=== PATIENT | female | born 1970 | race Caucasian/White ===

== ENCOUNTER → 2021-05-28 13:53 | Outpatient (BNVA) | payer MEDICAID, SELFPAY | PROVIDERS: PCP Registered Nurse; Visit Provider Nurse Practitioner Family | DX: G43.109 Migraine with aura, not intractable, without status migrainosus (principal); G25.81 Restless legs syndrome; R06.83 Snoring | CPT/HCPCS: 99212 ==

== ENCOUNTER → 2021-11-18 14:20 | Outpatient (BNVA) | payer MEDICAID, SELFPAY | PROVIDERS: PCP Registered Nurse; Visit Provider Nurse Practitioner Family | DX: G43.109 Migraine with aura, not intractable, without status migrainosus (principal); G25.81 Restless legs syndrome | CPT/HCPCS: 99212 ==

== ENCOUNTER → 2022-05-26 14:12 | Outpatient (BNVA) | payer MEDICAID, SELFPAY | PROVIDERS: PCP Registered Nurse; Visit Provider Nurse Practitioner Family | DX: Z13.89 Encounter for screening for other disorder (principal) ==

== ENCOUNTER 2022-12-17 13:18 | Outpatient (AMB) | payer OTHER, SELFPAY ==
--- NOTE | 2022-12-17 13:22 | A.OFFVIS_ITS ---
Intake Vital Signs 12/17/22 13:39 Height 5 ft 1 in Weight 210 lb BMI 39.7 BP 118/84 Blood Pressure Location Rt brachial Position Sitting Intake Visit Reasons: 6m follow up migraine-Confirmed Intake Note: Patient presents for 6 month follow up migraine. Patient states this is a follow up. Allergies Penicillins Allergy (Severe, Verified 12/17/22 13:40) Rash Medication List - Last Reconciled 12/17/22 by HOMAR Harrison albuterol sulfate 0.8333 mg inhalation QID PRN amitriptyline 10 mg PO BEDTIME 30 days aspirin (Adult Low Dose Aspirin) 81 mg PO DAILY atorvastatin 80 mg PO DAILY carbidopa-levodopa 10-100 mg 1 tab PO BEDTIME PRN 30 days cetirizine 10 mg PO DAILY epinephrine IM DIRECTED fluocinonide 0.05% appl topical Q OTHER DAY PRN isosorbide mononitrate ER 30 mg PO DAILY magnesium oxide 400 mg PO BEDTIME 30 days metoprolol tartrate 25 mg PO BID montelukast 10 mg PO DAILY nitroglycerin 0.4 mg sublingual Q5M PRN oxybutynin chloride ER 10 mg PO DAILY rizatriptan 5 - 10 mg (0.5 - 1 x 10 mg) PO Q2H PRN 21 days topiramate 50 mg (2 x 25 mg) PO BID 30 days HPI HPI Comments History of Present Illness Details 52-yr-old female presents for f/u visit. Pt denies any significant interval medical changes. Pt reports she had an increase in her headache frequency. She is now having 12- 14 headache days per month. She had seen her PCP, and her topiramate was increased to 50mg bid, which has helped some. She finds her as needed medications are not effective any longer. Her RLS is a bit more active. She is needing to take CD-LD about 3 times per night. 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 She has tried weight blankets- but was allergic and cannot tolertae even sheets on her feet d/t her arthritis. [facility] Medical History Benign paroxysmal vertigo of both ears Surgical History H/O neck surgery History of carpal tunnel surgery History of cardiac cath H/O shoulder surgery Family History Father Heart disease Mother HTN (hypertension) Stroke Cancer Social History Alcohol intake: current Alcohol intake frequency: holidays/special occasions only Patient Tobacco Use Status: Former Tobacco user Quit Date: 2017 Years Smoked: 25 +/- Review of Systems Const All systems reviewed & are unremarkable except as noted in HPI and below Physical Exam Vital Signs: Last Vital Signs BP 118/84 12/17/22 13:39 BMI result Body Mass Index 39.7 Const General: cooperative and no acute distress Orientation/consciousness: patient oriented x3 HEENT Head: Yes normocephalic Resp Effort & Inspection: normal respiratory effort and able to speak in complete sentences Neuro General: patient oriented x3, gait normal and CN's II-XI intact bilaterally Cognition (Neuro): normal cognition Motor exam (neuro): 5/5 motor strength present throughout Psych Appearance: grossly normal Mental Status: mental status grossly normal Speech and movement: Normal speech and movement present Affect: normal affect Attitude: cooperative Thought process: Normal thought process present Thought content: Normal thought content present Insight: Good insight present (Psych) Judgement: Good judgement present (Psych) Assessment & Plan Assessment & Plan (1) Migraine with aura: Code(s): G43.109 - Migraine with aura, not intractable, without status migrainosus (2) Restless leg syndrome: Code(s): G25.81 - Restless legs syndrome Plan For migraine prevention tx: Continue amitriptyline 10 mg q.h.s. Continue topiramate 50 mg bid. Future considerations- CGRP MaB. For acute migraine tx: Continue Naprosyn, Excedrin as needed p.r.n. Retry Nurtec ODT 75mg qd prn migraine attacks, as pt had previous good effect from the samples. Hold- Rizatriptan- lost effectiveness. Hold Fioricet- cannot use w/ Nurtec. Previous trials- Sumatriptan- ineffective. Nurtec sample- effective. ? For restless legs: Continue carbidopa levodopa 1 tab q.h.s. as needed Hold pregabalin 25 mg t.i.d. and Horizant 300mg bid- not covered Pt previously failed gabapentin. Continue to stretch lower extremities. ? f/u in 6 months or sooner prn. Medications: New rimegepant (Nurtec ODT) 75 mg orally daily PRN; 30 days 30 tabs 6RF migraine headache Coding Level of Care Code Est Pt Level 4 (56762) Diagnoses Migraine with aura G43.109 Restless leg syndrome G25.81
[2022-12-17 13:39] VITALS: BP 118/84; BMI 39.7
== END 2022-12-17 14:18 | disposition home or self-care (01) ==
PROVIDERS: PCP Registered Nurse; Visit Provider Nurse Practitioner Family
DX: G43.109 Migraine with aura, not intractable, without status migrainosus (principal); G25.81 Restless legs syndrome
CPT/HCPCS: 99214

== ENCOUNTER → 2022-12-17 13:18 | Outpatient (BNVA) | payer OTHER, SELFPAY | PROVIDERS: PCP Registered Nurse; Visit Provider Nurse Practitioner Family ==

== ENCOUNTER 2023-11-01 10:58 | Outpatient (AMB) | payer OTHER, SELFPAY ==
--- NOTE | 2023-11-01 11:03 | MHC.OFFVIS ---
Vital Signs 11/01/23 11:05 Height 5 ft 1 in Weight 209 lb BMI 39.5 BP 124/80 Blood Pressure Location Rt brachial Pulse 63 Pulse Source Pulse Oximeter Pulse Oximetry (%) 98 Oxygen Delivery Method Room Air Intake Visit Reasons: 6 mnts f/u appt for Migraines-CONF Intake Note: Patient migraines are about the same Allergies Penicillins Allergy (Severe, Verified 11/01/23 11:19) Rash Medication List - Last Reconciled 11/01/23 by HOMAR Harrison albuterol sulfate 0.8333 mg inhalation QID PRN amitriptyline 10 mg PO BEDTIME 30 days aspirin (Adult Low Dose Aspirin) 81 mg PO DAILY atorvastatin 80 mg PO DAILY carbidopa-levodopa 10-100 mg 1 tab PO BEDTIME PRN 30 days cetirizine 10 mg PO DAILY epinephrine IM DIRECTED fluocinonide 0.05% appl topical Q OTHER DAY PRN isosorbide mononitrate ER 30 mg PO DAILY magnesium oxide 400 mg PO BEDTIME 30 days metoprolol tartrate 25 mg PO BID montelukast 10 mg PO DAILY nitroglycerin 0.4 mg sublingual Q5M PRN oxybutynin chloride ER 10 mg PO DAILY rimegepant (Nurtec ODT) 75 mg orally daily PRN; 30 days semaglutide 0.25 mg subcut QWEEK topiramate 50 mg (2 x 25 mg) PO BID 30 days HPI Comments Details: 53-yr-old female presents for f/u visit. 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 She deneis associated warmth, swelling, tingling/numbness. States her inflammatory markers were elevated and PCP referred her to her graduate research assistant for ? of vasculitis, however rheumatology did not feel this was vasculitis. Pt was then referred to vascular however neither referral site took her insurance. Pt states that she has episodes of bilateral wrist through hands numbness f/b pins and needles, which lasts about 10 minutes. 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, but can happen at home as well. Sleeps on her back with arms extended. She has a remote h/o carpal tunnel repair in her 20s- she had pain as well as paresthesias. She has a h/o trigger finger release. Rheumatology gives her hand injections. Has chronic neck pain. No radiating pain. No hand weakness, but cannot open jars. Her migraines have been stable. Nurtec is working well. Not needing to take too often. RLS s/s stable on prn CD-LD. PFSH Medical History Benign paroxysmal vertigo of both ears Surgical History H/O neck surgery History of carpal tunnel surgery History of cardiac cath H/O shoulder surgery Family History Father Heart disease Mother HTN (hypertension) Stroke Cancer Social History Alcohol intake: current Alcohol intake frequency: holidays/special occasions only Patient Tobacco Use Status: Former Tobacco user Years Smoked: 25 +/- Physical Exam Vital Signs: Last Vital Signs Pulse 63 11/01/23 11:05 BP 124/80 11/01/23 11:05 Pulse Ox 98 11/01/23 11:05 Oxygen Delivery Method Room Air 11/01/23 11:05 BMI result Body Mass Index 39.5 Const General: cooperative and no acute distress Orientation/consciousness: patient oriented x3 Resp Effort & Inspection: normal respiratory effort and able to speak in complete sentences Neuro Other: Bilateral Tinnel, Phalen, medial compression tets - negative. BLE pale with visible varicose veins. Skin warm to the touch. General: patient oriented x3 Cranial nerves: Yes CN's II-XII intact bilaterally Cognition (Neuro): normal cognition Motor exam (neuro): 5/5 motor strength present throughout Deep tendon reflexes (DTR's): Right patellar reflex intensity grade: 2+ and Left patellar reflex intensity grade: 2+ Psych Appearance: grossly normal Mental Status: mental status grossly normal Speech and movement: Normal speech and movement present Affect: normal affect Attitude: cooperative Assessment & Plan Assessment & Plan (1) Migraine with aura: Code(s): G43.109 - Migraine with aura, not intractable, without status migrainosus Category: Medical (2) Restless leg syndrome: Code(s): G25.81 - Restless legs syndrome Category: Medical (3) Numbness and tingling in both hands: Code(s): R20.0 - Anesthesia of skin; R20.2 - Paresthesia of skin Category: Medical (4) Varicose veins of both lower extremities: Code(s): I83.93 - Asymptomatic varicose veins of bilateral lower extremities Category: Medical Plan For migraine prevention tx: Continue amitriptyline 10 mg q.h.s. Continue topiramate 50 mg bid. Future considerations- CGRP MaB. ? For acute migraine tx: Continue Naprosyn, Excedrin as needed p.r.n. Continue Nurtec ODT 75mg qd prn migraine attacks, as pt had previous good effect from the samples. Hold Fioricet- cannot use w/ Nurtec. Previous trials- Sumatriptan- ineffective. Rizatriptan- lost effectiveness. ? For restless legs: Continue carbidopa levodopa 1 tab q.h.s. as needed Hold pregabalin 25 mg t.i.d. and Horizant 300mg bid- not covered Pt previously failed gabapentin. Continue to stretch lower extremities. For BUE hand numbness/tingling- Pt advised to undergo BUE EMG/NCS. For BLE varicose veins/episodes of redness- Will refer pt for [facility] vascular consult. ? f/u in 6 months or sooner prn. Orders: Orders NE electromyogram (EMG) Today R20.0 - Anesthesia of skin, R20.2 - Paresthesia of skin NE nerve conduction velocity Today R20.0 - Anesthesia of skin, R20.2 - Paresthesia of skin Referrals Vascular Surgery Referral I83.93 - Asymptomatic varicose veins of bilateral lower extremities Medications: Refilled topiramate 50 mg (2 x 25 mg) PO BID 120 tabs 6RF 30 days amitriptyline 10 mg PO BEDTIME 30 tabs 6RF 30 days Discontinued rizatriptan max 2 tabs per day or 4 tabs per week Discontinued Reason: Doctor's Order 5 - 10 mg (0.5 - 1 x 10 mg) PO Q2H 21 days PRN 12 tabs 3RF migraine headache Coding Level of Care Code Est Pt Level 4 (05924) Diagnoses Migraine with aura G43.109 Restless leg syndrome G25.81 Numbness and tingling in both hands R20.0; R20.2 Varicose veins of both lower extremities I83.93
[2023-11-01 11:05] VITALS: BP 124/80; PULSE 63; O2SAT 98; BMI 39.5
== END 2023-11-01 12:00 | disposition home or self-care (01) ==
PROVIDERS: PCP Registered Nurse; Visit Provider Nurse Practitioner Family
DX: G43.109 Migraine with aura, not intractable, without status migrainosus (principal); G25.81 Restless legs syndrome; R20.0 Anesthesia of skin; R20.2 Paresthesia of skin; I83.93 Asymptomatic varicose veins of bilateral lower extremities
CPT/HCPCS: 99214

== ENCOUNTER → 2023-11-01 10:58 | Outpatient (BNVA) | payer OTHER, SELFPAY | PROVIDERS: PCP Registered Nurse; Visit Provider Nurse Practitioner Family ==

== ENCOUNTER 2023-11-24 14:20 | Outpatient (REF) | payer OTHER, SELFPAY ==
--- NOTE | 2023-11-24 14:23 | EMG_ITS ---
Chief complaint: History of migraine, cervical ACDF, bilateral Carpal Tunnel Syndrome surgeries more than 20 years ago, with new onset 1 month of bilateral hand numbness. Reason for referral: Evaluate for Carpal Tunnel Syndrome Referred by: Hoa Landrum NP Procedure done: Bilateral upper extremities NCS/EMG Precautions and/or limitations: Past cervical fusion The limb temperature was monitored continuously and remained between 32-36 degrees C during the performance of the NCS. Nerve Conduction Studies Anti Sensory Summary Table ?Stim Site NR Onset (ms) Norm Onset (ms) Peak (ms) Norm Peak (ms) O-P Amp (?V) Norm O-P Amp Site1 Site2 Delta-0 (ms) Dist (cm) Jordan (m/s) Norm Jordan (m/s) Left Median Anti Sensory (2nd Digit) Wrist ? 2.8 3.6 <3.6 51.4 >10 Wrist 2nd Digit 2.8 14.0 50 Right Median Anti Sensory (2nd Digit) Wrist ? 2.7 3.5 <3.6 53.3 >10 Wrist 2nd Digit 2.7 14.0 52 Left Ulnar Anti Sensory (5th Digit) Wrist ? 2.8 3.5 <3.7 16.8 >15.0 Wrist 5th Digit 2.8 14.0 50 Right Ulnar Anti Sensory (5th Digit) Wrist ? 2.6 3.5 <3.7 14.1 >15.0 Wrist 5th Digit 2.6 14.0 54 Motor Summary Table ?Stim Site NR Onset (ms) Norm Onset (ms) O-P Amp (mV) Norm O-P Amp iAmp (mV) Amp (1st) (%) Site1 Site2 Delta-0 (ms) Dist (cm) Jordan (m/s) Norm Jordan (m/s) Left Median Motor (Abd Poll Brev) Wrist ? 3.8 <3.9 6.4 >4.5 7.8 100.0 Elbow Wrist 4.2 19.0 45 >45 Elbow ? 8.0 4.5 6.0 70.3 Right Median Motor (Abd Poll Brev) Wrist ? 3.8 <3.9 10.1 >4.5 12.5 100.0 Elbow Wrist 3.9 18.0 46 >45 Elbow ? 7.7 8.7 10.7 86.1 Left Ulnar Motor (Abd Dig Minimi) Wrist ? 2.9 <3.0 9.1 >5 12.6 100.0 B Elbow Wrist 3.0 15.5 52 >45 B Elbow ? 5.9 8.1 11.0 89.0 A Elbow B Elbow 2.1 10.0 48 >45 A Elbow ? 8.0 9.8 13.1 107.7 Right Ulnar Motor (Abd Dig Minimi) Wrist ? 3.0 <3.0 7.7 >5 9.3 100.0 B Elbow Wrist 3.0 16.5 55 >45 B Elbow ? 6.0 7.1 9.0 92.2 A Elbow B Elbow 1.7 10.0 59 >45 A Elbow ? 7.7 6.9 9.0 89.6 Comparison Summary Table ?Stim Site NR Peak (ms) Norm Peak (ms) P-T Amp (?V) Site1 Site2 Delta-P (ms) Norm Delta (ms) Left Median/Radial Dig I Comparison (Digit 1 - 10cm) Median ? 3.0 <2.9 30.5 Median Radial 0.4 Radial ? 2.6 <2.8 39.5 Right Median/Radial Dig I Comparison (Digit 1 - 10cm) Median ? 3.3 <2.9 65.0 Median Radial 0.7 Radial ? 2.6 <2.8 26.0 EMG ?Side Muscle Nerve Root Ins Act Fibs Psw Amp Dur Poly Recrt Int Pat Comment Right 1stDorInt Ulnar C8-T1 Nml Nml Nml Incr Incr 0 Nml Complete Right FlexCarRad Median C6-7 Nml Nml Nml Nml Nml 0 Nml Complete Right Biceps Musculocut C5-6 Nml Nml Nml Nml Nml 0 Nml Complete Right Triceps Radial C6-7-8 Nml Nml Nml Nml Nml 0 Nml Complete Right Deltoid Axillary C5-6 Nml Nml Nml Nml Nml 0 Nml Complete Left 1stDorInt Ulnar C8-T1 Nml Nml Nml Nml Nml 0 Nml Complete Left FlexCarRad Median C6-7 Nml Nml Nml Nml Nml 0 Nml Complete Left Biceps Musculocut C5-6 Nml Nml Nml Nml Nml 0 Nml Complete Left Triceps Radial C6-7-8 Nml Nml Nml Nml Nml 0 Nml Complete Left Deltoid Axillary C5-6 Nml Nml Nml Nml Nml 0 Nml Complete Right ExtIndicis Radial (Post Int) C7-8 Nml Nml Nml Nml Nml 0 Nml Complete FINDINGS: Significant interlatency difference seen between right median and radial nerve, 0.7. 0.4 on left side. Otherwise rest of motor and sensory nerves tested showed normal latencies, amplitudes and conduction velocities. Concentric needle EMG was performed in selected muscles of the bilateral upper extremities. Study revealedl signs of electric abnormalities as shown in the table above. Increased amplitude and duration seen on right FDI but in no other C8 innervated muscles. IMPRESSION: 1. 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 2. Chronic reinnervation changes seen on right FDI muscle on needle EMG. No other denervation or reinnervation seen on other C8 innervated muscles. This is a possible remnant of past cervical radiculopathy and/or surgery. 3. There is no electrodiagnostic evidence for ulnar neuropathy or brachial plexopathy. Thank you for your kind referral. Karyn Franz MD, NIDA Board Certified, [place] Board [employer] and Rehabilitation (ABPMR) Board Certified, [place] Board of Electrodiagnostic Medicine (ABEM) CODIN 26184 x 2 MTDD
== END 2023-11-24 14:21 | disposition home or self-care (01) ==
LOC: HO.NEURO 14:20
PROVIDERS: Visit Provider Nurse Practitioner Family
DX: R20.0 Anesthesia of skin (principal); R20.2 Paresthesia of skin
CPT/HCPCS: 95886; 95911

== ENCOUNTER → 2023-11-24 14:23 | Outpatient (BNV) | payer OTHER, SELFPAY | PROVIDERS: Visit Provider Physical Medicine & Rehabilitation | DX: R20.2 Paresthesia of skin (principal); R20.0 Anesthesia of skin; G56.11 Other lesions of median nerve, right upper limb | CPT/HCPCS: 95886; 95911 ==

== ENCOUNTER 2024-01-19 12:57 | Outpatient (AMB) | payer OTHER, SELFPAY ==
--- NOTE | 2024-01-19 13:13 | MHC.OFFVIS ---
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 Patient has varicose veins mostly on left leg. Pain to the touch on lower legs. States she gets a lot of tana horses. Non diabetic. Patient is a smoker. 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 She now presents to us for lower extremity vascular evaluation. Upon discussion with firm she reports that she had seen rheumatology and did not feel that her issues were related to vasculitis. 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 She reports that her legs are extremely swollen and painful by the end of the day. She does smoke a pack per day and most recently restarted with issues with her father and she is a nondiabetic. She does have a known history of arthritis as well. She reports that the discomfort is left more so than right. Patient denies any previous venous surgery or injections. Patient denies any history of DVT/ PE. Patient denies any history of phlebitis. Trial of compression includes - [id number] They now present for vascular evaluation [facility] Medical History Benign paroxysmal vertigo of both ears Surgical History H/O neck surgery History of carpal tunnel surgery History of cardiac cath H/O shoulder surgery Family History Father Heart disease Mother HTN (hypertension) Stroke Cancer Social History Alcohol intake: current Alcohol intake frequency: holidays/special occasions only Patient Tobacco Use Status: Former Tobacco user Years Smoked: 25 +/- Review of Systems Const All systems reviewed & are unremarkable except as noted in HPI and below Reports no additional complaints ENT Reports Normal hearing present Card Denies chest pain, Denies chest pain at rest, Denies chest pain with activity and Denies pedal edema Resp Denies cough GI Denies abdominal pain Musc Denies abnormal gait, Denies muscle cramps and Denies radiating pain into limb Skin/Breast Denies skin ulcer and Denies wounds Neuro Reports Normal hearing present and Denies abnormal gait Psych Reports no additional complaints Physical Exam Const General: cooperative, healthy appearing and comfortable Orientation/consciousness: oriented to person, oriented to place and oriented to time HEENT Head: Yes normal to inspection Neck Neck: Yes normal visual inspection Carotids: no bruits Chest Chest palpation & inspection: normal inspection of the chest Resp Effort & Inspection: normal respiratory effort and able to speak in complete sentences Auscultation: clear to auscultation bilaterally, no crackles, no rales, no rhonchi and no wheezes Cardio Rate: regular rate Rhythm: regular rhythm Heart sounds: S1 normal heart sound present and S2 normal heart sound present Bruits: no carotid bruits Peripheral pulses: Peripheral pulses 2+ throughout GI Inspection: Yes normal to inspection Skin Wounds: no wounds Hair: normal Neuro General: oriented to person, oriented to place and oriented to time Cranial nerves: Yes CN's II-XII intact bilaterally and Yes Normal hearing present Cognition (Neuro): normal cognition Motor exam (neuro): 5/5 motor strength present throughout Extrem Other: venous exam: +1 edema left greater than right some mild superficial varicosities General: No clubbing, No cyanosis and Yes edema Psych Appearance: grossly normal Mental Status: mental status grossly normal Speech and movement: Normal speech and movement present Assessment & Plan Assessment & Plan (1) Varicose veins of left lower extremity with inflammation: Code(s): I83.12 - Varicose veins of left lower extremity with inflammation Category: Medical Plan: Unclear etiology of lower extremity pain. She does have palpable arterial pulses. I have taken the liberty of ordering venous insufficiency testing to rule that out. This may be multifactorial in nature just by the mere fact that she has arthritis and most recently had a knee injection. She will follow up with us after venous insufficiency testing. We did discuss routine conservative measures including compression elevation and exercise. Thank you for allowing us to assist in her care. If there are any questions or concerns please do not hesitate to contact us. Orders: Orders US venous duplex LE BI 1 Week I83.12 - Varicose veins of left lower extremity with inflammation Coding Level of Care Code New Pt Level 4 (03789) Diagnoses Varicose veins of left lower extremity with inflammation I83.12
== END 2024-01-19 13:31 | disposition home or self-care (01) ==
PROVIDERS: PCP Registered Nurse; Visit Provider Surgery Vascular Surgery
DX: I83.12 Varicose veins of left lower extremity with inflammation (principal)
CPT/HCPCS: 99204

== ENCOUNTER → 2024-01-19 12:57 | Outpatient (BNVA) | payer OTHER, SELFPAY | PROVIDERS: PCP Registered Nurse; Visit Provider Surgery Vascular Surgery ==

== ENCOUNTER 2024-02-07 09:53 | Outpatient (REF) | payer OTHER, SELFPAY ==
--- NOTE | ~2024-02-07 | US_ITS ---
EXAMINATION: US VENOUS BILATERAL LOWER EXTREMITIES (REFLUX EXAM) CLINICAL INDICATION: Leg pain and varicose veins. COMPARISON: None available. TECHNIQUE: Color-flow triplex imaging and compression Doppler was performed to evaluate both the deep and the superficial systems bilaterally. To evaluate the superficial system, the examination was performed in the upright position. Color-flow Doppler ultrasound and compression ultrasound were utilized. In addition, maneuvers were utilized to demonstrate reflux. FINDINGS: 1. DEEP VENOUS ULTRASOUND OF THE RIGHT LOWER EXTREMITY: Respiratory variation, normal compression and augmented flow are noted in the right common femoral vein as well as the right popliteal vein and there is no evidence of deep venous thrombosis at these locations. There is no evidence of reflux in the deep system in either the common femoral vein or the popliteal vein. There is no evidence of a Verdin's cyst. 2. SUPERFICIAL ULTRASOUND WITH DOPPLER OF RIGHT LOWER EXTREMITY: The right great saphenous vein at the saphenofemoral junction measures 7 mm, at the proximal thigh 2 mm, at the mid thigh 2 mm, above the knee 1 mm, at the knee 2 mm, [id number] 2 mm, midcalf 1 mm and at the ankle measures 1 mm. Reflux of greater than 3 seconds is noted [id number]. Duplicated Right Great Saphenous Vein: Lateral accessory saphenous measuring 3 mm without reflux. The right small saphenous vein measures 2 mm and shows no reflux. Accessory Vein of Giacomini: None. Incompetent Perforators: None. Varices Present: None. 3. DEEP VENOUS ULTRASOUND OF THE LEFT LOWER EXTREMITY: Respiratory variation, normal compression and augmented flow are noted in the left common femoral vein as well as the left popliteal vein and there is no evidence of deep venous thrombosis at these locations. There is no evidence of reflux in the deep system in either the common femoral vein or the popliteal vein. There is no evidence of a Verdin's cyst. 4. SUPERFICIAL ULTRASOUND WITH DOPPLER OF LEFT LOWER EXTREMITY: Left great saphenous vein at the saphenofemoral junction measures 6 mm, at the proximal thigh 2 mm, at the mid thigh 2 mm, above the knee 2 mm, at the knee 2 mm, [id number] 1 mm, midcalf 1 mm and at the ankle measures 1 mm. There is no reflux demonstrated in the left great saphenous vein. Duplicated Left Great Saphenous Vein: 2 mm lateral accessory saphenous which does not reflux. The left small saphenous vein measures 2 mm and shows no reflux. Accessory Vein of Giacomini: None. Incompetent Perforators: None. Varices Present: None. ADDITIONAL FINDINGS: Incidental note made of a 4.0 x 2.0 x 3.2 cm medial Bakers cyst. US/US venous insuf bilat IMPRESSION: 1. No evidence of reflux or thrombus in the common femoral veins or popliteal veins bilaterally. 2. The right great saphenous vein shows reflux [id number]. 3. The left great saphenous vein shows no reflux. 4. The small saphenous veins are competent bilaterally. 5. Incidental note made of a 4 cm left Verdin's cyst. Electronically signed by: Abdias Granados MD 02/27/2024 10:30 AM PHIL ESPARZA
== END 2024-02-07 09:54 | disposition home or self-care (01) ==
LOC: HO.US 09:53
PROVIDERS: PCP Registered Nurse; Visit Provider Surgery Vascular Surgery
DX: I83.12 Varicose veins of left lower extremity with inflammation (principal)
CPT/HCPCS: 93970

== ENCOUNTER 2024-03-06 08:41 | Outpatient (AMB) | payer OTHER, SELFPAY ==
[2024-03-06 09:08] VITALS: BMI 39.5
--- NOTE | 2024-03-06 09:08 | MHC.OFFVIS ---
Vital Signs 03/06/24 09:08 Height 5 ft 1 in Weight 209 lb BMI 39.5 Intake Visit Reasons: follow up s/p US 02/07/24 Intake Note: follow up US 02/07/24 for left LE pain and VV w/ cramping. states she had a bruise on her left LE that was not caused from injury, unsure what is was from but very painful. Accompanied by: Son Allergies Penicillins Allergy (Severe, Verified 03/06/24 09:10) Rash [facility] follow up s/p US 02/07/24: Details: Very pleasant 53-year-old female presents for follow-up regarding venous insufficiency. 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 She now presents for follow-up with venous insufficiency testing. She does have large left lower extremity varicosities which have been a source of pain and discomfort for her. She has used compression with minimal relief. [facility] Medical History Benign paroxysmal vertigo of both ears Surgical History H/O neck surgery History of carpal tunnel surgery History of cardiac cath H/O shoulder surgery Family History Father Heart disease Mother HTN (hypertension) Stroke Cancer Social History Alcohol intake: current Alcohol intake frequency: holidays/special occasions only Patient Tobacco Use Status: Former Tobacco user Years Smoked: 25 +/- Review of Systems Const Reports as per HPI ENT Reports no additional complaints Card Denies chest pain, Denies chest pain at rest and Denies chest pain with activity Resp Denies chest congestion and Denies cough GI Reports no additional complaints Musc Details: pain over varicosities, aching of lower extremities, swelling, cramping, heaviness and tiredness, itching Denies abnormal gait Skin/Breast Reports pruritus and Denies wounds Neuro Reports no additional complaints and Denies abnormal gait Psych Denies no additional complaints Physical Exam Vital Signs: BMI result Body Mass Index 39.5 Const General: cooperative, healthy appearing and comfortable Orientation/consciousness: oriented to person, oriented to place and oriented to time Neck Carotids: no bruits Chest Chest palpation & inspection: normal inspection of the chest and normal palpation of entire chest wall Resp Effort & Inspection: normal respiratory effort and able to speak in complete sentences Cardio Rate: regular rate Heart sounds: S1 normal heart sound present and S2 normal heart sound present Peripheral pulses: Peripheral pulses 2+ throughout GI Inspection: Yes normal to inspection Skin Other: +2 edema, large rope-like varicosities greater than 4 mm left lateral leg CEAP Classification C4 - skin color changes Ep - Etiology Primary As - superficial veins P - reflux General skin exam: dry skin Neuro General: oriented to person, oriented to place and oriented to time Extrem Right lower extremity: full ROM, normal capillary refill and edema Left lower extremity: full ROM, normal capillary refill and edema Psych Mental Status: mental status grossly normal Results Reviewed Results Reviewed: Brief summary of venous insufficiency testing is as follows: right great saphenous vein: negative right small saphenous vein: negative right accessory vein: none present left great saphenous vein: negative left small saphenous vein: negative left accessory vein: none present Please note there is no evidence of any venous aneurysms or significant tortuosity Assessment & Plan Assessment & Plan (1) Varicose veins of left lower extremity with inflammation: Code(s): I83.12 - Varicose veins of left lower extremity with inflammation Category: Medical Plan: This patient has varicose veins with inflammation. They continue to be a source of discomfort for the patient. The patient has tried conservative treatment with compression, leg elevation and exercise program for over 3 months time. They have been compliant with all treatment. This has provided minimal relief for the patient. I do not anticipate this course of treatment will alter the underlying etiology. The patient has been scheduled for lower extremity venous treatment inclusive of --- left leg microphlebectomy. Risks, benefits, and complications of this procedure has been discussed in detail with the patient including but not limited to bleeding, infection, and the development of a DVT. The patient has demonstrated a clear understanding and has consented. We will schedule the patient as soon as possible. Thank you for allowing us to participate in this patient's care. If there are any questions or concerns please do not hesitate to contact us. Coding Level of Care Code Est Pt Level 4 (14793) Diagnoses Varicose veins of left lower extremity with inflammation I83.12
--- OUTSIDE RECORDS SUMMARY | 2024-03-07 19:03 | XMS_ITS | Continuity of Care Document ---
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 Plan of Treatment Reminders Order Date Submit Date Provider Last Modified By Organization Details Last Modified Time Details Appointments FOLLOW UP 30MIN 2024 09:15A M Malinda Hidalgo PA-C Not available Not available Not available Lab rapid flu (A+B) 2023 024 [facility] In-Office Order, Internal Use Only DO Not Attach Compendium DO Not Attach Compendium, Do Not Delete/merge, [id number] 02/25/2024 10:46:03 respirato ry infection s panel, unspecifi ed specimen 2023 024 [facility], [address], [place], [address], 02/27/2024 20:05:59 Referral None recorded. Procedures None recorded. Surgeries None recorded. Imaging XR, chest, 2 view 2023 024 [facility] Not available 02/26/2024 08:29:00 Medication Orders doxycycli ne hyclate 100 mg capsule 2023 024 [id number], [address] [place], [address], 02/25/2024 10:45:29 Patient TargetsNo targets recorded. Patient Instructions Encounter Date Encounter Id Patient Instructions Last Modified By Organization Details Last Modified Time 02/25/2024 [id number] upper respirator y infection (cold): care instructions Not available 02/25/2024 10:37:42 pneumonia: care instructions Not available 02/25/2024 10:45:24 Reason for Referral None Reported. Results Created Date Observation Date Name Description Value Unit Range Abnormal Flag Note LastModifiedBy Organization Detail LastModifiedTime 02/25/2002/25/2024 rapid flu (A+B) Flu A negati ve Not Available In-Office Order Internal Use Only DO Not Attach Compendium DO Not Attach Compendium, Do Not Delete/merge, [id number] 02/25/2024 10:28:56 02/25/20 24 02/25/2024 rapid flu (A+B) Flu B negati ve Not Available In-Office Order Internal Use Only DO Not Attach Compendium DO Not Attach Compendium, Do Not Delete/merge, [id number] 02/25/2024 10:28:56 02/26/20 24 02/25/2024 XR, chest , 2 view Chest 2 Views Fronta l and Lat Reason : commun ity axquir ed pneumo monique-ic d-10 COMPAR EDISON: 2018. FINDIN GS: LINES AND TUBES: None. LUNGS AND PLEURA : Clear lungs. Normal pulmon nataly vascul arity. No pleura l effusi on. No pneumo thorax . HEART, MEDIAS TINUM AND TROY: Heart is normal in size. Normal medias tinal and hilar contou r. BONES AND SOFT TISSUE S: No acute abnorm ality. IMPRES JENI: No acute abnorm ality. WSN: [id number] Orderi ng Physic duc: Keyur ta, Eulogio ie Dictat ed By: Nery OTT, Isaura hernandez O Dictat ed Date/T jody: 8:25 am Review ed By: Isaura Gabriel MD Signed By: Isaura Gabriel MD Signed Date/T jody: 8:25 am Transc ribed By: GAIL Transc ribed Date/T jody: 8:24 am Patialejandra lucero Class: Outpat ient [facility] (Outpt Imaging) [address], [place], [address], 02/26/2024 20:02:12 02/27/20 24 02/07/2024 [place], [facility] mity No observ ation record ed. [facility] (Medical Records) [address] [place], [address], 02/28/2024 09:06:36 Result Notes None recorded. Problems Name Problem SNOMED Code Status Onset Date Resolution Date Notes Provider Name and Address Organization Details Recorded Time Epigastr ic pain 57517798 Completed 05/10/2016 Jaylene betts [facility] [place] 7 11:02:22 Abdomina l pain 09695485 Completed 05/10/2016 Jaylene betts [facility] [place] 7 11:01:53 Allergic rhinitis 54307422 Completed 200910/09/2013 RECORDED 06/27/19 10 10:27AM BY RACHAEL MARRUFO MA, ANNOTATI ON/ADDEN DUM Jaylene betts [facility] [place] 7 08:51:51 Allergic rhinitis 75200190 Completed 05/10/2016 Jaylene betts [facility] [place] 7 08:51:51 Asthma 547581058 Active Maxine betts [facility] [place] 6 12:08:51 Acute asthma 699472197 Completed 05/10/2016 Jaylene betts [facility] [place] 7 11:02:10 Chest pain 78685730 Completed 05/10/2016 Jaylene betts [facility] [place] 7 11:02:04 Tobacco dependen ce syndrome 56875153 Completed 07/20/2018 Malinda Hidalgo, [facility] [address], [facility] [place], [address], [facility] 4 10:10:19 Elevated blood-pr essure reading without diagnosi s of hyperten jeni 932022497 Completed 201010/09/2013 RECORDED 12/22/19 11 3:26PM BY RACHAEL MARRUFO MA, ANNOTATI ON/ADDEN DUM Maxine aguilera null, [facility] [place] 6 12:08:51 Enthesop athy of hip region 76129833 Active Maxine betts, [facility] [place] 6 12:08:51 Gastroes ophageal reflux disease 889812404 Completed 200910/09/2013 RECORDED 06/27/19 10 10:27AM BY RACHAEL MARRUFO MA, ANNOTATI ON/ADDEN DUM Maxine aguilera null, [facility] [place] 6 12:08:51 Essentia l hyperten jeni 19689998 Active Maxine betts, [facility] [place] 6 12:08:51 Influenz a vaccine needed [id number] 06 Completed 05/10/2016 Jaylene betts, [facility] [place] 7 11:01:42 General examinat ion of patient Completed 200710/09/2013 RECORDED 11/28/19 08 2:32PM BY RACHAEL MARRUFO MA, ANNOTATI ON/ADDEN DUM Maxine betts, [facility] [place] 6 12:08:51 Influenz a with respirat ory manifest ation other than pneumoni a Completed 05/10/2016 Jaylene betts, [facility] [place] 7 11:02:29 Low back pain 696476364 Completed 200910/09/2013 RECORDED 06/27/19 10 10:27AM BY RACHAEL MARRUFO MA, ANNOTATI ON/ADDEN DUM Maxine betts [facility] [place] 6 12:08:51 Migraine 51604693 Active Maxine betts [facility] [place] 6 12:08:51 Eruption 430100627 Completed 200710/09/2013 RECORDED 11/28/19 08 2:32PM BY RACHAEL MARRUFO MA, ANNOTATI ON/ADDEN DUM Malinda Hidalgo, [facility] [address] [address] [place] [address] 2 13:14:35 Restless legs 15435076 Completed 05/10/2016 Jaylene betts, [facility] [place] 8 11:35:16 Adult health examinat ion Completed 05/10/2016 Jaylene betts, [facility] [place] 7 11:02:00 Dermatop hytosis of the body Active Maxine betts [facility] [place] 6 12:08:51 Injury of elbow 550283756 Completed 05/10/2016 Jaylene betts [facility] [place] 7 11:01:45 Allergy Completed 05/10/2016 Jaylene betts [facility] [place] 7 11:01:39 Allergic rhinitis 28414937 Completed 200911/05/2013 RECORDED 06/27/19 10 10:27AM BY RACHAEL MARRUFO MA, ANNOTATI ON/ADDEN DUM Jaylene betts [facility] [place] 7 08:51:51 Elevated blood-pr essure reading without diagnosi s of hyperten jeni 093161170 Completed 201011/05/2013 RECORDED 12/22/19 11 3:26PM BY RACHAEL MARRUFO MA, ANNOTATI ON/ADDEN DUM Maxine Tiesharob aguilera null, [facility] [place] 6 12:08:51 Gastroes ophageal reflux disease 296260247 Completed 200911/05/2013 RECORDED 06/27/19 10 10:27AM BY RACHAEL MARRUFO MA, BENNIEATI ON/ADDEN DUM Maxine Biswas ale null, [facility] [place] 6 12:08:51 General examinat ion of patient Completed 200711/05/2013 RECORDED 11/28/19 08 2:32PM BY RACHAEL MARRUFO MA, BENNIEATI ON/ADDEN DUM Maxine FullerEddie ale null, [facility] [place] 6 12:08:51 Follow-u p encounte r Completed 05/10/2016 Jaylene betts, [facility] [place] 7 11:02:18 Low back pain 707544819 Completed 200911/05/2013 RECORDED 06/27/19 10 10:27AM BY RACHAEL MARRUFO MA, ERICH ON/ADDEN DUM Maxine FullerSubhashrob aguilera null, [facility] [place] 6 12:08:51 Eruption [id number] Completed 200711/05/2013 RECORDED 11/28/19 08 2:32PM BY RACHAEL MARRUFO MA, ANNOTATI ON/ADDEN DUM Malinda Hidalgo [facility] [address] [address] [facility] 2 13:14:35 Body mass index 40+ - severely obese 038709817 Active Gregoria betts, [facility] [place] 8 17:58:43 Thoracic back pain 341133217 Active Maxine betts, [facility] [place] 6 12:08:51 Cough 50240058 Completed 05/10/2016 Jaylene betts, [facility] [place] 7 11:02:35 Urogenit al finding 398946652 Active STORY: RIGHT KIDNEY CYST U/S 07/05 Maxine betts, [facility] [place] 6 12:08:51 Thumb injury 676383447 Completed 05/10/2016 Jaylene betts, [facility] [place] 7 11:01:49 Bunion 328937112 Completed 05/10/2016 Jaylene betts, [facility] [place] 7 11:02:37 Disorder of breast 01469981 Completed 05/10/2016 Jaylene betts [facility] [place] 7 11:02:24 Metatars algia 51233339 Active Maxine betts [facility] [place] 6 12:08:51 Acute bronchit is 90348609 Completed 03/27/2016 [place], [facility] [place] 6 10:22:54 Pleuriti c pain 2713030 Completed 05/10/2016 Jaylene betts [facility] [place] 7 11:01:57 Atypical chest pain 945983216 Active Maxine betts [facility] [place] 6 12:13:25 Allergic rhinitis 88861992 Completed 201606/17/2016 Jaylene betts [facility] [place] 7 08:51:51 Hyperlip idemia 61811020 Active 2017 Arely Lopez PA-C [address], [place], [address] [place] [address] 8 13:20:18 Restless legs 87716865 Active 2017 Jaylene betts [facility] [place] 8 11:35:16 Snoring 87988379 Active 2017 Jaylene Díaz MA null, [facility] [place] 8 11:35:33 Heart disease 75592241 Active 07/2017 had pos ETT, sent for cardiac cath, had 90% blockage of LAD; stented Dr Tere araya null, [facility] [place] 9 15:32:25 Ex-smoke r 1980816 Active 2017 Rachael rowe [place] null, [facility] [place] 9 09:39:52 Suspecte d COVID-19 060443717 Completed 09/23/2020 Removal Reason: Problem added by user [email or web address] from the COVID-19 watch flag Shonda Vuong null, [facility] [place] 1 14:36:15 Prediabe michele 269582467 Active 2021 Malinda Hidalgo, [facility] [address], [place], [address], [facility] 2 13:14:34 Eruption 644015868 Active 2021 RECORDED 11/28/19 08 2:32PM BY RACHAEL MARRUFO MA, ANNOTATI ON/ADDEN DUM Malinda Hidalgo [facility] [address], [place], [address], [facility] 2 13:14:34 Fatigue 70772380 Active 2021 Malinda Hidalgo, [facility] [address], [place], [address], [facility] 2 13:23:33 Morbid obesity 287657436 Active 2021 Denise Dallas null, [facility] [place] 2 15:15:41 Benign paroxysm al position al vertigo 723150252 Active 2021 Malinda Hidalgo [facility] [address], [place], [address], [facility] 2 09:11:59 Tobacco dependen ce syndrome 63909863 Active 2023 Malinda Hidalgo [facility] [address], [place], [address], [facility] 4 10:10:19 Neck pain 96269031 Active 2023 Malinda Hidalgo [facility] [address], [place], [address], [facility] 4 12:17:05 Vasculit is of the skin 05561720 Active 2023 ALEXI Jane [address], [place], [address], [facility] 4 10:17:48 Venous varices 970442465 Active 2023 Malinda Hidalgo [facility] [address], [place], [address], [facility] 4 10:18:57 Overacti ve urinary bladder 687235625 Active 2023 ALEXI Jane [address], [place], [address], [facility] 4 09:27:28 Headache 24272217 Active 2023 Malinda Hidalgo [facility] [address], [place], [address], [facility] 4 09:39:53 Problem Notes None recorded. Procedures Surgical History Date Name Laterality Status Provider Name and Address Organization Details Recorded Time 06/20/19 Most Recent Mammogram completed Maxine Gallo MA [facility] [place] 10/05/2022 09:02:08 12/27/19 21 Date of Last Pap Smear completed Monica Mesa MA [facility] [place] 09/22/2021 13:06:35 06/15/19 21 Mammogram screening completed Brittany Green [facility] [place] 06/24/2020 16:15:31 05/31/19 19 angiography of coronary artery completed Kathy McCoy [facility] [place] 05/30/2018 09:37:32 08/06/19 18 Coronary art/grft angio s&i completed Bella Lopezno [facility] [place] 08/10/2017 11:28:44 02/19/20 15 Ultrasound breast complete completed Dilia Howe [facility] [place] 02/19/2015 09:44:02 release of trigger thumb completed Rachael mendez MA [facility] [place] 04/05/2018 14:55:44 Tonsillectomy completed Monica jones MA [facility] [place] 09/22/2021 12:54:58 Imaging Results None recorded. Procedure Notes None recorded. Medical Equipment None Reported. Allergies Allergen ID Allergen Name Allergen Category Reaction Reaction Severity Criticality Documentation Date Start Date Code Code System Note Provider Name and Address Organization Details Recorded Time 17141 Glycine max (substanc e) environme nt,food,m edication other Not available Not available 11/02/20132013 12573 5007 SNOMED [place] [facility] [place] 2 12:54:40 30281 potato allergeni c extract food Not available Not available Not available 04/05/2018 45214 2 RxNorm [place] Martinez [facility] [place] 2 12:54:40 7541 Product containin g angiotens in-conver ting enzyme inhibitor (product) medicatio n cough Not available Not available 10/09/20132013 71482 009 SNOMED Lisin opril [place] Garzon [facility] [place] 5 13:15:24 7542 omeprazol e medicatio n abdominal pain Not available Not available 10/09/20132013 7646 RxNorm [place] Martinez, [facility] [place] 2 12:54:40 7543 Medicinal product containin g penicilli n and acting as antibacte rial agent (product) medicatio n other Not available Not available 10/09/20132013 50059 05 SNOMED [facility] 13:15:24 Medications Name Sig Start Date Stop Date Status Note LastModified by Organization Details LastModified Time carbidopa /levodopa 10-100 mg tabs 1 tablet daily by mouth 06/17 completed Not Available Not Available Not Available epipen 2-liban 0.3 mg/0.3ml soaj 06/12 completed Not Available Not Available Not Available naproxen 500 mg tabs 06/12 completed Not Available Not Available Not Available flovent hfa 110 mcg/act aero 06/12 completed Not Available Not Available Not Available monteluka st sodium 10 mg tabs 06/12 completed Not Available Not Available Not Available cetirizin e hcl/pseud oephedrin e hcler 5-120 mg tb12 1 tablet daily by mouth 05/10 completed Not Available Not Available Not Available flucelvax 1839-3673 .5 ml israel 06/12 completed Not Available Not Available Not Available Elocon 0.1 % topical cream APPLY A THIN LAYER TO THE AFFECTED AREA(S) BY TOPICAL ROUTE ONCE DAILY 04/05 completed Not Available Not Available Not Available cyclobenz aprine 10 mg tablet TAKE ONE TABLET BY MOUTH THREE TIMES A DAY FOR 5 DAYS 10/03 completed Not Available Not Available Not Available budesonid e 32 mcg/actua tion nasal spray 1 SPRAY INTO EACH NOSTRIL EVERY DAY 11/14 completed Not Available Not Available Not Available bupropion HCl SR 150 mg tablet,12 hr sustained -release TAKE 1 TABLET BY MOUTH TWICE A DAY 01/25 completed Not Available Not Available Not Available atorvasta tin 80 mg tablet TAKE ONE TABLET BY MOUTH EVERY DAY active Not Available Not Available No t Available prednison e 10 mg tablet TAKE 5 DAILY FOR 2 DAYS THE 4 DAILY FOR 2 DAYS THEN 3 DAILY FOR 2 DAYS THEN 2 DAILY FOR 2 DAYS THEN 1 DAILY FOR 2 DAYS 09/22 completed Not Available Not Available Not Available doxycycli ne hyclate 100 mg capsule TAKE ONE CAPSULE BY MOUTH TWICE A DAY FOR 10 DAYS active Not Available Not Available No t Available albuterol sulfate 2.5 mg/3 mL (0.083 %) solution for nebulizat ion Inhale 1 mL 4 times a day by nebuliza tion route as needed for 30 days. 2023 active Not Available Not Available Not Avai lable cetirizin e 10 mg tablet TAKE ONE TABLET BY MOUTH EVERY DAY DIRECTED active Not Available Not Available No t Available oxybutyni n chloride ER 10 mg tablet,ex tended release 24 hr TAKE ONE TABLET BY MOUTH EVERY DAY active Not Available Not Available No t Available azithromy winter 250 mg tablet TAKE 2 TABLETS (500 MG) BY ORAL ROUTE ONCE DAILY FOR 1 DAY THEN 1 TABLET (250 MG) BY ORAL ROUTE ONCE DAILY FOR 4 DAYS 02/12 completed Not Available Not Available Not Available ibuprofen 800 mg tablet Take 1 tablet 3 times a day by oral route with meals for 30 days. 05/19 completed Not Available Not Available Not Available ketotifen 0.025 % (0.035 %) eye drops INSTILL ONE DROP IN AFFECTED EYE(S) TWO TIMES A DAY 09/22 completed Not Available Not Available Not Available hydrocodo ne 5 mg-acetam inophen 325 mg tablet Take 1 tablet every 6 hours by oral route as directed for 6 days. 2014 active Not Available Not Available Not Avai lable almotript an malate 12.5 mg tablet TWO TIMES DAILY, NEEDED 07/14 completed RECORDED 07/15/19 14 9:46AM BY LARISSA DARLING MA, BENNIEATI ON/ADDEN DUM; Not Available Not Available Not Available lisinopri l 20 mg tablet TWO TIMES DAILY 10/27 completed RECORDED 10/28/19 10 1:54PM BY MAXINE AGUILERA MD, ANNOTATI ON/ADDEN DUM; Not Available Not Available Not Available ondansetr on HCl 4 mg tablet TAKE ONE TABLET BY MOUTH THREE TIMES A DAY NEEDED FOR 5 DAYS 09/16 completed Not Available Not Available Not Available prednison e 20 mg tablet TAKE TWO TABLETS BY MOUTH EVERY DAY FOR 5 DAYS 10/10 completed Not Available Not Available Not Available isosorbid e mononitra te ER 30 mg tablet,ex tended release 24 hr TAKE ONE TABLET BY MOUTH EVERY DAY active Not Available Not Available No t Available rizatript an 10 mg tablet TAKE ONE-HALF TO ONE TABLET BY MOUTH EVERY 2 HOURS NEEDED FOR MIGRAINE HEADACHE FOR 21 DAYS - MAX 2 PER DAY OR 4 PER WEEK 10/10 completed Not Available Not Available Not Available Westcort 0.2 % topical ointment BID/PRN 07/11 completed RECORDED 07/12/19 10 10:30AM BY RACHAEL MARRUFO MA, OFFICE VISIT; Not Available Not Available Not Available topiramat e 25 mg tablet TAKE TWO TABLETS BY MOUTH TWICE A DAY active Not Available Not Available No t Available meclizine 12.5 mg tablet TAKE ONE TABLET BY MOUTH THREE TIMES A DAY DIRECTED FOR 10 DAYS 05/03 completed Not Available Not Available Not Available fluocinon joss 0.05 % topical ointment APPLY TO ARMS TWO TIMES A DAY NEEDED FOR FLARES active Not Available Not Available No t Available clopidogr el 75 mg tablet Take 1 tablet every day by oral route. 01/20 completed Not Available Not Available Not Available tramadol 50 mg tablet Take 1 tablet every 6 hours by oral route for 5 days. 09/20 completed Not Available Not Available Not Available triamcino lone acetonide 0.1 % topical cream APPLY A THIN LAYER TO THE AFFECTED AREA(S) BY TOPICAL ROUTE 2 TIMES PER DAY 09/16 completed Not Available Not Available Not Available butalbita l-acetami nophen-ca ffeine 50 mg-325 mg-40 mg tablet TAKE 1-2 TABLETS BY MOUTH AT THE ONSET OF A MIGRAINE MAY REPEAT IN 4 HOURS NEEDED MAXIMUM DOSE OF 4 PER DAY AND 8 PER WEEK active Not Available Not Available No t Available meloxicam 7.5 mg tablet Take 1 tablet every day by oral route as directed for 30 days. 07/20 completed Not Available Not Available Not Available magnesium oxide 400 mg (241.3 mg magnesium ) tablet TAKE ONE TABLET BY MOUTH DAILY AT BEDTIME active Not Available Not Available No t Available lorazepam 0.5 mg tablet Take 2 tablets every day by oral route for 1 day. 05/19 completed Not Available Not Available Not Available methocarb tiara 750 mg tablet Take 1 tablet every 6 hours by oral route as directed for 6 days. 2014 active Not Available Not Available Not Avai lable amitripty line 10 mg tablet TAKE TWO TABLETS BY MOUTH EVERY DAY DIRECTED active Not Available Not Available No t Available benzonata te 100 mg capsule TAKE 1 CAPSULE BY MOUTH THREE TIMES A DAY NEEDED FOR 10 DAYS ( SWALLOW WHOLE DO NOT CRUSH OR CHEW TO AVOID GETTING CAUGHT IN THROAT) 11/14 completed Not Available Not Available Not Available flunisoli de 25 mcg (0.025 %) nasal spray 06/12 completed Not Available Not Available Not Available oseltamiv ir 75 mg capsule Take 1 capsule twice a day by oral route as directed for 5 days. 05/19 completed Not Available Not Available Not Available nystatin 100,000 unit/gram topical cream APPLY TO THE AFFECTED AREA(S) BY TOPICAL ROUTE 2 TIMES PER DAY 09/16 completed Not Available Not Available Not Available olopatadi ne 0.1 % eye drops THREE TIMES DAILY 07/14 completed RECORDED 07/15/19 14 9:46AM BY LARISSA DARLING MA, ERICH ON/SUSIE DUM; Not Available Not Available Not Available lisinopri l 10 mg tablet DAILY 07/11 completed RECORDED 07/12/19 10 4:22PM BY ERICH JACOBSEN ON/SUSIE DUM; Not Available Not Available Not Available prednison e 50 mg tablet TAKE 1 TABLET BY MOUTH EVERY MORNING FOR 5 DAYS 10/05 completed Not Available Not Available Not Available triamcino lone acetonide 55 mcg nasal spray aerosol QD 07/11 completed RECORDED 07/12/19 10 10:30AM BY RACHAEL MARRUFO MA, OFFICE VISIT; Not Available Not Available Not Available carbidopa 10 mg-levodo pa 100 mg tablet TAKE ONE TABLET BY MOUTH AT BEDTIME NEEDED FOR RESTLESS LEG SYMPTOMS active Not Available Not Available No t Available nitroglyc denisse 0.4 mg sublingua l tablet PLACE 1 TABLET UNDER THE TONGUE NEEDED FOR CHEST PAIN. MAY REPEAT EVERY 5 MINUTES WITH A MAXIMUM DOSE OF 3 TABLETS. IF NO RELIEF AFTER active Not Available Not Available No t Available monteluka st 10 mg tablet TAKE ONE TABLET BY MOUTH EVERY DAY active Not Available Not Available No t Available hydroxyzi ne HCl 25 mg tablet Take 1 tablet as needed by oral route as needed for 3 days. 05/10 completed anxiety Not Available Not Available Not Available codeine 10 mg-guaife nesin 100 mg/5 mL oral liquid TAKE 10 MILLILIT ERS 2 TEASPOON S) THREE TIMES A DAY FOR 7 DAYS 10/05 completed Not Available Not Available Not Available alclometa sone 0.05 % topical ointment APPLY TO FACE TWO TIMES A DAY NEEDED FOR FLARES active Not Available Not Available No t Available epinephri ne 0.3 mg/0.3 mL injection , auto-inje ctor INJECT INSTRUCT ED NEEDED active Not Available Not Available No t Available ibuprofen 600 mg tablet THREE TIMES DAILY, NEEDED 05/31 completed RECORDED 06/03/19 11 1:18PM BY DESIREE COLIN ON AUTO-GERALD CTIVATIO N; Not Available Not Available Not Available cefuroxim e axetil 500 mg tablet Take 1 tablet every 12 hours by oral route as directed for 10 days. 05/19 completed Not Available Not Available Not Available methylpre dnisolone 4 mg tablets in a dose pack TAKE DIRECTED , 6 TABLETS ON DAY 1, THEN DECREASE BY ONE TABLET DAILY UNTIL FINISHED 11/14 completed Not Available Not Available Not Available albuterol sulfate HFA 90 mcg/actua tion aerosol inhaler INHALE 2 PUFFS BY MOUTH EVERY 4 HOURS NEEDED active Not Available Not Available No t Available ketoconaz ole 2 % topical cream APPLY TO FACE TWO TIMES A DAY FOR FLARES active Not Available Not Available No t Available fluocinon joss 0.05 % topical cream APPLY TO ELBOWS EVERY OTHER DAY NEEDED, STOP WHEN CLEAR 09/22 completed Not Available Not Available Not Available doxycycli ne hyclate 100 mg tablet TAKE ONE TABLET BY MOUTH TWICE A DAY 10/05 completed Not Available Not Available Not Available naproxen 500 mg tablet Take 1 tablet twice a day by oral route for 30 days. 05/19 completed Not Available Not Available Not Available oxycodone 5 mg tablet QID/PRN 01/27 completed RECORDED 02/14/20 07 11:20AM BY MAXINE AGUILERA MD, MEDICATI ON AUTO-GERALD CTIVATIO N; Not Available Not Available Not Available albuterol (refill) 90 mcg/actua tion aerosol inhaler EVERY 2 HOURS NEEDED 06/12 completed RECORDED 07/06/19 14 5:11PM BY MAXINE AGUILERA MD, REFILL REQUEST; Not Available Not Available Not Available metoprolo l tartrate 25 mg tablet TAKE ONE TABLET BY MOUTH TWICE A DAY active Not Available Not Available No t Available carbidopa 10 mg-levodo pa 100 mg disintegr ating tablet Place 1 tablet every day by translin gual route as needed for 30 days. 04/12 completed Not Available Not Available Not Available Flovent HFA 110 mcg/actua tion aerosol inhaler INHALE 2 PUFFS TWICE DAILY 06/17 completed Not Available Not Available Not Available Flovent HFA 220 mcg/actua tion aerosol inhaler INHALE TWO PUFFS BY MOUTH TWICE A DAY 07/20 completed Not Available Not Available Not Available omeprazol e DAILY 07/11 completed RECORDED 07/12/19 10 10:30AM BY RACHAEL MARRUFO MA, OFFICE VISIT;TA KE 30 MIN BEFORE MORNING MEAL. Not Available Not Available Not Available econazole TWO TIMES DAILY 07/11 completed RECORDED 07/12/19 10 10:30AM BY RACHAEL MARRUFO MA, OFFICE VISIT; Not Available Not Available Not Available varenicli ne 1 mg tablet BID 07/11 completed RECORDED 07/12/19 10 10:30AM BY RACHAEL MARRUFO MA, OFFICE VISIT; Not Available Not Available Not Available Chantix Starting Month Liban 0.5 mg (11)-1 mg (42) tablets in dose pack BID 03/13 completed RECORDED 06/02/19 08 10:55AM BY MAXINE AGUILERA MD, MEDICATI ON AUTO-GERALD CTIVATIO N; Not Available Not Available Not Available Pulmicort Flexhaler 180 mcg/actua tion breath activated Inhale 2 puffs twice a day by inhalati on route for 30 days. 09/16 completed Not Available Not Available Not Available Symbicort 160 mcg-4.5 mcg/actua tion HFA aerosol inhaler Inhale 1 puff every day by inhalati on route for 30 days. 05/19 completed Not Available Not Available Not Available diclofena c 1 % topical gel APPLY APROXIMA TELY 4 GRAMS TO AFFECTED AREA S) THREE TIMES A DAY NEEDED active Not Available Not Available No t Available cetirizin e 10 mg capsule Take 1 capsule every day by oral route as directed for 30 days. 09/20 completed Not Available Not Available Not Available magnesium 400 mg (as magnesium oxide) capsule Take 1 capsule every day by oral route at bedtime. 11/14 completed Not Available Not Available Not Available bupropion HCl 150 mg tablet,12 hr sustained -release( smoking deterrent ) TAKE 1 TABLET BY MOUTH FOR 3 DAYS THEN INCREASE DOSE TO TAKE ONE TABLET BY MOUTH TWICE A DAY. SEPERATE DOSES BY AT LEAST 8 HOURS, AND THE LA 08/17 completed Not Available Not Available Not Available Fluvirin 2015- (PF) 45 mcg (15 mcg x 3)/0.5 mL intramusc ular syringe 05/10 completed Not Available Not Available Not Available Flucelvax Quad (PF) 60 mcg (15 mcg x 4)/0.5 mL IM syringe 04/25 completed Not Available Not Available Not Available Adult Aspirin Regimen 81 mg tablet,de layed release Take 1 tablet every day by oral route. active Not Available Not Available No t Available Wixela Inhub 250 mcg-50 mcg/dose powder for inhalatio n Inhale 1 puff twice a day by inhalati on route. 02/12 completed Not Available Not Available Not Available Fluzone Quad (PF) 60 mcg (15 mcg x 4)/0.5 mL IM syringe VACCINAT ION ADMINIST ERED BY PHARMACI ST 01/20 completed Not Available Not Available Not Available Nurtec ODT 75 mg disintegr ating tablet TAKE 1 TABLET DAILY IF NEEDED FOR MIGRAINE active Not Available Not Available No t Available Fluarix Quad (PF) 60 mcg (15 mcg x 4)/0.5 mL IM syringe VACCINAT ION ADMINIST ERED BY [facility] 03/19 completed Not Available Not Available Not Available Wegovy 2.4 mg/0.75 mL subcutane ous pen injector INJECT 0.75 ML UNDER THE SKIN EVERY WEEK active Not Available Not Available No t Available Wegovy 1.7 mg/0.75 mL subcutane ous pen injector INJECT 0.5 ML UNDER THE SKIN EVERY WEEK 12/26 completed Not Available Not Available Not Available Wegovy 1 mg/0.5 mL subcutane ous pen injector INJECT 0.5 ML EVERY WEEK BY SUBCUTAN EOUS ROUTE DIRECTED 11/29 completed Not Available Not Available Not Available Wegovy 0.25 mg/0.5 mL subcutane ous pen injector 10/11 completed Not Available Not Available Not Available Wegovy 0.5 mg/0.5 mL subcutane ous pen injector 11/29 completed approved through 04/09/24 Not Available Not Available Not Available Paxlovid 300 mg (150 mg x 2)-100 mg tablets in a dose pack TAKE 3 TABLETS BY MOUTH TWICE A DAY FOR 5 DAYS 10/05 completed Not Available Not Available Not Available Vitals Date Recorded Body height Body mass index (BMI) Body weight Oxygen saturation Oxygen saturation in Arterial blood by Pulse oximetry Heart rate Body temperature Systolic blood pressure Diastolic blood pressure Provider Name and Address Organization Details Last Updated DateTime 4 154.94 cm 36.7 kg/m2 05606.3 2 g 98 % 98 % 84 /min 97.8 [degF] 124 mm[Hg] 78 mm[Hg] Monica Mesa MA [facility] [place] 4 10:27:23 Social History Question Answer Notes LastModified by Organizat ion Details LastModified Time Tobacco Smoking Status Current Every Day Smoker SANTOS Ho [facility] 10/11/2023 08:50:30 Do You Have An Advance Directive? Yes [place] [facility] [place] Information not available 09/22/2021 What Is Your Level Of Alcohol Consumption? None Information not available 10/05/2022 Is Blood Transfusion Acceptable In An Emergency? Yes Information not available 06/13/2015 What Is Your Level Of Caffeine Consumption? Occasional Coffee Daily Information not available 09/22/2021 How Much Tobacco Do You Chew? None Information not available 04/05/2018 Are You Currently Employed? Yes Information not available 07/20/2018 What Type Of Diet Are You Following? REGULAR Information not available 10/05/2022 Which Illicit Or Recreational Drugs Have You Used? None Information not available 07/20/2018 Do You Or Have You Ever Used E-cigarettes Or Vape? Former User Of Electronic Cigarettes [email or web address] Information not available 09/22/2021 What Is Your Occupation? [employer] Information not available 07/20/2018 When Did You Quit Smoking? 1-5yearssince lastcigarette [email or web address] Information not available 09/22/2021 Live Alone Or With Others? With Others Son Information not available 10/11/2023 Do You Take Precautions To Prevent Distracted Driving? Yes Information not available 06/13/2015 How Often Do You Need To Have Someone Help You When You Read Instructions, Pamphlets, Or Other Written Material From Your Doctor Or Pharmacy? Never Information not available 06/13/2015 Have You Served In The ? No Information not available 06/17/2016 Have You Or Anyone In Your Household Had Any Of The Following Symptoms In The Last 14 Days: Sore Throat, Cough, Chills, Body Aches For Unknown Reasons, Shortness Of Breath For Unknown Reasons, Loss Of Smell, Loss Of Taste, Fever At Or Greater Than 100 Degrees Fahrenheit? No [email or web address] Information not available 11/15/2019 Are You Or Anyone In Your Household A Health Care Provider Or Emergency Responder? No [email or web address] Information not available 11/15/2019 To The Best Of Your Knowledge Have You Been In Close Proximity To Any Individual Who Tested Positive For COVID-19? No Information not available 11/15/2019 *AWV ONLY* Are You Presently Prescribed Opioid Medication By PCP Or Specialist? If YES -Provider Assess The Benefit For Other, Non-opioid Pain Therapies Instead, Even If The Patient Does Not Have OUD But Is Possibly At Risk. No [email or web address] Information not available 09/22/2021 Have You Recently Traveled To A [place] [id number] High Risk Area Or Gathering In The Last 10 Days? No [email or web address] Information not available 09/16/2020 What Was The Date Of Your Most Recent Tobacco Screening? 10/05/2022 Information not available 10/05/2022 How Many Children Do You Have? 1 Paddy (has ADD) [email or web address] Information not available 01/14/2014 What Is Your Current Pack Years? 20-packyear s [email or web address] Information not available 09/22/2021 Do You Use Protection During Sex? Usually [email or web address] Information not available 09/22/2021 Do You Use Your Seat Belt Or Car Seat Routinely? Yes [email or web address] Information not available 09/22/2021 Seat Belts Used Routinely Yes [email or web address] Information not available 09/22/2021 Are You Sexually Active? No Information not available 09/22/2021 Smoke Alarm In Home Yes [email or web address] Information not available 09/22/2021 Do You Have Smoke And Carbon Monoxide Detectors In Your Home? Yes Information not available 09/22/2021 At What Age Did You Start Smoking Tobacco? 17 Information not available 07/20/2018 Are You Passively Exposed To Smoke? No Information not available 10/05/2022 Do You Or Have You Ever Used Smokeless Tobacco? Never Used Smokeless Tobacco Information not available 01/23/2019 How Much Tobacco Do You Smoke? 1 PPW Information not available 10/11/2023 Do You Use Any Illicit Or Recreational Drugs? No Information not available 09/22/2021 Do You Use Sunscreen Routinely? Yes Information not available 06/13/2015 How Many Years Have You Smoked Tobacco? 25 [email or web address] Information not available 09/16/2020 Do You Or Have You Ever Used Any Other Forms Of Tobacco Or Nicotine? No [email or web address] Information not available 09/22/2021 Sex: Unknown Functional Status Question Answer Note LastModified by Organizat ion Details LastModified Time Are you able to walk? YESWOREST [email or web address] Information not available 09/22/2021 Are you able to care for yourself? Yes Information not available 01/09/2015 What is your exercise level? Moderate walking Information not available 10/11/2023 Mental Status None recorded. Family History Relationship Description Onset Age of this Age Resolved Age Notes LastModified by Organization Details LastModified Time Mother Cerebrovascu lar accident 58 69 of lympho ma [email or web address] Not available 06/17/2016 09:19:17 Mother Essential hypertension [email or web address] Not available 12:52:50 Mother Malignant lymphoma 69 Apr 2015 Not available 09/22/2021 12:52:50 Father Coronary arterioscler osis 55 dad is 4/ has angina /stabl e Not available 09/22/2021 12:52:50 Father Angina pectoris [email or web address] Not available 2021 12:52:50 Father Myelodysplas tic syndrome (clinical) 76 [email or web address] Not available 10/05 09:00:33 Paternal Grandmother Carcinoma in situ of breast 55 [email or web address] Not available 2021 12:52:50 Paternal Grandfather Diabetes mellitus [email or web address] Not available 12:10:53 Paternal Uncle Malignant tumor of lung 65 70 [email or web address] Not available 2014 10:06:34 Notes:Father being tested fo r [place] - 10/05/22 Medical History Condition Response Headaches/Migraines Y Muscle, Joint, or Bone Problems Y Obesity Y Arthritis Y Acid Reflux (GERD) Y Eczema Y Asthma Y Allergies Y High Cholesterol Y Hypertension Y Gynecological History Statement/Question Response Menses Monthly N Date of Last Pap Smear 12/26/2020 Age at Menarche 13 Date of Last Colonoscopy Most Recent Mammogram 06/19/2022 LMP Approximate Obstetrics History GPAL:G 0 P 0 0 0 0 Immunizations Vaccine Type Date Status Note Provider Nam e and Address Organization Details Recorded Time Influenza, split virus, trivalent, PF 4 completed Priti betts [facility] 01/14/2014 15:10:51 Influenza, split virus, quadrivalent, preservative 8 completed An betts, [facility] [place] 03/06/2018 13:58:17 COVID-19, mRNA, LNP-S, PF, 100 mcg/0.5mL dose or 50 mcg/0.25mL dose 1 completed SANTOS Huber, [facility] [place] 04/03/2021 09:17:46 COVID-19, mRNA, LNP-S, PF, 100 mcg/0.5mL dose or 50 mcg/0.25mL dose 1 completed SANTOS Huber, [facility] [place] 04/03/2021 09:17:46 Influenza, split virus, trivalent, PF 6 completed SANTOS Huber, [facility] [place] 04/03/2021 09:17:46 Influenza, split virus, quadrivalent, PF 9 completed SANTOS Huber, [facility] [place] 04/03/2021 09:17:46 Influenza, MDCK, quadrivalent, PF 7 completed SANTOS Hbuer, [facility] [place] 04/03/2021 09:17:46 Influenza, MDCK, quadrivalent, PF 1 completed SANTOS Huber, [facility] [place] 04/03/2021 09:17:46 Influenza, split virus, quadrivalent, PF 0 completed SANTOS Huber, [facility] [place] 04/03/2021 09:17:46 Influenza, split virus, quadrivalent, PF 8 completed SANTOS Huber, [facility] [place] 04/03/2021 09:17:46 COVID-19, mRNA, LNP-S, PF, 100 mcg/0.5mL dose or 50 mcg/0.25mL dose 2 completed SANTOS Martinez, [facility] [place] 09/22/2021 13:01:02 Influenza, split virus, quadrivalent, PF 2 completed Autumn Mcfarlane MA null, [facility] [place] 05/27/2022 11:31:26 Influenza, split virus, trivalent, preservative 2 completed Maxine Gallo MA null, [facility] [place] 10/05/2022 08:52:10 Influenza, MDCK, quadrivalent, PF 3 completed Rosy Caporale, [employer] null, [facility] [place] 08/18/2023 14:49:20 zoster recombinant 3 completed Rosy Caporale, [employer] null, [facility] [place] 08/18/2023 14:49:20 zoster recombinant 3 completed Rosy Caporale, [employer] null, [facility] [place] 08/18/2023 14:49:20 COVID-19, mRNA, LNP-S, PF, 50 mcg/0.5 mL 4 completed Rosy Caporale, [employer] null, [facility] [place] 08/18/2023 14:49:20 Tdap 4 completed Not Available [facility] 04/14/2019 02:21:44 Td (adult), 2 Lf tetanus toxoid, preservative free, adsorbed 1 completed Not Available [facility] 10/09/2013 14:02:25 pneumococcal polysaccharide PPV23 5 completed Not Available [facility] 10/09/2013 14:02:25 Influenza, split virus, trivalent, preservative 6 completed Not Available [facility] 10/09/2013 14:02:25 Influenza, split virus, trivalent, preservative 7 completed Not Available [facility] 10/09/2013 14:02:25 Influenza, split virus, trivalent, preservative 8 completed Not Available [facility] 10/09/2013 14:02:25 Influenza, split virus, trivalent, preservative 0 completed Not Available [facility] 10/09/2013 14:02:25 Influenza, split virus, trivalent, preservative 1 completed Not Available [facility] 10/09/2013 14:02:25 Past Encounters Encounter ID Performer Location Encounter Start Date Encounter Closed Date Diagnosis/Indication Diagnosis SNOMED-CT Code Diagnosis ICD10 Code [id number] DILAN CORTEZ Main Office [address] [facility] [address] [address] [place] [address] 02/06/2024 14:58:23 02/06/2024 15:29:48 Pain in left lower limb [id number] 79.605 [id number] PAULINA MCNEIL MD Main Office [address] [facility] [facility] [address] [place] [address] 02/25/2024 10:16:30 02/25/2024 10:48:33 Upper respiratory infection 19356781 J06.9 Community acquired pneumonia 721749410 J18.9 Health Concerns Section Related Observation LastModified by Organization Detai ls LastModified Time None Recorded Concern Status LastModified by Organization Details LastModified Time None Recorded Payers Encounter Date Sequence Insurance Name Policy Number Policy Rhodes Covered Member ID Rhodes Member ID Guarantor Name 02/25/2024 1 [facility] [employer] - DIRECT [facility] TYPE I (HMO) [id number] Fatimah Grimes [id number] Fatimah Grimes Notes Date Note Type Note Provider Name and Address Organization Details Recorded Time 02/25/2024 text/html CoughReported bypatient.Severity:mod erate Duration:started one week ago Context:smoker;history of asthma Modifying Factors:OTC medication; inhaler Associated Symptoms:no fever; no heartburn; no edema; no agitation; no post nasal drip;chills;chest pain;vomiting;wheezing Upper Respiratory SymptomsReported bypatient.Location:[facility] Quality:dry cough Severity:moderate Duration:one week Onset/Timing:sudden Context:sick contact;smoker;allergi es Modifying Factors:OTC medication Associated Symptoms:chest pain;shortness of breath;wheezing;fatigu e;morning cough;vomiting; all associated with the cough Fatimha Grimes is a 53 year old F who presented to the clinic for complaints of a worsening cough. Pt has been having symptoms for one week (02/16). Associated is head congestion and fatigue. Pt mentions her boss at work was sick and got all her co-workers sick as well. Has been using Robitussin. Denies fevers, positive for chills. PAULINA MCNEIL MD [address] [address], [place], [address], [facility] 02/26/2024 12:03:50 OBGyn Episode No OBEpisode recorded.
--- OUTSIDE RECORDS SUMMARY | 2024-03-07 19:03 | XMS_ITS | Data Portability ---
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 Patient understood and agreed with the plan. [email or web address] Not available 02/06/2024 15:22:58 Plan of Treatment Reminders Order Date Submit Date Provider Last Modified By Organization Details Last Modified Time Details Appointments FOLLOW UP 30MIN 2024 09:15A Emmanuel Hidalgo PA-C Not available Not available Not available Lab HbA1c (hemoglob in A1c), blood 2023 024 [facility], [address] [place], [address], 10/13/2023 22:06:17 lipid panel, serum 2023 024 [facility], [address] [facility], [facility] [address], [place], [address], 10/13/2023 22:06:16 TSH + free T4, serum 2023 024 [facility], [address], [facility] [address], [place], [address], 10/13/2023 22:06:13 erythrocy te sedimenta tion rate by westergre n method 2023 024 [facility], [address], [address], [place], [address], 10/13/2023 22:06:17 C reactive protein, QN, serum or plasma 2023 024 [facility], [address], [facility] [address], [place], [address], 10/13/2023 22:06:18 CBC w/ auto diff 2023 024 [facility], [address], [address], [place], [address], 10/13/2023 22:06:14 CMP, serum or plasma 2023 024 [facility], [address], [facility] [address], [place], [address], 10/13/2023 22:06:14 urinalysi s, complete 2023 024 [facility], [address], [facility] [address], [place], [address], 10/13/2023 22:06:15 unlisted lab - vasculiti s profile (rdl) 2023 024 [facility], [address], [facility] [address], [place], [address], 10/13/2023 22:06:16 HbA1c (hemoglob in A1c), blood 2023 024 [facility], [address], [facility] [address], [place], [address], 01/11/2024 12:08:13 DAMARI (antinucl ear antibodie s) screen, serum 2023 [facility], [address] [facility], [place] [address], [place], [address], 01/11/2024 12:08:16 ESR (erythroc yte sedimenta tion rate), blood 2023 024 [facility], [address] [facility], [place] [address], [place], [address], 01/11/2024 12:08:17 C reactive protein, QN, serum or plasma 2023 [facility], [address] [facility], [place] [address], [place], [address], 01/11/2024 12:08:18 borrelia burgdorfe ri IgG + IgM + total panel, IA, serum 2023 [facility], [address] [facility], [address], [address], 01/11/2024 12:08:15 rf (rheumato id factor), serum 2023 024 [facility], [address] [facility], [place] [address], [place], [address], 01/11/2024 12:08:14 lipid panel, serum 2023 024 [facility], [address] [facility], [address], [address], 01/11/2024 12:08:11 amylase + lipase, serum 2023 024 [facility], Critical access [facility], [place] [address], [place], [address], 01/11/2024 12:08:12 TSH + free T4, serum 2023 024 [facility], [address] [facility], [address], [address], 01/11/2024 12:08:07 CMP, serum or plasma 2023 024 [facility], [address], [facility] [address], [place], [address], 01/11/2024 12:08:10 CBC w/ auto diff 2023 024 [facility], [address], [facility] [address], [place], [address], 01/11/2024 12:08:09 CBC w/ auto diff 2023 024 [facility], [address], [facility] [address], [place], [address], 02/07/2024 14:07:04 CMP, serum or plasma 2023 024 [facility], [address], [facility] [address], [place], [address], 02/07/2024 14:07:05 D-dimer, quant, plasma 2023 024 [facility], [address] , [facility] [address], [place], [address], 02/07/2024 14:07:06 erythrocy te sedimenta tion rate by westergre n method 2023 024 [facility], [address] , [facility] [address], [place], [address], 02/07/2024 14:07:07 rapid flu (A+B) 2023 024 [facility] In-Office Order, Internal Use Only DO Not Attach Compendium DO Not Attach Compendium, Do Not Delete/merge, [id number] 02/25/2024 10:46:03 respirato ry infection s panel, unspecifi ed specimen 2023 024 [facility], [address] , [facility] [address], [place], [address], 02/27/2024 20:05:59 Referral vascular surgeon referral - venous varices, leg pain, havign vasculiti s rash after being on her feet all day at work. 2023 [facility], [address], [place], [address], 01/19/2024 14:05:21 gynecolog ist referral - due for screening 2023 024 [email or web address] 5 Rashid Jerez MD, [address], [address], [place], [address], 10/11/2023 09:50:07 Procedures None recorded. Surgeries None recorded. Imaging MAMMO, screening , bilateral - Perform Diagnosti c Mammogram and Breast Ultrasoun d if needed / Perform Ultrasoun d Guided Aspiratio n and/or Breast Biopsy if warranted [facility]23 024 [facility], [address], [place], [address], 10/11/2023 10:09:13 XR, chest, 2 view 2023 024 [facility] Not available 02/26/2024 08:29:00 Medication Orders Wegovy 0.5 mg/0.5 mL subcutane ous pen injector 2023 024 [facility], [address] [place], [address], 11/30/2023 11:08:38 albuterol sulfate 2.5 mg/3 mL (0.083 %) solution for nebulizat ion 2023 024 [facility], [address] [place], [address], 10/11/2023 09:28:22 ProAir HFA 90 mcg/actua tion aerosol inhaler 2023 024 [facility], [address] [place], [address], 10/11/2023 09:28:19 oxybutyni n chloride ER 10 mg tablet,ex tended release 24 hr 2023 [facility], [address] [place], [address], 10/11/2023 09:28:[address] 10 mg tablet 2023 [facility], [address] [place], [address], 01/10/2024 08:53:06 doxycycli ne hyclate 100 mg capsule 2023 [facility], [address] [place], [address], 02/25/2024 10:45:29 Patient TargetsNo targets recorded. Patient Instructions Encounter Date Encounter Id Patient Instructions Last Modified By Organization Details Last Modified Time 10/04/2023 [id number] learning about vasculitis [email or web address] Not available 10/04/2023 10:22:34 To call or retur n for worsening or concerns [email or web address] Not available 10/04/2023 10:17:40 10/11/2023 [id number] starting a weigh t loss plan: care instructions [email or web address] Not available 10/11/2023 09:34:36 Cervical Cancer Screening [email or web address] Not available 10/11/2023 09:35:39 To call or retur n for worsening or concerns [email or web address] Not available 10/11/2023 09:32:57 01/10/2024 [id number] To call or retur n for worsening or concerns [email or web address] Not available 01/10/2024 08:53:10 02/25/2024 [id number] upper respirator y infection (cold): care instructions Not available 02/25/2024 10:37:42 pneumonia: care instructions Not available 02/25/2024 10:45:24 Reason for Referral Vascular Surgeon Referral fo r Venous varices venous varices, leg pain, havign vasculitis rash after being on her feet all day at work. Referring Physician: Malinda Hidalgo [facility], Encounter Date: 10/04/2023 Category Consultant Referral for Sc reening for malignant neoplasm of cervix due for screening Referring Physician: Malinda Hidalgo [facility], Encounter Date: 10/11/2023 Results Created Date Observation Date Name Description Value Unit Range Abnormal Flag Note LastModifiedBy Organization Detail LastModifiedTime 10/04/19 24 10/05/2023 TSH+F REE T4 TSH 1.450 uIU/m L 0.450- 4.500 Not Available [facility] ([facility]) [address] [place], [address], 10/13/2023 22:06:13 10/04/19 24 10/05/2023 TSH+F REE T4 T4,free(dire ct) 1.13 NG/dL 0.82-1 .77 Not Available [facility] ([facility]) [address] [place], [address], 10/13/2023 22:06:13 10/04/19 24 10/05/2023 CBC WITH DIFFE RENTI AL/PL ATELE T WBC 8.2 x10e3 /uL 3.4-10 .8 Not Available [facility] ([facility]) [address] [place], [address], 10/13/2023 22:06:14 10/04/19 24 10/05/2023 CBC WITH DIFFE RENTI AL/PL ATELE T RBC 5.10 x10e6 /uL 3.77-5 .28 Not Available [facility] ([facility]) [address] [place], [address], 10/13/2023 22:06:14 10/04/19 24 10/05/2023 CBC WITH DIFFE RENTI AL/PL ATELE T hemoglobin 14.1 g/dL 11.1-1 5.9 Not Available [facility] ([facility]) [address] [place], [address], 10/13/2023 22:06:14 10/04/19 24 10/05/2023 CBC WITH DIFFE RENTI AL/PL ATELE T hematocrit 46.2 % 34.0-4 6.6 Not Available [facility] ([facility]) [address] [place], [address], 10/13/2023 22:06:14 10/04/19 24 10/05/2023 CBC WITH DIFFE RENTI AL/PL ATELE T MCV 91 fL 79-97 Not Available [facility] ([facility]) [address] [place], [address], 10/13/2023 22:06:14 10/04/19 24 10/05/2023 CBC WITH DIFFE RENTI AL/PL ATELE T MCH 27.6 pg 26.6-3 3.0 Not Available [facility] ([facility]) [address] [place], [address], 10/13/2023 22:06:14 10/04/19 24 10/05/2023 CBC WITH DIFFE RENTI AL/PL ATELE T MCHC 30.5 g/dL 31.5-3 5.7 below low normal Not Available [facility] ([facility]) [address] [place], [address], 10/13/2023 22:06:14 10/04/19 24 10/05/2023 CBC WITH DIFFE RENTI AL/PL ATELE T RDW 13.8 % 11.7-1 5.4 Not Available [facility] ([facility]) [address] [place], [address], 10/13/2023 22:06:14 10/04/19 24 10/05/2023 CBC WITH DIFFE RENTI AL/PL ATELE T platelets 281 x10e3 /uL 150-45 0 Not Available [facility] ([facility]) [address] [place], [address], 10/13/2023 22:06:14 10/04/19 24 10/05/2023 CBC WITH DIFFE RENTI AL/PL ATELE T neutrophils 70 % not estab. Not Available [facility] ([facility]) [address] [facility], [place], [address], 10/13/2023 22:06:14 10/04/19 24 10/05/2023 CBC WITH DIFFE RENTI AL/PL ATELE T lymphs 20 % not estab. Not Available [facility] ([facility]) [address] [facility], [place], [address], 10/13/2023 22:06:14 10/04/19 24 10/05/2023 CBC WITH DIFFE RENTI AL/PL ATELE T monocytes 7 % not estab. Not Available [facility] ([facility]) [address] [facility], [place], [address], 10/13/2023 22:06:14 10/04/19 24 10/05/2023 CBC WITH DIFFE RENTI AL/PL ATELE T eos 2 % not estab. Not Available [facility] ([facility]) [address] [facility], [place], [address], 10/13/2023 22:06:14 10/04/19 24 10/05/2023 CBC WITH DIFFE RENTI AL/PL ATELE T basos 1 % not estab. Not Available [facility] (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) [address] [facility], [place], [address], 10/13/2023 22:06:14 10/04/19 24 10/05/2023 CBC WITH DIFFE RENTI AL/PL ATELE T neutrophils (absolute) 5.8 x10e3 /uL 1.4-7. 0 Not Available [facility] ([facility]) [address] [facility], [place], [address], 10/13/2023 22:06:14 10/04/19 24 10/05/2023 CBC WITH DIFFE RENTI AL/PL ATELE T lymphs (absolute) 1.6 x10e3 /uL 0.7-3. 1 Not Available [facility] ([facility]) [address] [facility], [place], [address], 10/13/2023 22:06:14 10/04/19 24 10/05/2023 CBC WITH DIFFE RENTI AL/PL ATELE T monocytes(ab solute) 0.6 x10e3 /uL 0.1-0. 9 Not Available [facility] ([facility]) [address] [facility], [place], [address], 10/13/2023 22:06:14 10/04/19 24 10/05/2023 CBC WITH DIFFE RENTI AL/PL ATELE T eos (absolute) 0.2 x10e3 /uL 0.0-0. 4 Not Available [facility] ([facility]) [address] [facility], [place], [address], 10/13/2023 22:06:14 10/04/19 24 10/05/2023 CBC WITH DIFFE RENTI AL/PL ATELE T baso (absolute) 0.1 x10e3 /uL 0.0-0. 2 Not Available [facility] ([facility]) [address] [place], [address], 10/13/2023 22:06:14 10/04/19 24 10/05/2023 CBC WITH DIFFE RENTI AL/PL ATELE T immature granulocytes 0 % not estab. Not Available [facility] ([facility]) [address] [place], [address], 10/13/2023 22:06:14 10/04/19 24 10/05/2023 CBC WITH DIFFE RENTI AL/PL ATELE T immature grans (abs) 0.0 x10e3 /uL 0.0-0. 1 Not Available [facility] (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) [address] [facility], [place], [address], 10/13/2023 22:06:14 10/04/19 24 10/05/2023 COMP. METAB OLIC PANEL (14) glucose 67 mg/dL 70-99 below low normal Not Available [facility] ([facility]) [address] [facility], [place], [address], 10/13/2023 22:06:14 10/04/19 24 10/05/2023 COMP. METAB OLIC PANEL (14) BUN 10 mg/dL 6-24 Not Available [facility] ([facility]) [address] [facility], [place], [address], 10/13/2023 22:06:14 10/04/19 24 10/05/2023 COMP. METAB OLIC PANEL (14) creatinine 0.56 mg/dL 0.57-1 .00 below low normal Not Available [facility] ([facility]) [address] [facility], [place], [address], 10/13/2023 22:06:14 10/04/19 24 10/05/2023 COMP. METAB OLIC PANEL (14) eGFR 110 mL/mi n/1.7 3 >59 Not Available [facility] ([facility]) [address] [facility] [place], [address], 10/13/2023 22:06:14 10/04/19 24 10/05/2023 COMP. METAB OLIC PANEL (14) BUN/creatini ne ratio 18 9-23 Not Available [facility]) [address] [facility] [place], [address], 10/13/2023 22:06:14 10/04/19 24 10/05/2023 COMP. METAB OLIC PANEL (14) sodium 145 mmol/ L 134-14 4 above high normal Not Available [facility] ([facility]) [address] [facility] [place], [address], 10/13/2023 22:06:14 10/04/19 24 10/05/2023 COMP. METAB OLIC PANEL (14) potassium 3.9 mmol/ L 3.5-5. 2 Not Available [facility] ([facility]) [address] [facility] [place], [address], 10/13/2023 22:06:14 10/04/19 24 10/05/2023 COMP. METAB OLIC PANEL (14) chloride 111 mmol/ L 96-106 above high normal Not Available [facility] ([facility]) [address] [facility] [place], [address], 10/13/2023 22:06:14 10/04/19 24 10/05/2023 COMP. METAB OLIC PANEL (14) carbon dioxide, total 19 mmol/ L 20-29 below low normal Not Available [facility] ([facility]) [address] [facility] [place], [address], 10/13/2023 22:06:14 10/04/19 24 10/05/2023 COMP. METAB OLIC PANEL (14) calcium 9.0 mg/dL 8.7-10 .2 Not Available [facility] ([facility]) [address] [place], [address], 10/13/2023 22:06:14 10/04/19 24 10/05/2023 COMP. METAB OLIC PANEL (14) protein, total 6.6 g/dL 6.0-8. 5 Not Available [facility] ([facility]) [address] [place], [address], 10/13/2023 22:06:14 10/04/19 24 10/05/2023 COMP. METAB OLIC PANEL (14) albumin 4.0 g/dL 3.8-4. 9 Not Available [facility] ([facility]) [address] [facility] [place], [address], 10/13/2023 22:06:14 10/04/19 24 10/05/2023 COMP. METAB OLIC PANEL (14) globulin, total 2.6 g/dL 1.5-4. 5 Not Available [facility] ([facility]) [address] [facility] [place], [address], 10/13/2023 22:06:14 10/04/19 24 10/05/2023 COMP. METAB OLIC PANEL (14) bilirubin, total 0.2 mg/dL 0.0-1. 2 Not Available [facility] ([facility]) [address] [facility] [place], [address], 10/13/2023 22:06:14 10/04/19 24 10/05/2023 COMP. METAB OLIC PANEL (14) alkaline phosphatase 88 IU/L 44-121 Not Available [facility] [address] [facility] [place], [address], 10/13/2023 22:06:14 10/04/19 24 10/05/2023 COMP. METAB OLIC PANEL (14) AST (SGOT) 13 IU/L 0-40 Not Available [facility] ([facility]) [address] [facility], [place], [address], 10/13/2023 22:06:14 10/04/19 24 10/05/2023 COMP. METAB OLIC PANEL (14) ALT (SGPT) 14 IU/L 0-32 Not Available [facility] ([facility]) [address] [facility], [place], [address], 10/13/2023 22:06:14 10/04/19 24 10/05/2023 URINA LYSIS , COMPL ETE specific gravity 1.009 1.005- 1.030 Not Available [facility] ([facility]) [address] [facility], [place], [address], 10/13/2023 22:06:15 10/04/19 24 10/05/2023 URINA LYSIS , COMPL ETE pH 6.5 5.0-7. 5 Not Available [facility] ([facility]) [address] [place], [address], 10/13/2023 22:06:15 10/04/19 24 10/05/2023 URINA LYSIS , COMPL ETE urine-color Yellow yellow Not Available [facility]) [address] [facility], [place], [address], 10/13/2023 22:06:15 10/04/19 24 10/05/2023 URINA LYSIS , COMPL ETE appearance Clear clear Not Available [facility] ([facility]) [address] [place], [address], 10/13/2023 22:06:15 10/04/19 24 10/05/2023 URINA LYSIS , COMPL ETE WBC esterase Trace negati ve abnormal Not Available [facility] ([facility]) [address] [place], [address], 10/13/2023 22:06:15 10/04/19 24 10/05/2023 URINA LYSIS , COMPL ETE protein Negati ve negati ve/tra ce Not Available [facility] ([facility]) [address] [facility], [place], [address], 10/13/2023 22:06:15 10/04/19 24 10/05/2023 URINA LYSIS , COMPL ETE glucose Negati ve negati ve Not Available [facility] ([facility]) [address] [place], [address], 10/13/2023 22:06:15 10/04/19 24 10/05/2023 URINA LYSIS , COMPL ETE ketones Negati ve negati ve Not Available [facility] ([facility]) [address] [place], [address], 10/13/2023 22:06:15 10/04/19 24 10/05/2023 URINA LYSIS , COMPL ETE occult blood Negati ve negati ve Not Available [facility] ([facility]) [address] [place], [address], 10/13/2023 22:06:15 10/04/19 24 10/05/2023 URINA LYSIS , COMPL ETE bilirubin Negati ve negati ve Not Available [facility] ([facility]) [address] [place], [address], 10/13/2023 22:06:15 10/04/19 24 10/05/2023 URINA LYSIS , COMPL ETE urobilinogen ,semi-qn 0.2 mg/dL 0.2-1. 0 Not Available [facility] ([facility]) [address] [place], [address], 10/13/2023 22:06:15 10/04/19 24 10/05/2023 URINA LYSIS , COMPL ETE nitrite, urine Negati ve negati ve Not Available [facility] ([facility]) [address] [place], [address], 10/13/2023 22:06:15 10/04/19 24 10/05/2023 URINA LYSIS , COMPL ETE microscopic examination See below: Micro scopi c was indic ated and was perfo rmed. Not Available [facility] ([facility]) [address] [facility], [place], [address], 10/13/2023 22:06:15 10/04/19 24 10/05/2023 URINA LYSIS , COMPL ETE WBC 0-5 /hpf 0 - 5 Not Available [facility] ([facility]) [address] [facility], [place], [address], 10/13/2023 22:06:15 10/04/19 24 10/05/2023 URINA LYSIS , COMPL ETE RBC None seen /hpf 0 - 2 Not Available [facility] ([facility]) [address] [facility], [place], [address], 10/13/2023 22:06:15 10/04/19 24 10/05/2023 URINA LYSIS , COMPL ETE epithelial cells (non renal) 0-10 /hpf 0 - 10 Not Available [facility] (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) [address] [facility], [place], [address], 10/13/2023 22:06:15 10/04/19 24 10/05/2023 URINA LYSIS , COMPL ETE casts None seen /lpf none seen Not Available [facility] (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) [address], [place], [address], 10/13/2023 22:06:15 10/04/19 24 10/05/2023 URINA LYSIS , COMPL ETE bacteria None seen none seen/f ew Not Available [facility] (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) [address] [facility], [place], [address], 10/13/2023 22:06:15 10/04/19 24 10/08/2023 VASCU LITIS PROFI LE (RDL) rheumatoid factor by turb rdl <14 IU/mL <14 Not Available [facility] [address] [place], [address], 10/13/2023 22:06:16 10/04/19 24 10/08/2023 VASCU LITIS PROFI LE (RDL) C3 complement (rdl) 187 mg/dL 82-167 above high normal Not Available [facility] [address] [place] [address], [address], 10/13/2023 22:06:16 10/04/19 24 10/08/2023 VASCU LITIS PROFI LE (RDL) C4 complement (rdl) 27 mg/dL 14-44 Not Available [facility] [address] [place], [address], 10/13/2023 22:06:16 10/04/19 24 10/10/2023 VASCU LITIS PROFI LE (RDL) anti-nuclear Ab by ifa (rdl) Positi ve negati ve abnormal Not Available [facility] [address] [place], [address], 10/13/2023 22:06:16 10/04/19 24 10/10/2023 VASCU LITIS PROFI LE (RDL) homogeneous pattern 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 Not Available [facility] [address] [place], [address], 10/13/2023 22:06:16 10/04/19 24 10/10/2023 VASCU LITIS PROFI LE (RDL) nucleolar pattern 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 Not Available [facility] [address] [place], [address], 10/13/2023 22:06:16 10/04/19 24 10/10/2023 VASCU LITIS PROFI LE (RDL) speckled pattern 1:40 <1:40 above high normal Not Available [facility] [address] [place], [address], 10/13/2023 22:06:16 10/04/19 24 10/10/2023 VASCU LITIS PROFI LE (RDL) centromere pattern 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 Not Available [facility] [address] [place], [address], 10/13/2023 22:06:16 10/04/19 24 10/10/2023 VASCU LITIS PROFI LE (RDL) spindle apparatus pattern 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 Not Available [facility] [address] [place], [address], 10/13/2023 22:06:16 10/04/19 24 10/10/2023 VASCU LITIS PROFI LE (RDL) nuclear membrane pattern 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 Not Available [facility] [address] [place], [address], 10/13/2023 22:06:16 10/04/19 24 10/10/2023 VASCU LITIS PROFI LE (RDL) midbody pattern 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 Not Available [facility] [address] [place], [address], 10/13/2023 22:06:16 10/04/19 24 10/10/2023 VASCU LITIS PROFI LE (RDL) nuclear dot pattern 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 Not Available [facility] [address] [place], [address], 10/13/2023 22:06:16 10/04/19 24 10/10/2023 VASCU LITIS PROFI LE (RDL) pcna pattern 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 Not Available [facility] [address] [place], [address], 10/13/2023 22:06:16 10/04/19 24 10/10/2023 VASCU LITIS PROFI LE (RDL) centriole pattern 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 Not Available [facility] [address] [place], [address], 10/13/2023 22:06:16 10/04/19 24 10/10/2023 VASCU LITIS PROFI LE (RDL) note: Commen t DAMARI perfo rmed by Indir ect Fluor escen t Antib russel (IFA) Not Available [facility] [address] [place], [address], 10/13/2023 22:06:16 10/04/19 24 10/10/2023 VASCU LITIS PROFI LE (RDL) anca by ifa (rdl) Negati ve negati ve Not Available [facility] [address] [place], [address], 10/13/2023 22:06:16 10/04/19 24 10/11/2023 VASCU LITIS PROFI LE (RDL) anti-gbm Ab (rdl) <20 units <20 Not Available [facility] [address] [place], [address], 10/13/2023 22:06:16 10/04/19 24 10/12/2023 VASCU LITIS PROFI LE (RDL) anti-pr-3 Ab (rdl) <20 units <20 Not Available [facility] [address] [place], [address], 10/13/2023 22:06:16 10/04/19 24 10/12/2023 VASCU LITIS PROFI LE (RDL) anti-mpo Ab (rdl) <20 units <20 Not Available [facility] [address] [place], [address], 10/13/2023 22:06:16 10/04/19 24 10/13/2023 INGRID MONTALVO (RDL) anti-dsdna Ab by joaquina(rdl) <8.0 IU/mL <8.0 Not Available [facility] [address] [place], [address], 10/13/2023 22:06:16 10/04/19 24 10/05/2023 LIPID PANEL cholesterol, total 138 mg/dL 100-19 9 Not Available [facility] ([facility]) [address] [place], [address], 10/13/2023 22:06:16 10/04/19 24 10/05/2023 LIPID PANEL triglyceride s 95 mg/dL 0-149 Not Available [facility] ([facility]) [address] [place], [address], 10/13/2023 22:06:16 10/04/19 24 10/05/2023 LIPID PANEL HDL cholesterol 52 mg/dL >39 Not Available [facility] ([facility]) [address] [place], [address], 10/13/2023 22:06:16 10/04/19 24 10/05/2023 LIPID PANEL VLDL cholesterol len 18 mg/dL 5-40 Not Available [facility] ([facility]) [address] [place], [address], 10/13/2023 22:06:16 10/04/19 24 10/05/2023 LIPID PANEL LDL chol calc (rust) 68 mg/dL 0-99 Not Available [facility] (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) [address] [place], [address], 10/13/2023 22:06:16 10/04/19 24 10/05/2023 HEMOG LOBIN A1C hemoglobin A1C 5.8 % 4.8-5. 6 above high normal Predi abete s: 5.7 - 6.4 Diabe michele: >6.4 Glyce sydney contr ol for adult s with diabe michele: <7.0 Not Available [facility] ([facility]) [address] [facility], [place], [address], 10/13/2023 22:06:17 10/04/19 24 10/05/2023 SEDIM ENTAT ION RATE- WESTE RGREN sedimentatio n rate-westerg meliza 29 mm/HR 0-40 Not Available [facility] ([facility]) [address] [place], [address], 10/13/2023 22:06:17 10/04/19 24 10/05/2023 C-NAREN CTIVE PROTE IN, QUANT C-reactive protein, quant 1 mg/L 0-10 Not Available [facility] ([facility]) [address] [place], [address], 10/13/2023 22:06:18 01/10/20 24 01/11/2024 TSH+F REE T4 TSH 0.763 uIU/m L 0.450- 4.500 normal Not Available [facility] ([facility]) [address] [place], [address], 01/11/2024 12:08:06 01/10/2001/11/2024 TSH+F REE T4 T4,free(dire ct) 1.39 NG/dL 0.82-1 .77 normal Not Available [facility] ([facility]) [address] [place], [address], 01/11/2024 12:08:06 01/10/20 24 01/11/2024 CBC WITH DIFFE RENTI AL/PL ATELE T WBC 10.6 x10e3 /uL 3.4-10 .8 normal Not Available [facility] ([facility]) [address] [place], [address], 01/11/2024 12:08:09 01/10/2001/11/2024 CBC WITH DIFFE RENTI AL/PL ATELE T RBC 5.44 x10e6 /uL 3.77-5 .28 above high normal Not Available [facility] ([facility]) [address] [place], [address], 01/11/2024 12:08:09 01/10/2001/11/2024 CBC WITH DIFFE RENTI AL/PL ATELE T hemoglobin 15.1 g/dL 11.1-1 5.9 normal Not Available [facility] ([facility]) [address] [place], [address], 01/11/2024 12:08:09 01/10/2001/11/2024 CBC WITH DIFFE RENTI AL/PL ATELE T hematocrit 47.9 % 34.0-4 6.6 above high normal Not Available [facility] ([facility]) [address] [place], [address], 01/11/2024 12:08:09 01/10/2001/11/2024 CBC WITH DIFFE RENTI AL/PL ATELE T MCV 88 fL 79-97 normal Not Available [facility] ([facility]) [address] [place], [address], 01/11/2024 12:08:09 01/10/2001/11/2024 CBC WITH DIFFE RENTI AL/PL ATELE T MCH 27.8 pg 26.6-3 3.0 normal Not Available [facility] ([facility]) [address] [place], [address], 01/11/2024 12:08:09 01/10/20 01/11/2024 CBC WITH DIFFE RENTI AL/PL ATELE T MCHC 31.5 g/dL 31.5-3 5.7 normal Not Available [facility] ([facility]) [address] [facility], [place], [address], 01/11/2024 12:08:09 01/10/2001/11/2024 CBC WITH DIFFE RENTI AL/PL ATELE T RDW 13.1 % 11.7-1 5.4 Not Available [facility] ([facility]) [address] [facility], [place], [address], 01/11/2024 12:08:09 01/10/2001/11/2024 CBC WITH DIFFE RENTI AL/PL ATELE T platelets 294 x10e3 /uL 150-45 0 normal Not Available [facility] ([facility]) [address] [facility], [place], [address], 01/11/2024 12:08:09 01/10/2001/11/2024 CBC WITH DIFFE RENTI AL/PL ATELE T neutrophils 76 % not estab. normal Not Available [facility] ([facility]) [address] [facility], [place], [address], 01/11/2024 12:08:09 01/10/2001/11/2024 CBC WITH DIFFE RENTI AL/PL ATELE T lymphs 14 % not estab. normal Not Available [facility] ([facility]) [address] [facility], [place], [address], 01/11/2024 12:08:09 01/10/2001/11/2024 CBC WITH DIFFE RENTI AL/PL ATELE T monocytes 7 % not estab. normal Not Available [facility] ([facility]) [address] [facility], [place], [address], 01/11/2024 12:08:09 10/15/20 24 01/11/2024 CBC WITH DIFFE RENTI AL/PL ATELE T eos 1 % not estab. normal Not Available [facility] ([facility]) [address] [facility], [place], [address], 01/11/2024 12:08:09 01/10/2001/11/2024 CBC WITH DIFFE RENTI AL/PL ATELE T basos 1 % not estab. normal Not Available [facility] (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) [address] [facility], [place], [address], 01/11/2024 12:08:09 01/10/2001/11/2024 CBC WITH DIFFE RENTI AL/PL ATELE T neutrophils (absolute) 8.3 x10e3 /uL 1.4-7. 0 above high normal Not Available [facility] ([facility]) [address] [facility], [place], [address], 01/11/2024 12:08:09 01/10/20 24 01/11/2024 CBC WITH DIFFE RENTI AL/PL ATELE T lymphs (absolute) 1.5 x10e3 /uL 0.7-3. 1 normal Not Available [facility] ([facility]) [address] [place], [address], 01/11/2024 12:08:09 01/10/2001/11/2024 CBC WITH DIFFE RENTI AL/PL ATELE T monocytes(ab solute) 0.7 x10e3 /uL 0.1-0. 9 normal Not Available [facility] ([facility]) [address] [facility], [place], [address], 01/11/2024 12:08:09 01/10/20 24 01/11/2024 CBC WITH DIFFE RENTI AL/PL ATELE T eos (absolute) 0.1 x10e3 /uL 0.0-0. 4 normal Not Available [facility] ([facility]) [address] [facility], [place], [address], 01/11/2024 12:08:09 01/10/20 24 01/11/2024 CBC WITH DIFFE RENTI AL/PL ATELE T baso (absolute) 0.1 x10e3 /uL 0.0-0. 2 normal Not Available [facility] ([facility]) [address] [facility], [place], [address], 01/11/2024 12:08:09 01/10/2001/11/2024 CBC WITH DIFFE RENTI AL/PL ATELE T immature granulocytes 1 % not estab. Not Available [facility] ([facility]) [address] [facility], [place], [address], 01/11/2024 12:08:09 01/10/2001/11/2024 CBC WITH DIFFE RENTI AL/PL ATELE T immature grans (abs) 0.1 x10e3 /uL 0.0-0. 1 Not Available [facility] (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) [address] [facility], [place], [address], 01/11/2024 12:08:09 01/10/20 24 01/11/2024 LIPID PANEL cholesterol, total 124 mg/dL 100-19 9 normal Not Available [facility] ([facility]) [address] [facility], [place], [address], 01/11/2024 12:08:11 01/10/20 24 01/11/2024 LIPID PANEL triglyceride s 60 mg/dL 0-149 normal Not Available [facility] ([facility]) [address] [facility], [place], [address], 01/11/2024 12:08:11 01/10/20 24 01/11/2024 LIPID PANEL HDL cholesterol 49 mg/dL >39 normal Not Available [facility] ([facility]) [address] [facility], [place], [address], 01/11/2024 12:08:11 01/10/20 24 01/11/2024 LIPID PANEL VLDL cholesterol len 13 mg/dL 5-40 Not Available [facility] ([facility]) [address] [facility], [place], [address], 01/11/2024 12:08:11 01/10/2001/11/2024 LIPID PANEL LDL chol calc (rust) 62 mg/dL 0-99 Not Available [facility] (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) [address] [facility], [place], [address], 01/11/2024 12:08:11 01/10/20 24 01/11/2024 GREGORIA+L IPASE amylase 48 U/L 31-110 normal Not Available [facility] ([facility]) [address] [facility], [place], [address], 01/11/2024 12:08:12 01/10/20 24 01/11/2024 GREGORIA+L IPASE lipase 44 U/L 14-72 normal Not Available [facility] ([facility]) [address] [place], [address], 01/11/2024 12:08:12 01/10/20 24 01/11/2024 HEMOG LOBIN A1C hemoglobin A1C 5.6 % 4.8-5. 6 normal Predi abete s: 5.7 - 6.4 Diabe michele: >6.4 Glyce sydney contr ol for adult s with diabe michele: <7.0 Not Available [facility] ([facility]) [address] [facility], [place], [address], 01/11/2024 12:08:13 01/10/2001/11/2024 RHEUM ATOID FACTO R (RF) rheumatoid factor (rf) <10.0 IU/mL <14.0 Not Available [facility] ([facility]) [address] [place], [address], 01/11/2024 12:08:14 01/10/2001/11/2024 LYME DISEA SE SEROL OGY W/REF MARTINEZ lyme total antibody enoc Negati ve negati ve Lyme antib odies not detec paula. Refle x testi ng is not indic ated. No labor atory evide nce of infec tion with B. burgd orfer i (Lyme disea se). Negat cammie resul ts may occur in patie nts recen tly infec paula (less than or equal to 14 days) with B. burgd orfer i. If recen t infec tion is suspe cted, repea t testi ng on a new sampl e colle cted in 7 to 14 days is recom paula d. Not Available [facility] ([facility]) [address] [place], [address], 01/11/2024 12:08:15 01/10/20 24 01/11/2024 ANTIN UCLEA R AB MULTI PLEX RFX 9 DAMARI direct Negati ve negati ve Not Available [facility] ([facility]) [address] [place], [address], 01/11/2024 12:08:16 01/10/20 24 01/11/2024 SEDIM ENTAT ION RATE- WESTE RGREN sedimentatio n rate-westerg meliza 19 mm/HR 0-40 normal Not Available [facility] ([facility]) [address] [facility], [place], [address], 01/11/2024 12:08:17 01/10/20 24 01/11/2024 C-NAREN CTIVE PROTE IN, QUANT C-reactive protein, quant 2 mg/L 0-10 normal Not Available [facility] ([facility]) [address] [facility], [place], [address], 01/11/2024 12:08:18 02/06/20 24 02/07/2024 CBC WITH DIFFE RENTI AL/PL ATELE T WBC 10.1 x10e3 /uL 3.4-10 .8 normal Not Available [facility] ([facility]) [address] [facility], [place], [address], 02/07/2024 14:07:04 02/06/20 24 02/07/2024 CBC WITH DIFFE RENTI AL/PL ATELE T RBC 5.19 x10e6 /uL 3.77-5 .28 normal Not Available [facility] ([facility]) [address] [facility], [place], [address], 02/07/2024 14:07:04 02/06/20 24 02/07/2024 CBC WITH DIFFE RENTI AL/PL ATELE T hemoglobin 14.6 g/dL 11.1-1 5.9 normal Not Available [facility] ([facility]) [address] [place], [address], 02/07/2024 14:07:04 02/06/20 24 02/07/2024 CBC WITH DIFFE RENTI AL/PL ATELE T hematocrit 45.7 % 34.0-4 6.6 normal Not Available [facility] ([facility]) [address] [facility], [place], [address], 02/07/2024 14:07:04 02/06/20 24 02/07/2024 CBC WITH DIFFE RENTI AL/PL ATELE T MCV 88 fL 79-97 normal Not Available [facility] ([facility]) [address] [facility], [place], [address], 02/07/2024 14:07:04 02/06/20 24 02/07/2024 CBC WITH DIFFE RENTI AL/PL ATELE T MCH 28.1 pg 26.6-3 3.0 normal Not Available [facility] ([facility]) [address] [facility], [place], [address], 02/07/2024 14:07:04 02/06/20 24 02/07/2024 CBC WITH DIFFE RENTI AL/PL ATELE T MCHC 31.9 g/dL 31.5-3 5.7 normal Not Available [facility] ([facility]) [address] [facility], [place], [address], 02/07/2024 14:07:04 02/06/20 24 02/07/2024 CBC WITH DIFFE RENTI AL/PL ATELE T RDW 13.4 % 11.7-1 5.4 Not Available [facility] ([facility]) [address] [facility], [place], [address], 02/07/2024 14:07:04 02/06/20 24 02/07/2024 CBC WITH DIFFE RENTI AL/PL ATELE T platelets 278 x10e3 /uL 150-45 0 normal Not Available [facility] ([facility]) [address] [place], [address], 02/07/2024 14:07:04 02/06/20 24 02/07/2024 CBC WITH DIFFE RENTI AL/PL ATELE T neutrophils 71 % not estab. normal Not Available [facility] ([facility]) [address] [facility], [place], [address], 02/07/2024 14:07:04 02/06/20 24 02/07/2024 CBC WITH DIFFE RENTI AL/PL ATELE T lymphs 19 % not estab. normal Not Available [facility] ([facility]) [address] [facility], [place], [address], 02/07/2024 14:07:04 02/06/20 24 02/07/2024 CBC WITH DIFFE RENTI AL/PL ATELE T monocytes 9 % not estab. normal Not Available [facility] ([facility]) [address] [facility], [place], [address], 02/07/2024 14:07:04 02/06/20 24 02/07/2024 CBC WITH DIFFE RENTI AL/PL ATELE T eos 1 % not estab. normal Not Available [facility] ([facility]) [address] [facility], [place], [address], 02/07/2024 14:07:04 02/06/20 24 02/07/2024 CBC WITH DIFFE RENTI AL/PL ATELE T basos 0 % not estab. normal Not Available [facility] (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) [address] [facility], [place], [address], 02/07/2024 14:07:04 02/06/20 24 02/07/2024 CBC WITH DIFFE RENTI AL/PL ATELE T neutrophils (absolute) 7.1 x10e3 /uL 1.4-7. 0 above high normal Not Available [facility] ([facility]) [address] [facility], [place], [address], 02/07/2024 14:07:04 02/06/20 24 02/07/2024 CBC WITH DIFFE RENTI AL/PL ATELE T lymphs (absolute) 1.9 x10e3 /uL 0.7-3. 1 normal Not Available [facility] ([facility]) [address] [facility], [place], [address], 02/07/2024 14:07:04 02/06/20 24 02/07/2024 CBC WITH DIFFE RENTI AL/PL ATELE T monocytes(ab solute) 0.9 x10e3 /uL 0.1-0. 9 normal Not Available [facility] ([facility]) [address] [facility], [place], [address], 02/07/2024 14:07:04 02/06/20 24 02/07/2024 CBC WITH DIFFE RENTI AL/PL ATELE T eos (absolute) 0.1 x10e3 /uL 0.0-0. 4 normal Not Available [facility] ([facility]) [address] [facility], [place], [address], 02/07/2024 14:07:04 02/06/20 24 02/07/2024 CBC WITH DIFFE RENTI AL/PL ATELE T baso (absolute) 0.0 x10e3 /uL 0.0-0. 2 normal Not Available [facility] ([facility]) [address] [facility], [place], [address], 02/07/2024 14:07:04 02/06/20 24 02/07/2024 CBC WITH DIFFE RENTI AL/PL ATELE T immature granulocytes 0 % not estab. Not Available [facility] ([facility]) [address] [facility], [place], [address], 02/07/2024 14:07:04 02/06/20 24 02/07/2024 CBC WITH DIFFE RENTI AL/PL ATELE T immature grans (abs) 0.0 x10e3 /uL 0.0-0. 1 Not Available [facility] (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) [address], [place], [address], 02/07/2024 14:07:04 02/06/20 24 02/07/2024 COMP. METAB OLIC PANEL (14) glucose 82 mg/dL 70-99 normal Not Available [facility] ([facility]) [address], [place], [address], 02/07/2024 14:07:05 02/06/20 24 02/07/2024 COMP. METAB OLIC PANEL (14) BUN 15 mg/dL 6-24 normal Not Available [facility] ([facility]) [address], [place], [address], 02/07/2024 14:07:05 02/06/20 24 02/07/2024 COMP. METAB OLIC PANEL (14) creatinine 0.62 mg/dL 0.57-1 .00 normal Not Available [facility] ([facility]) [address] [place], [address], 02/07/2024 14:07:05 02/06/20 24 02/07/2024 COMP. METAB OLIC PANEL (14) eGFR 108 mL/mi n/1.7 3 >59 normal Not Available [facility] ([facility]) [address], [place], [address], 02/07/2024 14:07:05 02/06/20 24 02/07/2024 COMP. METAB OLIC PANEL (14) BUN/creatini ne ratio 24 9-23 above high normal Not Available [facility] ([facility]) [address] [facility] [place], [address], 02/07/2024 14:07:05 02/06/20 24 02/07/2024 COMP. METAB OLIC PANEL (14) sodium 143 mmol/ L 134-14 4 normal Not Available [facility] ([facility]) [address] [facility] [place], [address], 02/07/2024 14:07:05 02/06/20 24 02/07/2024 COMP. METAB OLIC PANEL (14) potassium 4.0 mmol/ L 3.5-5. 2 normal Not Available [facility] ([facility]) [address] [facility] [place], [address], 02/07/2024 14:07:05 02/06/20 24 02/07/2024 COMP. METAB OLIC PANEL (14) chloride 108 mmol/ L 96-106 above high normal Not Available [facility] ([facility]) [address] [place], [address], 02/07/2024 14:07:05 02/06/20 24 02/07/2024 COMP. METAB OLIC PANEL (14) carbon dioxide, total 23 mmol/ L 20-29 normal Not Available [facility] ([facility]) [address] [place], [address], 02/07/2024 14:07:05 02/06/20 24 02/07/2024 COMP. METAB OLIC PANEL (14) calcium 9.2 mg/dL 8.7-10 .2 normal Not Available [facility] ([facility]) [address] [place], [address], 02/07/2024 14:07:05 02/06/20 24 02/07/2024 COMP. METAB OLIC PANEL (14) protein, total 6.7 g/dL 6.0-8. 5 normal Not Available [facility] ([facility]) [address] [facility] [place], [address], 02/07/2024 14:07:05 02/06/20 24 02/07/2024 COMP. METAB OLIC PANEL (14) albumin 4.2 g/dL 3.8-4. 9 normal Not Available [facility] ([facility]) [address] [facility] [place], [address], 02/07/2024 14:07:05 02/06/20 24 02/07/2024 COMP. METAB OLIC PANEL (14) globulin, total 2.5 g/dL 1.5-4. 5 Not Available [facility] ([facility]) [address] [facility] [place], [address], 02/07/2024 14:07:05 02/06/20 24 02/07/2024 COMP. METAB OLIC PANEL (14) bilirubin, total 0.3 mg/dL 0.0-1. 2 normal Not Available [facility] ([facility]) [address] [facility] [place], [address], 02/07/2024 14:07:05 02/06/20 24 02/07/2024 COMP. METAB OLIC PANEL (14) alkaline phosphatase 75 IU/L 44-121 normal Not Available [facility] ([facility]) [address] [place], [address], 02/07/2024 14:07:05 02/06/20 24 02/07/2024 COMP. METAB OLIC PANEL (14) AST (SGOT) 17 IU/L 0-40 normal Not Available [facility] ([facility]) [address] [place], [address], 02/07/2024 14:07:05 02/06/20 24 02/07/2024 COMP. METAB OLIC PANEL (14) ALT (SGPT) 14 IU/L 0-32 normal Not Available [facility] ([facility]) [address] [facility] [address], [place], [address], 02/07/2024 14:07:05 02/06/20 24 02/07/2024 D-DIM ER D-dimer 0.43 mg/L_ feu 0.00-0 .49 Accor ding to the assay manuf actur er's publi shed packa ge inser t, a manuel l (<0.5 0 mg/L FEU) D-dim er resul t in conju nctio n with a non-h igh clini len proba bilit y asses sment , exclu herrera deep vein throm bosis (DVT) and pulmo nary embol ism (PE) with high sensi tivit y. D-dim er value s incre ase with age and this can make VTE exclu terrance of an older popul ation diffi cult. To addre ss this, the Ameri justin Colle ge of Physi cians , based on best avail able evide nce and recen t guide lines , recom mends that clini cians use age-a djust ed D-dim er thres holds in patie nts great er than 50 years of age with: a) a low proba bilit y of PE who do not meet all Pulmo nary Embol ism Rule Out Crite emely, or b) in those with inter media te proba bilit y of PE. The formu la for an age-a djust ed D-dim er cut-o ff is age/ 100 . For examp le, a 60 year old patie nt would have an age-a djust ed cut-o ff of 0.60 mg/L FEU and an 80 year old 0.80 mg/L FEU. Not Available [facility] ([facility]) [address] [facility], [place], [address], 02/07/2024 14:07:06 02/06/20 24 02/07/2024 SEDIM ENTAT ION RATE- WESTE RGREN sedimentatio n rate-westerg meliza 31 mm/HR 0-40 normal Not Available [facility] ([facility]) [address] [facility] [address], [place], [address], 02/07/2024 14:07:07 02/25/2002/25/2024 rapid flu (A+B) Flu A negati ve Not Available In-Office Order Internal Use Only DO Not Attach Compendium DO Not Attach Compendium, Do Not Delete/merge, [id number] 02/25/2024 10:28:56 02/25/20 24 02/25/2024 rapid flu (A+B) Flu B negati ve Not Available In-Office Order Internal Use Only DO Not Attach Compendium DO Not Attach Compendium, Do Not Delete/merge, [id number] 02/25/2024 10:28:56 02/26/2002/25/2024 XR, chest , 2 view Chest 2 [...] TISSUE S: No acute abnorm ality. IMPRES TERRANCE: No acute abnorm ality. WSN: [id number] Orderi ng Physic duc: Eulogio Raines ie Dictat ed By: Isaura Gabriel MD Dictat ed Date/T jody: 8:25 am Review ed By: Isaura Gabriel MD Signed By: Isaura Gabriel MD Signed Date/T jody: 8:25 am Transc ribed By: GAIL Transc ribed Date/T jody: 8:24 am Patien t Class: Outpat ient [facility] (Outpt Imaging) [address] , [place], [address], 02/26/2024 20:02:12 02/27/20 24 02/07/2024 US, lower extre mity No observ ation record ed. [email or web address] [facility] (Medical Records) [address] [facility], [place], [address], 02/28/2024 09:06:36 Result Notes None recorded. Problems Name Problem SNOMED Code Status Onset Date Resolution Date Notes Provider Name and Address Organization Details Recorded Time Epigastr ic pain 19325231 Completed 05/10/2016 Jaylene betts [facility] 7 11:02:22 Abdomina l pain 30675500 Completed 05/10/2016 Jaylene betts [facility] 7 11:01:53 Allergic rhinitis 58287777 Completed 200910/09/2013 RECORDED 06/27/19 10 10:27AM BY MARQUISE MARRUFO MA, ANNOTATI ON/ADDEN DUM Jaylene betts [facility] 7 08:51:51 Allergic rhinitis 19878472 Completed 05/10/2016 Jaylene betts [facility] 7 08:51:51 Asthma 672541601 Active Maxine betts [facility] 6 12:08:51 Acute asthma 934152496 Completed 05/10/2016 Jaylene betts [facility] 7 11:02:10 Chest pain 61887557 Completed 05/10/2016 Jaylene betts [facility] 7 11:02:04 Tobacco dependen ce syndrome 39905527 Completed 07/20/2018 Malinda Hidalgo, PASUP [address] [facility] [address], [place], [address], [facility] 4 10:10:19 Elevated blood-pr essure reading without diagnosi s of hyperten terrance 246521596 Completed 201010/09/2013 RECORDED 12/22/19 11 3:26PM BY MARQUISE MARRUFO MA, ERICH ON/ADDEN DUM Maxine aguilera null, [facility] 6 12:08:51 Enthesop athy of hip region 54566700 Active Maxine aguilera null, [facility] 6 12:08:51 Gastroes ophageal reflux disease 105469974 Completed 200910/09/2013 RECORDED 06/27/19 10 10:27AM BY MARQUISE MARRUFO MA, ANNOTATI ON/ADDEN DUM Maxine aguilera null, [facility] 6 12:08:51 Essentia l hyperten terrance 72319310 Active Maxine betts, [facility] 6 12:08:51 Influenz a vaccine needed [id number] 06 Completed 05/10/2016 Jaylene betts, [facility] 7 11:01:42 General examinat ion of patient Completed 200710/09/2013 RECORDED 11/28/19 08 2:32PM BY MARQUISE MARRUFO MA, ANNOTATI ON/ADDEN DUM Maxine aguilera null, [facility] 6 12:08:51 Influenz a with respirat ory manifest ation other than pneumoni a Completed 05/10/2016 Jaylene betts, [facility] 7 11:02:29 Low back pain 287249776 Completed 200910/09/2013 RECORDED 06/27/19 10 10:27AM BY MARQUISE MARRUFO MA, ANNOTATI ON/ADDEN DUM Maxine betts, [facility] 6 12:08:51 Migraine 74392145 Active Maxine betts, [facility] 6 12:08:51 Eruption 981295599 Completed 200710/09/2013 RECORDED 11/28/19 08 2:32PM BY MARQUISE MARRUFO MA, ANNOTATI ON/ADDEN DUM [facility]inda Hidalgo, [facility] [address] [facility] [address], [facility] [address], [facility] 2 13:14:35 Restless legs 41815173 Completed 05/10/2016 Jaylene Díaz MA null, [facility] 8 11:35:16 Adult health examinat ion Completed 05/10/2016 Jaylene betts, [facility] 7 11:02:00 Dermatop hytosis of the body Active Maxine betts, [facility] 6 12:08:51 Injury of elbow 061706930 Completed 05/10/2016 Jaylene betts, [facility] 7 11:01:45 Allergy Completed 05/10/2016 Jaylene betts, [facility] 7 11:01:39 Allergic rhinitis 80383819 Completed 200911/05/2013 RECORDED 06/27/19 10 10:27AM BY MARQUISE MARRUFO MA, ANNOTATI ON/ADDEN DUM Jaylene Díaz MA null, [facility] 7 08:51:51 Elevated blood-pr essure reading without diagnosi s of hyperten terrance 710235458 Completed 201011/05/2013 RECORDED 12/22/19 11 3:26PM BY MARQUISE MARRUFO MA, ANNOTATI ON/ADDEN DUM Maxine aguilera null, [facility] 6 12:08:51 Gastroes ophageal reflux disease 140470717 Completed 200911/05/2013 RECORDED 06/27/19 10 10:27AM BY MARQUISE MARRUFO MA, ANNOTATI ON/ADDEN DUM Maxine aguilera null, [facility] 6 12:08:51 General examinat ion of patient Completed 200711/05/2013 RECORDED 11/28/19 08 2:32PM BY MARQUISE MARRUFO MA, BENNIEATI ON/ADDEN DUM Maxine betts, [facility] 6 12:08:51 Follow-u p encounte r Completed 05/10/2016 Jaylene betts, [facility] 7 11:02:18 Low back pain 891203120 Completed 200911/05/2013 RECORDED 06/27/19 10 10:27AM BY MARQUISE MARRUFO MA, ANNOTATI ON/ADDEN DUM Maxine betts, [facility] 6 12:08:51 Eruption 293023575 Completed 200711/05/2013 RECORDED 11/28/19 08 2:32PM BY MARQUISE MARRUFO MA, ANNOTATI ON/ADDEN DUM Malinda Hidalgo, [facility] [address] [facility] [address], [facility] [address] , [facility] 2 13:14:35 Body mass index 40+ - severely obese 024727627 Active Gregoria betts [facility] 8 17:58:43 Thoracic back pain 113773868 Active Maxine betts [facility] 6 12:08:51 Cough 01966822 Completed 05/10/2016 Jaylene betts [facility] 7 11:02:35 Urogenit al finding 065660037 Active STORY: RIGHT KIDNEY CYST U/S 07/05 Maxine betts [facility] 6 12:08:51 Thumb injury 992438623 Completed 05/10/2016 Jaylene betts [facility] 7 11:01:49 Bunion 836400840 Completed 05/10/2016 Jaylene betts, [facility] 7 11:02:37 Disorder of breast 64830803 Completed 05/10/2016 Jaylene betts, [facility] 7 11:02:24 Metatars algia 94940266 Active Maxine betts, [facility] 6 12:08:51 Acute bronchit is 73978744 Completed 03/27/2016 SANTOS Martinez, [facility] 6 10:22:54 Pleuriti c pain 0846058 Completed 05/10/2016 Jaylene betts, [facility] 7 11:01:57 Atypical chest pain 335128626 Active Maxine betts, [facility] 6 12:13:25 Allergic rhinitis 33348843 Completed 201606/17/2016 Jaylene betts, [facility] 7 08:51:51 Hyperlip idemia 76276835 Active 2017 Arely Lopez PA-C [address] [facility] [address], [facility] [address] [place] [address] 8 13:20:18 Restless legs 78367828 Active 2017 Jaylene betts, [facility] 8 11:35:16 Snoring 30565552 Active 2017 Jaylene betts, [facility] 8 11:35:33 Heart disease 31278699 Active 07/2017 had pos ETT, sent for cardiac cath, had 90% blockage of LAD; stented Dr Tere betts, [facility] 9 15:32:25 Ex-smoke r 9306150 Active 2017 SANTOS Garzon, [facility] 9 09:39:52 Suspecte d COVID-19 630565939 Completed 09/23/2020 Removal Reason: Problem added by user tj Malhotra from the COVID-19 watch flag Shonda Vuong null, [facility] 1 14:36:15 Prediabe michele 336731277 Active 2021 Malinda Hidalgo [facility] [address] [facility] [address], [place], [address], [facility] 2 13:14:34 Eruption 595472332 Active 2021 RECORDED 11/28/19 08 2:32PM BY MARQUISE MARRUFO MA, ANNOTATI ON/ADDEN DUM Malinda Hidalgo [facility] [address] [facility] [address], [place], [address], [facility] 2 13:14:34 Fatigue 45830295 Active 2021 Malinda Hidalgo [facility] [address] [facility] [address], [place], [address], [facility] 2 13:23:33 Morbid obesity 973044501 Active 2021 Denise Diazvedo null, [facility] 2 15:15:41 Benign paroxysm al position al vertigo 831075459 Active 2021 Malinda Hidalgo [facility] [address] [facility] [address], [place], [address], [facility] 2 09:11:59 Tobacco dependen ce syndrome 20463008 Active 2023 Malinda Hidalgo [facility] [address], [place], [address], [facility] 4 10:10:19 Neck pain 77645480 Active 2023 Janitza C. Thabet, [facility] [address], [place], [address], [facility] 4 12:17:05 Vasculit is of the skin 04129042 Active 2023 Malinda Hidalgo, [facility] [address], [place], [address], [facility] 4 10:17:48 Venous varices 535539623 Active 2023 Malinda Hidalgo, [facility] [address], [place], [address], [facility] 4 10:18:57 Overacti ve urinary bladder 007004552 Active 2023 Malinda Hidalgo, [facility] [address], [place], [address], [facility] 4 09:27:28 Headache 77652252 Active 2023 Malinda Hidalgo, [facility] [address], [place], [address], [facility] 4 09:39:53 Problem Notes None recorded. Procedures Surgical History Date Name Laterality Status Provider Name and Address Organization Details Recorded Time 06/20/19 23 Most Recent Mammogram completed Maxine Gallo MA [facility] 10/05/2022 09:02:08 12/27/19 21 Date of Last Pap Smear completed Monica Mesa MA [facility] 09/22/2021 13:06:35 06/15/19 21 Mammogram screening completed Brittany Green [facility] 06/24/2020 16:15:31 05/31/19 19 angiography of coronary artery completed Kathy Johansen [facility] 05/30/2018 09:37:32 08/06/19 18 Coronary art/grft angio s&i completed Bella Wray [facility] 08/10/2017 11:28:44 02/19/20 15 Ultrasound breast complete completed Dilia Howe [facility] 02/19/2015 09:44:02 release of trigger thumb completed Marquise mendez MA [facility] 04/05/2018 14:55:44 Tonsillectomy completed Monica jones MA [facility] 09/22/2021 12:54:58 Imaging Results Imaging Date Name Status LastModified by Organiz ation Details LastModified Time 02/25/2024 XR, chest, 2 view completed [facility] (Outpt Imaging) [address], [place], [address], 02/26/2024 20:02:12 02/07/2024 US, lower extremity completed [email or web address] [facility] (Medical Records) [address] [place], [address], 02/28/2024 09:06:36 Procedure Notes None recorded. Medical Equipment None Reported. Allergies Allergen ID Allergen Name Allergen Category Reaction Reaction Severity Criticality Documentation Date Start Date Code Code System Note Provider Name and Address Organization Details Recorded Time 53668 Glycine max (substanc e) environme nt,food,m edication other Not available Not available 11/02/20132013 09493 5007 SNOMED SANTOS Martinez [facility] 2 12:54:40 77434 potato allergeni c extract food Not available Not available Not available 04/05/2018 58894 2 RxNorm SANTOS Martinez [facility] 2 12:54:40 7541 Product containin g angiotens in-conver ting enzyme inhibitor (product) medicatio n cough Not available Not available 10/09/20132013 10335 009 SNOMED SANTOS Garcia [facility] 5 13:15:24 7542 omeprazol e medicatio n abdominal pain Not available Not available 10/09/20132013 7646 RxNorm SANTOS Martinez, [facility] 2 12:54:40 7543 Medicinal product containin g penicilli n and acting as antibacte rial agent (product) medicatio n other Not available Not available 10/09/20132013 94278 05 SNOMED [facility] 13:15:24 Medications Name Sig Start [...] Not Available Not Available Not Available flucelvax 0970-0684 .5 ml israel 06/12 completed Not Available [...] 14 9:46AM BY LARISSA DARLING MA, BENNIEATI ON/ADD DUM; Not Available Not Available Not Available lisinopri l 20 mg tablet TWO TIMES DAILY 10/27 completed RECORDED 10/28/19 10 1:54PM BY MAXINE AGUILERA MD, ERICH ON/ADD DUM; Not Available Not Available Not Available [...] 07/11 completed RECORDED 07/12/19 10 10:30AM BY MARQUISE MARRUFO MA, OFFICE VISIT; Not Available Not [...] 07/11 completed RECORDED 07/12/19 10 10:30AM BY MARQUISE MARRUFO MA, OFFICE VISIT; Not Available Not [...] 07/11 completed RECORDED 07/12/19 10 10:30AM BY MARQUISE MARRUFO MA, OFFICE VISIT;TA KE 30 MIN BEFORE MORNING MEAL. Not Available Not Available Not Available econazole TWO TIMES DAILY 07/11 completed RECORDED 07/12/19 10 10:30AM BY MARQUISE MARRUFO MA, OFFICE VISIT; Not Available Not Available Not Available varenicli ne 1 mg tablet BID 07/11 completed RECORDED 07/12/19 10 10:30AM BY MARQUISE MARRUFO MA, OFFICE VISIT; Not Available Not [...] VACCINAT ION ADMINIST ERED BY PHARMACI ST 03/19 completed Not Available Not Available Not [...] height Body mass index (BMI) Body weight Heart rate Oxygen saturation Oxygen saturation in Arterial blood by Pulse oximetry Body temperature Systolic blood pressure Diastolic blood pressure Provider Name and Address Organization Details Last Updated DateTime 4 154.94 cm 40.6 kg/m2 59195.3 6 g 77 /min 99 % 99 % 98 [degF] 117 mm[Hg] 67 mm[Hg] Tim foy MA MA [facility] 4 09:59:08 Date Recorded Body height Body mass index (BMI) Body weight Heart rate Oxygen saturation Oxygen saturation in Arterial blood by Pulse oximetry Body temperature Systolic blood pressure Diastolic blood pressure Provider Name and Address Organization Details Last Updated DateTime 4 154.94 cm 40.6 kg/m2 37144.3 6 g 77 /min 98 % 98 % 98.1 [degF] 131 mm[Hg] 80 mm[Hg] Leean Darien-Va lle, MA [facility] 4 08:49:39 Date Recorded Body height Body mass index (BMI) Body weight Heart rate Oxygen saturation Oxygen saturation in Arterial blood by Pulse oximetry Body temperature Systolic blood pressure Diastolic blood pressure Provider Name and Address Organization Details Last Updated DateTime 4 154.94 cm 38 kg/m2 62727.0 7 g 78 /min 96 % 96 % 97.8 [degF] 141 mm[Hg] 83 mm[Hg] Payal Jhaveri MA [facility] 4 08:29:55 Date Recorded Body height Body mass index (BMI) Body weight Heart rate Oxygen saturation Oxygen saturation in Arterial blood by Pulse oximetry Body temperature Systolic blood pressure Diastolic blood pressure Provider Name and Address Organization Details Last Updated DateTime 4 154.94 cm 37 kg/m2 99763.1 g 84 /min 99 % 99 % 97.9 [degF] 126 mm[Hg] 81 mm[Hg] Payal Jhaveri MA [facility] 4 15:12:02 Date Recorded Body height Body mass index (BMI) Body weight Oxygen saturation Oxygen saturation in Arterial blood by Pulse oximetry Heart rate Body temperature Systolic blood pressure Diastolic blood pressure Provider Name and Address Organization Details Last Updated DateTime 4 154.94 cm 36.7 kg/m2 53329.3 2 g 98 % 98 % 84 /min 97.8 [degF] 124 mm[Hg] 78 mm[Hg] Monica Mesa MA [facility] 4 10:27:23 Social History Question Answer Notes LastModified by Organizat ion Details LastModified Time Tobacco Smoking Status Current Every Day Smoker SANTOS Ho [facility] 10/11/2023 08:50:30 Do You Have An Advance Directive? Yes HCP At [facility] 05/30/18 [email or web address] Information not available 09/22/2021 What Is Your [...] Or Vape? Former User Of Electronic Cigarettes [email or web address] Information not available 09/22/2021 What Is Your Occupation? [employer] Information not available 07/20/2018 When Did You Quit Smoking? 1-5yearssince lastcigardigna [email or web address] Information not available 09/22/2021 Live Alone Or [...] Or Greater Than 100 Degrees Fahrenheit? No [email or web address] Information not available 11/15/2019 Are You Or Anyone In Your Household A Health Care Provider Or Emergency Responder? No [email or web address] Information not available 11/15/2019 To The Best Of Your Knowledge Have You Been In Close Proximity To Any Individual Who Tested Positive For COVID-19? No [email or web address] Information not available 11/15/2019 *AWV ONLY* Are You Presently Prescribed Opioid Medication By PCP Or Specialist? If YES -Provider Assess The Benefit For Other, Non-opioid Pain Therapies Instead, Even If The Patient Does Not Have OUD But Is Possibly At Risk. No [email or web address] Information not available 09/22/2021 Have You Recently Traveled To A COVID-19 High Risk Area Or Gathering In The Last 10 Days? No [email or web address] Information not available 09/16/2020 What Was The Date Of Your Most Recent Tobacco Screening? 10/05/2022 Information not available 10/05/2022 How Many Children Do You Have? 1 Paddy (has ADD) [email or web address] Information not available 01/14/2014 What Is Your Current Pack Years? 20-29packyear s [email or web address] Information not available 09/22/2021 Do You Use Protection During Sex? Usually [email or web address] Information not available 09/22/2021 Do You Use Your Seat Belt Or Car Seat Routinely? Yes [email or web address] Information not available 09/22/2021 Seat Belts Used Routinely Yes [email or web address] Information not available 09/22/2021 Are You Sexually Active? No [email or web address] Information not available 09/22/2021 Smoke Alarm In Home Yes [email or web address] Information not available 09/22/2021 Do You Have [...] Many Years Have You Smoked Tobacco? 25 [email or web address] Information not available 09/16/2020 Do You Or Have You Ever Used Any Other Forms Of Tobacco Or Nicotine? No [email or web address] Information not available 09/22/2021 Sex: Unknown Functional Status Question Answer Note LastModified by Organizat ion Details LastModified Time Are you able to walk? [email or web address] Information not available 09/22/2021 Are you able to care for yourself? Yes Information not available 01/09/2015 What is your exercise level? Moderate walking Information not available 10/11/2023 Mental Status None recorded. Family History Relationship Description Onset Age of this Age Resolved Age Notes LastModified by Organization Details LastModified Time Mother Cerebrovascu lar accident 58 69 of lympho ma karyn Not available 06/17/2016 09:19:17 Mother Essential hypertension [...] 2014 10:06:34 Notes:Father being tested fo r [place] - 10/05/22 Medical History Condition Response Muscle, Joint, or Bone Problems Y Obesity Y Arthritis Y High Cholesterol Y Acid Reflux (GERD) Y Headaches/Migraines Y Eczema Y Hypertension Y Asthma Y Allergies Y Gynecological History Statement/Question Response Menses Monthly N Date of Last Pap Smear 12/26/2020 Age at Menarche 13 Date of Last Colonoscopy Most Recent Mammogram 06/19/2022 LMP Approximate Obstetrics History GPAL:G 0 P 0 0 0 0 Immunizations Vaccine Type Date Status Note Provider Nam e and Address Organization Details Recorded Time Influenza, split virus, trivalent, PF 4 completed Priti betts [facility] 01/14/2014 15:10:51 Influenza, split virus, quadrivalent, preservative 8 completed An betts [facility] 03/06/2018 13:58:17 COVID-19, mRNA, LNP-S, PF, 100 mcg/0.5mL dose or 50 mcg/0.25mL dose 1 completed SANTOS Huber, [facility] 04/03/2021 09:17:46 COVID-19, mRNA, LNP-S, PF, 100 mcg/0.5mL dose or 50 mcg/0.25mL dose 1 completed SANTOS Huber, [facility] 04/03/2021 09:17:46 Influenza, split virus, trivalent, PF 6 completed SANTOS Huber, [facility] 04/03/2021 09:17:46 Influenza, split virus, quadrivalent, PF 9 completed SANTOS Huber, [facility] 04/03/2021 09:17:46 Influenza, MDCK, quadrivalent, PF 7 completed SANTOS Huber, [facility] 04/03/2021 09:17:46 Influenza, MDCK, quadrivalent, PF 1 completed SANTOS Huber, [facility] 04/03/2021 09:17:46 Influenza, split virus, quadrivalent, PF 0 completed SANTOS Huber, [facility] 04/03/2021 09:17:46 Influenza, split virus, quadrivalent, PF 8 completed SANTOS Huber, [facility] 04/03/2021 09:17:46 COVID-19, mRNA, LNP-S, PF, 100 mcg/0.5mL dose or 50 mcg/0.25mL dose 2 completed SANTOS Martinez, [facility] 09/22/2021 13:01:02 Influenza, split virus, quadrivalent, PF 2 completed SANTOS Teague, [facility] 05/27/2022 11:31:26 Influenza, split virus, trivalent, preservative 2 completed Maxine Gallo MA null, [facility] 10/05/2022 08:52:10 Influenza, MDCK, quadrivalent, PF 3 completed Rosy Caporale, DEBLOCKER null, [facility] 08/18/2023 14:49:20 zoster recombinant 3 completed Rosy Caporale, DEBLOCKER null, [facility] 08/18/2023 14:49:20 zoster recombinant 3 completed Rosy Caporale, DEBLOCKER null, [facility] 08/18/2023 14:49:20 COVID-19, mRNA, LNP-S, PF, 50 mcg/0.5 mL 4 completed Rosy Caporale, DEBLOCKER null, [facility] 08/18/2023 14:49:20 Tdap 4 completed Not Available [facility] 04/14/2019 02:21:44 Td (adult), 2 Lf tetanus toxoid, preservative free, adsorbed 1 completed Not Available [facility] 10/09/2013 14:02:25 pneumococcal polysaccharide PPV23 5 completed Not Available [facility] 10/09/2013 14:02:25 Influenza, split virus, trivalent, preservative 6 completed Not Available [facility] 10/09/2013 14:02:25 Influenza, split virus, trivalent, preservative 7 completed Not Available [facility] 10/09/2013 14:02:25 Influenza, split virus, trivalent, preservative 8 completed Not Available [facility] 10/09/2013 14:02:25 Influenza, split virus, trivalent, preservative 0 completed Not Available [facility] 10/09/2013 14:02:25 Influenza, split virus, trivalent, preservative 1 completed Not Available [facility] 10/09/2013 14:02:25 Past Encounters Encounter ID Performer Location Encounter Start Date Encounter Closed Date Diagnosis/Indication Diagnosis SNOMED-CT Code Diagnosis ICD10 Code [id number] autoEComm erce [address] [facility] [address] [place] [address] 12/22/2006 00:00:00 [id number] [address]Comm er[address] [place] [address] 01/12/2007 00:00:00 [id number] autoEComm erce [address] [facility] [address] [place] [address] 01/17/2007 00:00:00 [id number] autoEComm erce [address] [facility] [address] [place] [address] 06/02/2007 00:00:00 [id number] autoEComm erce [address] [facility] [place] [address] 06/20/2007 00:00:00 [id number] autoEComm erce [address] [facility] [place] [address] 11/28/2007 00:00:00 [id number] autoEComm erce [address] [facility] [place] [address] 01/14/2009 00:00:00 [id number] autoEComm erce [address] [facility] [place] [address] 04/22/2009 00:00:00 [id number] autoEComm erce [address] [facility] [place] [address] 06/26/2009 00:00:00 [id number] autoEComm erce [address] [facility] [place] [address] 07/11/2009 00:00:00 [id number] autoEComm erce [address] [facility] [place] [address] 10/27/2009 00:00:00 [id number] autoEComm erce [address] [facility] [place] [address] 05/01/2010 00:00:00 [id number] autoEComm erce [address] [facility] [place], [place] [address] 05/15/2010 00:00:00 [id number] autoEComm erce [address] [facility] [place], [place] [address] 11/09/2010 00:00:00 [id number] autoEComm erce [address] [facility] [place], [place] [address] 12/21/2010 00:00:00 21919 autoEComm erce [address] [facility] [place], [place] [address] 12/24/2010 00:00:00 52817 autoEComm erce [address] [facility] [place], [place] [address] 10/09/2013 00:00:00 [id number] Main Office [address] [facility] [address] [place] [address] 01/14/2014 14:25:46 01/14/2014 15:34:40 Adult health examination [id number] Asthma 909849776 Body mass index 40+ - severely obese 360667786 [id number] [facility] Main Office [address] [address] [place] [address] 04/19/2014 13:03:50 04/19/2014 13:51:12 Thoracic back pain 992467318 Cough 86816368 Asthma 464653963 Body mass index 40+ - severely obese 040706955 354431 Maxine schmidt Main Office [address] [facility] [address] [place] [address] 04/22/2014 14:52:27 04/22/2014 16:57:13 Chest pain 50076660 Dyspnea 401709557 949420 [facility] Main Office [address] [facility] [address] [place] [address] 05/02/2014 09:46:25 05/02/2014 10:20:51 Thoracic back pain 972165614 [id number] Main Office [address] [facility] [address] [place] [address] 10/01/2014 13:50:55 10/01/2014 14:48:30 Thumb injury 720230434 Bunion 727745524 369359 Maxine schmidt Main Office [address] [place] [address] 06/13/2015 13:27:33 06/13/2015 15:35:10 Adult health examination 775898636 Z00.00 Screening for malignant neoplasm of cervix 554894203 Z12.4 Body mass index 40+ - severely obese 995286404 Z68.41 Asthma 543574850 J45.90 9 Allergic rhinitis 743549 04 J30.9 Metatarsalgia 06587104 M 77.42 Restless legs 15578144 G 25.81 [id number] Maxine schmidt Main Office [address] [facility] [address] [place] [address] 06/24/2015 10:44:59 06/24/2015 11:55:59 Acute bronchitis 57915423 J20.9 [id number] Willie Mojica MD Main Office [address] [facility] [address] [place] [address] 07/09/2015 10:33:13 07/09/2015 11:28:09 Pleuritic pain 7867744 R07.81 Chest pain 52721029 R07. 9 135842 Maxine RachelIftikhar schmidt Main Office [address] [facility] [address] [place] [address] 07/25/2015 11:25:05 07/25/2015 12:13:20 Pleuritic pain 1180229 R07.81 Atypical chest pain 1025 61573 R07.89 [id number] Sandee ely Main Office [address] [facility] [address] [place] [address] 03/27/2016 10:20:32 03/27/2016 10:57:18 Acute sinusitis 78106697 J01.90 Cough 32044035 R05 [id number] Maxine schmidt Main Office [address] [facility] [address] [place] [address] 05/10/2016 10:51:37 05/10/2016 11:42:37 Sinusitis 68110581 J32.9 Cough 84999991 R05 Allergic rhinitis 591016 04 J30.9 Tobacco de pendence syndrome 00438203 F17.290 [id number] Juan Soliman MD Main Office [address] [facility] [address] [place] [address] 05/26/2016 10:42:17 05/26/2016 12:00:57 Dyspnea 393875568 R06.02 Chest pain 47445103 R07. 9 Acute asthma 654843878 J 45.41 Cough 23033015 R05 Pneumonia 954040370 J18. 9 [id number] Maxine Motleymarli schmidt Main Office [address] [address] [place] [address] 06/17/2016 08:56:30 06/17/2016 09:45:52 Adult health examination 318336095 Z00.00 Asthma 666245948 J45.90 9 Tobacco de pendence syndrome 93625470 F17.290 Visual disturbance 33439 001 H53.9 026707 Maxine Tieshamarli schmidt Main Office [address] [address] [place] [address] 06/22/2016 10:42:10 06/22/2016 11:20:58 Thoracic back sprain 995867781 S23.3XXA [id number] Maxine Hectorraegan schmidt Main Office [address] [place] [address] [place] [address] 09/20/2016 14:11:49 09/20/2016 15:28:27 Migraine 55555701 G43.909 Restless legs 24536044 G 25.81 [id number] Maxine Motleymarli schmidt Main Office [address] [address] [place] [address] 04/22/2017 13:54:32 04/22/2017 14:51:04 Influenza-like symptoms 294873841 R68.89 Otitis media 17290658 H6 6.91 [id number] Maxine Motleymarli schmidt Main Office [address] [address] [place] [address] 04/25/2017 14:57:10 04/25/2017 16:05:41 Fever 825495100 R50.9 Cough 19064734 R05 Sinusitis 65273158 J32.9 Nausea and vomiting 1693 1999 R11.2 [id number] Maxine Youngraegan schmidt Main Office [address] [place] [address] [place] [address] 04/28/2017 10:38:54 04/28/2017 11:36:29 Sinusitis 59830212 J32.9 117459 Maxine Youngraegan schmidt Main Office [address] [place] [address] 05/19/2017 08:53:38 05/19/2017 09:31:40 Chest pain 91584925 R07.9 [id number] Maxine Motleymarli schmidt Main Office [address] [place] [address] 06/21/2017 10:52:30 06/21/2017 12:03:12 Adult health examination 916547053 Z00.00 Body mass index 40+ - severely obese 972888263 E66.01 Z68.41 Atypical chest pain 1025 40166 R07.89 [id number] Sandee lemaenzo Main Office [address] [place] [address] 08/10/2017 12:58:35 08/10/2017 13:41:09 Coronary arteriosclerosis 90664468 I25.10 Hyperlipidemia 24389115 E78.00 Body mass index 30+ - obesity 210225457 E66.01 Z68.41 Tobacco de pendence syndrome 76620318 F17.200 Essential hypertension 06362947 I10 [id number] Sandee lemaenzo Main Office [address] [place] [address] 01/25/2018 14:37:19 01/25/2018 15:25:28 Eruption 583905742 R21 [id number] Arely Lopez PA-C Main Office [address] [place] [address] 03/06/2018 13:42:57 03/06/2018 14:19:06 Eczema 42475155 L30.9 [id number] Sandee GallagherNghia solis Main Office [address] [place] [address] 04/05/2018 14:48:44 04/05/2018 16:12:36 Benign paroxysmal positional vertigo 144554220 H81.[address] percutaneous transluminal coronary angioplasty 095345315 Z98.61 Heart disease 60718399 I 51.9 [id number] An Cervantes Main Office [address] [place] [address] 04/12/2018 14:38:04 04/12/2018 15:47:46 Benign paroxysmal positional vertigo 472011422 H81.10 [id number] Malinda Hidalgo [facility] Main Office [address] [facility] [address] [place] [address] 07/20/2018 09:18:38 07/20/2018 10:06:40 Adult health examination 535876314 Z00.00 Essential hypertension 61406164 I10 Hyperlipidemia 73681238 E78.5 Seasonal allergy 7802206 04 J30.2 Heart disease 05821961 I 51.9 Body mass index 40+ - severely obese 963098589 E66.01 Z68.42 [id number] Sandee ely Main Office [address] [facility] [address] [place] [address] 01/20/2019 09:11:55 01/20/2019 09:59:17 Acute asthma 533988376 J45.901 Pneumonia 701724317 J18. 9 Tinea corporis 90247819 B35.4 [id number] Malinda Hidalgo [facility] Main Office [address] [facility] [address] [place] [address] 01/23/2019 14:53:46 01/23/2019 15:16:42 Acute asthma 944399554 J45.901 Cough 40352839 R05 [id number] Torrey Lopez PA-C Main Office [address] [address] [place] [address] 02/12/2019 10:40:10 02/12/2019 11:27:21 Acute asthma 827256642 J45.41 Nausea and vomiting 1693 1999 R11.2 Cough 68518943 R05 Seasonal a llergic rhinitis 541532714 J30.2 [id number] An Cervantes Main Office [address] [facility] [address] [place] [address] 11/15/2019 10:37:57 11/15/2019 11:24:08 Pain in left knee 9770186622 12476 M25.562 Pain in le ft lower limb 283544386 M79.605 [id number] An Cervantes [facility] 3640 [facility] [address] [place] [address] 11/23/2019 12:39:33 11/23/2019 15:37:04 Benign paroxysmal positional vertigo 369534424 H81.10 [id number] Arely Lopez PA-C Main Office [address] [place] [address] [place] [address] 12/25/2019 12:49:55 12/25/2019 13:39:33 Pain in left foot 8071754578 29711 M79.672 [id number] Malinda Hidalgo [address] [address] [place] [address] 07/03/2020 10:50:33 07/03/2020 11:25:44 Exposure to viral disease 6069997474 78734 Z20.828 Essential hypertension 15992516 I10 Heart disease 37345024 I 51.9 Hyperlipidemia 08450542 E78.5 Impaired f asting glycemia 729665711 R73.01 Vaccine ad verse reaction 477486607 T50.Z95A [id number] Malinda Hidalgo [facility] Main Office [address] [place] [address] [place] [address] 09/16/2020 11:20:32 09/16/2020 12:02:42 Adult health examination 186758625 Z00.00 Essential hypertension 32301524 I10 Hyperlipidemia 87243145 E78.5 Screening for malignant neoplasm of cervix 431763046 Z12.4 Prediabetes 837331974 R7 3.03 Eruption 800563881 R21 [id number] Malinda Hidalgo [facility] Main Office [address] [place] [address] [place] [address] 10/07/2020 08:20:35 10/07/2020 09:08:21 Pain in left thumb 0064127899 383743 M79.645 Eruption 806989934 R21 [id number] Juan Soliman MD [address] [address] [place] [address] 04/03/2021 06:49:09 04/03/2021 12:46:24 Exposure to viral disease 6896235457 56299 Z03.818 Exacerbati on of mild persistent asthma 023111001 J45.31 478801 Denise Dallas Main Office [address] [address] [place] [address] 09/22/2021 12:52:28 09/22/2021 13:34:32 Adult health examination 900554254 Z00.00 Asthma 977281293 J45.90 9 Essential hypertension 22399001 I10 Hyperlipidemia 74005947 E78.5 Prediabetes 004604758 R7 3.03 Fatigue 74750676 R53.83 Body mass index 40+ - severely obese 008461102 Z68.42 Morbid obesity 785019935 E66.01 111139 Rojelio Patel MD [facility] [address] [place] [address] [place] [address] 05/27/2022 10:35:41 05/27/2022 12:55:27 Cough 82679773 R05.9 Upper resp iratory infection 93674988 J06.9 [id number] Malinda Hidalgo [facility] Main Office [address] [place] [address] [place] [address] 10/05/2022 08:46:17 10/05/2022 09:35:42 Adult health examination 971405895 Z00.00 Asthma 813372080 J45.90 9 Essential hypertension 78916920 I10 Hyperlipidemia 96719621 E78.5 Prediabetes 428833627 R7 3.03 Heart disease 17591634 I 51.9 Migraine 62366740 G43.90 9 Screening for malignant neoplasm of colon 955425975 Z12.11 508392 Rojelio Patel MD Main Office [facility] [address] [address] [place] [address] 05/03/2023 09:50:28 05/03/2023 10:32:46 Skin lesion 42325123 L98.9 Psoriasis 2438285 L40.9 [id number] Malinda Hidalgo [facility] Main Office [address] [place] [address] [place] [address] 08/18/2023 14:35:14 08/18/2023 15:27:53 Thoracic back pain 549618028 M54.6 [id number] Malinda Hidalgo [facility] Main Office [address] [place] [address] [place] [address] 10/04/2023 09:45:29 10/04/2023 10:26:41 Vasculitis of the skin 72995118 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.9 Venous varices 825044619 I83.93 Prediabetes 414236741 R7 3.03 Fatigue 34525942 R53.83 Hyperlipidemia 77162674 E78.5 238454 ALEXI Jane Main Office [address] [address] [place] [address] 10/11/2023 08:31:51 10/11/2023 09:50:07 Adult health examination 567298722 Z00.00 Overactive urinary bladder 415589063 N32.81 Asthma 721405050 J45.90 9 Body mass index 40+ - severely obese 281933419 E66.01 Z68.41 Essential hypertension 58912903 I10 Hyperlipidemia 80954016 E78.5 Migraine 35513518 G43.90 9 Prediabetes 550526375 R7 3.03 Tobacco de pendence syndrome 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 F17.200 Screening for malignant neoplasm of breast 657180682 Z12.39 Screening for malignant neoplasm of cervix 176001227 Z12.4 Heart disease 36026216 I 51.9 [id number] ALEXI Jane Main Office [address] [address] [place] [address] 01/10/2024 08:22:40 01/10/2024 09:02:56 Body mass index 40+ - severely obese 438520959 E66.01 Z68.41 Essential hypertension 17256679 I10 Hyperlipidemia 13857556 E78.5 Prediabetes 327289249 R7 3.03 Asthma 413041533 J45.90 9 Eruption 702182617 R21 Restless legs 10478555 G 25.81 [id number] DILAN CORTEZ Main Office [address] [address] [place] [address] 02/06/2024 14:58:23 02/06/2024 15:29:48 Pain in left lower limb 655351681 M79.605 366882 PAULINA MCNEIL MD Main Office [address] [address] [place] [address] 02/25/2024 10:16:30 02/25/2024 10:48:33 Upper respiratory infection 40060488 J06.9 Community acquired pneumonia 028962769 J18.9 Health Concerns Section Related Observation LastModified by Organization Detai ls LastModified Time None Recorded Concern Status LastModified by Organization Details LastModified Time None Recorded Advance Directives Directive Y: HCP at [facility] 05/30/18 Payers Encounter Date Sequence Insurance Name Policy Number Policy Rhodes Covered Member ID Rhodes Member ID Guarantor Name 10/04/2023 1 [facility] - DIRECT CONNECTORCARE TYPE I (HMO) [id number] Candy L Grimes [id number] Candy L Grimes 10/11/2023 1 [facility] - DIRECT CONNECTORCARE TYPE I (HMO) [id number] Candy L Grimes [id number] Candy L Grimes 01/10/2024 1 [facility] - DIRECT CONNECTORCARE TYPE I (HMO) [id number] Candy L Grimes [id number] Candy L Grimes 02/06/2024 1 [facility] - DIRECT CONNECTORCARE TYPE I (HMO) [id number] Candy L Grimes [id number] 01 Candy L Grimes 02/25/2024 1 [facility] - DIRECT CONNECTORCARE TYPE I (HMO) [id number] Candy L Grimes [id number] Candy L Grimse Notes Date Note Type Note Provider Name and Address Organization Details Recorded Time 10/04/2023 text/html Generic HPI TemplateReported bypatient.Notes: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 takes a couple hours then works on her feet again for for 6 hours per shift at [employer]- most times works both jobs in the same. some not every time gets red non raised rash to both ankles/ lower calves, no pain, not itching only to inner part of calves not around or on the feet. Usually takes a couple days to resolve. still no pain but sometimes right foot in swollen, worked last night but it didn't happen.has a picture as it is not present today. does have varicosities, legs hurt, is also getting shots in knees form arthritis. No urinary sx, no abd pain. ALEXI Jane [address] [address], [place], [address], [facility] 10/04/2023 11:45:10 10/11/2023 text/html Generic HPI TemplateReported bypatient.Notes:Presen ts for PE, no concerns. had asthma attack yesterday. used neb and inhaler, feels better. has had vasculitis sx, lab results pending from last week, does see rheum regularly, has appt 10/24 and will bring this up, has not had further rash since last week. ALEXI Jane [address] [address], [place], [address], [facility] 10/11/2023 10:41:46 01/10/2024 text/html Generic HPI TemplateReported bypatient.Notes:Presen ts for weight check, doing well on 2.4mg wegovy, 1st injection of this dose eysterday, has lost 14lbs since last visit, soem nausea, no constipation.Walks a lot at work. can't eat greasy foods and is not hungry, can only tolerate 1 coffee. ALEXI Jane [address] [address], [place], [address], [facility] 01/10/2024 10:49:33 02/06/2024 text/html Fatimah is a 53yr old F who presents for left lower leg pain x1 day. Hx of varicose veins. Recently saw vascular for varicose veins and has an ultrasound scheduled for tomorrow for her lower extremities. Reports she noticed a large bruise on her left lower leg. Denies of any known trauma or injury. Tender to touch. Denies of any swelling, warmth, fever, or associated symptoms. DILAN CORTEZ [address] [address], [place], [address], [facility] 02/06/2024 15:43:14 02/25/2024 text/html CoughReported bypatient.Severity:mod erate Duration:started one week ago Context:smoker;history of asthma Modifying Factors:OTC medication; inhaler Associated Symptoms:no fever; no heartburn; no edema; no agitation; no post nasal drip;chills;chest pain;vomiting;wheezing Upper Respiratory SymptomsReported bypatient.Location:[facility] Quality:dry cough Severity:moderate Duration:one week Onset/Timing:sudden Context:sick contact;smoker;allergi es Modifying Factors:OTC medication Associated Symptoms:chest pain;shortness of breath;wheezing;fatigu e;morning cough;vomiting; all associated with the cough Fatimah Grimes is a 53 year old F who presented to the clinic for complaints of a worsening cough. Pt has been having symptoms for one week (02/16). Associated is head congestion and fatigue. Pt mentions her boss at work was sick and got all her co-workers sick as well. Has been using Robitussin. Denies fevers, positive for chills. PAULINA MCNEIL MD [address] [address], [place], [address], [facility] 02/26/2024 12:03:50 OBGyn Episode No OBEpisode recorded.
--- OUTSIDE RECORDS SUMMARY | 2024-03-07 19:03 | XMS_ITS | Continuity of Care Document ---
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 It does not include entries that were removed or entered in error. Problem Status Onset Date Problem Type Date of Resolution Comments Source Diagnosis: ICD-10-CM Z71.0 Prsn encntr hlth serv to consult on behalf of another person Active Diagnosis [facility] Encounters Combined list of: 1) Encounters from Department of Veterans Affairs facilities going back up to thelast 18 months. 2) Encounters from the Department of Defense facilities going back up to 280 months. Location Location Details Encounter Type Encounter Number Reason For Visit Attending Provider ADM Date DC Date Status Disposition Source [facility] CASE MANAGEMENT [id number] Diagnos is: ICD-10- CM Z71.0 Prsn encntr hlth serv to consult on behalf of another person< br/> CONSUELO BOLDEN SE 09/29 [facility] Outpatient Encounter [id number] 10/13 [facility] HC PRO PHONE CALL 5-10 MIN [id number] Diagnos is: ICD-10- CM Z71.0 Prsn encntr hlth serv to consult on behalf of another person< br/> STACI PATINO 02/03 [facility] HLTH BHV ASSMT/REAS SESSMENT [id number] Diagnos is: ICD-10- CM Z71.0 Prsn encntr hlth serv to consult on behalf of another person< br/> PATINO,RU TH E 02/11 [facility] PRO PHONE CALL 5-10 MIN [id number] Diagnos is: ICD-10- CM Z71.0 Prsn encntr hlth serv to consult on behalf of another person< br/> PATINO,RU TH E 02/24 [facility] CASE MANAGEMENT [id number] Diagnos is: ICD-10- CM Z71.0 Prsn encntr hlth serv to consult on behalf of another person< br/> PATINO,RU TH E 02/24 [facility]
--- OUTSIDE RECORDS SUMMARY | 2024-03-07 19:04 | XMS_ITS | Continuity of Care Document ---
Author Organization [facility], Main Office Address [address] [place] [address] [address] [place] [phone] Care Team Providers Care Sheriff'S Officer Name Role Phone CHITO SANTIAGO Lead Web Application Developer BETTYE NIETO Mammography Tech MALINDA HIDALGO OTHER ANGELICA GIVENS Mammography Tech [phone] MALINDA HIDALGO Primary Care Provider [facility] [employer] Text[employer] Supervisor PAZ JEREZ Referring Provider [phone] Assessment No assessment recorded. Plan of Treatment Reminders Order Date Submit Date Provider Last Modified By Organization Details Last Modified Time Details Appointments FOLLOW UP 30MIN 2024 09:15A M Malinda Hidalgo PA-C Not available Not available Not available Lab HbA1c (hemoglob in A1c), blood 2023 024 [facility], [address], [address], 01/11/2024 12:08:13 DAMARI (antinucl ear antibodie s) screen, serum 2023 024 [facility], [address], [address], 01/11/2024 12:08:16 ESR (erythroc yte sedimenta tion rate), blood 2023 024 [facility], [address] [place] [address], [address], 01/11/2024 12:08:17 C reactive protein, QN, serum or plasma 2023 [facility], [address] [facility], [place] [address], [place], [address], 01/11/2024 12:08:18 borrelia burgdorfe ri IgG + IgM + total panel, IA, serum 2023 [facility], [address] [facility], [place] [address], [place], [address], 01/11/2024 12:08:15 rf (rheumato id factor), serum 2023 [facility], [address] [facility], [address], [address], 01/11/2024 12:08:14 lipid panel, serum 2023 [facility], [address] [facility], [place] [address], [place], [address], 01/11/2024 12:08:11 amylase + lipase, serum 2023 [facility], [address] [facility], [place] [address], [place], [address], 01/11/2024 12:08:12 TSH + free T4, serum 2023 024 [facility], [address] [facility], [place] [address], [place], [address], 01/11/2024 12:08:07 CMP, serum or plasma 2023 024 [facility], [address] [facility], [address], [address], 01/11/2024 12:08:10 CBC w/ auto diff 2023 [facility], [address] [facility], [place] [address], [place], [address], 01/11/2024 12:08:09 Referral None recorded. Procedures None recorded. Surgeries None recorded. Imaging None recorded. Medication Orders [address] 10 mg tablet 2023 024 [facility], [address] [place], [address], 01/10/2024 08:53:06 Patient TargetsNo targets recorded. Patient Instructions Encounter Date Encounter Id Patient Instructions Last Modified By Organization Details Last Modified Time 01/10/2024 [id number] To call or retur n for worsening or concerns [email or web address] Not available 01/10/2024 08:53:10 Reason for Referral None Reported. Results Created Date Observation Date Name Description Value Unit Range Abnormal Flag Note LastModifiedBy Organization Detail LastModifiedTime 02/26/2002/25/2024 XR, chest , 2 view Chest [...] IMPRES JENI: No acute abnorm ality. WSN: [id number] Orderi ng Physic duc: Eulogio Raines ie Dictat ed By: Isaura Gabriel MD Dictat ed Date/T jody: 8:25 am Review ed By: Isaura Gabriel MD Signed By: Isaura Gabriel MD Signed Date/T jody: 8:25 am Transc ribed By: GAIL Transc ribed Date/T jody: 8:24 am Patien t Class: Outpat ient [facility] (Outpt Imaging) [address] [place], [address], 02/26/2024 20:02:12 02/27/2002/0602/07/2024 [place], [facility] No observ ation record ed. [email or web address] [facility] (Medical Records) [address] [facility], [place], [address], 02/28/2024 09:06:36 Result Notes None recorded. Problems Name Problem SNOMED Code Status Onset Date Resolution Date Notes Provider Name and Address Organization Details Recorded Time Epigastr ic pain 48442435 Completed 05/10/[address] [facility] 7 11:02:22 Abdomina l pain 77730839 Completed 05/10/[address] [facility] 7 11:01:53 Allergic rhinitis 07667605 Completed 200910/09/2013 RECORDED 06/27/19 10 10:27AM BY RACHAEL MARRUFO MA, ANNOTATI ON/ADDEN DUM Jaylene betts [facility] 7 08:51:51 Allergic rhinitis 16369936 Completed 05/10/[address] [facility] 7 08:51:51 Asthma 688426172 Active Maxine betts [facility] 6 12:08:51 Acute asthma 010130500 Completed 05/10/[address] [facility] 7 11:02:10 Chest pain 45450538 Completed 05/10/[address] [facility] 7 11:02:04 Tobacco dependen ce syndrome 86073317 Completed 07/20/2018 Mal[facility] Hidalgo, [facility] [address] [facility] [address], [place], [address], [facility] 4 10:10:19 Elevated blood-pr essure reading without diagnosi s of hyperten jeni 819631028 Completed 201010/09/2013 RECORDED 12/22/19 11 3:26PM BY RACHAEL MARRUFO MA, ERICH ON/ADDEN DUM Maxine aguilera null, [facility] 6 12:08:51 Enthesop athy of hip region 53092901 Active Maxine betts, [facility] 6 12:08:51 Gastroes ophageal reflux disease 749742122 Completed 200910/09/2013 RECORDED 06/27/19 10 10:27AM BY RACHAEL MARRUFO MA, ERICH ON/ADDEN DUM Maxine aguilera null, [facility] 6 12:08:51 Essentia l hyperten jeni 24397603 Active Maxine betts, [facility] 6 12:08:51 Influenz a vaccine needed 76870005922 06 Completed 05/10/2016 Jaylene betts, [facility] 7 11:01:42 General examinat ion of patient Completed 200710/09/2013 RECORDED 11/28/19 08 2:32PM BY RACHAEL MARRUFO MA, ANNOTATI ON/ADDEN DUM Maxine betts, [facility] 6 12:08:51 Influenz a with respirat ory manifest ation other than pneumoni a Completed 05/10/2016 Jaylene betts, [facility] 7 11:02:29 Low back pain 523510389 Completed 200910/09/2013 RECORDED 06/27/19 10 10:27AM BY RACHAEL MARRUFO MA, ANNOTATI ON/ADDEN DUM Maxine betts, [facility] 6 12:08:51 Migraine 68802478 Active Maxine betts, [facility] 6 12:08:51 Eruption 274178161 Completed 200710/09/2013 RECORDED 11/28/19 08 2:32PM BY RACHAEL MARRUFO MA, ANNOTATI ON/ADDEN DUM Malinda Hidalgo, [facility] [address] [facility] [address], [facility] [place], [address], [facility] 2 13:14:35 Restless legs 46324772 Completed 05/10/2016 Jaylene betts, [facility] 8 11:35:16 Adult health examinat ion Completed 05/10/2016 Jaylene betts, [facility] 7 11:02:00 Dermatop hytosis of the body Active Maxine betts, [facility] 6 12:08:51 Injury of elbow 216389904 Completed 05/10/2016 Jaylene betts, [facility] 7 11:01:45 Allergy Completed 05/10/2016 Jaylene betts, [facility] 7 11:01:39 Allergic rhinitis 40606872 Completed 200911/05/2013 RECORDED 06/27/19 10 10:27AM BY RACHAEL MARRUFO MA, ANNOTATI ON/ADDEN DUM Jaylene betts, [facility] 7 08:51:51 Elevated blood-pr essure reading without diagnosi s of hyperten jeni 774906695 Completed 201011/05/2013 RECORDED 12/22/19 11 3:26PM BY RACHAEL MARRUFO MA, ANNOTATI ON/ADDEN DUM Maxine betts, [facility] 6 12:08:51 Gastroes ophageal reflux disease 942062487 Completed 200911/05/2013 RECORDED 06/27/19 10 10:27AM BY RACHAEL MARRUFO MA, ANNOTATI ON/ADDEN DUM Maxine betts, [facility] 6 12:08:51 General examinat ion of patient Completed 200711/05/2013 RECORDED 11/28/19 08 2:32PM BY RACHAEL MARRUFO MA, ANNOTATI ON/ADDEN DUM Maxine aguilera null, [facility] 6 12:08:51 Follow-u p encounte r Completed 05/10/2016 Jaylene betts, [facility] 7 11:02:18 Low back pain 572591604 Completed 200911/05/2013 RECORDED 06/27/19 10 10:27AM BY RACHAEL MARRUFO MA, ANNOTATI ON/ADDEN DUM Maxine betts, [facility] 6 12:08:51 Eruption 791730590 Completed 200711/05/2013 RECORDED 11/28/19 08 2:32PM BY RACHAEL MARRUFO MA, ANNOTATI ON/ADDEN DUM Malinda Hidalgo, [facility] [address] [facility] [address] [address] [place] [address] 2 13:14:35 Body mass index 40+ - severely obese 926874280 Active Gregoria betts [facility] 8 17:58:43 Thoracic back pain 396675208 Active Maxine betts, [facility] 6 12:08:51 Cough 09916906 Completed 05/10/2016 Jaylene betts, [facility] 7 11:02:35 Urogenit al finding 736756598 Active STORY: RIGHT KIDNEY CYST U/S 07/05 Maxine betts, [facility] 6 12:08:51 Thumb injury 947928389 Completed 05/10/2016 Jaylene betts, [facility] 7 11:01:49 Bunion 557547832 Completed 05/10/2016 Jaylene betts, [facility] 7 11:02:37 Disorder of breast 68790877 Completed 05/10/2016 Jaylene betts, [facility] 7 11:02:24 Metatars algia 89431522 Active Maxine betts, [facility] 6 12:08:51 Acute bronchit is 74135756 Completed 03/27/2016 [place] Martinez, [facility] 6 10:22:54 Pleuriti c pain 7586485 Completed 05/10/2016 Jaylene betts, [facility] 7 11:01:57 Atypical chest pain 205587572 Active Maxine betts [facility] 6 12:13:25 Allergic rhinitis 47573057 Completed 201606/17/2016 Jaylene betts, [facility] 7 08:51:51 Hyperlip idemia 87275151 Active 2017 Arely Lopez PA-C [address] [address], [place], [address] [place] [address] 8 13:20:18 Restless legs 15403140 Active 2017 Jaylene betts, [facility] 8 11:35:16 Snoring 54949323 Active 2017 Jaylene betts, [facility] 8 11:35:33 Heart disease 16685079 Active 07/2017 had pos ETT, sent for cardiac cath, had 90% blockage of LAD; stented Dr Tere betts, [facility] 9 15:32:25 Ex-smoke r 8776938 Active 2017 Rachael rowe MA null, [facility] 9 09:39:52 Suspecte d COVID-19 227746246 Completed 09/23/2020 Removal Reason: Problem added by user tj Malhotra from the COVID-19 watch flag Shonda Vuong null, [facility] 1 14:36:15 Prediabe michele 122977927 Active 2021 Malinda Hidalgo, [facility] [address], [place], [address], [facility] 2 13:14:34 Eruption 799696085 Active 2021 RECORDED 11/28/19 08 2:32PM BY RACHAEL MARRUFO MA, ANNOTATI ON/ADDEN DUM [facility]idalgo [facility] [address], [place], [address], [facility] 2 13:14:34 Fatigue 01687497 Active 2021 Malinda Hidalgo, [facility] [address], [place], [address], [facility] 2 13:23:33 Morbid obesity 762409895 Active 2021 Denise betts, [facility] 2 15:15:41 Benign paroxysm al position al vertigo 439567144 Active 2021 Malinda Hidalgo, [facility] [address], [place], [address], [facility] 2 09:11:59 Tobacco dependen ce syndrome 90914805 Active 2023 Malinda Hidalgo [facility] [address], [place], [address], [facility] 4 10:10:19 Neck pain 54945506 Active 2023 Malinda Hidalgo, [facility] [address], [place], [address], [facility] 4 12:17:05 Vasculit is of the skin 09490217 Active 2023 Malinda Hidalgo, [facility] [address], [place], [address], [facility] 4 10:17:48 Venous varices 338252177 Active 2023 Malinda Hidalgo, [facility] [address], [place], [address], [facility] 4 10:18:57 Overacti ve urinary bladder 677273027 Active 2023 Malinda Hidalgo, [facility] [address], [place], [address], [facility] 4 09:27:28 Headache 27336175 Active 2023 Malinda Hidalgo, [facility] [address], [place], [address], [facility] 4 09:39:53 Problem Notes None recorded. Procedures Surgical History Date Name Laterality Status Provider Name and Address Organization Details Recorded Time 06/20/19 23 Most Recent Mammogram completed Maxine Gallo MA [facility] 10/05/2022 09:02:08 12/27/19 21 Date of Last Pap Smear completed Monica Mesa MA [facility] 09/22/2021 13:06:35 06/15/19 21 Mammogram screening completed Brittany Green [facility] 06/24/2020 16:15:31 05/31/19 19 angiography of coronary artery completed Kathy Johansen [facility] 05/30/2018 09:37:32 08/06/19 18 Coronary art/grft angio s&i completed Bella Wray [facility] 08/10/2017 11:28:44 02/19/20 15 Ultrasound breast complete completed Dilia Howe [facility] 02/19/2015 09:44:02 release of trigger thumb completed Rachael mendez MA [facility] 04/05/2018 14:55:44 Tonsillectomy completed Monica jones MA [facility] 09/22/2021 12:54:58 Imaging Results None recorded. Procedure Notes None recorded. Medical Equipment None Reported. Allergies Allergen ID Allergen Name Allergen Category Reaction Reaction Severity Criticality Documentation Date Start Date Code Code System Note Provider Name and Address Organization Details Recorded Time 90695 Glycine max ([facility]) environme nt,food,m edication other Not available Not available 11/02/20132013 258[address] [facility] 2 12:54:40 76463 potato allergeni c extract food Not available Not available Not available 04/05/2018 [address] [facility] 2 12:54:40 7541 Product containin g angiotens in-conver ting enzyme inhibitor (product) medicatio n cough Not available Not available 10/09/20132013 88168 009 SNOMED Lisin opril SANTOS Garzon [facility] 5 13:15:24 7542 omeprazol e medicatio n abdominal pain Not available Not available 10/09/20132013 [address] [facility] 2 12:54:40 7543 Medicinal product containin g penicilli n and acting as antibacte rial agent (product) medicatio n other Not available Not available 10/09/20132013 52[address] [facility] 5 13:15:24 Medications Name Sig Start Date [...] Not Available Not Available Not Available flucelvax 9148-6482 .5 ml israel 06/12 completed Not Available [...] 07/15/19 14 9:46AM BY LARISSA DARLING MA, ANNOTATI ON/ADDEN DUM; Not Available Not Available [...] 07/11 completed RECORDED 07/12/19 10 4:22PM BY AGUSTIN DEUTSCH, ERICH ON/ADDEN DUM; Not Available Not Available Not [...] Not Available Not Available Not Available Fluvirin (PF) 45 mcg (15 mcg x 3)/0.5 [...] IM syringe VACCINAT ION ADMINIST ERED BY [facility]ally [facility] ST 01/20 completed Not Available Not Available Not Available Nurtec ODT 75 mg disintegr ating tablet TAKE 1 TABLET DAILY IF NEEDED FOR MIGRAINE active Not Available Not Available No t Available Fluarix Quad (PF) 60 mcg (15 mcg x 4)/0.5 mL IM syringe VACCINAT ION ADMINIST ERED BY [facility] ST 03/19 completed Not Available Not Available [...] Updated DateTime 4 154.94 cm 38 kg/m2 11596.0 7 g 78 /min 96 % 96 % 97.8 [degF] 141 mm[Hg] 83 mm[Hg] Payal Jhaveri MA [facility] 4 08:29:55 Social History Question Answer Notes LastModified by Organizat ion Details LastModified Time Tobacco Smoking Status Current Every Day Smoker [facility] 10/11/2023 08:50:30 Do You Have An Advance Directive? Yes HCP At [facility] 05/30/18 [email or web address] Information not available 09/22/2021 What Is Your [...] Or Vape? Former User Of Electronic Cigarettes [email or web address] Information not available 09/22/2021 What Is Your Occupation? [employer] Information not available 07/20/2018 When Did You Quit Smoking? 1-5yearssince cristina [email or web address] Information not available 09/22/2021 Live Alone Or [...] Or Greater Than 100 Degrees Fahrenheit? No [email or web address] Information not available 11/15/2019 Are You Or Anyone In Your Household A Health Care Provider Or Emergency Responder? No [email or web address] Information not available 11/15/2019 To The Best Of Your Knowledge Have You Been In Close Proximity To Any Individual Who Tested Positive For COVID-19? No [email or web address] Information not available 11/15/2019 *AWV ONLY* Are You Presently Prescribed Opioid Medication By PCP Or Specialist? If YES -Provider Assess The Benefit For Other, Non-opioid Pain Therapies Instead, Even If The Patient Does Not Have OUD But Is Possibly At Risk. No [email or web address] Information not available 09/22/2021 Have You Recently Traveled To A COVID-19 High Risk Area Or Gathering In The Last 10 Days? No Information not available 09/16/2020 What Was The Date Of Your Most Recent Tobacco Screening? 10/05/2022 Information not available 10/05/2022 How Many Children Do You Have? 1 Paddy (has ADD) [email or web address] Information not available 01/14/2014 What Is Your Current Pack Years? 20-29packyear s [email or web address] Information not available 09/22/2021 Do You Use Protection During Sex? Usually [email or web address] Information not available 09/22/2021 Do You Use Your Seat Belt Or Car Seat Routinely? Yes [email or web address] Information not available 09/22/2021 Seat Belts Used Routinely Yes Information not available 09/22/2021 Are You Sexually Active? No [email or web address] Information not available 09/22/2021 Smoke Alarm In Home Yes [email or web address] Information not available 09/22/2021 Do You Have Smoke And Carbon Monoxide Detectors In Your Home? Yes [email or web address] Information not available 09/22/2021 At What Age [...] Many Years Have You Smoked Tobacco? 25 [email or web address] Information not available 09/16/2020 Do You Or Have You Ever Used Any Other Forms Of Tobacco Or Nicotine? No [email or web address] Information not available 09/22/2021 Sex: Unknown Functional Status Question Answer Note LastModified by Organizat ion Details LastModified Time Are you able to walk? YESWOREST [email or web address] Information not available 09/22/2021 Are you able [...] available 2014 10:06:34 Notes:Father being tested fo [place] - 10/05/22 Medical History Condition Response Muscle, [...] virus, trivalent, PF 4 completed [facility] 01/[facility] 15:10:51 Influenza, split virus, quadrivalent, preservative 8 completed An betts [facility] 03/06/2018 13:58:17 COVID-19, mRNA, LNP-S, PF, 100 mcg/0.5mL dose or 50 mcg/0.25mL dose 1 completed [place] Huber [facility] 04/03/2021 09:17:46 COVID-19, mRNA, LNP-S, PF, 100 mcg/0.5mL dose or 50 mcg/0.25mL dose 1 completed SANTOS Huber, [facility] 04/03/2021 09:17:46 Influenza, split virus, trivalent, PF 6 completed SANTOS Huber, [facility] 04/03/2021 09:17:46 Influenza, split virus, quadrivalent, PF 9 completed SANTOS Huber, [facility] 04/03/2021 09:17:46 Influenza, MDCK, quadrivalent, PF 7 completed SANTOS Huber, [facility] 04/03/2021 09:17:46 Influenza, MDCK, quadrivalent, PF 1 completed SANTOS Huber, [facility] 04/03/2021 09:17:46 Influenza, split virus, quadrivalent, PF 0 completed SANTOS Huber, [facility] 04/03/2021 09:17:46 Influenza, split virus, quadrivalent, PF 8 completed SANTOS Huber, [facility] 04/03/2021 09:17:46 COVID-19, mRNA, LNP-S, PF, 100 mcg/0.5mL dose or 50 mcg/0.25mL dose 2 completed SANTOS Martinez, [facility] 09/22/2021 13:01:02 Influenza, split virus, quadrivalent, PF 2 completed SANTOS Teague, [facility] 05/27/2022 11:31:26 Influenza, split virus, trivalent, preservative 2 completed SANT[place] Garcia, [facility] 10/05/2022 08:52:10 Influenza, MDCK, quadrivalent, PF 3 completed Rosy Roy LPN null, [facility] 08/18/2023 14:49:20 zoster recombinant 3 completed Rosy Caporale, [employer] null, [facility] 08/18/2023 14:49:20 zoster recombinant 3 completed Rosy Caporale, [employer] null, [facility] 08/18/2023 14:49:20 COVID-19, mRNA, LNP-S, PF, 50 mcg/0.5 mL 4 completed Rosy Caporale, [employer] null, [facility] 08/18/2023 14:49:20 Tdap 4 completed Not Available [facility] 04/14/2019 02:21:44 Td (adult), 2 Lf tetanus toxoid, preservative free, adsorbed 1 completed Not Available [facility] 10/09/2013 14:02:25 pneumococcal polysaccharide PPV23 5 completed Not Available [facility] 10/09/2013 14:02:25 Influenza, split virus, trivalent, preservative 6 completed Not Available [facility] 10/09/2013 14:02:25 Influenza, split virus, trivalent, preservative 7 completed Not Available [facility] 10/09/2013 14:02:25 Influenza, split virus, trivalent, preservative 8 completed Not Available [facility] 10/09/2013 14:02:25 Influenza, split virus, trivalent, preservative 0 completed Not Available [facility] 10/09/2013 14:02:25 Influenza, split virus, trivalent, preservative 1 completed Not Available [facility] 10/09/2013 14:02:25 Past Encounters Encounter ID Performer Location Encounter Start Date Encounter Closed Date Diagnosis/Indication Diagnosis SNOMED-CT Code Diagnosis ICD10 Code [id number] ALEXI Jane Main Office [address] [facility] [facility] [address] [place] [address] 01/10/2024 08:22:40 01/10/2024 09:02:56 Body mass index 40+ - severely obese 689289929 E66.01 Z68.41 Essential hypertension 58792050 I10 Hyperlipidemia 68352534 E78.5 Prediabetes 442123730 R7 3.03 Asthma 758584766 J45.90 9 Eruption 791460852 R21 Restless legs 17842419 G 25.81 Health Concerns Section Related Observation LastModified by Organization Detai ls LastModified Time None Recorded Concern Status LastModified by Organization Details LastModified Time None Recorded Payers Encounter Date Sequence Insurance Name Policy Number Policy Rhodes Covered Member ID Rhodes Member ID Guarantor Name 01/10/2024 1 [facility] Key Travel [facility] TYPE I (HMO) [id number] Candy L Grimes [id number] Candy L Grimes Notes Date Note Type Note Provider Name and Address Organization Details Recorded Time 01/10/2024 text/html Generic HPI TemplateReported bypatient.Notes:Presen ts for weight check, doing well on 2.4mg wegovy, 1st injection of this dose eysterday, has lost 14lbs since last visit, soem nausea, no constipation.Walks a lot at work. can't eat greasy foods and is not hungry, can only tolerate 1 coffee. Malinda Hidalgo, [facility] [address] [facility] [address], [place], [address], [facility] 01/10/2024 10:49:33 OBGyn Episode No OBEpisode recorded.
--- OUTSIDE RECORDS SUMMARY | 2024-03-07 19:04 | XMS_ITS | Continuity of Care Document ---
Author Organization [facility], Main Office Address [address] [place] [address] [place] [phone] Care Team Providers Care Supervisor Production Department Name Role Phone CHITO SANTIAGO Tire Beader Maker BETTYE NIETO Coremaker Apprentice MALINDA HIDALGO OTHER ANGELICA GIVENS Coremaker Apprentice MALINDA HIDALGO Primary Care Provider [employer] Carrot Buncher PAZ JEREZ Referring Provider [phone] Assessment Encounter Date Assessment Date Assessment LastModified [...] Not available Not available Not available Lab CBC w/ auto diff 2023 024 [place] [facility], [address], [address], 02/07/2024 14:07:04 CMP, serum or plasma 2023 024 [place] [facility], [address] [facility] [place], [facility] [address], [place], [address], 02/07/2024 14:07:05 D-dimer, quant, plasma 2023 024 [place] [facility], [address] [facility] [place], [place] [address], [place], [address], 02/07/2024 14:07:06 erythrocy te sedimenta tion rate by jerrica n method 2023 024 [place] [facility], [address] [facility] [place], [facility] [address], [place], [address], 02/07/2024 14:07:07 Referral None recorded. Procedures None recorded. Surgeries None recorded. Imaging None recorded. Medication Orders None recorded. Patient TargetsNo targets recorded. Patient InstructionsNo instructions recorded. Reason for Referral None Reported. Results Created [...] IMPRES JENI: No acute abnorm ality. WSN: [id number] Orderi ng Physic duc: Eulogio Raines ie Dictat ed By: Isaura Gabriel MD Dictat ed Date/T jody: 8:25 am Review ed By: Isaura Gabriel MD Signed By: Isaura Gabriel MD Signed Date/T jody: 8:25 am Transc ribed By: GAIL Transc ribed Date/T jody: 8:24 am Patien t Class: Outpat ient [facility] (Outpt Imaging) [address], [place], [address], 02/26/2024 20:02:12 02/27/20 24 02/07/2024 [place], [facility] No observ ation record ed. [id number] [facility] (Medical Records) [address] [facility], [place], [address], 02/28/2024 09:06:36 Result Notes None recorded. Problems Name Problem SNOMED Code Status Onset Date Resolution Date Notes Provider Name and Address Organization Details Recorded Time Epigastr ic pain 51537333 Completed 05/10/2016 Jaylene betts [facility] 7 11:02:22 Abdomina l pain 99743714 Completed 05/10/2016 Jaylene betts [facility] 7 11:01:53 Allergic rhinitis 79770266 Completed 200910/09/2013 RECORDED 06/27/19 10 10:27AM BY RACHAEL MARRUFO MA, ANNOTATI ON/ADDEN DUM Jaylene betts [facility] 7 08:51:51 Allergic rhinitis 50037893 Completed 05/10/2016 Jaylene betts [facility] 7 08:51:51 Asthma 698006599 Active Maxine betts [facility] 6 12:08:51 Acute asthma 777967447 Completed 05/10/2016 Jaylene betts [facility] 7 11:02:10 Chest pain 05133552 Completed 05/10/2016 Jaylene betts [facility] 7 11:02:04 Tobacco dependen ce syndrome 22586048 Completed 07/20/[address] [facility] [address] [facility] [place] [address], [place], [address], [facility] 4 10:10:19 Elevated blood-pr essure reading without diagnosi s of hyperten jeni 402070319 Completed 201010/09/2013 RECORDED 12/22/19 11 3:26PM BY RACHAEL MARRUFO MA, ANNOTXAVIER ON/ADDEN DUM Maxine Biswas ale null, [facility] 6 12:08:51 Enthesop athy of hip region 76256738 Active Maxine aguilera null, [facility] 6 12:08:51 Gastroes ophageal reflux disease 033011936 Completed 200910/09/2013 RECORDED 06/27/19 10 10:27AM BY RACHAEL MARRUFO MA, ERICH ON/ADDEN DUM Maxine aguilera null, [facility] 6 12:08:51 Essentia l hyperten jeni 54795625 Active Maxine betts, [facility] 6 12:08:51 Influenz a vaccine needed [id number] 06 Completed 05/10/2016 Jaylene Díaz MA null, [facility] 7 11:01:42 General examinat ion of patient Completed 200710/09/2013 RECORDED 11/28/19 08 2:32PM BY RACHAEL MARRUFO MA, ERICH ON/ADDEN DUM Maxine Biswas ale null, [facility] 6 12:08:51 Influenz a with respirat ory manifest ation other than pneumoni a Completed 05/10/2016 Jaylene betts, [facility] 7 11:02:29 Low back pain 951696655 Completed 200910/09/2013 RECORDED 06/27/19 10 10:27AM BY RACHAEL MARRUFO MA, ERICH ON/ADDEN DUM Maxine aguilera null, [facility] 6 12:08:51 Migraine 71377175 Active Maxine betts, [facility] 6 12:08:51 Eruption 061542140 Completed 200710/09/2013 RECORDED 11/28/19 08 2:32PM BY RACHAEL MARRUFO MA, ANNOTATI ON/ADDEN DUM Malinda Hidalgo, [facility] [address] [facility] [address], [place], [address], [facility] 2 13:14:35 Restless legs 30431812 Completed 05/10/2016 Jaylene betts, [facility] 8 11:35:16 Adult health examinat ion Completed 05/10/2016 Jaylene betts [facility] 7 11:02:00 Dermatop hytosis of the body Active Maxine betts [facility] 6 12:08:51 Injury of elbow 243407358 Completed 05/10/2016 Jaylene betts [facility] 7 11:01:45 Allergy Completed 05/10/2016 Jaylene betts, [facility] 7 11:01:39 Allergic rhinitis 80650077 Completed 200911/05/2013 RECORDED 06/27/19 10 10:27AM BY RACHAEL MARRUFO MA, ANNOTATI ON/ADDEN DUM Jaylene betts [facility] 7 08:51:51 Elevated blood-pr essure reading without diagnosi s of hyperten jeni 290056984 Completed 201011/05/2013 RECORDED 12/22/19 11 3:26PM BY RACHAEL MARRUFO MA, ANNOTATI ON/ADDEN DUM Maxine betts [facility] 6 12:08:51 Gastroes ophageal reflux disease 362712487 Completed 200911/05/2013 RECORDED 06/27/19 10 10:27AM BY RACHAEL MARRUFO MA, ANNOTATI ON/ADDEN DUM Maxine aguilera null, [facility] 6 12:08:51 General examinat ion of patient Completed 200711/05/2013 RECORDED 11/28/19 08 2:32PM BY RACHAEL MARRUFO MA, ANNOTATI ON/ADDEN DUM Maxine aguilera null, [facility] 6 12:08:51 Follow-u p encounte r Completed 05/10/2016 Jaylene betts, [facility] 7 11:02:18 Low back pain 320269089 Completed 200911/05/2013 RECORDED 06/27/19 10 10:27AM BY RACHAEL MARRUFO MA, ANNOTATI ON/ADDEN DUM Maxine aguilera null, [facility] 6 12:08:51 Eruption 295884255 Completed 200711/05/2013 RECORDED 11/28/19 08 2:32PM BY RACHAEL MARRUFO MA, ANNOTATI ON/ADDEN DUM [facility] [address] [place] [address], [place], [address] 2 13:14:35 Body mass index 40+ - severely obese 086817773 Active Gregoria betts, [facility] 8 17:58:43 Thoracic back pain 723245840 Active Maxine aguilera null, [facility] 6 12:08:51 Cough 32629668 Completed 05/10/2016 Jaylene betts, [facility] 7 11:02:35 Urogenit al finding 821438042 Active STORY: RIGHT KIDNEY CYST U/S 07/05 Maxine aguilera null, [facility] 6 12:08:51 Thumb injury 907812175 Completed 05/10/2016 Jaylene betts, [facility] 7 11:01:49 Bunion 573243554 Completed 05/10/2016 Jaylene betts, [facility] 7 11:02:37 Disorder of breast 27826297 Completed 05/10/2016 Jaylene betts, [facility] 7 11:02:24 Metatars algia 48880878 Active Maxine betts, [facility] 6 12:08:51 Acute bronchit is 96391708 Completed 03/27/2016 SANTOS Martinez, [facility] 6 10:22:54 Pleuriti c pain 8967642 Completed 05/10/2016 Jaylene betts [facility] 7 11:01:57 Atypical chest pain 508371808 Active Maxine aguilera null [facility] 6 12:13:25 Allergic rhinitis 16412546 Completed 201606/17/2016 Jaylene betts, [facility] 7 08:51:51 Hyperlip idemia 74563059 Active 2017 Arely Lopez PA-C [address] [facility] [place] [address], [place], [address] [facility] 8 13:20:18 Restless legs 31791908 Active 2017 Jaylene betts [facility] 8 11:35:16 Snoring 11775014 Active 2017 Jaylenedione betts [facility] 8 11:35:33 Heart disease 76123347 Active 07/2017 had pos ETT, sent for cardiac cath, had 90% blockage of LAD; stented Dr Tere betts [facility] 9 15:32:25 Ex-smoke r 6274485 Active 2017 Rachael rowe MA null, [facility] 9 09:39:52 Suspecte d COVID-19 944567350 Completed 09/23/2020 Removal Reason: Problem added by user tj 5 from the COVID-19 watch flag Shonda Vuong null, [facility] 1 14:36:15 Prediabe michele 203830440 Active 2021 Malinda Hidalgo, [facility] [address], [place], [address], [facility] 2 13:14:34 Eruption 850049092 Active 2021 RECORDED 11/28/19 08 2:32PM BY RACHAEL MARRUFO MA, ANNOTATI ON/ADDEN DUM Malinda Hidalgo, [facility] [address] [facility] [place] [address], [place], [address], [facility] 2 13:14:34 Fatigue 10398637 Active 2021 Malinda Hidalgo, [facility] [address] [facility] [place] [address], [place], [address], [facility] 2 13:23:33 Morbid obesity 350229774 Active 2021 Denise Dallas null, [facility] 2 15:15:41 Benign paroxysm al position al vertigo 916133600 Active 2021 Malinda Hidalgo [facility] [address], [place], [address], [facility] 2 09:11:59 Tobacco dependen ce syndrome 87367289 Active 2023 Malinda Hidalgo [facility] [address] [facility] [place] [address], [place], [address], [facility] 4 10:10:19 Neck pain 28366151 Active [address] [facility] [address] [facility] [place] [address], [place], [address], [facility] 4 12:17:05 Vasculit is of the skin 99137506 Active [address] [facility] [address] [facility] [place] [address], [place], [address], [facility] 4 10:17:48 Venous varices 806161381 Active [address] [facility] [address] [facility] [place] [address], [place], [address], [facility] 4 10:18:57 Overacti ve urinary bladder 191213678 Active [address] [facility] [address] [facility] [place] [address], [place], [address], [facility] 4 09:27:28 Headache 97405307 Active 2023 Malinda Hidalgo, [facility] [address] [facility] [place] [address], [place], [address], [facility] 4 09:39:53 Problem Notes None recorded. Procedures Surgical History Date Name Laterality Status Provider Name and Address Organization Details Recorded Time 06/20/19 23 Most Recent Mammogram completed Maxine Gallo MA [facility] 10/05/2022 09:02:08 12/27/19 21 Date of Last Pap Smear completed Monica Mesa MA [facility] 09/22/2021 13:06:35 06/15/19 21 Mammogram screening completed Brittany Green [facility] 06/24/2020 16:15:31 05/31/19 19 angiography of coronary artery completed Kathy Johansen [facility] 05/30/2018 09:37:32 08/06/19 18 Coronary art/grft angio s&i completed Bella Wray [facility] 08/10/2017 11:28:44 02/19/20 15 Ultrasound breast complete completed Dilia Howe [facility] 02/19/2015 09:44:02 release of trigger thumb completed Rachael mendez MA [facility] 04/05/2018 14:55:44 Tonsillectomy completed Monica jones MA [facility] 09/22/2021 12:54:58 Imaging Results None recorded. Procedure Notes None recorded. Medical Equipment None Reported. Allergies Allergen ID Allergen Name Allergen Category Reaction Reaction Severity Criticality Documentation Date Start Date Code Code System Note Provider Name and Address Organization Details Recorded Time 17189 Glycine max ([facility] e) environme nt,food,m edication other Not available Not available 11/02/20132013 26178 5007 SNOMED SANTOS Martinez [facility] 2 12:54:40 51118 potato allergeni c extract food Not available Not available Not available 04/05/2018 04007 2 [facility] 2 12:54:40 7541 Product containin g angiotens in-conver ting enzyme inhibitor (product) medicatio n cough Not available Not available 10/09/20132013 42840 009 SNOMED Lisin opril SANTOS Garzon [facility] 5 13:15:24 7542 omeprazol e medicatio n abdominal pain Not available Not available 10/09/20132013 7646 RxNorm SANTOS Martinez [facility] 2 12:54:40 7543 Medicinal product containin g penicilli n and acting as antibacte rial agent (product) medicatio n other Not available Not available 10/09/20132013 76527 05 SNOMED SANTOS Garzon [facility] 5 13:15:24 Medications Name Sig Start Date [...] Not Available Not Available Not Available flucelvax 0418-1994 .5 ml israel 06/12 completed Not Available [...] 14 9:46AM BY LARISSA DARLING MA, ERICH ON/ADDEN DUM; Not Available Not Available [...] RECORDED 07/12/19 10 4:22PM BY ERICH JACOBSEN ON/ADDEN DUM; Not Available Not Available Not [...] 05/31 completed RECORDED 06/03/19 11 1:18PM BY BRET COLINATI ON AUTO-GERALD CTIVATIO N; Not Available Not [...] IM syringe VACCINAT ION ADMINIST ERED BY [facility] ST 01/20 completed Not Available Not Available Not Available Nurtec ODT 75 mg disintegr ating tablet TAKE 1 TABLET DAILY IF NEEDED FOR MIGRAINE active Not Available Not Available No t Available Fluarix Quad (PF) 60 mcg (15 mcg x 4)/0.5 mL IM syringe VACCINAT ION ADMINIST ERED BY [facility] ST 03/19 completed Not Available Not Available [...] Updated DateTime 4 154.94 cm 37 kg/m2 86476.1 g 84 /min 99 % 99 % 97.9 [degF] 126 mm[Hg] 81 mm[Hg] Payal Jhaveri MA [facility] 4 15:12:02 Social History Question Answer Notes LastModified by Organizat ion Details LastModified Time Tobacco Smoking Status Current Every Day [facility] 10/11/2023 08:50:30 Do You Have An Advance Directive? Yes HCP At [facility] 05/30/18 [email or web address] Information not available 09/22/2021 What Is Your [...] Or Vape? Former User Of Electronic Cigarettes [email or web address] Information not available 09/22/2021 What Is Your Occupation? [employer] Information not available 07/20/2018 When Did You Quit Smoking? 1-5yearssince lastcigarette [email or web address] Information not available 09/22/2021 Live Alone Or [...] Or Greater Than 100 Degrees Fahrenheit? No [email or web address] Information not available 11/15/2019 Are You Or Anyone In Your Household A Health Care Provider Or Emergency Responder? No [email or web address] Information not available 11/15/2019 To The Best Of Your Knowledge Have You Been In Close Proximity To Any Individual Who Tested Positive For COVID-19? No [email or web address] Information not available 11/15/2019 *AWV ONLY* Are You Presently Prescribed Opioid Medication By PCP Or Specialist? If YES -Provider Assess The Benefit For Other, Non-opioid Pain Therapies Instead, Even If The Patient Does Not Have OUD But Is Possibly At Risk. No Information not available 09/22/2021 Have You Recently Traveled To A COVID-19 High Risk Area Or Gathering In The Last 10 Days? No [email or web address] Information not available 09/16/2020 What Was The Date Of Your Most Recent Tobacco Screening? 10/05/2022 Information not available 10/05/2022 How Many Children Do You Have? 1 Paddy (has ADD) [email or web address] Information not available 01/14/2014 What Is Your Current Pack Years? 20-29packyear s [email or web address] Information not available 09/22/2021 Do You Use Protection During Sex? Usually [email or web address] Information not available 09/22/2021 Do You Use Your Seat Belt Or Car Seat Routinely? Yes [email or web address] Information not available 09/22/2021 Seat Belts Used Routinely Yes [email or web address] Information not available 09/22/2021 Are You Sexually Active? No [email or web address] Information not available 09/22/2021 Smoke Alarm In Home Yes [email or web address] Information not available 09/22/2021 Do You Have Smoke And Carbon Monoxide Detectors In Your Home? Yes [email or web address] Information not available 09/22/2021 At What Age [...] Many Years Have You Smoked Tobacco? 25 [email or web address] Information not available 09/16/2020 Do You Or Have You Ever Used Any Other Forms Of Tobacco Or Nicotine? No [email or web address] Information not available 09/22/2021 Sex: Unknown Functional Status Question Answer Note LastModified by Organizat ion Details LastModified Time Are you able to walk? YESWOREST [email or web address] Information not available 09/22/2021 Are you able [...] 2014 10:06:34 Notes:Father being tested fo r [facility] - 10/05/22 Medical History Condition Response Muscle, [...] virus, trivalent, PF 4 completed Priti betts [facility] 01/14/2014 15:10:51 Influenza, split virus, quadrivalent, preservative 8 completed An betts [facility] 03/06/2018 13:58:17 COVID-19, mRNA, LNP-S, PF, 100 mcg/0.5mL dose or 50 mcg/0.25mL dose 1 completed SANTOS Huber [facility] [place] 04/03/2021 09:17:46 COVID-19, mRNA, LNP-S, PF, 100 mcg/0.5mL dose or 50 mcg/0.25mL dose 1 completed SANTOS Huber, [facility] 04/03/2021 09:17:46 Influenza, split virus, trivalent, PF 6 completed SANTOS Huber, [facility] 04/03/2021 09:17:46 Influenza, split virus, quadrivalent, PF 9 completed SANTOS Huber, [facility] 04/03/2021 09:17:46 Influenza, MDCK, quadrivalent, PF 7 completed SANTOS Huber, [facility] 04/03/2021 09:17:46 Influenza, MDCK, quadrivalent, PF 1 completed SANTOS Huber, [facility] 04/03/2021 09:17:46 Influenza, split virus, quadrivalent, PF 0 completed SANTOS Huber, [facility] 04/03/2021 09:17:46 Influenza, split virus, quadrivalent, PF 8 completed SANTOS Huber, [facility] 04/03/2021 09:17:46 COVID-19, mRNA, LNP-S, PF, 100 mcg/0.5mL dose or 50 mcg/0.25mL dose 2 completed SANTOS Martinez, [facility] 09/22/2021 13:01:02 Influenza, split virus, quadrivalent, PF 2 completed SANTOS Teague, [facility] 05/27/2022 11:31:26 Influenza, split virus, trivalent, preservative 2 completed SANTOS Garcia, [facility] 10/05/2022 08:52:10 Influenza, MDCK, quadrivalent, PF 3 completed Rosy Caporale, [employer]ILDING [employer] null, [facility] 08/18/2023 14:49:20 zoster recombinant 3 completed Rosy Caporale, [employer]ILDING [employer] null, [facility] 08/18/2023 14:49:20 zoster recombinant 3 completed Rosy Caporale, [employer]ILDING [employer] null, [facility] 08/18/2023 14:49:20 COVID-19, mRNA, LNP-S, PF, 50 mcg/0.5 mL 4 completed Rosy Caporale, [employer]ILDING [employer] null, [facility] 08/18/2023 14:49:20 Tdap 4 completed Not Available [facility] 04/14/2019 02:21:44 Td (adult), 2 Lf tetanus toxoid, preservative free, adsorbed 1 completed Not Available [facility] 10/09/2013 14:02:25 pneumococcal polysaccharide PPV23 5 completed Not Available [facility] 10/09/2013 14:02:25 Influenza, split virus, trivalent, preservative 6 completed Not Available [facility] 10/09/2013 14:02:25 Influenza, split virus, trivalent, preservative 7 completed Not Available [facility] 10/09/2013 14:02:25 Influenza, split virus, trivalent, preservative 8 completed Not Available [facility] 10/09/2013 14:02:25 Influenza, split virus, trivalent, preservative 0 completed Not Available [facility] 10/09/2013 14:02:25 Influenza, split virus, trivalent, preservative 1 completed Not Available [facility] 10/09/2013 14:02:25 Past Encounters Encounter ID Performer Location Encounter Start Date Encounter Closed Date Diagnosis/Indication Diagnosis SNOMED-CT Code Diagnosis ICD10 Code [id number] ALEXI Jane Main Office [address] [place] [address] 01/10/2024 08:22:40 01/10/2024 09:02:56 Body mass index 40+ - severely obese 289048227 E66.01 Z68.41 Essential hypertension 09126951 I10 Hyperlipidemia 47051100 E78.5 Prediabetes 943826382 R7 3.03 Asthma 212963516 J45.90 9 Eruption 958691412 R21 Restless legs 47255746 G 25.81 [id number] DILAN CORTEZ Main Office [address] [address] 02/06/2024 14:58:23 02/06/2024 15:29:48 Pain in left lower limb 359520301 M79.605 Health Concerns Section Related Observation LastModified by Organization Detai ls LastModified Time None Recorded Concern Status LastModified by Organization Details LastModified Time None Recorded Payers Encounter Date Sequence Insurance Name Policy Number Policy Rhodes Covered Member ID Rhodes Member ID Guarantor Name 02/06/2024 1 [facility] PUBLIC PLANS [facility] TYPE I (O) [id number] Everardodione Gay Grimes [id number] Fatimah Grimes Notes Date Note Type Note Provider Name and Address Organization Details Recorded Time 02/06/2024 text/html Fatimah is a 53yr old [...] fever, or associated symptoms. DILAN CORTEZ [address] [address], [place], [address], [facility] 02/06/2024 15:43:14 OBGyn Episode No OBEpisode recorded.
--- OUTSIDE RECORDS SUMMARY | 2024-03-07 19:04 | XMS_ITS | Continuity of Care Document ---
Author Organization [facility] Address [address] [place] [address] Phone Care Team Providers Care Weaving Teacher Name Role Phone Nelia OTT, Peña Unavailable Unavailable Advance Directives Directive Yes / No Effective Date File Name No Information Encounters Encounter Description Practice Location Reason(s) For Visit Diagnoses Date Provider Providers Copied on Encounter [facility], [address], [place], [id number], [place] tel:[phone] [facility] No Information 4 Nelia Pompa. [address], [address], [place], [address], [place]. tel:[phone] Family History Family Member Type Diagnosis Age At Onset No Information Payers Payer name Insurance type Covered democrat ID Authoriza tion(s) No Information Social History [...]
== END 2024-03-06 09:31 | disposition home or self-care (01) ==
PROVIDERS: PCP Registered Nurse; Visit Provider Surgery Vascular Surgery
DX: I83.12 Varicose veins of left lower extremity with inflammation (principal)
CPT/HCPCS: 99214

== ENCOUNTER 2024-05-11 07:17 | Outpatient (AMB) | payer OTHER, SELFPAY ==
[2024-05-11 07:34] VITALS: BMI 39.5
--- NOTE | 2024-05-11 07:34 | MHC.OFFVIS ---
Vital Signs 05/11/24 07:34 Height 5 ft 1 in Weight 209 lb BMI 39.5 Intake Visit Reasons: Left Micro Lifter Required: No Accompanied by: Self / Same As Patient Allergies Penicillins Allergy (Severe, Verified 05/11/24 07:35) Rash [facility] Medical History Benign paroxysmal vertigo of both ears Surgical History H/O neck surgery History of carpal tunnel surgery History of cardiac cath H/O shoulder surgery Family History Father Heart disease Mother HTN (hypertension) Stroke Cancer Social History Alcohol intake: current Alcohol intake frequency: holidays/special occasions only Patient Tobacco Use Status: Former Tobacco user Years Smoked: 25 +/- Physical Exam Vital Signs: BMI result Body Mass Index 39.5 Office Procedures Vascular Office Procedure Details Details: Diagnosis: Left Leg varicose veins with inflammation Procedure: Left leg Microphlebectomy Anesthesia: Local Infiltration 20 cc, Tumescent: 0 cc. Surgeon: Zeyad Ascencio MD Retail Support Associate: An baca Varicose veins were marked in the standing position on the left leg and the patient was then placed in the supine position. The left lower extremity was prepared and draped to allow knee flexion in the sterile field. The patient had large superficial varicose veins with significant symptoms of pain. It was therefore determined to perform microphlebectomies of the clusters of varicose veins. The patient had bulging varicose veins which were previously marked in the standing position. A small stab incision was made longitudinally directly overlying the varicose vein in the calf and the varicose vein was grasped with a hemostat aided by a vein hook. It was then dissected as far proximally and distally as possible and avulsed. A total of 12 stab incisions were made and the procedure of stab phlebectomies was repeated 12 times. Hemostasis was checked and stab incision sites were closed with steri-strips and sterile dressing was given with gauze and krilex wrap followed by an yesenia bandage. There were no complications and blood loss was minimal. Post-Op instructions were given and a follow-up appointment was recommended. 75026 - Phleb Veins, Extrem - up to 20 All charges added?: Procedure code (CPT) selection complete Assessment & Plan Assessment & Plan (1) Varicose veins of left lower extremity with inflammation: Comment: 05/11/2024 - left leg microphlebectomy Code(s): I83.12 - Varicose veins of left lower extremity with inflammation Category: Medical Plan: See op note Coding Level of Care Code Procedure Only Diagnoses Varicose veins of left lower extremity with inflammation I83.12 CPT Codes Details - Vascular 5: 25257 - Phleb Veins, Extrem - up to 20 ([id number])
== END 2024-05-11 09:09 | disposition home or self-care (01) ==
PROVIDERS: PCP Registered Nurse; Visit Provider Surgery Vascular Surgery
DX: I83.12 Varicose veins of left lower extremity with inflammation (principal)
CPT/HCPCS: 37765

== ENCOUNTER → 2024-05-11 07:17 | Outpatient (BNVA) | payer OTHER, SELFPAY | PROVIDERS: PCP Registered Nurse; Visit Provider Surgery Vascular Surgery | DX: I83.12 Varicose veins of left lower extremity with inflammation (principal) | CPT/HCPCS: 37765; J2003 ==

== ENCOUNTER 2024-05-15 11:10 | Outpatient (AMB) | payer OTHER, SELFPAY ==
--- NOTE | 2024-05-15 11:24 | A.OFFVIS_ITS ---
Vital Signs 05/15/24 11:25 Height 5 ft 1 in Weight 209 lb BMI 39.5 Intake Visit Reasons: Add-on bleeding s/p Micro 05/11/24 Intake Note: follow up Left LE micro 05/11/24 bleeding from incision that keeps opening on the lateral thigh. Pt states some drainage this a.m. and last bleed yesterday and had to put some pressure on it. Accompanied by: Self / Same As Patient Allergies Penicillins Allergy (Severe, Verified 05/15/24 11:28) Rash HPI HPI Add-on bleeding s/p Micro 05/11/24: Details: Fatimah is presenting today for concerns for bleeding status post microphlebectomy on Thursday 05/11. She states she on wrapped her legs on Tuesday and took a shower and states that some of the sites were bleeding through the Steri-Strips. She did apply some pressure, which did alleviate the bleeding. She states she stopped taking her aspirin, for concerns of bleeding. She did take her baby aspirin this morning. She states none of the Steri-Strips have fallen off. She denies any bleeding/drainage this morning. She does endorse mild pain at the sites. [facility] Medical History Benign paroxysmal vertigo of both ears Surgical History H/O neck surgery History of carpal tunnel surgery History of cardiac cath H/O shoulder surgery Family History Father Heart disease Mother HTN (hypertension) Stroke Cancer Social History Alcohol intake: current Alcohol intake frequency: holidays/special occasions only Patient Tobacco Use Status: Former Tobacco user Years Smoked: 25 +/- Review of Systems Const Reports as per HPI and Denies weakness ENT Reports Normal hearing present and Denies dizziness Card Reports as per HPI, Denies chest pain, Denies chest pain at rest, Denies chest pain with activity, Denies dyspnea and Denies dyspnea on exertion Resp Reports as per HPI, Denies cough, Denies dyspnea and Denies dyspnea on exertion GI Reports as per HPI, Denies abdominal pain, Denies nausea and Denies vomiting Musc Denies numbness Skin/Breast Reports as per HPI, Denies erythema and Denies wounds Neuro Reports Normal hearing present, Denies dizziness, Denies numbness, Denies Sensory deficit (Neuro) and Denies weakness Psych Reports no additional complaints Endo Reports no additional complaints Physical Exam Vital Signs: BMI result Body Mass Index 39.5 Const General: healthy appearing and no acute distress Orientation/consciousness: patient oriented x3 HEENT Head: Yes normal to inspection Ears: hearing grossly normal bilaterally Mouth: Normal oral and palatal mucosa present Resp Effort & Inspection: normal respiratory effort and able to speak in complete sentences Auscultation: clear to auscultation bilaterally Cardio Jugular venous distension: no JVD Rate: regular rate Rhythm: regular rhythm Heart sounds: S1 normal heart sound present and S2 normal heart sound present Bruits: no abdominal aortic bruits, no carotid bruits, no femoral bruits and no renal bruits Peripheral pulses: Peripheral pulses 2+ throughout GI Inspection: Yes normal to inspection Palpation (GI): No Abdominal aortic bruit present Skin General skin exam: no rashes or lesions noted Wounds: no wounds Hair: normal Neuro General: patient oriented x3 Cranial nerves: Yes Normal hearing present Cognition (Neuro): normal cognition Gait exam (Neuro): Normal gait present Motor exam (neuro): 5/5 motor strength present throughout Sensory Exam: No Sensory deficit (Neuro) Extrem Other: Left lateral lower extremity: All Steri-Strips intact, with dried blood noted on the dressing. No active bleeding or draining at this time. Mild pain to palpation. Significant bruising noted all throughout, surrounding all the incision sites, and larger bruising noted below the tibial tuberosity area. General: Yes normal to inspection, Yes full ROM, Yes capillary refill normal and Yes normal gait Assessment & Plan Assessment & Plan (1) Varicose veins of left lower extremity with inflammation: Comment: 05/11/2024 - left leg microphlebectomy Code(s): I83.12 - Varicose veins of left lower extremity with inflammation Category: Medical Plan: Fatimah is status post left lower extremity microphlebectomy on May 11. She states after on wrapping her legs on Tuesday she noticed bleeding and draining from several of the incision sites. The Steri-Strips continue to stay intact. There was no bleeding or drainage noted this morning. I discussed with the patient to continue with her baby aspirin and not hold that. I discussed whether to apply warm compresses to help with any swelling or pain she may experience. We discussed to take Tylenol if she does experience pain. She has a follow up appointment scheduled for the , we discussed the importance of attending that appointment. We discussed that the Steri-Strips will likely fall off before the appointment. I discussed her not to pull them off now, because that could interrupt the healing process and destroy any scabs that may be formed. We discussed that if any increased bleeding or any other concerns occur, she can reach back out to us. If there are any questions or concerns, please do not hesitate to reach out to us. We will look forward to seeing you on the for a follow up. Coding Level of Care Code Est Pt Level 4 (94659) Diagnoses Varicose veins of left lower extremity with inflammation I83.12
[2024-05-15 11:25] VITALS: BMI 39.5
--- OUTSIDE RECORDS SUMMARY | 2024-05-15 12:21 | XMS_ITS | Continuity of Care Document ---
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 [address], [address], [place], [address], [place]. tel:[phone] Family History Family Member Type Diagnosis Age At Onset No Information Payers Payer name Insurance type Covered republican ID Authoriza tion(s) No Information Social History [...]
--- OUTSIDE RECORDS SUMMARY | 2024-05-15 12:21 | XMS_ITS | Continuity of Care Document ---
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 It does not include entries that were removed or entered in error. Problem Status Onset Date Problem Type Date of Resolution Comments Source Diagnosis: ICD-10-CM Z71.0 Prsn encntr hlth serv to consult on behalf of another person Active Diagnosis [facility] Encounters Combined list of: 1) Encounters from Department of Veterans Affairs facilities going backup to the last 18 months, not all [facility] inpatient encounters are included; 2) Encounters from the Department of Defense facilities going backup to 280 months. Location Location Details Encounter Type Encounter Number Reason For Visit Attending Provider ADM Date DC Date Status Disposition Source [facility] Outpatient Encounter [id number] 10/13 [facility] HC PRO PHONE CALL 5-10 MIN [id number] Diagnos is: ICD-10- CM Z71.0 Prsn encntr hlth serv to consult on behalf of another person PATINO,RU TH E 02/03 [facility] ASS[facility]/REAS SESSMENT [id number] Diagnos is: ICD-10- CM Z71.0 Prsn encntr hlth serv to consult on behalf of another person PATINO,RU TH E 02/11 [facility] HC PRO PHONE CALL 5-10 MIN [id number] Diagnos is: ICD-10- CM Z71.0 Prsn encntr hlth serv to consult on behalf of another person CAREY,RU TH E 02/24 [facility] CASE [facility]NAGEMENT [id number] Diagnos is: ICD-10- CM Z71.0 Prsbin encntr hlth serv to consult on behalf of another person CAREY,RU TH E 02/24 [facility]
--- OUTSIDE RECORDS SUMMARY | 2024-05-15 12:22 | XMS_ITS | Data Portability ---
Author Organization [facility], Main Office Address [address] [facility] [address] [place] [id number] Care Team Providers Care Soda Fountain Manager Name Role Phone CHITO SANTIAGO Director [facility] [employer] [facility] BETTYE CARRANZA Network Control Operators Supervisor MALINDA HIDALGO OTHER ANGELICA GIVENS Network Control Operators Supervisor [phone] MALINDA HIDALGO Primary Care Provider [phone] [facility] ERAPY (NIK MURILLO) Healthcare Recruiter PAZ JEREZ Referring Provider Assessment Encounter Date Assessment Date Assessment LastModified [...] PA-C Not available Not available Not available PE EST 2024 09:15A Emmanuel Hidalgo PA-C Not available Not available Not available Lab rapid flu (A+B) 2024 025 In-Office Order, Internal Use Only DO Not Attach Compendium DO Not Attach Compendium, Do Not Delete/merge, [id number] 04/17/2024 15:59:22 amylas e + lipase , serum 2024 025 [facility], [address], [place], [address], 04/03/2024 09:41:13 TSH + free T4, serum 2024 025 [facility], [address], [place], [address], 04/03/2024 09:41:10 HbA1c (hemog lobin A1c), blood 2024 025 [facility], [address], [place], [address], 04/03/2024 09:41:11 CMP, serum or plasma 2024 025 [facility], [address], [place], [address], 04/03/2024 09:41:12 CBC w/ auto diff 2024 025 [facility], [address], [place], [address], 04/03/2024 09:41:12 lipid panel, serum 2024 025 [facility], [address], [place], [address], 04/03/2024 09:41:11 rapid flu (A+B) 2023 024 [facility] In-Office Order, Internal Use Only DO Not Attach Compendium DO Not Attach Compendium, Do Not Delete/merge, [id number] 02/25/2024 10:46:03 respir atory infect ions panel, unspec ified specim en 2023 024 [facility], [address], [place], [address], 02/27/2024 20:05:59 CBC w/ auto diff 2023 024 [facility], [address], [place], [address], 02/07/2024 14:07:04 CMP, serum or plasma 2023 024 [facility], [address], [place], [address], 02/07/2024 14:07:05 D-dime r, quant, plasma 2023 024 [facility], [address], [place], [address], 02/07/2024 14:07:06 erythr ocyte sedime ntatio n rate by therese gren method 2023 [facility], [address], [place], [address], 02/07/2024 14:07:07 HbA1c (hemog lobin A1c), blood 2023 024 [facility], [address], [place], [address], 01/11/2024 12:08:13 DAMARI (antin uclear antibo dies) screen , serum 2023 024 [facility], [address], [place], [address], 01/11/2024 12:08:16 ESR (eryth rocyte sedime ntatio n rate), blood 2023 024 [facility], [address], [place], [address], 01/11/2024 12:08:17 C reacti ve protei n, QN, serum or plasma 2023 024 [facility], [address], [place], [address], 01/11/2024 12:08:18 borrel ia burgdo rferi IgG + IgM + total panel, IA, serum 2023 024 [facility], [address] [facility], [address] [address], [place], [address], 01/11/2024 12:08:15 rf (rheum atoid factor ), serum 2023 024 [facility], [address] [facility], [place] [address], [place], [address], 01/11/2024 12:08:14 lipid panel, serum 2023 024 [facility], [address] [facility], [place] [address], [place], [address], 01/11/2024 12:08:11 amylas e + lipase , serum 2023 024 [facility], [address] [facility], [place] [address], [place], [address], 01/11/2024 12:08:12 TSH + free T4, serum 2023 024 [facility], [address] [facility], [place] [address], [place], [address], 01/11/2024 12:08:07 CMP, serum or plasma 2023 024 [facility], [address] [facility], [address] [place] [address], [place], [address], 01/11/2024 12:08:10 CBC w/ auto diff 2023 024 [facility], [address] [facility], [place] [address], [place], [address], 01/11/2024 12:08:09 Referral None record ed. Procedures None record ed. Surgeries None record ed. Imaging XR, chest, 2 view - Produc tive cough, r/o pneumo monique. 2024 025 Not available 04/17/2024 15:59:20 XR, chest, 2 view 2023 024 [facility] Not available 02/26/2024 08:29:00 Medication Orders Tamifl u 75 mg capsul e 2024 025 [place] [address] [facility], [address] [place], [address], 04/17/2024 15:59:21 predni sone 10 mg tablet 2024 025 [place] [address] [facility], [address] [place], [address], 04/17/2024 15:59:20 albute rol sulfat e 2.5 mg/3 mL (0.083 %) soluti on for nebuli zation 2024 025 [place] [address] [facility], [address] [place], [address], 04/17/2024 15:59:21 epinep hrine 0.3 mg/0.3 mL inject ion, auto-i njecto r 2024 025 [place] [facility], [address] [place], [address], 04/03/2024 09:43:34 Wegovy 2.4 mg/0.7 5 mL subcut aneous pen inject or 2024 025 [email or web address], [address] [place], [address], 05/10/2024 13:32:27 doxycy hung hyclat e 100 mg capsul e 2023 024 [place] [facility], [address] [place], [address], 04/03/2024 09:25:07 glenn ukast 10 mg tablet 2023 024 [place] [facility], [address] [place], [address], 01/10/2024 08:53:06 Patient TargetsNo targets recorded. Patient Instructions Encounter Date Encounter Id Patient Instructions Last Modified By Organization Details Last Modified Time 01/10/2024 [id number] To call or retur n for worsening or concerns [email or web address] Not available 01/10/2024 08:53:10 02/25/2024 [id number] upper respirator y infection (cold): care instructions Not available 02/25/2024 10:37:42 pneumonia: care instructions Not available 02/25/2024 10:45:24 04/03/2024 [id number] To call or retur n for worsening or concerns [email or web address] Not available 04/03/2024 09:39:27 04/17/2024 [id number] asthma attack: care instructions Not available 04/17/2024 15:59:20 upper respirator y infection (cold): care instructions Not available 04/17/2024 15:59:20 Reason for Referral None Reported. Results Created Date Observation Date Name Description Value Unit Range Abnormal Flag Note LastModifiedBy Organization Detail LastModifiedTime 01/10/2001/11/2024 TSH+F REE T4 TSH 0.763 uIU/m L 0.450- 4.500 normal Not Available [facility] ([facility]) [address] [place], [address], 01/11/2024 12:08:06 01/10/2001/11/2024 TSH+F REE T4 T4,free(dire ct) 1.39 NG/dL 0.82-1 .77 normal Not Available [facility] ([facility]) [address] [place], [address], 01/11/2024 12:08:06 01/10/2001/11/2024 CBC WITH DIFFE RENTI AL/PL ATELE T WBC 10.6 x10e3 /uL 3.4-10 .8 normal Not Available [facility] ([facility]) [address] [place], [address], 01/11/2024 12:08:09 01/10/2001/11/2024 CBC WITH DIFFE RENTI AL/PL ATELE T RBC 5.44 x10e6 /uL 3.77-5 .28 above high normal Not Available [facility] ([facility]) [address] [facility], [place], [address], 01/11/2024 12:08:09 01/10/2001/11/2024 CBC WITH DIFFE RENTI AL/PL ATELE T hemoglobin 15.1 g/dL 11.1-1 5.9 normal Not Available [facility] ([facility]) [address] [facility], [place], [address], 01/11/2024 12:08:09 01/10/2001/11/2024 CBC WITH DIFFE RENTI AL/PL ATELE T hematocrit 47.9 % 34.0-4 6.6 above high normal Not Available [facility] ([facility]) [address] [facility], [place], [address], 01/11/2024 12:08:09 01/10/2001/11/2024 CBC WITH DIFFE RENTI AL/PL ATELE T MCV 88 fL 79-97 normal Not Available [facility] ([facility]) [address] [facility], [place], [address], 01/11/2024 12:08:09 01/10/2001/11/2024 CBC WITH DIFFE RENTI AL/PL ATELE T MCH 27.8 pg 26.6-3 3.0 normal Not Available [facility] ([facility]) [address] [place], [address], 01/11/2024 12:08:09 01/10/20 24 01/11/2024 CBC WITH DIFFE RENTI AL/PL ATELE T MCHC 31.5 g/dL 31.5-3 5.7 normal Not Available [facility] ([facility]) [address] [facility], [place], [address], 01/11/2024 12:08:09 01/10/2001/11/2024 CBC WITH DIFFE RENTI AL/PL ATELE T RDW 13.1 % 11.7-1 5.4 Not Available [facility] ([facility]) [address] [facility], [place], [address], 01/11/2024 12:08:09 01/10/2001/11/2024 CBC WITH DIFFE RENTI AL/PL ATELE T platelets 294 x10e3 /uL 150-45 0 normal Not Available [facility] ([facility]) [address] [facility], [place], [address], 01/11/2024 12:08:09 01/10/2001/11/2024 CBC WITH DIFFE RENTI AL/PL ATELE T neutrophils 76 % not estab. normal Not Available [facility] ([facility]) [address] [facility], [place], [address], 01/11/2024 12:08:09 01/10/2001/11/2024 CBC WITH DIFFE RENTI AL/PL ATELE T lymphs 14 % not estab. normal Not Available [facility] ([facility]) [address] [facility], [place], [address], 01/11/2024 12:08:09 01/10/2001/11/2024 CBC WITH DIFFE RENTI AL/PL ATELE T monocytes 7 % not estab. normal Not Available [facility] ([facility]) [address] [facility], [place], [address], 01/11/2024 12:08:09 01/10/2001/11/2024 CBC WITH DIFFE RENTI AL/PL ATELE T eos 1 % not estab. normal Not Available [facility] ([facility]) [address] [facility], [place], [address], 01/11/2024 12:08:09 01/10/20 24 01/11/2024 CBC WITH DIFFE RENTI AL/PL ATELE T basos 1 % not estab. normal Not Available [facility] ([facility]) [address] [place], [address], 01/11/2024 12:08:09 01/10/20 24 01/11/2024 CBC WITH DIFFE RENTI AL/PL ATELE T immature cells [employer]TE[employer]ER Not Available [facility] ([facility]) [address] [place], [address], 01/11/2024 12:08:09 01/10/2001/11/2024 CBC WITH DIFFE RENTI AL/PL ATELE T neutrophils (absolute) 8.3 x10e3 /uL 1.4-7. 0 above high normal Not Available [facility] ([facility]) [address] [place], [address], 01/11/2024 12:08:09 01/10/20 24 01/11/2024 CBC WITH DIFFE RENTI AL/PL ATELE T lymphs (absolute) 1.5 x10e3 /uL 0.7-3. 1 normal Not Available [facility] ([facility]) [address] [place], [address], 01/11/2024 12:08:09 01/10/20 24 01/11/2024 CBC WITH DIFFE RENTI AL/PL ATELE T monocytes(ab solute) 0.7 x10e3 /uL 0.1-0. 9 normal Not Available [facility] ([facility]) [address] [place], [address], 01/11/2024 12:08:09 01/10/20 24 01/11/2024 CBC WITH DIFFE RENTI AL/PL ATELE T eos (absolute) 0.1 x10e3 /uL 0.0-0. 4 normal Not Available [facility] ([facility]) [address] [place], [address], 01/11/2024 12:08:09 01/10/20 24 01/11/2024 CBC WITH DIFFE RENTI AL/PL ATELE T baso (absolute) 0.1 x10e3 /uL 0.0-0. 2 normal Not Available [facility] ([facility]) [address] [facility], [place], [address], 01/11/2024 12:08:09 01/10/2001/11/2024 CBC WITH DIFFE RENTI AL/PL ATELE T immature granulocytes 1 % not estab. Not Available [facility] ([facility]) [address] [facility], [place], [address], 01/11/2024 12:08:09 01/10/2001/11/2024 CBC WITH DIFFE RENTI AL/PL ATELE T immature grans (abs) 0.1 x10e3 /uL 0.0-0. 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 Not Available [facility] ([facility]) [address] [facility], [place], [address], 01/11/2024 12:08:09 01/10/2001/11/2024 LIPID PANEL cholesterol, total 124 mg/dL 100-19 9 normal Not Available [facility] ([facility]) [address] [facility], [place], [address], 01/11/2024 12:08:11 01/10/2001/11/2024 LIPID PANEL triglyceride s 60 mg/dL 0-149 normal Not Available [facility] ([facility]) [address] [place], [address], 01/11/2024 12:08:11 01/10/20 24 01/11/2024 LIPID PANEL HDL cholesterol 49 mg/dL >39 normal Not Available [facility] ([facility]) [address] [facility], [place], [address], 01/11/2024 12:08:11 01/10/2001/11/2024 LIPID PANEL VLDL cholesterol len 13 mg/dL 5-40 Not Available [facility] ([facility]) [address] [place], [address], 01/11/2024 12:08:11 01/10/2001/11/2024 LIPID PANEL LDL chol calc ([facility]) 62 mg/dL 0-99 Not Available [facility]) [address] [place], [address], 01/11/2024 12:08:11 01/10/2001/11/2024 LIPID PANEL LDL calc comment: MA[employer]TENA[employer] Not Available [facility] ([facility]) [address] [facility], [place], [address], 01/11/2024 12:08:11 01/10/2001/11/2024 GREGORIA+L IPASE amylase 48 U/L 31-110 normal Not Available [facility] ([facility]) [address] [place], [address], 01/11/2024 12:08:12 01/10/2001/11/2024 GREGORIA+L IPASE lipase 44 U/L 14-72 normal Not Available [facility] ([facility]) [address] [place], [address], 01/11/2024 12:08:12 01/10/20 24 01/11/2024 HEMOG LOBIN A1C hemoglobin A1C 5.6 % 4.8-5. 6 normal Predi abete s: 5.7 - 6.4 Diabe michele: >6.4 Glyce sydney contr ol for adult s with diabe michele: <7.0 Not Available [facility] ([facility]) [address] [facility], [place], [address], 01/11/2024 12:08:13 01/10/20 24 01/11/2024 RHEUM ATOID FACTO R (RF) rheumatoid factor (rf) <10.0 IU/mL <14.0 Not Available [facility] ([facility]) [address] [facility], [place], [address], 01/11/2024 12:08:14 01/10/20 24 01/11/2024 LYME DISEA SE SEROL OGY W/REF MARTINEZ [...] is recom paula d. Not Available [facility] ([facility]) [address] [facility], [place], [address], 01/11/2024 12:08:15 01/10/2001/11/2024 ANTIN UCLEA R AB MULTI PLEX RFX 9 DAMARI direct Negati ve negati ve Not Available [facility] ([facility]) [address] [facility], [place], [address], 01/11/2024 12:08:16 01/10/20 24 01/11/2024 SEDIM ENTAT ION RATE- WESTE RGREN sedimentatio n rate-westerg meliza 19 mm/HR 0-40 normal Not Available [facility] ([facility]) [address] [facility], [place], [address], 01/11/2024 12:08:17 01/10/20 24 01/11/2024 C-NAREN CTIVE PROTE IN, QUANT C-reactive protein, quant 2 mg/L 0-10 normal Not Available [facility] ([facility]) [address] [facility], [place], [address], 01/11/2024 12:08:18 02/06/2002/07/2024 CBC WITH DIFFE RENTI AL/PL ATELE T WBC 10.1 x10e3 /uL 3.4-10 .8 normal Not Available [facility] ([facility]) [address] [facility], [place], [address], 02/07/2024 14:07:04 02/06/20 24 02/07/2024 CBC WITH DIFFE RENTI AL/PL ATELE T RBC 5.19 x10e6 /uL 3.77-5 .28 normal Not Available [facility] ([facility]) [address] [facility], [place], [address], 02/07/2024 14:07:04 02/06/20 24 02/07/2024 CBC WITH DIFFE RENTI AL/PL ATELE T hemoglobin 14.6 g/dL 11.1-1 5.9 normal Not Available [facility] ([facility]) [address] [place], [address], 02/07/2024 14:07:04 02/06/20 24 02/07/2024 CBC WITH DIFFE RENTI AL/PL ATELE T hematocrit 45.7 % 34.0-4 6.6 normal Not Available [facility] ([facility]) [address] [place], [address], 02/07/2024 14:07:04 02/06/20 24 02/07/2024 CBC WITH DIFFE RENTI AL/PL ATELE T MCV 88 fL 79-97 normal Not Available [facility] ([facility]) [address] [facility], [place], [address], 02/07/2024 14:07:04 02/06/20 24 02/07/2024 CBC WITH DIFFE RENTI AL/PL ATELE T MCH 28.1 pg 26.6-3 3.0 normal Not Available [facility] ([facility]) [address] [facility], [place], [address], 02/07/2024 14:07:04 02/06/20 24 02/07/2024 CBC WITH DIFFE RENTI AL/PL ATELE T MCHC 31.9 g/dL 31.5-3 5.7 normal Not Available [facility] ([facility]) [address] [place], [address], 02/07/2024 14:07:04 02/06/20 24 02/07/2024 CBC WITH DIFFE RENTI AL/PL ATELE T RDW 13.4 % 11.7-1 5.4 Not Available [facility] ([facility]) [address] [place], [address], 02/07/2024 14:07:04 02/06/20 24 02/07/2024 CBC WITH DIFFE RENTI AL/PL ATELE T platelets 278 x10e3 /uL 150-45 0 normal Not Available [facility] ([facility]) [address] [place], [address], 02/07/2024 14:07:04 02/06/20 24 02/07/2024 CBC WITH DIFFE RENTI AL/PL ATELE T neutrophils 71 % not estab. normal Not Available [facility] ([facility]) [address] [place], [address], 02/07/2024 14:07:04 02/06/20 24 02/07/2024 CBC WITH DIFFE RENTI AL/PL ATELE T lymphs 19 % not estab. normal Not Available [facility] ([facility]) [address] [facility], [place], [address], 02/07/2024 14:07:04 02/06/20 24 02/07/2024 CBC WITH DIFFE RENTI AL/PL ATELE T monocytes 9 % not estab. normal Not Available [facility] ([facility]) [address] [facility], [place], [address], 02/07/2024 14:07:04 02/06/20 24 02/07/2024 CBC WITH DIFFE RENTI AL/PL ATELE T eos 1 % not estab. normal Not Available [facility] ([facility]) [address] [facility], [place], [address], 02/07/2024 14:07:04 02/06/20 24 02/07/2024 CBC WITH DIFFE RENTI AL/PL ATELE T basos 0 % not estab. normal Not Available [facility] ([facility]) [address] [place], [address], 02/07/2024 14:07:04 02/06/20 24 02/07/2024 CBC WITH DIFFE RENTI AL/PL ATELE T immature cells [employer] Not Available [facility] ([facility]) [address] [place], [address], 02/07/2024 14:07:04 02/06/20 24 02/07/2024 CBC WITH DIFFE RENTI AL/PL ATELE T neutrophils (absolute) 7.1 x10e3 /uL 1.4-7. 0 above high normal Not Available [facility] ([facility]) [address] [place], [address], 02/07/2024 14:07:04 02/06/20 24 02/07/2024 CBC WITH DIFFE RENTI AL/PL ATELE T lymphs (absolute) 1.9 x10e3 /uL 0.7-3. 1 normal Not Available [facility] ([facility]) [address] [facility], [place], [address], 02/07/2024 14:07:04 02/06/20 24 02/07/2024 CBC WITH DIFFE RENTI AL/PL ATELE T monocytes(ab solute) 0.9 x10e3 /uL 0.1-0. 9 normal Not Available [facility] ([facility]) [address] [facility], [place], [address], 02/07/2024 14:07:04 02/06/20 24 02/07/2024 CBC WITH DIFFE RENTI AL/PL ATELE T eos (absolute) 0.1 x10e3 /uL 0.0-0. 4 normal Not Available [facility] ([facility]) [address] [facility], [place], [address], 02/07/2024 14:07:04 02/06/20 24 02/07/2024 CBC WITH DIFFE RENTI AL/PL ATELE T baso (absolute) 0.0 x10e3 /uL 0.0-0. 2 normal Not Available [facility] ([facility]) [address] [facility], [place], [address], 02/07/2024 14:07:04 02/06/20 24 02/07/2024 CBC WITH DIFFE RENTI AL/PL ATELE T immature granulocytes 0 % not estab. Not Available [facility] ([facility]) [address] [facility], [place], [address], 02/07/2024 14:07:04 02/06/20 24 02/07/2024 CBC WITH DIFFE RENTI AL/PL ATELE T immature grans (abs) 0.0 x10e3 /uL 0.0-0. 1 Not Available [facility] ([facility]) [address] [facility], [place], [address], 02/07/2024 14:07:04 02/06/20 24 02/07/2024 CBC WITH DIFFE RENTI AL/PL ATELE T NRBC [employer] Not Available [facility] ([facility]) [address] [facility], [place], [address], 02/07/2024 14:07:04 02/06/20 24 02/07/2024 CBC WITH DIFFE RENTI AL/PL ATELE T hematology comments: MA[employer]TENA[employer] Not Available [facility] ([facility]) [address] [facility], [place], [address], 02/07/2024 14:07:04 02/06/20 24 02/07/2024 COMP. METAB OLIC PANEL (14) glucose 82 mg/dL 70-99 normal Not Available [facility] ([facility]) [address] [facility], [place], [address], 02/07/2024 14:07:05 02/06/20 24 02/07/2024 COMP. METAB OLIC PANEL (14) BUN 15 mg/dL 6-24 normal Not Available [facility] ([facility]) [address] [facility], [place], [address], 02/07/2024 14:07:05 02/06/20 24 02/07/2024 COMP. METAB OLIC PANEL (14) creatinine 0.62 mg/dL 0.57-1 .00 normal Not Available [facility] ([facility]) [address] [facility], [place], [address], 02/07/2024 14:07:05 02/06/20 24 02/07/2024 COMP. METAB OLIC PANEL (14) eGFR 108 mL/mi n/1.7 3 >59 normal Not Available [facility] ([facility]) [address] [facility], [place], [address], 02/07/2024 14:07:05 02/06/20 24 02/07/2024 COMP. METAB OLIC PANEL (14) BUN/creatini ne ratio 24 9-23 above high normal Not Available [facility] ([facility]) [address] [place], [address], 02/07/2024 14:07:05 02/06/20 24 02/07/2024 COMP. METAB OLIC PANEL (14) sodium 143 mmol/ L 134-14 4 normal Not Available [facility] ([facility]) [address] [place], [address], 02/07/2024 14:07:05 02/06/20 24 02/07/2024 COMP. METAB OLIC PANEL (14) potassium 4.0 mmol/ L 3.5-5. 2 normal Not Available [facility] ([facility]) [address] [place], [address], 02/07/2024 14:07:05 02/06/20 24 02/07/2024 COMP. METAB OLIC PANEL (14) chloride 108 mmol/ L 96-106 above high normal Not Available [facility] ([facility]) [address] [place], [address], 02/07/2024 14:07:05 02/06/20 24 02/07/2024 COMP. METAB OLIC PANEL (14) carbon dioxide, total 23 mmol/ L 20-29 normal Not Available [facility] ([facility]) [address] [place], [address], 02/07/2024 14:07:05 02/06/20 24 02/07/2024 COMP. METAB OLIC PANEL (14) calcium 9.2 mg/dL 8.7-10 .2 normal Not Available [facility] ([facility]) [address] [place], [address], 02/07/2024 14:07:05 02/06/20 24 02/07/2024 COMP. METAB OLIC PANEL (14) protein, total 6.7 g/dL 6.0-8. 5 normal Not Available [facility] ([facility]) [address] [place], [address], 02/07/2024 14:07:05 02/06/20 24 02/07/2024 COMP. METAB OLIC PANEL (14) albumin 4.2 g/dL 3.8-4. 9 normal Not Available [facility] ([facility]) [address], [place], [address], 02/07/2024 14:07:05 02/06/20 24 02/07/2024 COMP. METAB OLIC PANEL (14) globulin, total 2.5 g/dL 1.5-4. 5 Not Available [facility] ([facility]) [address] [place], [address], 02/07/2024 14:07:05 02/06/20 24 02/07/2024 COMP. METAB OLIC PANEL (14) bilirubin, total 0.3 mg/dL 0.0-1. 2 normal Not Available [facility] ([facility]) [address] [facility], [place], [address], 02/07/2024 14:07:05 02/06/20 24 02/07/2024 COMP. METAB OLIC PANEL (14) alkaline phosphatase 75 IU/L 44-121 normal Not Available [facility] ([facility]) [address] [facility], [place], [address], 02/07/2024 14:07:05 02/06/20 24 02/07/2024 COMP. METAB OLIC PANEL (14) AST (SGOT) 17 IU/L 0-40 normal Not Available [facility] ([facility]) [address] [facility] [place], [address], 02/07/2024 14:07:05 02/06/20 24 02/07/2024 COMP. METAB OLIC PANEL (14) ALT (SGPT) 14 IU/L 0-32 normal Not Available [facility] ([facility]) [address] [facility], [place], [address], 02/07/2024 14:07:05 02/06/20 24 02/07/2024 D-DIM ER D-dimer 0.43 mg/L_ feu 0.00-0 .49 Accor ding to the assay chen actur er's publi shed packa ge inser [...] cult. To addre ss this, the Ameri can Colle ge of Physi cians , based [...] old 0.80 mg/L FEU. Not Available [facility] ([facility]) [address] [facility], [place], [address], 02/07/2024 14:07:06 02/06/20 24 02/07/2024 SEDIM ENTAT ION RATE- WESTE RGREN sedimentatio n rate-westerg meliza 31 mm/HR 0-40 normal Not Available [facility] ([facility]) [address] [facility], [place], [address], 02/07/2024 14:07:07 02/25/20 24 02/27/2024 RESPI RATOR Y PANEL W/ SARS- COV2 adenovirus Not Detect ed not detect ed Not Available [facility] ([facility]) [address] [place], [address], 02/27/2024 20:05:59 02/25/20 24 02/27/2024 RESPI RATOR Y PANEL W/ SARS- COV2 coronavirus hku1 Not Detect ed not detect ed Not Available [facility] ([facility]) [address] [facility], [place], [address], 02/27/2024 20:05:59 02/25/20 24 02/27/2024 RESPI RATOR Y PANEL W/ SARS- COV2 coronavirus nl63 Not Detect ed not detect ed Not Available [facility] ([facility]) [address] [facility], [place], [address], 02/27/2024 20:05:59 02/25/20 24 02/27/2024 RESPI RATOR Y PANEL W/ SARS- COV2 coronavirus 229E Not Detect ed not detect ed Not Available [facility] ([facility]) [address] [place], [address], 02/27/2024 20:05:59 02/25/20 24 02/27/2024 RESPI RATOR Y PANEL W/ SARS- COV2 coronavirus oc43 Not Detect ed not detect ed Not Available [facility] ([facility]) [address] [place], [address], 02/27/2024 20:05:59 02/25/20 24 02/27/2024 RESPI RATOR Y PANEL W/ SARS- COV2 sars-cov-2 Not Detect ed not detect ed Not Available [facility] ([facility]) [address] [place], [address], 02/27/2024 20:05:59 02/25/20 24 02/27/2024 RESPI RATOR Y PANEL W/ SARS- COV2 human metapneumovi justin Not Detect ed not detect ed Not Available [facility] ([facility]) [address] [facility], [place], [address], 02/27/2024 20:05:59 02/25/20 24 02/27/2024 RESPI RATOR Y PANEL W/ SARS- COV2 human rhinovirus/e nterovirus Not Detect ed not detect ed Not Available [facility] ([facility]) [address] [facility], [place], [address], 02/27/2024 20:05:59 02/25/20 24 02/27/2024 RESPI RATOR Y PANEL W/ SARS- COV2 influenza A Not Detect ed not detect ed Not Available [facility] ([facility]) [address] [facility], [place], [address], 02/27/2024 20:05:59 02/25/20 24 02/27/2024 RESPI RATOR Y PANEL W/ SARS- COV2 influenza A/H1 TNP Test not perfo rmed Not Available [facility] ([facility]) [address] [place], [address], 02/27/2024 20:05:59 02/25/20 24 02/27/2024 RESPI RATOR Y PANEL W/ SARS- COV2 influenza A/H1-2009 TNP Test not perfo rmed Not Available [facility] ([facility]) [address] [place], [address], 02/27/2024 20:05:59 02/25/20 24 02/27/2024 RESPI RATOR Y PANEL W/ SARS- COV2 influenza A/H3 TNP Test not perfo rmed Not Available [facility] ([facility]) [address] [place], [address], 02/27/2024 20:05:59 02/25/20 24 02/27/2024 RESPI RATOR Y PANEL W/ SARS- COV2 influenza B Not Detect ed not detect ed Not Available [facility] ([facility]) [address], [place], [address], 02/27/2024 20:05:59 02/25/20 24 02/27/2024 RESPI RATOR Y PANEL W/ SARS- COV2 parainfluenz a 1 Not Detect ed not detect ed Not Available [facility] ([facility]) [address] [facility], [place], [address], 02/27/2024 20:05:59 02/25/20 24 02/27/2024 RESPI RATOR Y PANEL W/ SARS- COV2 parainfluenz a 2 Not Detect ed not detect ed Not Available [facility] ([facility]) [address] [facility], [place], [address], 02/27/2024 20:05:59 02/25/20 24 02/27/2024 RESPI RATOR Y PANEL W/ SARS- COV2 parainfluenz a 3 Not Detect ed not detect ed Not Available [facility] ([facility]) [address] [facility], [place], [address], 02/27/2024 20:05:59 02/25/20 24 02/27/2024 RESPI RATOR Y PANEL W/ SARS- COV2 parainfluenz a 4 Not Detect ed not detect ed Not Available [facility] ([facility]) [address] [facility], [place], [address], 02/27/2024 20:05:59 02/25/20 24 02/27/2024 RESPI RATOR Y PANEL W/ SARS- COV2 respiratory syncytial virus Not Detect ed not detect ed Not Available [facility] ([facility]) [address] [facility], [place], [address], 02/27/2024 20:05:59 02/25/20 24 02/27/2024 RESPI RATOR Y PANEL W/ SARS- COV2 bordetella parapertussi s Not Detect ed not detect ed Not Available [facility] ([facility]) [address] [facility], [place], [address], 02/27/2024 20:05:59 02/25/20 24 02/27/2024 RESPI RATOR Y PANEL W/ SARS- COV2 bordetella pertussis Not Detect ed not detect ed Not Available [facility] ([facility]) [address] [facility], [place], [address], 02/27/2024 20:05:59 02/25/20 24 02/27/2024 RESPI RATOR Y PANEL W/ SARS- COV2 chlamydophil a pneumoniae Not Detect ed not detect ed Not Available [facility] ([facility]) [address] [facility], [place], [address], 02/27/2024 20:05:59 02/25/20 24 02/27/2024 RESPI RATOR Y PANEL W/ SARS- COV2 mycoplasma pneumoniae Not Detect ed not detect ed Not Available [facility] ([facility]) [address] [facility], [place], [address], 02/27/2024 20:05:59 02/25/20 24 02/25/2024 rapid flu (A+B) Flu A negati ve Not Available In-Office Order Internal Use Only DO Not Attach Compendium DO Not Attach Compendium, Do Not Delete/merge, [id number] 02/25/2024 10:28:56 02/25/20 24 02/25/2024 rapid flu (A+B) Flu B negati ve Not Available In-Office Order Internal Use Only DO Not Attach Compendium DO Not Attach Compendium, Do Not Delete/merge, [id number] 02/25/2024 10:28:56 04/17/19 25 04/17/2024 rapid flu (A+B) Flu A positi ve Not Available In-Office Order Internal Use Only DO Not Attach Compendium DO Not Attach Compendium, Do Not Delete/merge, [id number] 04/17/2024 15:26:15 04/17/19 25 04/17/2024 rapid flu (A+B) Flu B negati ve Not Available In-Office Order Internal Use Only DO Not Attach Compendium DO Not Attach Compendium, Do Not Delete/merge, [id number] 04/17/2024 15:26:15 02/26/20 24 02/25/2024 XR, chest , 2 [...] IMPRES TERRANCE: No acute abnorm ality. WSN: [id number] Orderi ng Physic duc: Eulogio Raines Dictat ed By: Isaura Gabriel MD Dictat ed Date/T jody: 8:25 am Review ed By: Isaura Gabriel MD Signed By: Isaura Gabriel MD Signed Date/T jody: 8:25 am Transc ribed By: GAIL Transc ribed Date/T jody: 8:24 am Patien t Class: Outpat ient [facility] (Outpt Imaging) [address], [place], [address], 02/26/2024 20:02:12 02/27/20 24 02/07/2024 US, lower extre mity No observ ation record ed. [email or web address] [facility] (Medical Records) [address] [place], [address], 02/28/2024 09:06:36 03/14/20 24 03/13/2024 XR, knee, 3 view No observ ation record ed. [facility] [address] [place], [address], 03/14/2024 14:04:22 04/18/19 25 04/18/2024 XR, chest , 2 view No observ ation record ed. [email or web address] Not Available 04/18 11:20:12 04/18/19 25 04/17/2024 XR, chest , 2 view Chest 2 Views Fronta l and Lat Reason : PNA COMPAR EDISON: Multip le priors with the most recent dated 2023. Multip le prior chest radiog raphs with the most recent dated 2023. FINDIN GS: LINES AND TUBES: None. LUNGS AND PLEURA : Clear lungs. Normal pulmon nataly vascul arity. No pleura l effusi on. No pneumo thorax . HEART, MEDIAS TINUM AND TROY: Heart is normal in size. Normal medias tinal and hilar contou r. BONES AND SOFT TISSUE S: No acute abnorm ality. Mild multil evel degene rative change lower thorac ic spine. IMPRES TERRANCE: No acute abnorm ality. WSN: [id number] Orderi ng Physic duc: Francisco Javier Lopez Dictat ed By: George Newberry MD, V Dictat ed Date/T jody: 8:33 am Review ed By: George Newberry MD, V Signed By: George Newberry MD, V Signed Date/T jody: 8:33 am Transc ribed By: GAIL Transc ribed Date/T jody: 8:19 am Patien t Class: Outpat ient [facility] (Outpt Imaging) [address] [place] [address], [address], 04/18/2024 17:48:35 Result Notes None recorded. Problems Name Problem SNOMED Code Status Onset Date Resolution Date Notes Provider Name and Address Organization Details Recorded Time Epigastr ic pain 47812187 Completed 05/10/2016 Jaylene betts [facility] 7 11:02:22 Abdomina l pain 58919209 Completed 05/10/2016 Jaylene betts [facility] [place] 7 11:01:53 Allergic rhinitis 19384663 Completed 200910/09/2013 RECORDED 06/27/19 10 10:27AM BY MARQUISE MARRUFO MA, ANNOTATI ON/ADDEN DUM Jaylene Díaz MA null, [facility] 7 08:51:51 Allergic rhinitis 64190272 Completed 05/10/2016 Jaylene Díaz MA null, [facility] 7 08:51:51 Asthma 738192149 Active Maxine aguilera null, [facility] 6 12:08:51 Acute asthma 693889634 Completed 05/10/2016 Jaylene Díaz MA null, [facility] 7 11:02:10 Chest pain 34434315 Completed 05/10/2016 Jaylenedione Díaz MA null, [facility] 7 11:02:04 Tobacco dependen ce syndrome 34553253 Completed 07/20/2018 Malinda Hidalgo, [facility] [address] [facility] [address], [facility] [address] [place] [address] 4 10:10:19 Elevated blood-pr essure reading without diagnosi s of hyperten terrance 939749067 Completed 201010/09/2013 RECORDED 12/22/19 11 3:26PM BY MARQUISE MARRUFO MA, ANNOTATI ON/ADDEN DUM Maxine aguilera null, [facility] 6 12:08:51 Enthesop athy of hip region 22140800 Active Maxine aguilera null, [facility] 6 12:08:51 Gastroes ophageal reflux disease 812417676 Completed 200910/09/2013 RECORDED 06/27/19 10 10:27AM BY MARQUISE MARRUFO MA, ANNOTATI ON/ADDEN DUM Maxine aguilera null, [facility] 6 12:08:51 Essentia l hyperten terrance 99112994 Active Maxine betts, [facility] 6 12:08:51 Influenz a vaccine needed 23982423469 06 Completed 05/10/2016 Jaylene betts [facility] 7 11:01:42 General examinat ion of patient Completed 200710/09/2013 RECORDED 11/28/19 08 2:32PM BY MARQUISE MARRUFO MA, ANNOTATI ON/ADDEN DUM Maxine betts [facility] 6 12:08:51 Influenz a with respirat ory manifest ation other than pneumoni a Completed 05/10/2016 Jaylene betts [facility] 7 11:02:29 Low back pain 335757771 Completed 200910/09/2013 RECORDED 06/27/19 10 10:27AM BY MARQUISE MARRUFO MA, BENNIEATI ON/ADDEN DUM Maxine betts [facility] 6 12:08:51 Migraine 32377468 Active Maxine betts [facility] 6 12:08:51 Eruption 500014947 Completed 200710/09/2013 RECORDED 11/28/19 08 2:32PM BY MARQUISE MARRUFO MA, ANNOTATI ON/ADDEN DUM Malinda Hidalgo [facility] [address] [place], [place] [address], [address] [place] [address] 2 13:14:35 Restless legs 65213119 Completed 05/10/2016 Jaylene betts [facility] 8 11:35:16 Adult health examinat ion Completed 05/10/2016 Jaylene betts [facility] 7 11:02:00 Dermatop hytosis of the body Active Maxine betts [facility] 6 12:08:51 Injury of elbow 957769842 Completed 05/10/2016 Jaylene Díaz MA null, [facility] 7 11:01:45 Allergy Completed 05/10/2016 Jaylene Díaz MA null, [facility] 7 11:01:39 Allergic rhinitis 50292558 Completed 200911/05/2013 RECORDED 06/27/19 10 10:27AM BY MARQUISE MARRUFO MA, ANNOTATI ON/ADDEN DUM Jaylene Díaz MA null, [facility] 7 08:51:51 Elevated blood-pr essure reading without diagnosi s of hyperten terrance 009164473 Completed 201011/05/2013 RECORDED 12/22/19 11 3:26PM BY MARQUISE MARRUFO MA, ANNOTATI ON/ADDEN DUM Maxine D'Alessan ale null, [facility] 6 12:08:51 Gastroes ophageal reflux disease 739352819 Completed 200911/05/2013 RECORDED 06/27/19 10 10:27AM BY MARQUISE MARRUFO MA, BENNIEATI ON/ADDEN DUM Maxine D'Alessan ale null, [facility] 6 12:08:51 General examinat ion of patient Completed 200711/05/2013 RECORDED 11/28/19 08 2:32PM BY MARQUISE MARRUFO MA, ANNOTATI ON/ADDEN DUM Maxine D'Alessan ale null, [facility] 6 12:08:51 Follow-u p encounte r Completed 05/10/2016 Jaylene betts, [facility] 7 11:02:18 Low back pain 758399581 Completed 200911/05/2013 RECORDED 06/27/19 10 10:27AM BY MARQUISE MARRUFO MA, BENNIEATI ON/ADDGUNNAR betts [facility] 6 12:08:51 Eruption 295590999 Completed 200711/05/2013 RECORDED 11/28/19 08 2:32PM BY MARQUISE MARRUFO MA, ANNOTATI ON/SUSIE MYRA Malinda Zachery Waltersdonnajazmine, [facility] [address], [facility] [address] [facility] 2 13:14:35 Body mass index 40+ - severely obese 800056477 Active Gregoria Gamezkaren betts, [facility] 8 17:58:43 Thoracic back pain 483870391 Active Maxine betts, [facility] 6 12:08:51 Cough 46523929 Completed 05/10/2016 Jaylene betts [facility] 7 11:02:35 Urogenit al finding 742813614 Active STORY: RIGHT KIDNEY CYST U/S 07/05 Maxine betts, [facility] 6 12:08:51 Thumb injury 990683397 Completed 05/10/2016 Jaylene betts [facility] 7 11:01:49 Bunion 129888686 Completed 05/10/2016 Jaylene betts [facility] 7 11:02:37 Disorder of breast 54051054 Completed 05/10/2016 Jaylene betts [facility] 7 11:02:24 Metatars algia 79087497 Active Maxine betts [facility] 6 12:08:51 Acute bronchit is 75259482 Completed 03/27/2016 [place] Martinez, [facility] 6 10:22:54 Pleuriti c pain 1066635 Completed 05/10/2016 Jaylene betts [facility] 7 11:01:57 Atypical chest pain 623882317 Active Maxine aguilera null, [facility] 6 12:13:25 Allergic rhinitis 95912561 Completed 201606/17/2016 Jaylene Díaz MA null, [facility] 7 08:51:51 Hyperlip idemia 95772382 Active 2017 Arely Lopez PA-C [address], [facility] [place], [address], [facility] 8 13:20:18 Restless legs 85210529 Active 2017 Jaylene Díaz MA null, [facility] 8 11:35:16 Snoring 62932392 Active 2017 Jaylene Díaz MA null, [facility] 8 11:35:33 Heart disease 91057880 Active 07/2017 had pos ETT, sent for cardiac cath, had 90% blockage of LAD; stented Dr Tere aryaa null, [facility] 9 15:32:25 Ex-smoke r 8489270 Active 2017 Marquise rowe MA null, [facility] 9 09:39:52 Suspecte d COVID-19 026756206 Completed 09/23/2020 Removal Reason: Problem added by user [email or web address] from the COVID-19 watch flag Shonda Vuong null, [facility] 1 14:36:15 Prediabe michele 628967559 Active 2021 ALEXI Jane [address], [place], [address], [facility] 2 13:14:34 Eruption 665193713 Active 2021 RECORDED 11/28/19 08 2:32PM BY MARQUISE MARRUFO MA, ANNOTATI ON/ADDEN DUM Malinda Hidalgo, [facility] [address], [place], [address], [facility] 2 13:14:34 Fatigue 22316528 Active 2021 [facility]idalgo, [facility] [address], [place], [address], [facility] 2 13:23:33 Morbid obesity 357484789 Active 2021 Denise Dallasnico betts, [facility] 2 15:15:41 Benign paroxysm al position al vertigo 441996671 Active 2021 Malinda Hidalgo, [facility] [address], [place], [address], [facility] 2 09:11:59 Tobacco dependen ce syndrome 47074429 Active 2023 Malinda Hidalgo, [facility] [address], [place], [address], [facility] 4 10:10:19 Neck pain 88324335 Active 2023 Malinda Hidalgo, [facility] [address] [facility] [address], [place], [address], [facility] 4 12:17:05 Vasculit is of the skin 30440444 Active 2023 Malinda Hidalgo, [facility] [address], [place], [address], [facility] 4 10:17:48 Venous varices 988111560 Active 2023 Malinda Hidalgo, [facility] [address], [place], [address], [facility] 4 10:18:57 Overacti ve urinary bladder 339151688 Active 2023 Malinda Hidalgo, [facility] [address], [facility] [place], [address], [facility] 4 09:27:28 Headache 02054466 Active 2023 Malinda Hidalgo, [facility] [address], [facility] [place], [address], [facility] 4 09:39:53 Problem Notes None recorded. Procedures Surgical History Date Name Laterality Status Provider Name and Address Organization Details Recorded Time 06/20/19 23 Most Recent Mammogram completed Maxine Gallo MA [facility] 10/05/2022 09:02:08 12/27/19 21 Date of Last Pap Smear completed Monica Mesa MA [facility] 09/22/2021 13:06:35 06/15/19 21 Mammogram screening completed Brittany Green [facility] 06/24/2020 16:15:31 05/31/19 19 angiography of coronary artery completed Kathy Johansen [facility] 05/30/2018 09:37:32 08/06/19 18 Coronary art/grft angio s&i completed Bella Wray [facility] 08/10/2017 11:28:44 02/19/20 15 Ultrasound breast complete completed Dilia Howe [facility] 02/19/2015 09:44:02 release of trigger thumb completed Marquise mendez MA [facility] 04/05/2018 14:55:44 Tonsillectomy completed Monica jones MA [facility] 09/22/2021 12:54:58 Imaging Results Imaging Date Name Status LastModified by Organiz ation Details LastModified Time 02/25/2024 XR, chest, 2 view completed [facility] (Outpt Imaging) [address] [facility], [place], [address], 02/26/2024 20:02:12 02/07/2024 US, lower extremity completed [email or web address] [facility] (Medical Records) [address] [place], [address], 02/28/2024 09:06:36 03/13/2024 XR, knee, 3 view completed [facility] [address] [place], [address], 03/14/2024 14:04:22 04/18/2024 XR, chest, 2 view completed [email or web address] Information not available 04/18/2024 11:20:12 04/17/2024 XR, chest, 2 view completed [facility] (Outpt Imaging) [address] [place], [address], 04/18/2024 17:48:35 Procedure Notes None recorded. Medical Equipment None Reported. Allergies Allergen ID Allergen Name Allergen Category Reaction Reaction Severity Criticality Documentation Date Start Date Code Code System Note Provider Name and Address Organization Details Recorded Time 06880 [facility] environme nt,food,m edication other Not available Not available 11/02/20132013 84809 5007 SNOMED [place] Martinez [facility] 2 12:54:40 16970 potato allergeni c extract food Not available Not available Not available 04/05/2018 34362 2 RxNorm [place] Martinez [facility] 2 12:54:40 7541 Product containin g angiotens in-conver ting enzyme inhibitor (product) medicatio n cough Not available Not available 10/09/20132013 17717 009 SNOMED Lisin opril [place] Garzon [facility] 5 13:15:24 7542 omeprazol e medicatio n abdominal pain Not available Not available 10/09/20132013 7646 RxNorm [place] Martinez [facility] 2 12:54:40 7543 Product containin g penicilli n (product) medicatio n other Not available Not available 10/09/20132013 16273 8001 SNOMED Marquise Warren rowe MA [facility] 5 13:15:24 Medications Name Sig Start Date [...] Not Available Not Available Not Available flucelvax 1176-0523 .5 ml israel 06/12 completed Not Available [...] Available prednison e 10 mg tablet TAKE FOUR TABLETS BY MOUTH EVERY DAY FOR 4 DAYS THEN TAKE THREE TABLETS BY MOUTH EVERY DAY FOR 2 DAYS THEN TAKE TWO TABLETS BY MOUTH EVERY D active Not Available Not Available No t Available doxycycli ne hyclate 100 mg capsule TAKE ONE CAPSULE BY MOUTH TWICE A DAY FOR 10 DAYS 04/03 completed Not Available Not Available Not Available albuterol sulfate 2.5 mg/3 mL (0.083 %) solution for nebulizat ion USE 1 VIAL VIA NEBULIZE R FOUR TIMES A DAY NEEDED active Not Available Not Available No t Available cetirizin e 10 mg tablet TAKE ONE [...] 14 9:46AM BY LARISSA DARLING MA, BENNIEATI ON/ADDGUNNAR DUM; Not Available Not Available Not Available [...] ) tablet TAKE ONE TABLET BY MOUTH EVERY DAY AT BEDTIME active Not Available Not Available [...] Not Available oseltamiv ir 75 mg capsule TAKE 1 CAPSULE BY MOUTH TWICE A DAY DIRECTED FOR 5 DAYS active Not Available Not Available No t Available nystatin 100,000 unit/gram topical cream APPLY TO THE AFFECTED AREA(S) BY TOPICAL ROUTE 2 TIMES PER DAY 09/16 completed Not Available Not Available Not Available olopatadi ne 0.1 % eye drops THREE TIMES DAILY 07/14 completed RECORDED 07/15/19 14 9:46AM BY LARISSA DARLING MA, BENNIEATI ON/SUSIE DUM; Not Available Not Available Not [...] injection , auto-inje ctor INJECT INSTRUCT ED DIRECTED active Not Available Not Available No [...] tion aerosol inhaler EVERY 2 HOURS NEEDED 04/10/ 2014 03/18 /2016 completed RECORDED 07/06/19 14 5:11PM BY MAXINE AUGILERA MD, REFILL REQUEST; Not Available Not Available [...] Not Available Not Available Not Available econazole nitrate TWO TIMES DAILY 07/11 completed RECORDED 07/12/19 10 10:30AM BY MARQUISE MARRUFO MA, OFFICE VISIT; Not Available Not Available Not Available varenicli ne tartrate 1 mg tablet BID 07/11 completed RECORDED [...] IM syringe VACCINAT ION ADMINIST ERED BY [employer] 01/20 completed Not Available Not Available Not Available Nurtec ODT 75 mg disintegr ating tablet TAKE 1 TABLET DAILY IF NEEDED FOR MIGRAINE active Not Available Not Available No t Available Fluarix Quad (PF) 60 mcg (15 mcg x 4)/0.5 mL IM syringe VACCINAT ION ADMINIST ERED BY [facility] 03/19 completed Not Available Not Available Not Available Wegovy 2.4 mg/0.75 mL subcutane ous pen injector active Not Available Not Available Not Available Wegovy 1.7 mg/0.75 mL subcutane ous [...] Updated DateTime 4 154.94 cm 38 kg/m2 45971.0 7 g 78 /min 96 % 96 % 97.8 [degF] 141 mm[Hg] 83 mm[Hg] Payal Jhaveri [place] [facility] 4 08:29:55 Date Recorded Body height Body mass index (BMI) Body weight Heart rate Oxygen saturation Oxygen saturation in Arterial blood by Pulse oximetry Body temperature Systolic blood pressure Diastolic blood pressure Provider Name and Address Organization Details Last Updated DateTime 4 154.94 cm 37 kg/m2 75952.1 g 84 /min 99 % 99 % 97.9 [degF] 126 mm[Hg] 81 mm[Hg] Payal Jhaveri [place] [facility] 4 15:12:02 Date Recorded Body height Body mass index (BMI) Body weight Oxygen saturation Oxygen saturation in Arterial blood by Pulse oximetry Heart rate Body temperature Systolic blood pressure Diastolic blood pressure Provider Name and Address Organization Details Last Updated DateTime 4 154.94 cm 36.7 kg/m2 29938.3 2 g 98 % 98 % 84 /min 97.8 [degF] 124 mm[Hg] 78 mm[Hg] Monica Mesa MA [facility] 4 10:27:23 Date Recorded Body height Body mass index (BMI) Body weight Heart rate Oxygen saturation Oxygen saturation in Arterial blood by Pulse oximetry Body temperature Systolic blood pressure Diastolic blood pressure Provider Name and Address Organization Details Last Updated DateTime 5 154.94 cm 35.7 kg/m2 89236.9 6 g 62 /min 98 % 98 % 97.5 [degF] 140 mm[Hg] 72 mm[Hg] Tim foy [place] [facility] 5 09:24:31 Date Recorded Systolic blood pressure Diastolic blood pressure Provider Name and Address Organization Details Last Updated DateTime 04/03/2024 120 mm[Hg] 68 mm[Hg] [facility] [address], [address], [facility] 04/03/2024 09:45:43 Date Recorded Body height Body mass index (BMI) Body weight Heart rate Oxygen saturation Oxygen saturation in Arterial blood by Pulse oximetry Body temperature Systolic blood pressure Diastolic blood pressure Provider Name and Address Organization Details Last Updated DateTime 5 154.94 cm 35.2 kg/m2 39198.8 8 g 91 /min 99 % 99 % 98.3 [degF] 127 mm[Hg] 77 mm[Hg] Rosy Roy LPN [facility] 5 14:46:04 Social History Question Answer Notes LastModified by Organizat ion Details LastModified Time Tobacco Smoking Status Current Every Day Smoker Tim Tafoya [facility], [facility] 10/11/2023 08:50:30 Do You Have An Advance Directive? Yes HCP At [facility] 05/30/18 [email or web address] Information not available 09/22/2021 What Is Your [...] Or Vape? Former User Of Electronic Cigarettes [email or web address] Information not available 09/22/2021 What Is Your Occupation? [employer] Information not available 07/20/2018 When Did You Quit Smoking? 1-5yearssince lastcigarette [email or web address] Information not available 09/22/2021 Live Alone Or [...] Or Greater Than 100 Degrees Fahrenheit? No [email or web address] Information not available 11/15/2019 Are You Or Anyone In Your Household A Health Care Provider Or Emergency Responder? No [email or web address] Information not available 11/15/2019 To The Best Of Your Knowledge Have You Been In Close Proximity To Any Individual Who Tested Positive For COVID-19? No [email or web address] Information not available 11/15/2019 *AWV ONLY* Are [...] Gathering In The Last 10 Days? No [email or web address] Information not available 09/16/2020 What Was The Date Of Your Most Recent Tobacco Screening? 10/05/2022 Information not available 10/05/2022 How Many Children Do You Have? 1 Paddy (has ADD) [email or web address] Information not available 01/14/2014 What Is Your Current Pack Years? 20-29packyear s [email or web address] Information not available 09/22/2021 Do You Use Protection During Sex? Usually [email or web address] Information not available 09/22/2021 Do You Use Your Seat Belt Or Car Seat Routinely? Yes [email or web address] Information not available 09/22/2021 Seat Belts Used Routinely Yes [email or web address] Information not available 09/22/2021 Are You Sexually Active? No [email or web address] Information not available 09/22/2021 Smoke Alarm In Home Yes [email or web address] Information not available 09/22/2021 Do You Have [...] Many Years Have You Smoked Tobacco? 25 [email or web address] Information not available 09/16/2020 Do You Or Have You Ever Used Any Other Forms Of Tobacco Or Nicotine? No [email or web address] Information not available 09/22/2021 Sex: Unknown Functional Status Question Answer Note LastModified by Organizat ion Details LastModified Time Are you able to walk? YESWOREST [email or web address] Information not available 09/22/2021 Are you able to care for yourself? Yes Information not available 01/09/2015 What is your exercise level? Moderate walking Information not available 10/11/2023 Mental Status None recorded. Family History Relationship Description Onset Age of this Age Resolved Age Notes LastModified by Organization Details LastModified Time Mother Cerebrovascu lar accident 58 69 of lympho ma albertro Not available 06/17/2016 09:19:17 Mother Essential hypertension [...] philips - 10/05/22 Medical History Condition Response Headaches/Migraines Y Muscle, Joint, or Bone Problems Y Obesity Y Arthritis Y Acid Reflux (GERD) Y High Cholesterol Y Eczema Y Asthma Y Allergies Y Hypertension Y Gynecological History Statement/Question Response Menses Monthly N Date of Last Pap Smear 12/26/2020 Age at Menarche 13 Date of Last Colonoscopy Most Recent Mammogram 06/19/2022 LMP Approximate Obstetrics History GPAL:G 0 P 0 0 0 0 Immunizations Vaccine Type Date Status Note Provider Nam e and Address Organization Details Recorded Time Influenza, split virus, trivalent, PF 4 completed Priti betts [facility] 01/14/2014 15:10:51 Influenza, split virus, quadrivalent, preservative 8 completed An betts [facility] 03/06/2018 13:58:17 COVID-19, mRNA, LNP-S, PF, 100 mcg/0.5mL dose or 50 mcg/0.25mL dose 1 completed [place] Huber, [facility] 04/03/2021 09:17:46 COVID-19, mRNA, LNP-S, PF, 100 mcg/0.5mL dose or 50 mcg/0.25mL dose 1 completed [place] Huber, [facility] 04/03/2021 09:17:46 Influenza, split virus, trivalent, PF 6 completed [place] Huber, [facility] 04/03/2021 09:17:46 Influenza, split virus, quadrivalent, PF 9 completed [place] Huber, [facility] 04/03/2021 09:17:46 Influenza, MDCK, quadrivalent, PF 7 completed [place] Huber, [facility] 04/03/2021 09:17:46 Influenza, MDCK, quadrivalent, PF 1 completed [place] Huber, [facility] 04/03/2021 09:17:46 Influenza, split virus, quadrivalent, PF 0 completed S[place]OS Huber, [facility] 04/03/2021 09:17:46 Influenza, split virus, quadrivalent, PF 8 completed SANTOS Huber, [facility] 04/03/2021 09:17:46 COVID-19, mRNA, LNP-S, PF, 100 mcg/0.5mL dose or 50 mcg/0.25mL dose 2 completed SANTOS Martinez, [facility] 09/22/2021 13:01:02 Influenza, split virus, quadrivalent, PF 2 completed S[place]OS Teague, [facility] 05/27/2022 11:31:26 Influenza, split virus, trivalent, preservative 2 completed Maxine Gallo MA null, [facility] 10/05/2022 08:52:10 Influenza, MDCK, quadrivalent, PF 3 completed Rosy Caporale, [employer] null, [facility] 08/18/2023 14:49:20 zoster recombinant 3 completed Rosy Caporale, [employer] null, [facility] 08/18/2023 14:49:20 zoster recombinant 3 completed Rosy Caporale, [employer] null, [facility] 08/18/2023 14:49:20 COVID-19, mRNA, LNP-S, PF, 50 mcg/0.5 mL 4 completed Rosy Caporale, [employer] null, [facility] 08/18/2023 14:49:20 Tdap 4 completed Not Available [facility] 04/14/2019 02:21:44 Td (adult), 2 Lf tetanus toxoid, preservative free, adsorbed 1 completed Not Available [facility] 10/09/2013 14:02:25 pneumococcal polysaccharide PPV23 5 completed Not Available [facility] 10/09/2013 14:02:25 Influenza, split virus, trivalent, preservative 6 completed Not Available [facility] 10/09/2013 14:02:25 Influenza, split virus, trivalent, preservative 7 completed Not Available [facility] 10/09/2013 14:02:25 Influenza, split virus, trivalent, preservative 8 completed Not Available [facility] 10/09/2013 14:02:25 Influenza, split virus, trivalent, preservative 0 completed Not Available [facility] 10/09/2013 14:02:25 Influenza, split virus, trivalent, preservative 1 completed Not Available [facility] 10/09/2013 14:02:25 Influenza, split virus, trivalent, PF 5 completed Malinda Hidalgo, [facility] [address] [address], [place], [address], [facility] 04/03/2024 12:00:00 Past Encounters Encounter ID Performer Location Encounter Start Date Encounter Closed Date Diagnosis/Indication Diagnosis SNOMED-CT Code Diagnosis ICD10 Code Diagnosis Note [id number] [facility] [address] [facility] [place] [address] 12/22/2006 00:00:00 [id number] [facility] [address] [facility] [place] [address] 01/12/2007 00:00:00 [id number] [facility] [address] [facility] [place] [address] 01/17/2007 00:00:00 [id number] [facility] [address] [facility] [place] [address] 06/02/2007 00:00:00 [id number] [facility] [address] [facility] [place] [address] 06/20/2007 00:00:00 [id number] [facility] [address] [facility] [place] [address] 11/28/2007 00:00:00 [id number] [facility] [address] [facility] [place] [address] 01/14/2009 00:00:00 [id number] [facility] [address] [facility] [place] [address] 04/22/2009 00:00:00 [id number] [facility] [address] [facility] [place] [address] 06/26/2009 00:00:00 [id number] [facility] [address] [facility] [place] [address] 07/11/2009 00:00:00 [id number] [facility] [address] [facility] [place] [address] 10/27/2009 00:00:00 [id number] [facility] [address] [facility] [place] [address] 05/01/2010 00:00:00 [id number] [facility] [address] [facility] [place], [place] [address] 05/15/2010 00:00:00 [id number] [facility] [address] [facility] [place] [address] 11/09/2010 00:00:00 [id number] [facility] [address] [facility] [place], [place] [address] 12/21/2010 00:00:00 [id number] [facility] [address] [facility] [place], [place] [address] 12/24/2010 00:00:00 [id number] [facility] [address] [facility] [place] [address] 10/09/2013 00:00:00 [id number] Main Office [address] [address] [place], [place] [address] 01/14/2014 14:25:46 01/14/2014 15:34:40 Adult health examination 049488118 Asthma 739741192 Body mass index 40+ - severely obese 208920431 [id number] [facility] Main Office [address] [address] [place], [place] [address] 04/19/2014 13:03:50 04/19/2014 13:51:12 Thoracic back pain 557290921 Intermitte nt sharp thoracic back pain x 4 days + SOB since yesterday, productive cough. Patient does have risk fx for PE- obesity, smoking, family hx of blood clots, but Well's Criteria Score of 0. VS WNL. Ibuprofen TID as needed, will call with CXR results. Cough 03549547 Asthma 319233453 Body mass index 40+ - severely obese 136349919 [id number] Maxine schmidt Main Office [address] [address] [place], [place] [address] 04/22/2014 14:52:27 04/22/2014 16:57:13 Chest pain 92414665 Dyspnea 545908248 concer n for PE. she will go to ER for considerat ion CT angiogram. tachypneic , chest and back pain [id number] Priti Laytont Main Office [address] [facility] [address] [place] [address] 05/02/2014 09:46:25 05/02/2014 10:20:51 Thoracic back pain 741607892 Patient seen in ED, r/o for PE, diagnosed with muscle strain. She feels vicodin and robaxin are helping temporaril y, will provide a refill and recommend patient try physical therapy, continue ice or heat whichever feels best, back stretches. she will call to schedule the appt. Discussed side effects of opiates. Caution driving, careful for falls, fiber supplement if constipati on. Patient understand s. [id number] Main Office [address] [facility] [address] [place] [address] 10/01/2014 13:50:55 10/01/2014 14:48:30 Thumb injury 092607557 Bunion 078047927 [id number] Maxine schmidt Main Office [address] [facility] [address] [place] [address] 06/13/2015 13:27:33 06/13/2015 15:35:10 Adult health examination 152421888 Z00.00 Screening for malignant neoplasm of cervix 621827834 Z12.4 Body mass index 40+ - severely obese 098029558 Z68.41 Asthma 461748659 J45.90 9 Allergic rhinitis 115446 04 J30.9 Metatarsalgia 40659203 M 77.42 Restless legs 28155910 G 25.81 [id number] Maxine schmidt Main Office [address] [facility] [address] [place] [address] 06/24/2015 10:44:59 06/24/2015 11:55:59 Acute bronchitis 32611551 J20.9 [id number] Willie Mojica MD Main Office [address] [facility] [address] [place] [address] 07/09/2015 10:33:13 07/09/2015 11:28:09 Pleuritic pain 8037992 R07.81 Chest pain 44169976 R07. [address] Mojica, will repeat XR to r/o PNA , get CBC and d-dimer today. Will also treat for pleurisy w/ ibuprofen, heat or ice to area 4 times daily, will call patient with results. [id number] Maxine schmidt Main Office [address] [facility] [address] [place] [address] 07/25/2015 11:25:05 07/25/2015 12:13:20 Pleuritic pain 5440240 R07.81 pt will continue ibuprofen prn Atypical chest pain 1025 04569 R07.89 [id number] Sandee ely Main Office [address] [address] [place] [address] 03/27/2016 10:20:32 03/27/2016 10:57:18 Acute sinusitis 53970667 J01.90 treat with zmax since not chronic and also with lung symptoms, return if not improving Cough 63902295 R05 tx as below and with zpak [id number] Maxine schmidt Main Office [address] [address] [place] [address] 05/10/2016 10:51:37 05/10/2016 11:42:37 Sinusitis 03126435 J32.9 Cough 30018994 R05 Allergic rhinitis 255951 04 J30.9 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 9 upper back pain -- r/o pna, PE had NL spirometry Acute asthma 848361855 J 45.41 cont inhalers as dir for now Cough 60362357 R05 ? d/t early pna vs d/t post nasal drip, see below Pneumonia 396055083 J18. 9 [id number] Maxine schmidt Main Office [address] [address] [place] [address] 06/17/2016 08:56:30 06/17/2016 09:45:52 Adult health examination 441407340 Z00.00 Asthma 047642020 J45.90 9 Tobacco de pendence syndrome 33513934 F17.290 pt on bupropion Visual disturbance 25797 001 H53.9 [id number] Maxine schmidt Main Office [address] [address] [place] [address] 06/22/2016 10:42:10 06/22/2016 11:20:58 Thoracic back sprain 072697149 S23.3XXA [id number] Maxine schmidt Main Office [address] [address] [place] [address] 09/20/2016 14:11:49 09/20/2016 15:28:27 Migraine 94672854 G43.909 Restless legs 02073351 G 25.81 [id number] Maxine schmidt Main Office [address] [address] [place] [address] 04/22/2017 13:54:32 04/22/2017 14:51:04 Influenza-like symptoms 924060277 R68.89 flu like sx, smoker and hx of asthma, no rapid flu available. Will send flu PCR stat and have her start tamiflu BID. hydration, rest, frequent handwashin g. Otitis media 66980703 H6 6.91 right OM, will start on abx, she is allergic to PCN. hydration, rest, tylenol/ ibuprofen as needed. [id number] Maxine schmidt Main Office [address] [address] [place] [address] 04/25/2017 14:57:10 04/25/2017 16:05:41 Fever 136950290 R50.9 ? if d/t underlying sinusitis - stop abx, but cont tamiflu as dir (just in case was false negative last wk), will chemical cell changer to doxy - see below, and check labs and cxr, push fluids, oow until re-eval in a few days Cough 46522830 R05 ? d/t early pna vs d/t post nasal drip, see below Sinusitis 15771703 J32.9 rec. probiotic supp or turkmen yogurt while onabx Nausea and vomiting 1693 1999 R11.2 ? d/t SE of abx - advised to stop cef. - consider flat sahil sade or sahil tea - if no better than use prn zofran [id number] Maxine FullerAdeIftikhar schmidt Main Office [address] [address] [place] [address] 04/28/2017 10:38:54 04/28/2017 11:36:29 Sinusitis 19502599 J32.9 sig improvemen t on doxy - finish abx as dir - no longer acutely ill like earlier this week, able to rtw tomorrow rec take doxy c dinner to help lessen am nausea - she has been taking it at bedtime on an empty stomach 15 minute office visit with greater than 50% of the visit face-to-fa ce with the patient and/or family providing counseling and/or coordinati on of care. advised pt to schedule PE ~ 6 wks [id number] Maxine schmidt Main Office [address] [address] [place] [address] 05/19/2017 08:53:38 05/19/2017 09:31:40 Chest pain 21614667 R07.9 ongoing x 12 days with negative initial work-up at [facility] though she did leave [facility]. meloxicam as needed, refer to cardiology , will check d-dimer, if elevated CT chest. [id number] Maxine FullerAdeIftikhar schmidt Main Office [address] [address] [place] [address] 06/21/2017 10:52:30 06/21/2017 12:03:12 Adult health examination 806676604 Z00.00 Body mass index 40+ - severely obese 694951793 E66.01 Z68.41 Atypical chest pain 1025 63557 R07.89 [id number] Sandee ely Main Office [address] [address] [place] [address] 08/10/2017 12:58:35 08/10/2017 13:41:09 Coronary arteriosclerosis 05802805 I25.10 F/u with Dr. Carranza as scheduled. Continue ASA and Plavix, Atorvastat in 80 . Recheck lipids in 4 weeks. Goal for LDL is under 70. Hyperlipidemia 61160289 E78.00 Body mass index 30+ - obesity 620474722 E66.01 Z68.41 Pt. has isiah with cemetery keeper in August. Continue low len low fat diet and cardiac rehab for exercise. Tobacco de pendence syndrome 08657495 F17.200 Continue Bupropion XL 150 mg BID. Pt. is down to 5 cigarettes from 2 packs per day. Essential hypertension 99617681 I10 stable on meds. F/u with cardiology . [id number] Sandee ely Main Office [address] [facility] [address] [place] [address] 01/25/2018 14:37:19 01/25/2018 15:25:28 Eruption 169341060 R21 looks like reaction to bug bite with eczema or psoriasis on top, tx as below no infection [id number] Arely Lopez PA-C Main Office [address] [facility] [address] [place] [address] 03/06/2018 13:42:57 03/06/2018 14:19:06 Eczema 90685249 L30.9 Recommende d to use emollient barrier moisturize r or Amlactin cream and a different steroid cream BID. If no improvemen t in 34- weeks, will efer to derm. [id number] Sandee ely Main Office [address] [facility] [address] [place] [address] 04/05/2018 14:48:44 04/05/2018 16:12:36 Benign paroxysmal positional vertigo 472872670 H81.10 Likely positional vertigo. Pt had exacerbati on of dizziness after hallpike manuver. Will try low dose antivert 1-2 tid prn only if needed, rest, hydration, avoid sudden movments and OOW 1-2 days. If not improving would send for PT and ENT evaluation . If sx worsen to call. Recheck in a few weeks. Patient po st percutaneous transluminal coronary angioplasty 622831464 Z98.61 pt follows with cardiology . She is on plavix and aspirin, high dose statin . No further cardiac sx. Heart disease 05040957 I 51.9 Continue BB, atorvastat in, plavix and aspirin. PT needs to work on weight, exercise [id number] An Cervantes Main Office [address] [facility] [address] [place] [address] 04/12/2018 14:38:04 04/12/2018 15:47:46 Benign paroxysmal positional vertigo 697475229 H81.10 Likely positional vertigo but not getting better with conservati ve care. ? conductive hearing loss left ear (positive Rinne test). Pt had exacerbati on of dizziness after hallpike maneuver. No relief with low dose antivert 12.5 mg. Will send to ENT for evaluation , hearing test and ? need for MRI to r/o acoustic neuroma. I will have her seen in vestibular rehab in the interim. Call if any worsening sx. [id number] ALEXI Jane Main Office [address] [facility] [address] [place] [address] 07/20/2018 09:18:38 07/20/2018 10:06:40 Adult health examination 537885090 Z00.00 HM UTD, has pap appt scheduled Essential hypertension 13487355 I10 BP well controlled , followed by cardiology Hyperlipidemia 26762405 E78.5 cholest done 06/20/18 normal, on atorvastat in. Seasonal allergy 8226159 04 J30.2 Heart disease 35049320 I 51.9 s/p stent in July 2017 and repeat cardiac cath in May 2018, followed by Dr. Carranza, on all appropriat e meds and is taking them as directed. f/u cardiology appt in October Body mass index 40+ - severely obese 642180171 E66.01 Z68.42 [id number] Sandee ely Main Office [address] [facility] [address] [place] [address] 01/20/2019 09:11:55 01/20/2019 09:59:17 Acute asthma 273517971 J45.901 from infection, pt needs to be on a steroid inhaler. pt to try pulmicort at pharmacy, if not covered to discuss with Malinda at f/u Pneumonia 942809849 J18. 9 treat with zpak, Tinea corporis 81224889 B35.4 [id number] ALEXI Jane Main Office [address] [place] [address] 01/23/2019 14:53:46 01/23/2019 15:16:42 Acute asthma 680580297 J45.901 sx continue, has wheezing and SOB today. finish zpak, start medrol dose pack, use robitussin with codeine as needed at bedtime- no driving or alcohol with med. rest, hydration. call/ return for worsening or concerns. Cough 20310355 R05 [id number] Torrey Lopez PA-C Main Office [address] [facility] [address] [place] [address] 02/12/2019 10:40:10 02/12/2019 11:27:21 Acute asthma 215260472 J45.41 cont inhalers, singulair as dir for now, pt ran out of alb - will refill, and re-rx c medrol dose liban - pt requested this as she preciosu. it well last month Nausea and vomiting 1692 1999 R11.2 rec consider flat sahil sade or sahil tea - if no better than use prn zofran Cough 29207904 R05 ? d/t early pna vs d/t post nasal drip, see below -- will rx c abx if + trial c tessalon too Seasonal a llergic rhinitis 026270508 J30.2 ? pnd contributi ng to cough seen by die casting machine maintainer a few yrs ago - used to take allergy shots, never seemed to help as per pt - retry nasal saline and rhinicort (no tolerate flonase as per pt d/t floral scent) c prn tessalon - if no sig help, then consider allergy re-eval [id number] An Cervantes Main Office [address] [facility] [address] [place] [address] 11/15/2019 10:37:57 11/15/2019 11:24:08 Pain in left knee 6925432245 61865 M25.562 [facility] check xray for arthritis, no evidence of cartilage injury or ligamentou s problem. Will try PT, enc wt loss, can use otc meds prn, ice/heat as needed. Ortho if not better Pain in le ft lower limb 699606077 M79.605 due to pain in calf will do U/S to assess for DVT [id number] An Cervantes [facility] [address] [facility] [address] [place] [address] 11/23/2019 12:39:33 11/23/2019 15:37:04 Benign paroxysmal positional vertigo 305927406 H81.10 Likely positional vertigo, sx similar to last episode. Pt got better with vestibular rehab, will call to do this again. Not much relief with low dose antivert 12.5 mg, so will increase to 25 mg tid and taper as she feels better. Out of work through the weekend, rest, hydration and advise to call if any worsening sx or focal sx, unable to control vomiting. [id number] Arely Lopez PA-C Main Office [address] [address] 12/25/2019 12:49:55 12/25/2019 13:39:33 Pain in left foot 3225239949 00580 M79.672 ? if triggered by knee issues. WE will xray the food and continue NSAIDs for now. Refer to orthopedis t for the evaluation . [id number] ALEXI [facility] [address] [address] 07/03/2020 10:50:33 07/03/2020 11:25:44 Exposure to viral disease 4718310839 18929 Z20.828 Essential hypertension 44926196 I10 BP well controlled , followed by cardiology Heart disease 31393864 I 51.9 s/p stent in July 2017 and repeat cardiac cath in May [address], [address] Carranza, on all appropriat e meds and is taking them as directed. f/u cardiology appt in October Hyperlipidemia 02505503 E78.5 cholest done 06/20/18 normal, on atorvastat in. Impaired f asting glycemia 515380693 R73.01 Vaccine ad verse reaction [id number] T50.Z95A Moderna #1 on 07/01. had N/V, chills, LORENZ and also felt scratchy, itchy throat and like there was something in her throat. Took 2 benadryl and sx resolved but is concerned about getting 2nd vaccine. To her knowledge she has not had covid. Will check bloodwork and refer to allergy for another opinion/ ? should she premedicat e prior to 2nd dose. [id number] ALEXI Jane Main Office [address] [place] [address] 09/16/2020 11:20:32 09/16/2020 12:02:42 Adult health examination [id number] Z00. [facility] has [facility]t scheduled. had labs in June, normal except A1C of 5.8 Essential hypertension 32975218 I10 BP well controlled , followed by cardiology , cardiology visit in november. Hyperlipidemia 62934744 E78.5 well controlled on atorvastat in Screening for malignant neoplasm of cervix 815072741 Z12.4 Prediabetes 261382095 R7 3.03 Eruption 836314805 R21 left elbow [id number] ALEXI Jane Main Office [address] [address] [place] [address] 10/07/2020 08:20:35 10/07/2020 09:08:21 Pain in left thumb [id number] 898442 M79.645 Will check XR and refer to ortho Eruption 355689031 R21 left elbow [id number] Juan Soliman MD [facility] [address] [address] [place] [address] 04/03/2021 06:49:09 04/03/2021 12:46:24 Exposure to viral disease 0140109210 93874 Z03.818 Exacerbati on of mild persistent asthma 789676638 J45.31 [id number] Denise Dallas Main Office [address] [address] [place] [address] 09/22/2021 12:52:28 09/22/2021 13:34:32 Adult health examination 438690987 Z00.00 UTD, due for colo in february. will update labs Asthma 736322684 J45.90 9 requests refills Essential hypertension 29181241 I10 BP well controlled , followed by cardiology , cardiology visit in november. Hyperlipidemia 07559957 E78.5 well controlled on atorvastat in Prediabetes 083800805 R7 3.03 Fatigue 21337551 R53.83 Body mass index 40+ - severely obese 945492953 Z68.42 Morbid obesity 638231907 E66.01 [id number] Rojelio Patel MD [facility] [address] [address] [place] [address] 05/27/2022 10:35:41 05/27/2022 12:55:27 Cough 07395477 R05.9 Upper resp iratory infection 84211141 J06.9 Her symptoms sound like COVID and she will continue testing. [id number] ALEXI Jane Main Office [address] [facility] [address] [place] [address] 10/05/2022 08:46:17 10/05/2022 09:35:42 Adult health examination 103397751 Z00.00 HM UTD, due for colo in february. will update labs Asthma 528920105 J45.90 9 requests refills Essential hypertension 34102834 I10 BP well controlled , followed by cardiology , cardiology visit in november. Hyperlipidemia 89050400 E78.5 well controlled on atorvastat in Prediabetes 210882873 R7 3.03 A1C 5.4. dping well Heart disease 68541730 I 51.9 s/p stent in July 2017 and repeat cardiac cath in May 2018, followed by Dr. Carranza, on all appropriat e meds and is taking them as directed. followed by cardiology . Migraine 92567506 G43.90 9 On topamax 25mg am, and 50mg pm, will increase to 50mg BID for 1-2 weeks to see if this helps with headaches. If relief with refill at 50mg BID. She will scheduled neuro appt if needed. Has rizatripta n and fioricet to use as needed. Hydrating well. Screening for malignant neoplasm of colon 218548611 Z12.11 [id number] Rojelio Patel MD Main Office [address] [address] [place] [address] 05/03/2023 09:50:28 05/03/2023 10:32:46 Skin lesion 32021255 L98.9 Lesion appears benign. No further w/u needed. She will look for a dermatolog ist for her psoriasis and have them look at it. Psoriasis 8026921 L40.9 Chronic. She will check with her insurance to see what providers in the area are taking it. [id number] ALEXI Jane Main Office [address] [facility] [address] [place] [address] 08/18/2023 14:35:14 08/18/2023 15:27:53 Thoracic back pain 278965129 M54.6 diagnosed with muscle strain. will provide a refill and recommend patient try physical therapy, continue ice or heat whichever feels best, back stretches. Discussed side effects of opiates. Caution driving, careful for falls, fiber supplement if constipati on. Patient understand s. [id number] ALEXI Jane Main Office [address] [facility] [address] [place] [address] 10/04/2023 09:45:29 10/04/2023 10:26:41 Vasculitis of the skin 17167478 L95.9 will check blood work, recommend compressio n stockings, elevating legs as much as possible. vascular surgery follow-up for further eval. Venous varices 454184135 I83.93 Prediabetes 425435985 R7 3.03 A1C 5.4. 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 due for mammo Overactive urinary bladder 868882601 N32.81 requests refill Asthma 613197468 J45.90 9 requests refills Body mass index 40+ - severely obese 542116350 E66.01 Z68.41 The patient is over 18 years old, with a BMI over 30 kg/m.BMI 40.6, HLD, HTN, PREDIABETE S, Actively engaging in behavioral modificati ons, including dietary changes and exercise, for more than three months and is committed to continuing these alongside the medication We discussed the injection technique, advising alternate injection sites weekly and cleaning the area with alcohol beforehand . The patient is to update me in two weeks about their progress, allowing for dose adjustment s as needed. Patient is also tasked with confirming medication availabili ty with the pharmacy. The patient is to monitor neck for any lumps and report any findings. Side effects discussed include gastrointe stinal issues such as constipati on, bowel obstructio n, nausea, and vomiting, with nausea and constipati on being particular ly common in the first two days post-injec tion. These symptoms usually subside with regular use. Instructed to avoid combining this treatment with other GLP-1 receptor agonists. Regular weight check was advised and will follow up in 3 months. sample provided for 0.25mg x 4 weeks Essential hypertension 00702653 I10 BP well controlled , followed by cardiology , cardiology visit in november. Hyperlipidemia 86096792 E78.5 well controlled on atorvastat in Migraine 96483574 G43.90 9 On topamax 25mg am, and 50mg pm, will increase to 50mg BID for 1-2 weeks to see if this helps with headaches. If relief with refill at 50mg BID. She will scheduled neuro appt if needed. Has rizatripta n and fioricet to use as needed. Hydrating well. Prediabetes 957648708 R7 3.03 A1C 5.4. doing well Tobacco de pendence syndrome 01836765 F17.200 Screening for malignant neoplasm of breast 169174618 Z12.39 Screening for malignant neoplasm of cervix 156393661 Z12.4 Heart disease 37781451 I 51.9 s/p stent in July 2017 and repeat cardiac cath in May 2018, followed by Dr. Carranza, on all appropriat e meds and is taking them as directed. followed by cardiology . [id number] ALEXI Jane Main Office [address] [place] [address] 01/10/2024 08:22:40 01/10/2024 09:02:56 Body mass index 40+ - severely obese 307838479 E66.01 Z68.41 The patient is over 18 years old, with a BMI over 30 kg/m. BMI down to 38, HLD, HTN, PREDIABETE S, doing well on wegovy, no side effects besides mild nausea. Continue medication as prescribed . Actively engaging in behavioral modificati ons, including dietary changes and exercise, for more than three months and is committed to continuing these alongside the medication We discussed the injection technique, advising alternate injection sites weekly and cleaning the area with alcohol beforehand . The patient is to update me in two weeks about their progress, allowing for dose adjustment s as needed. Patient is also tasked with confirming medication availabili ty with the pharmacy. The patient is to monitor neck for any lumps and report any findings. Side effects discussed include gastrointe stinal issues such as constipati on, bowel obstructio n, nausea, and vomiting, with nausea and constipati on being particular ly common in the first two days post-injec tion. These symptoms usually subside with regular use. Instructed to avoid combining this treatment with other GLP-1 receptor agonists. Regular weight check was advised and will follow up in 3 months. sample provided for 0.25mg x 4 weeks Essential hypertension 20858962 I10 BP mildly elevated today, followed by cardiology , cardiology visit in november. Hyperlipidemia 48295461 E78.5 well controlled on atorvastat in Prediabetes 984347759 R7 3.03 A1C 5.8 on wegovy, will recheck Asthma 746305607 J45.90 9 requests refills Eruption 045830431 R21 left elbow Restless legs 71681181 G 25.81 increase to 20mg amitriptyl ine and let me know how that goes. [id number] DILAN CORTEZ Main Office [address] [facility] [address] [place] [address] 02/06/2024 14:58:23 02/06/2024 15:29:48 Pain in left lower limb 276597237 M79.605 -hx of varicose veins-x1 day of noticing a tender bruise on lower extremity with no known injury/tra ray>denies of any swelling, warmth, erythema, fever, or associated symptoms-r ecently saw vascular on 01/18>has US scheduled for lower extremity tomorrow-l ikely related to varicose veins-has f/u with vascular in Feb-will order labwork per pt request [id number] PAULINA MCNEIL MD Main Office [address] [facility] [address] [place] [address] 02/25/2024 10:16:30 02/25/2024 10:48:33 Upper respiratory infection 53094926 J06.9 - rapid flu in the office was negative- performed upper respiratoy panel Community acquired pneumonia 546096234 J18.9 - pt is acutely ill, has reduced breath sounds, cough and fatigue- will treat empiricall y for pneumonia- x-ray of the chest was ordered- started patient on doxycyline - Tylenol OTC, not to exceed package insert for pain or fever q4-6h advised prn. Counselled on not exceeding more than 3g/day. - Throat Lozenges otc prn for sore throat - saltwater gargle - adequate hydration enforced - saline sprays - humidifier use enforced. - Also advised can use a teaspoon honey for cough - return precaution s given [id number] ALEXI Jane Main Office [address] [facility] [address] [place] [address] 04/03/2024 08:59:12 04/03/2024 09:51:35 Body mass index 40+ - severely obese 421941194 E66.01 Z68.41 The patient is over 18 years old, with a BMI over 30 kg/m. BMI down to 35.7, HLD, HTN, PREDIABETE S, doing well on wegovy, no side effects besides mild nausea. Continue medication as prescribed . Actively engaging in behavioral modificati ons, including dietary changes and exercise, for more than three months and is committed to continuing these alongside the medication We discussed the injection technique, advising alternate injection sites weekly and cleaning the area with alcohol beforehand . The patient is to update me in two weeks about their progress, allowing for dose adjustment s as needed. Patient is also tasked with confirming medication availabili ty with the pharmacy. The patient is to monitor neck for any lumps and report any findings. Side effects discussed include gastrointe stinal issues such as constipati on, bowel obstructio n, nausea, and vomiting, with nausea and constipati on being particular ly common in the first two days post-injec tion. These symptoms usually subside with regular use. Instructed to avoid combining this treatment with other GLP-1 receptor agonists. Regular weight check was advised and will follow up in 3 months. sample provided for 0.25mg x 4 weeks Essential hypertension 34007098 I10 BP mildly elevated today, followed by cardiology , cardiology visit in november. recheck 120/68 Hyperlipidemia 32972898 E78.5 well controlled on atorvastat in Prediabetes 099297065 R7 3.03 A1C 5.8 on wegovy, will recheck Needs infl uenza immunization 959445724 Z23 19 YEARS AND OLDER ONLY Allergic reaction 561097 005 T78.40XD [id number] Arely Lopez PA-C Main Office [address] [facility] [address] [place] [address] 04/17/2024 14:38:07 04/17/2024 15:59:17 Acute upper respiratory infection 83427041 J06.9 FLU A positive. COVID neg at home. Pneumonitis 061265472 J1 8.9 check xray to r/o pneumonia. Acute asthma 127122459 J 45.901 begin prednisone taper and continue albuterol by nebulizer at home q 4 -6 hrs. Influenza caused by Influenza A virus 838022738 J09.X2 Positive Flu A. Recom to begin Tamiflu as directed, Mucinex for cough, albuterol by nebulizer q 4- 6 hrs. Health Concerns Section Related Observation LastModified by Organization Detai ls LastModified Time None Recorded Concern Status LastModified by Organization Details LastModified Time None Recorded Advance Directives Directive Y: HCP at [facility] 05/30/18 Payers Encounter Date Sequence Insurance Name Policy Number Policy Rhodes Covered Member ID Rhodes Member ID Guarantor Name 01/10/2024 1 [facility] - DIRECT CONNECTORCARE TYPE I (HMO) [id number] Candy L Grimes [id number] Candy L Grimes 02/06/2024 1 [facility] - DIRECT [employer]CARE TYPE I (HMO) [id number] Candy L Grimes [id number] Candy L Grimes 02/25/2024 1 [facility] - DIRECT CONNE[employer]CARE TYPE I (HMO) [id number] Candy L Grimes [id number] 01 Candy L Grimes 04/03/2024 1 [facility] - DIRECT CONNE[employer]CARE TYPE I (HMO) [id number] Candy L Grimes [id number] 01 Candy L Grimes 04/17/2024 1 [facility] - DIRECT CONNE[employer]CARE TYPE I (HMO) [id number] Candy L Grimes [id number] Candy L Grimes Notes Date Note [...] only tolerate 1 coffee. ALEXI Jane [address] [facility] [address], [place], [address], [facility] 01/10/2024 10:49:33 02/06/2024 text/html Fatimah is a [...] fever, or associated symptoms. DILAN CORTEZ [address] [facility] [address], [place], [address], [facility] 02/06/2024 15:43:14 02/25/2024 text/html CoughReported bypatient.Severity:mod erate Duration:started one week ago Context:smoker;history of asthma Modifying Factors:OTC medication; inhaler Associated Symptoms:no fever; no heartburn; no edema; no agitation; no post nasal drip;chills;chest pain;vomiting;wheezing Upper Respiratory SymptomsReported bypatient.Location:[facility] Quality:dry cough Severity:moderate Duration:one week [...] fevers, positive for chills. PAULINA MCNEIL MD [address] [address], [place], [address], [facility] 02/26/2024 12:03:50 04/03/2024 text/html Generic HPI TemplateReported bypatient.Notes:Presen ts for weight check, doing well on 2.4mg wegovy, has lost 5lbs since last visit, some constipation, takes senna and MOM as needed, that works wellWalks a lot at work. can't eat greasy foods and is not hungry. 05/11 having surgery left leg, vein removal. ALEXI Jane [address] [address], [place], [address], [facility] 04/03/2024 12:00:55 04/17/2024 text/html 54 year year old asthmatic female , smoker, c/o 3 day onset of what started with sore throat. Now has productive cough, fatigue, shortness of breath and wheezing and sinus congestion. Uses albuterol by nebulizer and took robitussin for cough with minimal relief. Tested neg for COVID 19 this morning. Received flu vaccine only 10 days ago. Arely Lopez PA-C [address] [address], [place], [address], [facility] 04/17/2024 16:02:44 OBGyn Episode No OBEpisode recorded.
--- OUTSIDE RECORDS SUMMARY | 2024-05-15 12:22 | XMS_ITS | Continuity of Care Document ---
Author Organization [facility], Main Office Address [address] [place] [address] [place] [phone] Care Team Providers Care Loom Cleaner Name Role Phone CHITO SANTIAGO Hand Bander BETTYE NIETO Telephone Directory Distributor Driver MALINDA HIDALGO OTHER ANGELICA GIVENS Telephone Directory Distributor Driver MALINDA HIDALGO Primary Care Provider [facility] ERAPY (NIK MURILLO) Occupational Health And Safety Officer PAZ JEREZ Referring Provider [phone] Assessment No assessment recorded. Plan of Treatment [...] DO Not Attach Compendium, Do Not Delete/merge, [id number] 04/17/2024 15:59:22 Referral None recorded. Procedures None recorded. Surgeries None recorded. Imaging XR, chest, 2 view - Productiv e cough, r/o pneumonia . 2024 025 Not available 04/17/2024 15:59:20 Medication Orders Tamiflu 75 mg capsule 2024 025 [place] [address] [facility] [address] [place], [address], 04/17/2024 15:59:21 prednison e 10 mg tablet 2024 025 [place] [address] [facility], [address] [place], [address], 04/17/2024 15:59:20 albuterol sulfate 2.5 mg/3 mL (0.083 %) solution for nebulizat ion 2024 025 [place] [address] [facility] [address] [place], [address], 04/17/2024 15:59:21 Patient TargetsNo targets recorded. Patient Instructions Encounter Date Encounter Id Patient Instructions Last Modified By Organization Details Last Modified Time 04/17/2024 [id number] asthma attack: care instructions Not available 04/17/2024 15:59:20 upper respirator y infection (cold): care instructions Not available 04/17/2024 15:59:20 Reason for Referral None Reported. Results Created Date Observation Date Name Description Value Unit Range Abnormal Flag Note LastModifiedBy Organization Detail LastModifiedTime 04/17/1904/17/2024 rapid flu (A+B) Flu A positi ve Not Available In-Office Order Internal Use Only DO Not Attach Compendium DO Not Attach Compendium, Do Not Delete/merge, [id number] 04/17/2024 15:26:15 04/17/1904/17/2024 rapid flu (A+B) Flu B negati ve Not Available In-Office Order Internal Use Only DO Not Attach Compendium DO Not Attach Compendium, Do Not Delete/merge, [id number] 04/17/2024 15:26:15 04/18/1904/18/2024 XR, chest , 2 view No observ ation record ed. Not Available 04/18 11:20:12 04/18/19 25 04/17/2024 [...] rative change lower thorac ic spine. IMPRES JENI: No acute abnorm ality. WSN: [id number] Orderi ng Physic duc: Francisco Javier Lopez Dictat ed By: George Newberry MD, V Dictat ed Date/T jody: 8:33 am Review ed By: George Newberry MD, V Signed By: George Newberry MD, V Signed Date/T jody: 8:33 am Transc ribed By: GAIL Transc ribed Date/T jody: 8:19 am Patien t Class: Outpat ient [facility] (Outpt Imaging) [address] [place] [address], [address], 04/18/2024 17:48:35 Result Notes None recorded. Problems Name Problem SNOMED Code Status Onset Date Resolution Date Notes Provider Name and Address Organization Details Recorded Time Epigastr ic pain 81310590 Completed 05/10/2016 Jaylene betts [facility] 7 11:02:22 Abdomina l pain 34694673 Completed 05/10/2016 Jaylene betts [facility] 7 11:01:53 Allergic rhinitis 36151850 Completed 200910/09/2013 RECORDED 06/27/19 10 10:27AM BY RACHAEL MARRUFO MA, ANNOTATI ON/ADDEN DUM Jaylene betts [facility] 7 08:51:51 Allergic rhinitis 56935353 Completed 05/10/2016 Jaylene betts, [facility] 7 08:51:51 Asthma 910439133 Active Maxine betts, [facility] 6 12:08:51 Acute asthma 148821421 Completed 05/10/2016 Jaylene betts, [facility] 7 11:02:10 Chest pain 91834669 Completed 05/10/2016 Jaylene betts, [facility] 7 11:02:04 Tobacco dependen ce syndrome 96167688 Completed 07/20/2018 Malinda Hidalgo, [facility] [address], [place], [address], [facility] 4 10:10:19 Elevated blood-pr essure reading without diagnosi s of hyperten jeni 249440205 Completed 201010/09/2013 RECORDED 12/22/19 11 3:26PM BY RACHAEL MARRUFO MA, ANNOTATI ON/ADDEN DUM Maxine betts, [facility] 6 12:08:51 Enthesop athy of hip region 25177208 Active Maxine betts, [facility] 6 12:08:51 Gastroes ophageal reflux disease 425156735 Completed 200910/09/2013 RECORDED 06/27/19 10 10:27AM BY RACHAEL MARRUFO MA, ANNOTATI ON/ADDEN DUM Maxine betts, [facility] 6 12:08:51 Essentia l hyperten jeni 79153209 Active Maxine betts, [facility] 6 12:08:51 Influenz a vaccine needed [id number] 06 Completed 05/10/2016 Jaylene betts, [facility] 7 11:01:42 General examinat ion of patient Completed 200710/09/2013 RECORDED 11/28/19 08 2:32PM BY RACHAEL MARRUFO MA, ANNOTATI ON/ADDEN DUM Maxine betts [facility] 6 12:08:51 Influenz a with respirat ory manifest ation other than pneumoni a Completed 05/10/2016 Jaylene betts [facility] 7 11:02:29 Low back pain 175347150 Completed 200910/09/2013 RECORDED 06/27/19 10 10:27AM BY RACHAEL MARRUFO MA, ANNOTATI ON/ADDEN DUM Maxine betts [facility] 6 12:08:51 Migraine 63075450 Active Maxine betts [facility] 6 12:08:51 Eruption 264421115 Completed 200710/09/2013 RECORDED 11/28/19 08 2:32PM BY RACHAEL MARRUFO MA, ANNOTATI ON/ADDEN DUM Malinda Hidalgo, [facility] [address] [place] [address], [place], [address] [place] [address] 2 13:14:35 Restless legs 36195999 Completed 05/10/2016 Jaylene betts [facility] 8 11:35:16 Adult health examinat ion Completed 05/10/2016 Jaylene betts, [facility] 7 11:02:00 Dermatop hytosis of the body Active Maxine betts [facility] 6 12:08:51 Injury of elbow 271908818 Completed 05/10/2016 Jaylene betts [facility] 7 11:01:45 Allergy Completed 05/10/2016 Jaylene Díaz MA null, [facility] 7 11:01:39 Allergic rhinitis 21955785 Completed 200911/05/2013 RECORDED 06/27/19 10 10:27AM BY RACHAEL MARRUFO MA, ANNOTATI ON/ADDEN DUM Jaylene Díaz MA null, [facility] 7 08:51:51 Elevated blood-pr essure reading without diagnosi s of hyperten jeni 621977952 Completed 201011/05/2013 RECORDED 12/22/19 11 3:26PM BY RACHAEL MARRUFO MA, ANNOTATI ON/ADDEN DUM Maxine D'Alessan ale null, [facility] 6 12:08:51 Gastroes ophageal reflux disease 402665618 Completed 200911/05/2013 RECORDED 06/27/19 10 10:27AM BY RACHAEL MARRUFO MA, ANNOTATI ON/ADDEN DUM Maxine D'Alessan ale null, [facility] 6 12:08:51 General examinat ion of patient Completed 200711/05/2013 RECORDED 11/28/19 08 2:32PM BY RACHAEL MARRUFO MA, ANNOTATI ON/ADDEN DUM Maxine D'Alessan ale null, [facility] 6 12:08:51 Follow-u p encounte r Completed 05/10/2016 Jaylene Díaz MA null, [facility] 7 11:02:18 Low back pain 462128774 Completed 200911/05/2013 RECORDED 06/27/19 10 10:27AM BY RACHAEL MARRUFO MA, ANNOTATI ON/ADDEN DUM Maxine D'Alessan ale null, [facility] 6 12:08:51 Eruption 020455813 Completed 200711/05/2013 RECORDED 11/28/19 08 2:32PM BY RACHAEL MARRUFO MA, ANNOTATI ON/ADDEN MYRA Hidalgo, [facility] [address], [facility] [address], [facility] 2 13:14:35 Body mass index 40+ - severely obese 118384392 Active Gregoria betts [facility] 8 17:58:43 Thoracic back pain 681191068 Active Maxine betts [facility] 6 12:08:51 Cough 30409299 Completed 05/10/2016 Jaylene betts, [facility] 7 11:02:35 Urogenit al finding 838370183 Active STORY: RIGHT KIDNEY CYST U/S 07/05 Maxine betts [facility] 6 12:08:51 Thumb injury 470385824 Completed 05/10/2016 Jaylene betts [facility] 7 11:01:49 Bunion 703952081 Completed 05/10/2016 Jaylene betts [facility] 7 11:02:37 Disorder of breast 43367508 Completed 05/10/2016 Jaylene betts [facility] 7 11:02:24 Metatars algia 31676850 Active Maxine betts [facility] 6 12:08:51 Acute bronchit is 87002283 Completed 03/27/2016 SANTOS Martinez, [facility] 6 10:22:54 Pleuriti c pain 5031279 Completed 05/10/2016 Jaylene betts [facility] 7 11:01:57 Atypical chest pain 929502916 Active Maxine betts [facility] 6 12:13:25 Allergic rhinitis 25883325 Completed 201606/17/2016 Jaylene Díaz MA null, [facility] 7 08:51:51 Hyperlip idemia 79532571 Active 2017 Arely Lopez PA-C [address], [place], [address], [facility] 8 13:20:18 Restless legs 20066983 Active 2017 Jaylene Díaz MA null, [facility] 8 11:35:16 Snoring 70904319 Active 2017 Jaylene Díaz MA null, [facility] 8 11:35:33 Heart disease 62674750 Active 07/2017 had pos ETT, sent for cardiac cath, had 90% blockage of LAD; stented Dr Tere araya null, [facility] 9 15:32:25 Ex-smoke r 6173048 Active 2017 Rachael rowe MA null, [facility] 9 09:39:52 Suspecte d COVID-19 801704566 Completed 09/23/2020 Removal Reason: Problem added by user [email or web address] from the COVID-19 watch flag Shonda Vuong roxane, [facility] 1 14:36:15 Prediabe michele 575968316 Active 2021 ALEXI Jane [address], [place], [address], [facility] 2 13:14:34 Eruption 795606364 Active 2021 RECORDED 11/28/19 08 2:32PM BY RACHAEL MARRUFO MA, ANNOTATI ON/ADDEN DUM ALEXI Jane [address], [place], [address], [facility] 2 13:14:34 Fatigue 39935116 Active 2021 Malinda Hidalgo, [facility] [address], [place], [address], [facility] 2 13:23:33 Morbid obesity 471482442 Active 2021 Denise Dallas roxane, [facility] 2 15:15:41 Benign paroxysm al position al vertigo 810010345 Active 2021 Malinda Hidalgo [facility] [address], [place], [address], [facility] 2 09:11:59 Tobacco dependen ce syndrome 27781517 Active 2023 Malinda Hidalgo PAS[facility] [address], [place], [address], [facility] 4 10:10:19 Neck pain 00343942 Active 2023 Malinda Hidalgo [facility] [address], [place], [address], [facility] 4 12:17:05 Vasculit is of the skin 74648441 Active 2023 ALEXI Jane [address], [place], [address], [facility] 4 10:17:48 Venous varices 151107883 Active 2023 Malinda Hidalgo [facility] [address], [place], [address], [facility] 4 10:18:57 Overacti ve urinary bladder 176815251 Active 2023 Malinda Hidalgo PASRY[place] [address], [place], [address], [facility] 4 09:27:28 Headache 41124313 Active 2023 Malinda Hidalgo, [facility] [address], [facility] [address], [facility] 4 09:39:53 Problem Notes None recorded. Procedures Surgical History Date Name Laterality Status Provider Name and Address Organization Details Recorded Time 06/20/19 23 Most Recent Mammogram completed Maxine Gallo MA [facility] 10/05/2022 09:02:08 12/27/19 21 Date of Last Pap Smear completed Monica Mesa MA [facility] 09/22/2021 13:06:35 06/15/19 21 Mammogram screening completed Brittany Green [facility] 06/24/2020 16:15:31 05/31/19 19 angiography of coronary artery completed Kathy Johansen [facility] 05/30/2018 09:37:32 08/06/19 18 Coronary art/grft angio s&i completed Bella Wray [facility] 08/10/2017 11:28:44 02/19/20 15 Ultrasound breast complete completed Dilia Howe [facility] 02/19/2015 09:44:02 release of trigger thumb completed Rachael mendez MA [facility] 04/05/2018 14:55:44 Tonsillectomy completed Monica jones MA [facility] 09/22/2021 12:54:58 Imaging Results None recorded. Procedure Notes None recorded. Medical Equipment None Reported. Allergies Allergen ID Allergen Name Allergen Category Reaction Reaction Severity Criticality Documentation Date Start Date Code Code System Note Provider Name and Address Organization Details Recorded Time 33014 Glycine max (substan e) environme nt,food,m edication other Not available Not available 11/02/20132013 09973 5007 SNOMED SANTOS Martinez [facility] 2 12:54:40 82812 potato allergeni c extract food Not available Not available Not available 04/05/2018 39115 2 RxNorm Monica Mesa MA roxane, [facility] 2 12:54:40 7541 Product containin g angiotens in-conver ting enzyme inhibitor (product) medicatio n cough Not available Not available 10/09/20132013 50357 009 SNOMED Lisin opril Rachael SANTOS Stuart, [facility] 5 13:15:24 7542 omeprazol e medicatio n abdominal pain Not available Not available 10/09/20132013 7646 RxNorm Monica Mesa SANTOS roxane, [facility] 2 12:54:40 7543 Product containin g penicilli n (product) medicatio n other Not available Not available 10/09/20132013 13168 8001 SNOMED Rachael SANTOS Stuart, [facility] 5 13:15:24 Medications Name Sig Start [...] Not Available Not Available Not Available flucelvax 5782-9428 .5 ml israel 06/12 completed Not Available [...] completed RECORDED 07/15/19 14 9:46AM BY LARISSA DARLING, MA, ANNOTATI ON/ADDEN DUM; Not Available Not Available Not Available lisinopri l 20 mg tablet TWO TIMES DAILY 10/27 completed RECORDED 10/28/19 10 1:54PM BY MAXINE LOVE MD, ERICH ON/ADDEN DUM; Not Available Not Available [...] completed RECORDED 02/14/20 07 11:20AM BY MAXINE LOVE MD, MEDICATI ON AUTO-GERALD CTIVATIO N; Not Available Not Available Not Available albuterol (refill) 90 mcg/actua tion aerosol inhaler EVERY 2 HOURS NEEDED 06/12 completed RECORDED 07/06/19 14 5:11PM BY MAXINE LOVE MD, REFILL REQUEST; Not Available Not Available [...] 10:30AM BY RACHAEL MARRUFO MA, OFFICE VISIT;TA TOR 30 MIN BEFORE MORNING MEAL. Not Available [...] completed RECORDED 06/02/19 08 10:55AM BY MAXINE LOVE MD, MEDICATI ON AUTO-GERALD CTIVATIO N; Not [...] IM syringe VACCINAT ION ADMINIST ERED BY [employer] ST 03/19 completed Not Available Not Available [...] Updated DateTime 5 154.94 cm 35.2 kg/m2 59773.8 8 g 91 /min 99 % 99 % 98.3 [degF] 127 mm[Hg] 77 mm[Hg] Rosy Roy LPN [facility] 5 14:46:04 Social History Question Answer Notes LastModified by Organizat ion Details LastModified Time Tobacco Smoking Status Current Every [facility] 08:50:30 Do You Have An Advance Directive? Yes HCP At [facility] 05/30/18 [email or web address] Information not available 09/22/2021 What Is Your [...] Or Vape? Former User Of Electronic Cigarettes [email or web address] Information not available 09/22/2021 What Is Your Occupation? [employer] Information not available 07/20/2018 When Did You Quit Smoking? 1-5yearssince lastcigarette [email or web address] Information not available 09/22/2021 Live Alone Or [...] Or Greater Than 100 Degrees Fahrenheit? No [email or web address] Information not available 11/15/2019 Are You Or Anyone In Your Household A Health Care Provider Or Emergency Responder? No [email or web address] Information not available 11/15/2019 To The Best Of Your Knowledge Have You Been In Close Proximity To Any Individual Who Tested Positive For COVID-19? No [email or web address] Information not available 11/15/2019 *AWV ONLY* Are You Presently Prescribed Opioid Medication By PCP Or Specialist? If YES -Provider Assess The Benefit For Other, Non-opioid Pain Therapies Instead, Even If The Patient Does Not Have OUD But Is Possibly At Risk. No [email or web address] Information not available 09/22/2021 Have You Recently Traveled To A COVID-19 High Risk Area Or Gathering In The Last 10 Days? No [email or web address] Information not available 09/16/2020 What Was The Date Of Your Most Recent Tobacco Screening? 10/05/2022 Information not available 10/05/2022 How Many Children Do You Have? 1 Paddy (has ADD) [email or web address] Information not available 01/14/2014 What Is Your Current Pack Years? 20-29packyear s Information not available 09/22/2021 Do You Use Protection During Sex? Usually [email or web address] Information not available 09/22/2021 Do You Use Your Seat Belt Or Car Seat Routinely? Yes [email or web address] Information not available 09/22/2021 Seat Belts Used Routinely Yes [email or web address] Information not available 09/22/2021 Are You Sexually Active? No [email or web address] Information not available 09/22/2021 Smoke Alarm In Home Yes [email or web address] Information not available 09/22/2021 Do You Have Smoke And Carbon Monoxide Detectors In Your Home? Yes [email or web address] Information not available 09/22/2021 At What Age [...] Many Years Have You Smoked Tobacco? 25 [email or web address] Information not available 09/16/2020 Do You Or Have You Ever Used Any Other Forms Of Tobacco Or Nicotine? No Information not available 09/22/2021 Sex: Unknown Functional Status Question Answer Note LastModified by Organizat ion Details LastModified Time Are you able to walk? YESWOREST [email or web address] Information not available 09/22/2021 Are you able [...] Father Coronary arterioscler osis 55 dad is 68/201 4/ has angina /stabl e Not available [...] split virus, trivalent, PF 4 completed Priti Mccallum [facility] 01/14/2014 15:10:51 Influenza, split virus, quadrivalent, preservative 8 completed An Headley [facility] 03/06/2018 13:58:17 COVID-19, mRNA, LNP-S, PF, 100 mcg/0.5mL dose or 50 mcg/0.25mL dose 1 completed [facility]2021 09:17:46 COVID-19, mRNA, LNP-S, PF, 100 mcg/0.5mL dose or 50 mcg/0.25mL dose 1 completed [facility] 04/03/2021 09:17:46 Influenza, split virus, trivalent, PF 6 completed [facility] 04/03/2021 09:17:46 Influenza, split virus, quadrivalent, PF 9 completed [facility] 04/03/2021 09:17:46 Influenza, MDCK, quadrivalent, PF 7 completed [facility] 04/03/2021 09:17:46 Influenza, MDCK, quadrivalent, PF 1 completed ASNTOS [facility] 04/03/2021 09:17:46 Influenza, split virus, quadrivalent, PF 0 completed [facility] 04/03/2021 09:17:46 Influenza, split virus, quadrivalent, PF 8 completed Rachael Johnson MA null, [facility] 04/03/2021 09:17:46 COVID-19, mRNA, LNP-S, PF, 100 mcg/0.5mL dose or 50 mcg/0.25mL dose 2 completed Monica Mesa MA null, [facility] 09/22/2021 13:01:02 Influenza, split virus, quadrivalent, PF 2 completed Autumn Mcfarlane MA null, [facility] 05/27/2022 11:31:26 Influenza, split virus, trivalent, preservative 2 completed Maxine Gallo MA null, [facility] 10/05/2022 08:52:10 Influenza, MDCK, quadrivalent, PF 3 completed Rosy Caporale, [employer] null, [facility] 08/18/2023 14:49:20 zoster recombinant 3 completed Rosy Caporale, [employer] null, [facility] 08/18/2023 14:49:20 zoster recombinant 3 completed Rosy Caporale, [employer]CRA[employer] null, [facility] 08/18/2023 14:49:20 COVID-19, mRNA, LNP-S, PF, 50 mcg/0.5 mL 4 completed Rosy Caporale, [employer] null, [facility] 08/18/2023 14:49:20 Tdap 4 completed Not Available [facility] 04/14/2019 02:21:44 Td (adult), 2 Lf tetanus toxoid, preservative free, adsorbed 1 completed Not Available [facility] 10/09/2013 14:02:25 pneumococcal polysaccharide PPV23 5 completed Not Available [facility] 10/09/2013 14:02:25 Influenza, split virus, trivalent, preservative 6 completed Not Available [facility] 10/09/2013 14:02:25 Influenza, split virus, trivalent, preservative 7 completed Not Available [facility] 10/09/2013 14:02:25 Influenza, split virus, trivalent, preservative 8 completed Not Available [facility] 10/09/2013 14:02:25 Influenza, split virus, trivalent, preservative 0 completed Not Available [facility] 10/09/2013 14:02:25 Influenza, split virus, trivalent, preservative 1 completed Not Available [facility] 10/09/2013 14:02:25 Influenza, split virus, trivalent, PF 5 completed ALEXI Jane [address], [address], [facility] 04/03/2024 12:00:00 Past Encounters Encounter ID Performer Location Encounter Start Date Encounter Closed Date Diagnosis/Indication Diagnosis SNOMED-CT Code Diagnosis ICD10 Code Diagnosis Note [id number] ALEXI Jane Main Office [address] [address] 04/03/2024 08:59:12 04/03/2024 09:51:35 Body mass index 40+ - severely obese 768866462 E66.01 Z68.41 The patient is over 18 [...] for 0.25mg x 4 weeks Essential hypertension 32520787 I10 BP mildly elevated today, followed by cardiology , cardiology visit in november. recheck 120/68 Hyperlipidemia 19527235 E78.5 well controlled on atorvastat in Prediabetes 428086903 R7 3.03 A1C 5.8 on wegovy, will recheck Needs infl uenza immunization 518357459 Z23 19 YEARS AND OLDER ONLY Allergic reaction 313077 005 T78.40XD [id number] Arely Lopez PA-C Main Office [address] [facility] [address] [facility] [place] [address] 04/17/2024 14:38:07 04/17/2024 15:59:17 Acute upper respiratory infection 70495618 J06.9 FLU A positive. COVID neg at home. Pneumonitis 884531345 J1 8.9 check xray to r/o pneumonia. Acute asthma 660002309 J 45.901 begin prednisone taper and continue albuterol by nebulizer at home q 4 -6 hrs. Influenza caused by Influenza A virus 102584011 J09.X2 Positive Flu A. Recom to begin Tamiflu as directed, Mucinex for cough, albuterol by nebulizer q 4- 6 hrs. Health Concerns Section Related Observation LastModified by Organization Detai ls LastModified Time None Recorded Concern Status LastModified by Organization Details LastModified Time None Recorded Payers Encounter Date Sequence Insurance Name Policy Number Policy Rhodes Covered Member ID Rhodes Member ID Guarantor Name 04/17/2024 1 [facility] [id number] Fatimah Grimes [id number] Fatimah Grimes Notes Date Note Type Note Provider Name and Address Organization Details Recorded Time 04/17/2024 text/html 54 year year old asthmatic female , smoker, c/o 3 day onset of what started with sore throat. Now has productive cough, fatigue, shortness of breath and wheezing and sinus congestion. Uses albuterol by nebulizer and took robitussin for cough with minimal relief. Tested neg for COVID 19 this morning. Received flu vaccine only 10 days ago. Arely Lopez PA-C [address] [facility] [address], [place], [address], [facility] 04/17/2024 16:02:44 OBGyn Episode No OBEpisode recorded.
== END 2024-05-15 11:39 | disposition home or self-care (01) ==
PROVIDERS: PCP Registered Nurse; Visit Provider Physician Assistant Surgical
DX: I83.12 Varicose veins of left lower extremity with inflammation (principal)
CPT/HCPCS: 99024

== ENCOUNTER → 2024-05-15 11:10 | Outpatient (BNVA) | payer OTHER, SELFPAY | PROVIDERS: PCP Registered Nurse; Visit Provider Physician Assistant Surgical ==

== ENCOUNTER 2024-05-22 08:41 | Outpatient (AMB) | payer OTHER, SELFPAY ==
[2024-05-22 08:57] VITALS: BMI 39.5
--- NOTE | 2024-05-22 08:57 | MHC.OFFVIS ---
Vital Signs 05/22/24 08:57 Height 5 ft 1 in Weight 209 lb BMI 39.5 Intake Visit Reasons: 2 week follow up s/p Left Micro 05/11/24 Intake Note: 2 week follow up Left Micro 05/11/24, was seen last week. Still has steri-strips on some incisions. Pt states she had some bleeding from one of the incisions. 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 She reports no significant postprocedure issues. She does have some mild bruising. Overall leg seems to be doing fairly well. She now presents for routine postprocedure follow-up. [facility] Medical History Benign paroxysmal vertigo of both ears Surgical History (Updated 05/22/24 @ 09:02 by CATALINA Ponce) H/O varicose vein stripping (05/11/24) H/O neck surgery History of carpal tunnel surgery History of cardiac cath H/O shoulder surgery Family History Father Heart disease Mother HTN (hypertension) Stroke Cancer Social History Alcohol intake: current Alcohol intake frequency: holidays/special occasions only Patient Tobacco Use Status: Former Tobacco user Years Smoked: 25 +/- Review of Systems Const All systems reviewed & are unremarkable except as noted in HPI and below Reports no additional complaints ENT Reports Normal hearing present Card Denies chest pain, Denies chest pain at rest, Denies chest pain with activity and Denies pedal edema Resp Denies cough GI Denies abdominal pain Musc Denies abnormal gait, Denies muscle cramps and Denies radiating pain into limb Skin/Breast Denies skin ulcer and Denies wounds Neuro Reports Normal hearing present and Denies abnormal gait Psych Reports no additional complaints Physical Exam Vital Signs: BMI result Body Mass Index 39.5 Const General: cooperative, healthy appearing and comfortable Orientation/consciousness: oriented to person, oriented to place and oriented to time HEENT Head: Yes normal to inspection Neck Neck: Yes normal visual inspection Carotids: no bruits Chest Chest palpation & inspection: normal inspection of the chest Resp Effort & Inspection: normal respiratory effort and able to speak in complete sentences Auscultation: clear to auscultation bilaterally, no crackles, no rales, no rhonchi and no wheezes Cardio Rate: regular rate Rhythm: regular rhythm Heart sounds: S1 normal heart sound present and S2 normal heart sound present Bruits: no carotid bruits Peripheral pulses: Peripheral pulses 2+ throughout GI Inspection: Yes normal to inspection Skin Wounds: no wounds Hair: normal Neuro General: oriented to person, oriented to place and oriented to time Cranial nerves: Yes CN's II-XII intact bilaterally and Yes Normal hearing present Cognition (Neuro): normal cognition Motor exam (neuro): 5/5 motor strength present throughout Extrem Other: venous exam: No significant superficial varicosities or spider telangiectasias, minimal edema General: No clubbing, No cyanosis and No edema Psych Appearance: grossly normal Mental Status: mental status grossly normal Speech and movement: Normal speech and movement present Assessment & Plan Assessment & Plan (1) Varicose veins of left lower extremity with inflammation: Comment: 05/11/2024 - left leg microphlebectomy Code(s): I83.12 - Varicose veins of left lower extremity with inflammation Category: Medical Plan: The patient has done extremely well with all venous treatments. Patient's may often experience postprocedure phlebitic episodes and I have discussed with the patient use of warm compresses and NSAIDS if tolerated for pain discomfort. In addition, I have discussed continued conservative measures including use of compression, leg elevation, and exercise. The patient was also given an information sheet regarding appropriate use of compression stockings and future purchases. Thank you for allowing us to care for your patient with venous disease. Coding Level of Care Code Est Pt Level 3 (57939) Diagnoses Varicose veins of left lower extremity with inflammation I83.12
--- OUTSIDE RECORDS SUMMARY | 2024-05-22 09:13 | XMS_ITS | Continuity of Care Document ---
Author Name [facility] Organization [facility] Care Team Providers Care Director Of Leadership Development Name Role Phone [facility] Unavailable Unavailable Problems Combined list of problems [...] [facility] En[facility] [id number] 10[facility]13 [facility] HC PRO PHONE CALL 5-10 MIN [id number] Diagnos is: ICD-10- CM Z71.0 Prsn encntr hlth serv to consult on behalf of another person PATINO,RU TH E 02/03 [facility] ASSMT/REAS SESSMENT [id number] Diagnos is: ICD-10- CM Z71.0 Prsn encntr hlth serv to consult on behalf of another person PATINO,RU TH E 02/11 [facility] HC PRO PHONE CALL 5-10 MIN [id number] Diagnos is: ICD-10- CM Z71.0 Prsn encntr hlth serv to consult on behalf of another person CAREY,RU TH E 02/24 [facility] CASE MANAGEMENT [id number] Diagnos is: ICD-10- CM Z71.0 Prsbin encntr hlth serv to consult on behalf of another person CAREY,RU TH E 02/24 [facility]
--- OUTSIDE RECORDS SUMMARY | 2024-05-22 09:14 | XMS_ITS | Data Portability ---
Author Organization [facility], Main Office Address [address] [facility] [address] [place] [id number] Care Team Providers Care Mri Special Procedures Technologist Name Role Phone CHITO SANTIAGO Dampener Operator BETTYE CARRANZA Photogrammetric Compilation Specialist MALINDA HIDALGO OTHER ANGELICA GIVENS Photogrammetric Compilation Specialist MALINDA HIDALGO Primary Care Provider [phone] [facility] (NIK MURILLO) Geospatial Analyst PAZ JEREZ Referring Provider [phone] Assessment Encounter Date Assessment Date Assessment LastModified [...] DO Not Attach Compendium, Do Not Delete/merge, [id number] 04/17/2024 15:59:22 amylas e + lipase , serum 2024 025 [facility] (Centralized Electronic Ordering - All Locations), Patient Can Go To The Location Of Their Choice, 04/03/2024 09:41:13 TSH + free T4, serum 2024 025 [facility] ([facility]ized [facility] Ordering - All Locations), Patient Can Go To The Location Of Their Choice, 04/03/2024 09:41:10 HbA1c (hemog lobin A1c), blood 2024 [facility] ([facility]ized [facility] Ordering - All Locations), Patient Can Go To The Location Of Their Choice, 04/03/2024 09:41:11 CMP, serum or plasma 2024 [facility] ([facility]ized [facility] Ordering - All Locations), Patient Can Go To The Location Of Their Choice, 04/03/2024 09:41:12 CBC w/ auto diff 2024 [facility] ([facility] Ordering - All Locations), Patient Can Go To The Location Of Their Choice, 04/03/2024 09:41:12 lipid panel, serum 2024 [facility] ([facility]ized [facility] Ordering - All Locations), Patient Can Go To The Location Of Their Choice, 04/03/2024 09:41:11 rapid flu (A+B) 2023 [facility] In-Office Order, Internal Use Only DO Not Attach Compendium DO Not Attach Compendium, Do Not Delete/merge, [id number] 02/25/2024 10:46:03 respir atory infect ions panel, unspec ified specim en 2023 024 [facility] ([facility]ized [facility] Ordering - All Locations), Patient Can Go To The Location Of Their Choice, 02/27/2024 20:05:59 CBC w/ auto diff 2023 024 [facility] ([facility]ized [facility] Ordering - All Locations), Patient Can Go To The Location Of Their Choice, 02/07/2024 14:07:04 CMP, serum or plasma 2023 [facility] ([facility] Ordering - All Locations), Patient Can Go To The Location Of Their Choice, 02/07/2024 14:07:05 D-dime r, quant, plasma 2023 [facility] ([facility] Ordering - All Locations), Patient Can Go To The Location Of Their Choice, 02/07/2024 14:07:06 erythr ocyte sedime ntatio n rate by therese mason method 2023 [place] [facility] ([facility]ized [facility] Ordering - All Locations), Patient Can Go To The Location Of Their Choice, 02/07/2024 14:07:07 HbA1c (hemog lobin A1c), blood 2023 [place] [facility] ([facility]ized [facility] Ordering - All Locations), Patient Can Go To The Location Of Their Choice, 01/11/2024 12:08:13 DAMARI (antin uclear antibo dies) screen , serum 2023 [place] [facility] ([facility]ized Electronic Ordering - All Locations), Patient Can Go To The Location Of Their Choice, 01/11/2024 12:08:16 ESR (eryth rocyte sedime ntatio n rate), blood 2023 [place] [facility] ([facility]ized Electronic Ordering - All Locations), Patient Can Go To The Location Of Their Choice, 01/11/2024 12:08:17 C reacti ve protei n, QN, serum or plasma 2023 [facility] ([facility]ized [facility] Ordering - All Locations), Patient Can Go To The Location Of Their Choice, 01/11/2024 12:08:18 borrel ia burgdo rferi IgG + IgM + total panel, IA, serum 2023 [facility] ([facility]ized [facility] Ordering - All Locations), Patient Can Go To The Location Of Their Choice, 01/11/2024 12:08:15 rf (rheum atoid factor ), serum 2023 [facility] ([facility] Ordering - All Locations), Patient Can Go To The Location Of Their Choice, [id number] 01/11/2024 12:08:14 lipid panel, serum 2023 [facility] ([facility] Ordering - All Locations), Patient Can Go To The Location Of Their Choice, [id number] 01/11/2024 12:08:11 amylas e + lipase , serum 2023 024 [facility] ([facility] Ordering - All Locations), Patient Can Go To The Location Of Their Choice, [id number] 01/11/2024 12:08:12 TSH + free T4, serum 2023 024 [facility] ([facility] Ordering - All Locations), Patient Can Go To The Location Of Their Choice, [id number] 01/11/2024 12:08:07 CMP, serum or plasma 2023 [facility] ([facility] Ordering - All Locations), Patient Can Go To The Location Of Their Choice, [id number] 01/11/2024 12:08:10 CBC w/ auto diff 2023 [facility] ([facility] Ordering - All Locations), Patient Can Go To The Location Of Their Choice, [id number] 01/11/2024 12:08:09 Referral None record ed. Procedures None record ed. Surgeries None record ed. Imaging XR, chest, 2 view - Produc tive cough, r/o pneumo monique. 2024 025 Not available 04/17/2024 15:59:20 XR, chest, 2 view 2023 024 [facility] Not available 02/26/2024 08:29:00 Medication Orders Tamifl u 75 mg capsul e 2024 025 [facility], [address] [facility], [place], [address], 04/17/2024 15:59:21 predni sone 10 mg tablet 2024 025 [place] [facility], [address] [place], [address], 04/17/2024 15:59:20 albute rol sulfat e 2.5 mg/3 mL (0.083 %) soluti on for nebuli zation 2024 025 [place] [facility], [address] [place], [address], 04/17/2024 15:59:21 epinep hrine 0.3 mg/0.3 mL inject ion, auto-i njecto r 2024 025 [place] [facility], [address] [place], [address], 04/03/2024 09:43:34 Wegovy 2.4 mg/0.7 5 mL subcut aneous pen inject or 2024 025 [place] [facility], [address] [place], [address], 05/10/2024 13:32:27 doxycy hung hyclat e 100 mg capsul e 2023 024 [place] [facility], [address] [place], [address], 04/03/2024 09:25:07 glenn ukast 10 mg tablet 2023 024 [place] [facility], [address] [place], [address], 01/10/2024 08:53:06 Patient TargetsNo targets recorded. Patient Instructions Encounter Date Encounter Id Patient Instructions Last Modified By Organization Details Last Modified Time 01/10/2024 [id number] To call or retur n for worsening or concerns [email or web address] Not available 01/10/2024 08:53:10 02/25/2024 [id number] upper respirator y infection (cold): care instructions Not available 02/25/2024 10:37:42 pneumonia: care instructions Not available 02/25/2024 10:45:24 04/03/2024 [id number] To call or retur n for worsening or concerns [email or web address] Not available 04/03/2024 09:39:27 04/17/2024 [id number] asthma attack: care instructions Not available 04/17/2024 15:59:20 upper respirator y infection (cold): care instructions Not available 04/17/2024 15:59:20 Reason for Referral None Reported. Results Created Date Observation Date Name Description Value Unit Range Abnormal Flag Note LastModifiedBy Organization Detail LastModifiedTime 01/10/2001/11/2024 TSH+F REE T4 TSH 0.763 uIU/m L 0.450- 4.500 normal Not Available [facility] ([facility]) [address] [place], [address], 01/11/2024 12:08:06 01/10/2001/11/2024 TSH+F REE T4 T4,free(dire ct) 1.39 NG/dL 0.82-1 .77 normal Not Available [facility] ([facility]) [address] [place], [address], 01/11/2024 12:08:06 01/10/2001/11/2024 CBC WITH DIFFE RENTI AL/PL ATELE T WBC 10.6 x10e3 /uL 3.4-10 .8 normal Not Available [facility] ([facility]) [address] [place], [address], 01/11/2024 12:08:09 01/10/2001/11/2024 CBC WITH DIFFE RENTI AL/PL ATELE T RBC 5.44 x10e6 /uL 3.77-5 .28 above high normal Not Available [facility] ([facility]) [address] [place], [address], 01/11/2024 12:08:09 01/10/2001/11/2024 CBC WITH DIFFE RENTI AL/PL ATELE T hemoglobin 15.1 g/dL 11.1-1 5.9 normal Not Available [facility] ([facility]) [address] [place], [address], 01/11/2024 12:08:09 01/10/2001/11/2024 CBC WITH DIFFE RENTI AL/PL ATELE T hematocrit 47.9 % 34.0-4 6.6 above high normal Not Available [facility] ([facility]) [address] [place], [address], 01/11/2024 12:08:09 01/10/2001/11/2024 CBC WITH DIFFE RENTI AL/PL ATELE T MCV 88 fL 79-97 normal Not Available [facility] ([facility]) [address] [place], [address], 01/11/2024 12:08:09 01/10/2001/11/2024 CBC WITH DIFFE RENTI AL/PL ATELE T MCH 27.8 pg 26.6-3 3.0 normal Not Available [facility] ([facility]) [address] [place], [address], 01/11/2024 12:08:09 01/10/2001/11/2024 CBC WITH DIFFE RENTI AL/PL ATELE T MCHC 31.5 g/dL 31.5-3 5.7 normal Not Available [facility] ([facility]) [address] [place], [address], 01/11/2024 12:08:09 01/10/2001/11/2024 CBC WITH DIFFE RENTI AL/PL ATELE T RDW 13.1 % 11.7-1 5.4 Not Available [facility] ([facility]) [address] [place], [address], 01/11/2024 12:08:09 01/10/20 24 01/11/2024 CBC WITH DIFFE RENTI AL/PL ATELE T platelets 294 x10e3 /uL 150-45 0 normal Not Available [facility] ([facility]) [address] [facility], [place], [address], 01/11/2024 12:08:09 01/10/2001/11/2024 CBC WITH DIFFE RENTI AL/PL ATELE T neutrophils 76 % not estab. normal Not Available [facility] ([facility]) [address] [facility], [place], [address], 01/11/2024 12:08:09 01/10/2001/11/2024 CBC WITH DIFFE RENTI AL/PL ATELE T lymphs 14 % not estab. normal Not Available [facility] ([facility]) [address] [facility], [place], [address], 01/11/2024 12:08:09 01/10/2001/11/2024 CBC WITH DIFFE RENTI AL/PL ATELE T monocytes 7 % not estab. normal Not Available [facility] ([facility]) [address] [facility], [place], [address], 01/11/2024 12:08:09 01/10/20 24 01/11/2024 CBC WITH DIFFE RENTI AL/PL ATELE T eos 1 % not estab. normal Not Available [facility] ([facility]) [address] [facility], [place], [address], 01/11/2024 12:08:09 01/10/20 24 01/11/2024 CBC WITH DIFFE RENTI AL/PL ATELE T basos 1 % not estab. normal Not Available [facility] (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) [address] [place], [address], 01/11/2024 12:08:09 01/10/2001/11/2024 CBC WITH DIFFE RENTI AL/PL ATELE T neutrophils (absolute) 8.3 x10e3 /uL 1.4-7. 0 above high normal Not Available [facility] ([facility]) [address] [place], [address], 01/11/2024 12:08:09 01/10/2001/11/2024 CBC WITH DIFFE RENTI AL/PL ATELE T lymphs (absolute) 1.5 x10e3 /uL 0.7-3. 1 normal Not Available [facility] ([facility]) [address] [place], [address], 01/11/2024 12:08:09 01/10/20 24 01/11/2024 CBC WITH DIFFE RENTI AL/PL ATELE T monocytes(ab solute) 0.7 x10e3 /uL 0.1-0. 9 normal Not Available [facility] ([facility]) [address] [place], [address], 01/11/2024 12:08:09 01/10/20 24 01/11/2024 CBC WITH DIFFE RENTI AL/PL ATELE T eos (absolute) 0.1 x10e3 /uL 0.0-0. 4 normal Not Available [facility] ([facility]) [address] [place], [address], 01/11/2024 12:08:09 01/10/2001/11/2024 CBC WITH DIFFE RENTI AL/PL ATELE T baso (absolute) 0.1 x10e3 /uL 0.0-0. 2 normal Not Available [facility] ([facility]) [address] [place], [address], 01/11/2024 12:08:09 01/10/20 24 01/11/2024 CBC WITH DIFFE RENTI AL/PL ATELE T immature granulocytes 1 % not estab. Not Available [facility] ([facility]) [address] [facility], [place], [address], 01/11/2024 12:08:09 01/10/20 24 01/11/2024 CBC WITH DIFFE RENTI AL/PL ATELE T immature grans (abs) 0.1 x10e3 /uL 0.0-0. 1 Not Available [facility] ([facility]) [address] [facility], [place], [address], 01/11/2024 12:08:09 01/10/2001/11/2024 CBC WITH DIFFE RENTI AL/PL ATELE T NRBC TEXTILE TECHNICAL OFFICER Not Available [facility] ([facility]) [address] [facility], [place], [address], 01/11/2024 12:08:09 01/10/2001/11/2024 CBC WITH DIFFE RENTI AL/PL ATELE T hematology comments: TEXTILE TECHNICAL OFFICER Not Available [facility] ([facility]) [address] [facility], [place], [address], 01/11/2024 12:08:09 01/10/20 24 01/11/2024 LIPID PANEL cholesterol, total 124 mg/dL 100-19 9 normal Not Available [facility] ([facility]) [address] [place], [address], 01/11/2024 12:08:11 01/10/2001/11/2024 LIPID PANEL triglyceride s 60 mg/dL 0-149 normal Not Available [facility] ([facility]) [address] [facility], [place], [address], 01/11/2024 12:08:11 01/10/20 24 01/11/2024 LIPID PANEL HDL cholesterol 49 mg/dL >39 normal Not Available [facility] ([facility]) [address] [place], [address], 01/11/2024 12:08:11 01/10/2001/11/2024 LIPID PANEL VLDL cholesterol len 13 mg/dL 5-40 Not Available [facility] ([facility]) [address] [place], [address], 01/11/2024 12:08:11 01/10/2001/11/2024 LIPID PANEL LDL chol calc ([facility]) 62 mg/dL 0-99 Not Available [facility] ([facility]) [address] [place], [address], 01/11/2024 12:08:11 01/10/2001/11/2024 LIPID PANEL LDL calc comment: TEXTILE TECHNICAL OFFICER Not Available [facility] ([facility]) [address] [place], [address], 01/11/2024 12:08:11 01/10/2001/11/2024 GREGORIA+L IPASE amylase 48 U/L 31-110 normal Not Available [facility] ([facility]) [address] [place], [address], 01/11/2024 12:08:12 01/10/2001/11/2024 GREGORIA+L IPASE lipase 44 U/L 14-72 normal Not Available [facility] ([facility]) [address] [place], [address], 01/11/2024 12:08:12 01/10/2001/11/2024 HEMOG LOBIN A1C hemoglobin A1C 5.6 % 4.8-5. 6 normal Predi abete s: 5.7 - 6.4 Diabe michele: >6.4 Glyce sydney contr ol for adult s with diabe michele: <7.0 Not Available [facility] ([facility]) [address] [place], [address], 01/11/2024 12:08:13 01/10/2001/11/2024 RHEUM ATOID FACTO R (RF) rheumatoid factor (rf) <10.0 IU/mL <14.0 Not Available [facility] ([facility]) [address] [facility], [place], [address], 01/11/2024 12:08:14 01/10/2001/11/2024 LYME DISEA SE SEROL [...] recom paula d. Not Available [facility] ([facility]) [address] [facility], [place], [address], 01/11/2024 12:08:15 01/10/2001/11/2024 ANTIN UCLEA R AB MULTI PLEX RFX 9 DAMAR[place] direct Negati ve negati ve Not Available [facility] ([facility]) [address] [facility], [place], [address], 01/11/2024 12:08:16 01/10/2001/11/2024 SEDIM ENTAT ION RATE- WESTE RGREN sedimentatio n rate-westerg meliza 19 mm/HR 0-40 normal Not Available [facility] ([facility]) [address] [facility], [place], [address], 01/11/2024 12:08:17 01/10/20 24 01/11/2024 C-NAREN CTIVE PROTE IN, QUANT C-reactive protein, quant 2 mg/L 0-10 normal Not Available [facility] ([facility]) [address] [facility], [place], [address], 01/11/2024 12:08:18 02/06/20 24 02/07/2024 CBC WITH DIFFE RENTI AL/PL ATELE T WBC 10.1 x10e3 /uL 3.4-10 .8 normal Not Available [facility] ([facility]) [address] [facility], [place], [address], 02/07/2024 14:07:04 02/06/20 24 02/07/2024 CBC WITH DIFFE RENTI AL/PL ATELE T RBC 5.19 x10e6 /uL 3.77-5 .28 normal Not Available [facility] ([facility]) [address] [facility], [place], [address], 02/07/2024 14:07:04 02/06/20 24 02/07/2024 CBC WITH DIFFE RENTI AL/PL ATELE T hemoglobin 14.6 g/dL 11.1-1 5.9 normal Not Available [facility] ([facility]) [address] [place], [address], 02/07/2024 14:07:04 02/06/20 24 02/07/2024 CBC WITH DIFFE RENTI AL/PL ATELE T hematocrit 45.7 % 34.0-4 6.6 normal Not Available [facility] ([facility]) [address] [place], [address], 02/07/2024 14:07:04 02/06/20 24 02/07/2024 CBC WITH DIFFE RENTI AL/PL ATELE T MCV 88 fL 79-97 normal Not Available [facility] ([facility]) [address] [place], [address], 02/07/2024 14:07:04 02/06/20 24 02/07/2024 CBC WITH DIFFE RENTI AL/PL ATELE T MCH 28.1 pg 26.6-3 3.0 normal Not Available [facility] ([facility]) [address] [facility], [place], [address], 02/07/2024 14:07:04 02/06/20 24 02/07/2024 CBC WITH DIFFE RENTI AL/PL ATELE T MCHC 31.9 g/dL 31.5-3 5.7 normal Not Available [facility] ([facility]) [address] [facility], [place], [address], 02/07/2024 14:07:04 02/06/20 24 02/07/2024 CBC WITH DIFFE RENTI AL/PL ATELE T RDW 13.4 % 11.7-1 5.4 Not Available [facility] ([facility]) [address] [place], [address], 02/07/2024 14:07:04 02/06/20 24 02/07/2024 CBC WITH DIFFE RENTI AL/PL ATELE T platelets 278 x10e3 /uL 150-45 0 normal Not Available [facility] ([facility]) [address] [place], [address], 02/07/2024 14:07:04 02/06/20 24 02/07/2024 CBC WITH DIFFE RENTI AL/PL ATELE T neutrophils 71 % not estab. normal Not Available [facility] ([facility]) [address] [place], [address], 02/07/2024 14:07:04 02/06/20 24 02/07/2024 CBC WITH DIFFE RENTI AL/PL ATELE T lymphs 19 % not estab. normal Not Available [facility] ([facility]) [address] [place], [address], 02/07/2024 14:07:04 02/06/20 24 02/07/2024 CBC WITH DIFFE RENTI AL/PL ATELE T monocytes 9 % not estab. normal Not Available [facility] ([facility]) [address] [place], [address], 02/07/2024 14:07:04 02/06/20 24 02/07/2024 CBC WITH DIFFE RENTI AL/PL ATELE T eos 1 % not estab. normal Not Available [facility] ([facility]) [address] [facility], [place], [address], 02/07/2024 14:07:04 02/06/20 24 02/07/2024 CBC WITH DIFFE RENTI AL/PL ATELE T basos 0 % not estab. normal Not Available [facility] (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) [address] [facility], [place], [address], 02/07/2024 14:07:04 02/06/20 24 02/07/2024 CBC WITH DIFFE RENTI AL/PL ATELE T neutrophils (absolute) 7.1 x10e3 /uL 1.4-7. 0 above high normal Not Available [facility] ([facility]) [address] [facility], [place], [address], 02/07/2024 14:07:04 02/06/20 24 02/07/2024 CBC WITH DIFFE RENTI AL/PL ATELE T lymphs (absolute) 1.9 x10e3 /uL 0.7-3. 1 normal Not Available [facility] ([facility]) [address] [place], [address], 02/07/2024 14:07:04 02/06/20 24 02/07/2024 CBC WITH DIFFE RENTI AL/PL ATELE T monocytes(ab solute) 0.9 x10e3 /uL 0.1-0. 9 normal Not Available [facility] ([facility]) [address] [facility], [place], [address], 02/07/2024 14:07:04 02/06/20 24 02/07/2024 CBC WITH DIFFE RENTI AL/PL ATELE T eos (absolute) 0.1 x10e3 /uL 0.0-0. 4 normal Not Available [facility] ([facility]) [address] [facility], [place], [address], 02/07/2024 14:07:04 02/06/20 24 02/07/2024 CBC WITH DIFFE RENTI AL/PL ATELE T baso (absolute) 0.0 x10e3 /uL 0.0-0. 2 normal Not Available [facility] ([facility]) [address] [facility], [place], [address], 02/07/2024 14:07:04 02/06/20 24 02/07/2024 CBC WITH DIFFE RENTI AL/PL ATELE T immature granulocytes 0 % not estab. Not Available [facility] ([facility]) [address] [facility], [place], [address], 02/07/2024 14:07:04 02/06/20 24 02/07/2024 CBC WITH DIFFE RENTI AL/PL ATELE T immature grans (abs) 0.0 x10e3 /uL 0.0-0. 1 Not Available [facility] (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) [address] [place], [address], 02/07/2024 14:07:04 02/06/20 24 02/07/2024 CBC WITH DIFFE RENTI AL/PL ATELE T hematology comments: TEXTILE TECHNICAL OFFICER Not Available [facility] ([facility]) [address] [facility], [place], [address], 02/07/2024 14:07:04 02/06/20 24 02/07/2024 COMP. METAB OLIC PANEL (14) glucose 82 mg/dL 70-99 normal Not Available [facility] ([facility]) [address] [place], [address], 02/07/2024 14:07:05 02/06/20 24 02/07/2024 COMP. METAB OLIC PANEL (14) BUN 15 mg/dL 6-24 normal Not Available [facility] ([facility]) [address] [place], [address], 02/07/2024 14:07:05 02/06/20 24 02/07/2024 COMP. METAB OLIC PANEL (14) creatinine 0.62 mg/dL 0.57-1 .00 normal Not Available [facility] ([facility]) [address] [place], [address], 02/07/2024 14:07:05 02/06/20 24 02/07/2024 COMP. METAB OLIC PANEL (14) eGFR 108 mL/mi n/1.7 3 >59 normal Not Available [facility] ([facility]) [address] [place], [address], 02/07/2024 14:07:05 02/06/20 24 02/07/2024 COMP. METAB OLIC PANEL (14) BUN/creatini ne ratio 24 9-23 above high normal Not Available [facility] ([facility]) [address] [place], [address], 02/07/2024 14:07:05 02/06/20 24 02/07/2024 COMP. METAB OLIC PANEL (14) sodium 143 mmol/ L 134-14 4 normal Not Available [facility] ([facility]) [address] [place], [address], 02/07/2024 14:07:05 02/06/20 24 02/07/2024 COMP. METAB OLIC PANEL (14) potassium 4.0 mmol/ L 3.5-5. 2 normal Not Available [facility] ([facility]) [address] [facility], [place], [address], 02/07/2024 14:07:05 02/06/20 24 02/07/2024 COMP. METAB OLIC PANEL (14) chloride 108 mmol/ L 96-106 above high normal Not Available [facility] ([facility]) [address] [facility], [place], [address], 02/07/2024 14:07:05 02/06/20 24 02/07/2024 COMP. METAB OLIC PANEL (14) carbon dioxide, total 23 mmol/ L 20-29 normal Not Available [facility] ([facility]) [address] [facility], [place], [address], 02/07/2024 14:07:05 02/06/20 24 02/07/2024 COMP. METAB OLIC PANEL (14) calcium 9.2 mg/dL 8.7-10 .2 normal Not Available [facility] ([facility]) [address] [facility], [place], [address], 02/07/2024 14:07:05 02/06/20 24 02/07/2024 COMP. METAB OLIC PANEL (14) protein, total 6.7 g/dL 6.0-8. 5 normal Not Available [facility] ([facility]) [address] [facility], [place], [address], 02/07/2024 14:07:05 02/06/20 24 02/07/2024 COMP. METAB OLIC PANEL (14) albumin 4.2 g/dL 3.8-4. 9 normal Not Available [facility] [facility]) [address] [facility], [place], [address], 02/07/2024 14:07:05 02/06/20 24 02/07/2024 COMP. METAB OLIC PANEL (14) globulin, total 2.5 g/dL 1.5-4. 5 Not Available [facility] ([facility]) [address] [place], [address], 02/07/2024 14:07:05 02/06/20 24 02/07/2024 COMP. METAB OLIC PANEL (14) bilirubin, total 0.3 mg/dL 0.0-1. 2 normal Not Available [facility] ([facility]) [address] [place], [address], 02/07/2024 14:07:05 02/06/20 24 02/07/2024 COMP. METAB OLIC PANEL (14) alkaline phosphatase 75 IU/L 44-121 normal Not Available [facility] ([facility]) [address] [place], [address], 02/07/2024 14:07:05 02/06/20 24 02/07/2024 COMP. METAB OLIC PANEL (14) AST (SGOT) 17 IU/L 0-40 normal Not Available [facility] ([facility]) [address] [place], [address], 02/07/2024 14:07:05 02/06/20 24 02/07/2024 COMP. METAB OLIC PANEL (14) ALT (SGPT) 14 IU/L 0-32 normal Not Available [facility] ([facility]) [address] [place], [address], 02/07/2024 14:07:05 02/06/20 24 02/07/2024 D-DIM ER [...] 0.80 mg/L FEU. Not Available [facility] ([facility]) [address] [place], [address], 02/07/2024 14:07:06 02/06/20 24 02/07/2024 SEDIM ENTAT ION RATE- WESTE RGREN sedimentatio n rate-westerg meliza 31 mm/HR 0-40 normal Not Available [facility] ([facility]) [address] [place], [address], 02/07/2024 14:07:07 02/25/20 24 02/27/2024 RESPI RATOR Y PANEL W/ SARS- COV2 adenovirus Not Detect ed not detect ed Not Available [facility] ([facility]) [address] [place], [address], 02/27/2024 20:05:59 02/25/20 24 02/27/2024 RESPI RATOR Y PANEL W/ SARS- COV2 coronavirus hku1 Not Detect ed not detect ed Not Available [facility] ([facility]) [address] [facility], [place], [address], 02/27/2024 20:05:59 02/25/20 24 02/27/2024 RESPI RATOR Y PANEL W/ SARS- COV2 coronavirus nl63 Not Detect ed not detect ed Not Available [facility] ([facility]) [address] [facility], [place], [address], 02/27/2024 20:05:59 02/25/20 24 02/27/2024 RESPI RATOR Y PANEL W/ SARS- COV2 coronavirus 229E Not Detect ed not detect ed Not Available [facility] ([facility]) [address] [facility], [place], [address], 02/27/2024 20:05:59 02/25/20 24 02/27/2024 RESPI RATOR Y PANEL W/ SARS- COV2 coronavirus oc43 Not Detect ed not detect ed Not Available [facility] ([facility]) [address] [facility], [place], [address], 02/27/2024 20:05:59 02/25/20 24 02/27/2024 RESPI RATOR Y PANEL W/ SARS- COV2 sars-cov-2 Not Detect ed not detect ed Not Available [facility] ([facility]) [address] [facility], [place], [address], 02/27/2024 20:05:59 02/25/20 24 02/27/2024 RESPI RATOR Y PANEL W/ SARS- COV2 human metapneumovi justin Not Detect ed not detect ed Not Available [facility] ([facility]) [address] [place], [address], 02/27/2024 20:05:59 02/25/20 24 02/27/2024 RESPI RATOR Y PANEL W/ SARS- COV2 human rhinovirus/e nterovirus Not Detect ed not detect ed Not Available [facility] ([facility]) [address] [place], [address], 02/27/2024 20:05:59 02/25/20 24 02/27/2024 RESPI RATOR Y PANEL W/ SARS- COV2 influenza A Not Detect ed not detect ed Not Available [facility] ([facility]) [address] [facility], [place], [address], 02/27/2024 20:05:59 02/25/20 24 02/27/2024 RESPI RATOR Y PANEL W/ SARS- COV2 influenza A/H1 TNP Test not perfo rmed Not Available [facility] ([facility]) [address] [facility], [place], [address], 02/27/2024 20:05:59 02/25/20 24 02/27/2024 RESPI RATOR Y PANEL W/ SARS- COV2 influenza A/H1-2009 TNP Test not perfo rmed Not Available [facility] ([facility]) [address] [facility], [place], [address], 02/27/2024 20:05:59 02/25/20 24 02/27/2024 RESPI RATOR Y PANEL W/ SARS- COV2 influenza A/H3 TNP Test not perfo rmed Not Available [facility] ([facility]) [address] [facility], [place], [address], 02/27/2024 20:05:59 02/25/20 24 02/27/2024 RESPI RATOR Y PANEL W/ SARS- COV2 influenza B Not Detect ed not detect ed Not Available [facility] ([facility]) [address] [facility], [place], [address], 02/27/2024 20:05:59 02/25/20 24 02/27/2024 RESPI RATOR Y PANEL W/ SARS- COV2 parainfluenz a 1 Not Detect ed not detect ed Not Available [facility] ([facility]) [address] [place], [address], 02/27/2024 20:05:59 02/25/20 24 02/27/2024 RESPI RATOR Y PANEL W/ SARS- COV2 parainfluenz a 2 Not Detect ed not detect ed Not Available [facility] ([facility]) [address] [facility], [place], [address], 02/27/2024 20:05:59 02/25/20 24 02/27/2024 RESPI RATOR Y PANEL W/ SARS- COV2 parainfluenz a 3 Not Detect ed not detect ed Not Available [facility] ([facility]) [address] [facility], [place], [address], 02/27/2024 20:05:59 02/25/20 24 02/27/2024 RESPI RATOR Y PANEL W/ SARS- COV2 parainfluenz a 4 Not Detect ed not detect ed Not Available [facility] ([facility]) [address] [facility], [place], [address], 02/27/2024 20:05:59 02/25/20 24 02/27/2024 RESPI RATOR Y PANEL W/ SARS- COV2 respiratory syncytial virus Not Detect ed not detect ed Not Available [facility] ([facility]) [address] [facility], [place], [address], 02/27/2024 20:05:59 02/25/20 24 02/27/2024 RESPI RATOR Y PANEL W/ SARS- COV2 bordetella parapertussi s Not Detect ed not detect ed Not Available [facility] ([facility]) [address] [facility], [place], [address], 02/27/2024 20:05:59 02/25/20 24 02/27/2024 RESPI RATOR Y PANEL W/ SARS- COV2 bordetella pertussis Not Detect ed not detect ed Not Available [facility] ([facility]) [address] [facility], [place], [address], 02/27/2024 20:05:59 02/25/20 24 02/27/2024 RESPI RATOR Y PANEL W/ SARS- COV2 chlamydophil a pneumoniae Not Detect ed not detect ed Not Available [facility] ([facility]) [address] [facility], [place], [address], 02/27/2024 20:05:59 02/25/20 24 02/27/2024 RESPI RATOR Y PANEL W/ SARS- COV2 mycoplasma pneumoniae Not Detect ed not detect ed Not Available [facility] ([facility]) [address] [facility], [place], [address], 02/27/2024 20:05:59 02/25/20 24 02/25/2024 rapid flu (A+B) Flu A negati ve Not Available In-Office Order Internal Use Only DO Not Attach Compendium DO Not Attach Compendium, Do Not Delete/merge, [id number] 02/25/2024 10:28:56 02/25/20 24 02/25/2024 rapid flu (A+B) Flu B negati ve Not Available In-Office Order Internal Use Only DO Not Attach Compendium DO Not Attach Compendium, Do Not Delete/merge, [id number] 02/25/2024 10:28:56 04/17/19 25 04/17/2024 rapid flu (A+B) Flu A positi ve Not Available In-Office Order Internal Use Only DO Not Attach Compendium DO Not Attach Compendium, Do Not Delete/merge, [id number] 04/17/2024 15:26:15 04/17/19 25 04/17/2024 rapid flu (A+B) Flu B negati ve Not Available In-Office Order Internal Use Only DO Not Attach Compendium DO Not Attach Compendium, Do Not Delete/merge, [id number] 04/17/2024 15:26:15 02/26/20 24 02/25/2024 XR, chest [...] IMPRES TERRANCE: No acute abnorm ality. WSN: [id number] Orderi ng Physic duc: Eulogio Raines ie Dictat ed By: Isaura Gabriel MD Dictat ed Date/T jody: 8:25 am Review ed By: Isaura Gabriel MD Signed By: Isaura Gabriel MD Signed Date/T jody: 8:25 am Transc ribed By: GAIL Transc ribed Date/T jody: 8:24 am Patien t Class: Outpat ient [facility] (Outpt Imaging) [address] [place], [address], 02/26/2024 20:02:12 02/27/20 24 02/07/2024 US, lower extre mity No observ ation record ed. [email or web address] [facility] (Medical Records) [address] [place], [address], 02/28/2024 09:06:36 03/14/20 24 03/13/2024 XR, knee, 3 view No observ ation [facility] [address] [place], [address], 03/14/2024 14:04:22 04/18/19 25 04/18/2024 XR, chest , 2 view No observ ation record ed. [email or web address] Not Available 04/18 11:20:12 04/18/19 25 04/17/2024 [...] IMPRES TERRANCE: No acute abnorm ality. WSN: [id number] Orderi ng Physic duc: Francisco Javier Lopez Dictat ed By: George Newberry MD, V Dictat ed Date/T jody: 8:33 am Review ed By: George Newberry MD, V Signed By: George Newberry MD, V Signed Date/T jody: 8:33 am Transc ribed By: GAIL Transc ribed Date/T jody: 8:19 am Patien t Class: Outpat ient [facility] (Outpt Imaging) [address] [place] [address], [address], 04/18/2024 17:48:35 Result Notes None recorded. Problems Name Problem SNOMED Code Status Onset Date Resolution Date Notes Provider Name and Address Organization Details Recorded Time Epigastr ic pain 32472060 Completed 05/10/[address] [facility] 7 11:02:22 Abdomina l pain 55609365 Completed 05/10/[address] [facility] 7 11:01:53 Allergic rhinitis 40873845 Completed 200910/09/2013 RECORDED 06/27/19 10 10:27AM BY MARQUISE MARRUFO MA, ANNOTATI ON/ADDEN DUM Jaylene betts [facility] 7 08:51:51 Allergic rhinitis 96093406 Completed 05/10/[address] [facility] 7 08:51:51 Asthma 868544356 Active Maxine betts [facility] 6 12:08:51 Acute asthma 861480353 Completed 05/10/2016 Jaylene betts, [facility] 7 11:02:10 Chest pain 89516476 Completed 05/10/2016 Jaylene betts, [facility] 7 11:02:04 Tobacco dependen ce syndrome 04782687 Completed 07/20/2018 [facility] Hidalgo, [facility] [address] [facility] [address], [place], [address], [facility] 4 10:10:19 Elevated blood-pr essure reading without diagnosi s of hyperten terrance 418332696 Completed 201010/09/2013 RECORDED 12/22/19 11 3:26PM BY MARQUISE MARRUFO MA, ANNOTATI ON/ADDEN DUM Maxine betts, [facility] 6 12:08:51 Enthesop athy of hip region 31455824 Active Maxine betts, [facility] 6 12:08:51 Gastroes ophageal reflux disease 309587941 Completed 200910/09/2013 RECORDED 06/27/19 10 10:27AM BY MARQUISE MARRUFO MA, BENNIEATI ON/ADDEN MYRA betts, [facility] 6 12:08:51 Essentia l hyperten terrance 49234817 Active Maxine betts, [facility] 6 12:08:51 Influenz a vaccine needed 63923139242 06 Completed 05/10/2016 Jaylene betts, [facility] 7 11:01:42 General examinat ion of patient Completed 200710/09/2013 RECORDED 11/28/19 08 2:32PM BY MARQUISE MARRUFO MA, ANNOTATI ON/ADDEN DUM Maxine betts, [facility] 6 12:08:51 Influenz a with respirat ory manifest ation other than pneumoni a Completed 05/10/2016 Jaylene betts, [facility] 7 11:02:29 Low back pain 042856757 Completed 200910/09/2013 RECORDED 06/27/19 10 10:27AM BY MARQUISE MARRUFO MA, ANNOTATI ON/ADDEN DUM Maxine betts, [facility] 6 12:08:51 Migraine 88394263 Active Maxine betts, [facility] 6 12:08:51 Eruption 464218435 Completed 200710/09/2013 RECORDED 11/28/19 08 2:32PM BY MARQUISE MARRUFO MA, ANNOTATI ON/ADDEN DUM Malinda Hidalgo, [facility] [address] [facility] [address], [place], [address] [place] [address] 2 13:14:35 Restless legs 94586650 Completed 05/10/2016 Jaylene betts, [facility] 8 11:35:16 Adult health examinat ion Completed 05/10/[address] [facility] 7 11:02:00 Dermatop hytosis of the body Active Maxine betts [facility] 6 12:08:51 Injury of elbow 656108946 Completed 05/10/[address] [facility] 7 11:01:45 Allergy Completed 05/10/[address] [facility] 7 11:01:39 Allergic rhinitis 57555154 Completed 200911/05/2013 RECORDED 06/27/19 10 10:27AM BY MARQUISE MARRUFO MA, ANNOTATI ON/ADDEN DUM Jaylene Díaz MA null, [facility] 7 08:51:51 Elevated blood-pr essure reading without diagnosi s of hyperten terrance 348655902 Completed 201011/05/2013 RECORDED 12/22/19 11 3:26PM BY MARQUISE MARRUFO MA, ANNOTATI ON/ADDEN DUM Maxine D'Alessan ale null, [facility] 6 12:08:51 Gastroes ophageal reflux disease 324624777 Completed 200911/05/2013 RECORDED 06/27/19 10 10:27AM BY MARQUISE MARRUFO MA, ANNOTXAVIER ON/ADDEN DUM Maxine D'Alessan ale null, [facility] 6 12:08:51 General examinat ion of patient Completed 200711/05/2013 RECORDED 11/28/19 08 2:32PM BY MARQUISE MARRUFO MA, BENNIEATI ON/ADDEN DUM Maxine D'Alessan ale null, [facility] 6 12:08:51 Follow-u p encounte r Completed 05/10/2016 Jaylene Díaz MA null, [facility] 7 11:02:18 Low back pain 025695060 Completed 200911/05/2013 RECORDED 06/27/19 10 10:27AM BY MARQUISE MARRUFO MA, ERICH ON/ADDEN DUM Maxine Jonny'Alessan ale null, [facility] 6 12:08:51 Eruption 478441911 Completed 200711/05/2013 RECORDED 11/28/19 08 2:32PM BY MARQUISE MARRUFO MA, ANNOTATI ON/ADDEN DUM Malinda Hidalgo, [facility] [address] [address] [address] [place] [address] 2 13:14:35 Body mass index 40+ - severely obese 596841427 Active Gregoria betts [facility] 8 17:58:43 Thoracic back pain 296795821 Active Maxine betts [facility] 6 12:08:51 Cough 75324257 Completed 05/10/[address] [facility] 7 11:02:35 Urogenit al finding 519643936 Active STORY: RIGHT KIDNEY CYST U/S 07/[address] [facility] 6 12:08:51 Thumb injury 102219288 Completed 05/10/[address] [facility] 7 11:01:49 Bunion 510599656 Completed 05/10/[address] [facility] 7 11:02:37 Disorder of breast 15655394 Completed 05/10/[address] [facility] 7 11:02:24 Metatars algia 82266810 Active Maxine betts [facility] 6 12:08:51 Acute bronchit is 60774041 Completed 03/27/[address] [facility] 6 10:22:54 Pleuriti c pain 6656307 Completed 05/10/[address] [facility] 7 11:01:57 Atypical chest pain 095436941 Active Maxine betts [facility] 6 12:13:25 Allergic rhinitis 08130828 Completed 201606/17/[address] [facility] 7 08:51:51 Hyperlip idemia 53125083 Active 2017 Arely Lopez PA-C [address], [place], [address], [facility] 8 13:20:18 Restless legs 95367722 Active 2017 Jaylene Díaz MA null, [facility] 8 11:35:16 Snoring 22628350 Active 2017 Jaylnee Díaz MA null, [facility] 8 11:35:33 Heart disease 67174506 Active 07/2017 had pos ETT, sent for cardiac cath, had 90% blockage of LAD; stented Dr Tere araya null, [facility] 9 15:32:25 Ex-smoke r 6355514 Active 2017 Marquise rowe MA null, [facility] 9 09:39:52 Suspecte d COVID-19 287249566 Completed 09/23/2020 Removal Reason: Problem added by user [email or web address] from the COVID-19 watch flag Shonda Vuong null, [facility] 1 14:36:15 Prediabe michele 054836182 Active 2021 ALEXI Jane [address], [place], [address], [facility] 2 13:14:34 Eruption 544589184 Active 2021 RECORDED 11/28/19 08 2:32PM BY MARQUISE MARRUFO MA, ANNOTATI ON/ADDEN DUM ALEXI Jane [address], [place], [address], [facility] 2 13:14:34 Fatigue 58304859 Active 2021 ALEXI Jane [address], [place], [address], [facility] 2 13:23:33 Morbid obesity 591456351 [facility] 2021 [facility] 2 15:15:41 Benign paroxysm al position al vertigo 795862894 Active 2021 Malinda Hidalgo PASRYAN [address] [facility] [address], [place], [address], [facility] 2 09:11:59 Tobacco dependen ce syndrome 34900412 Active 2023 [facility] [address] [facility] [address], [place], [address], [facility] 4 10:10:19 Neck pain 90540279 Active 2023 ALEXI Jane [address] [facility] [address], [place], [address], [facility] 4 12:17:05 Vasculit is of the skin 64360746 Active 2023 ALEXI Jane [address] [facility] [address], [place], [address], [facility] 4 10:17:48 Venous varices 792691872 Active 2023 ALEXI Jane [address] [facility] [address], [place], [address], [facility] 4 10:18:57 Overacti ve urinary bladder 375322138 Active 2023 ALEXI Jane [address] [facility] [address], [place], [address], [facility] 4 09:27:28 Headache 92841006 Active 2023 ALEXI Jane [address] [facility] [address], [place], [address], [place] [facility] 09:39:53 Problem Notes None recorded. Procedures Surgical History Date Name Laterality Status Provider Name and Address Organization Details Recorded Time 06/20/19 23 Most Recent Mammogram completed Maxine Gallo MA [facility] 10/05/2022 09:02:08 12/27/19 21 Date of Last Pap Smear completed oMnica Mesa MA [facility] 09/22/2021 13:06:35 06/15/19 21 Mammogram screening completed Brittany Green [facility] 06/24/2020 16:15:31 05/31/19 19 angiography of coronary artery completed Kathy Johansen [facility] 05/30/2018 09:37:32 08/06/19 18 Coronary art/grft angio s&i completed Bella Wray [facility] 08/10/2017 11:28:44 02/19/20 15 Ultrasound breast complete completed Dilia Howe [facility] 02/19/2015 09:44:02 release of trigger thumb completed Marquise mendez MA [facility] 04/05/2018 14:55:44 Tonsillectomy completed Monica jones MA [facility] 09/22/2021 12:54:58 Imaging Results Imaging Date Name Status LastModified by Organiz ation Details LastModified Time 02/25/2024 XR, chest, 2 view completed [facility] (Outpt Imaging) [address] [place], [address], 02/26/2024 20:02:12 02/07/2024 US, lower extremity completed [email or web address] [facility] (Medical Records) [address] [place], [address], 02/28/2024 09:06:36 03/13/2024 XR, knee, 3 view completed [facility] [address] [place] [address], [address], 03/14/2024 14:04:22 04/18/2024 XR, chest, 2 view completed [email or web address] Information not available 04/18/2024 11:20:12 04/17/2024 XR, chest, 2 view completed [facility] (Outpt Imaging) [address] [place], [address], 04/18/2024 17:48:35 Procedure Notes None recorded. Medical Equipment None Reported. Allergies Allergen ID Allergen Name Allergen Category Reaction Reaction Severity Criticality Documentation Date Start Date Code Code System Note Provider Name and Address Organization Details Recorded Time 10534 Glycine max ([facility] e) environme nt,food,m edication other Not available Not available 11/02/20132013 34501 5007 SNOMED [facility] 2 12:54:40 06358 potato allergeni c extract food Not available Not available Not available 04/05/2018 40866 2 RxNorm [facility] 2 12:54:40 7541 Product containin g angiotens in-conver ting enzyme inhibitor (product) medicatio n cough Not available Not available 10/09/20132013 58760 009 SNOMED Lisin opril [facility] 5 13:15:24 7542 omeprazol e medicatio n abdominal pain Not available Not available 10/09/20132013 [address] [facility] 2 12:54:40 7543 Product containin g penicilli n (product) medicatio n other Not available Not available 10/09/20132013 52094 8001 SNOMED [facility] 5 13:15:24 Medications Name Sig Start Date Stop Date Status Note LastModified by Organization Details LastModified Time flovent hfa 110 mcg/act aero 06/12 completed Not Available Not Available Not Available monteluka st sodium 10 mg tabs 06/12 completed Not Available Not Available Not Available flucelvax 0411-5271 .5 ml israel 06/12 completed Not Available Not Available Not Available carbidopa /levodopa 10-100 mg tabs 1 tablet [...] TAKE ONE TABLET BY MOUTH EVERY DAY 2024 active Not Available Not Available Not Avai lable azithromy winter 250 mg tablet TAKE 2 [...] 10/28/19 10 1:54PM BY MAXINE LOVE MD, BENNIEATI ON/ADDEN DUM; Not Available Not Available [...] IM syringe VACCINAT ION ADMINIST ERED BY [employer] ST 01/20 completed Not Available Not Available Not Available Nurtec ODT 75 mg disintegr ating tablet TAKE 1 TABLET DAILY IF NEEDED FOR MIGRAINE active Not Available Not Available No t Available Fluarix Quad (PF) 60 mcg (15 mcg x 4)/0.5 mL IM syringe VACCINAT ION ADMINIST ERED BY [employer] ST 03/19 completed Not Available Not Available [...] Updated DateTime 4 154.94 cm 38 kg/m2 10968.0 7 g 78 /min 96 % 96 % 97.8 [degF] 141 mm[Hg] 83 mm[Hg] Payal Jhaveri MA [facility] 4 08:29:55 Date Recorded Body height Body mass index (BMI) Body weight Heart rate Oxygen saturation Oxygen saturation in Arterial blood by Pulse oximetry Body temperature Systolic blood pressure Diastolic blood pressure Provider Name and Address Organization Details Last Updated DateTime 4 154.94 cm 37 kg/m2 13769.1 g 84 /min 99 % 99 % 97.9 [degF] 126 mm[Hg] 81 mm[Hg] Payal Jhaveri MA [facility] 4 15:12:02 Date Recorded Body height Body mass index (BMI) Body weight Oxygen saturation Oxygen saturation in Arterial blood by Pulse oximetry Heart rate Body temperature Systolic blood pressure Diastolic blood pressure Provider Name and Address Organization Details Last Updated DateTime 4 154.94 cm 36.7 kg/m2 68882.3 2 g 98 % 98 % 84 /min 97.8 [degF] 124 mm[Hg] 78 mm[Hg] Monica Mesa MA [facility] 4 10:27:23 Date Recorded Body height Body mass index (BMI) Body weight Heart rate Oxygen saturation Oxygen saturation in Arterial blood by Pulse oximetry Body temperature Systolic blood pressure Diastolic blood pressure Provider Name and Address Organization Details Last Updated DateTime 5 154.94 cm 35.7 kg/m2 06134.9 6 g 62 /min 98 % 98 % 97.5 [degF] 140 mm[Hg] 72 mm[Hg] Tim foy MA [facility] 5 09:24:31 Date Recorded Systolic blood pressure Diastolic blood pressure Provider Name and Address Organization Details Last Updated DateTime 04/03/2024 120 mm[Hg] 68 mm[Hg] Malinda Hidalgo [facility] [address] [facility] [address], [place], [address], [facility] 04/03/2024 09:45:43 Date Recorded Body height Body mass index (BMI) Body weight Heart rate Oxygen saturation Oxygen saturation in Arterial blood by Pulse oximetry Body temperature Systolic blood pressure Diastolic blood pressure Provider Name and Address Organization Details Last Updated DateTime 5 154.94 cm 35.2 kg/m2 38715.8 8 g 91 /min 99 % 99 % 98.3 [degF] 127 mm[Hg] 77 mm[Hg] Rosy Roy LPN [facility] 5 14:46:04 Social History Question Answer Notes LastModified by Organizat ion Details LastModified Time Tobacco Smoking Status Current Every Day Smoker [place] Ho, [facility] 10/11/2023 08:50:30 Do You Have An Advance Directive? Yes HCP At [facility] 05/30/18 [email or web address] Information not available 09/22/2021 What Is Your [...] Or Vape? Former User Of Electronic Cigarettes Information not available 09/22/2021 What Is Your Occupation? [employer] Information not available 07/20/2018 When Did You Quit Smoking? 1-5yearssince cristina [email or web address] Information not available 09/22/2021 Live Alone Or [...] Or Greater Than 100 Degrees Fahrenheit? No [email or web address] Information not available 11/15/2019 Are You Or Anyone In Your Household A Health Care Provider Or Emergency Responder? No [email or web address] Information not available 11/15/2019 To The Best Of Your Knowledge Have You Been In Close Proximity To Any Individual Who Tested Positive For COVID-19? No [email or web address] Information not available 11/15/2019 *AWV ONLY* Are You Presently Prescribed Opioid Medication By PCP Or Specialist? If YES -Provider Assess The Benefit For Other, Non-opioid Pain Therapies Instead, Even If The Patient Does Not Have OUD But Is Possibly At Risk. No [email or web address] Information not available 09/22/2021 Have You Recently Traveled To A COVID-19 High Risk Area Or Gathering In The Last 10 Days? No [email or web address] Information not available 09/16/2020 What Was The Date Of Your Most Recent Tobacco Screening? 10/05/2022 Information not available 10/05/2022 How Many Children Do You Have? 1 Paddy (has ADD) [email or web address] Information not available 01/14/2014 What Is Your Current Pack Years? 20-29packyear s Information not available 09/22/2021 Do You Use Protection During Sex? Usually [email or web address] Information not available 09/22/2021 Do You Use Your Seat Belt Or Car Seat Routinely? Yes [email or web address] Information not available 09/22/2021 Seat Belts Used Routinely Yes [email or web address] Information not available 09/22/2021 Are You Sexually Active? No [email or web address] Information not available 09/22/2021 Smoke Alarm In Home Yes [email or web address] Information not available 09/22/2021 Do You Have Smoke And Carbon Monoxide Detectors In Your Home? Yes [email or web address] Information not available 09/22/2021 At What Age [...] Many Years Have You Smoked Tobacco? 25 [email or web address] Information not available 09/16/2020 Do You Or Have You Ever Used Any Other Forms Of Tobacco Or Nicotine? No [email or web address] Information not available 09/22/2021 Sex: Unknown Functional Status Question Answer Note LastModified by Organizat ion Details LastModified Time Are you able to walk? YESWOREST [email or web address] Information not available 09/22/2021 Are you able [...] nation - 10/05/22 Medical History Condition Response Headaches/Migraines [...] virus, trivalent, PF [address] [facility] 01/14/2014 15:10:51 Influenza, split virus, quadrivalent, preservative [address] [facility] 03/06/2018 13:58:17 COVID-19, mRNA, LNP-S, PF, 100 mcg/0.5mL dose or 50 mcg/0.25mL dose [address] [facility] 04/03/2021 09:17:46 COVID-19, mRNA, LNP-S, PF, 100 mcg/0.5mL dose or 50 mcg/0.25mL dose [address] [facility] 04/03/2021 09:17:46 Influenza, split virus, trivalent, PF 6 completed [place] Huber, [facility] 04/03/2021 09:17:46 Influenza, split virus, quadrivalent, PF 9 completed [place] Huber, [facility] 04/03/2021 09:17:46 Influenza, MDCK, quadrivalent, PF 7 completed [place] Huber, [facility] 04/03/2021 09:17:46 Influenza, MDCK, quadrivalent, PF 1 completed [place] Huber, [facility] 04/03/2021 09:17:46 Influenza, split virus, quadrivalent, PF 0 completed [place] Huber, [facility] 04/03/2021 09:17:46 Influenza, split virus, quadrivalent, PF 8 [facility] 09:17:46 COVID-19, mRNA, LNP-S, PF, 100 mcg/0.5mL dose or 50 mcg/0.25mL dose 2 completed [place] Martinez, [facility] 09/22/2021 13:01:02 Influenza, split virus, quadrivalent, PF 2 completed Autumn Mcfarlane MA null, [facility] 05/27/2022 11:31:26 Influenza, split virus, trivalent, preservative 2 completed Maxine Gallo MA null, [facility] 10/05/2022 08:52:10 Influenza, MDCK, quadrivalent, PF 3 completed Rosy Roy LPN null, [facility] 08/18/2023 14:49:20 zoster recombinant 3 completed Rosy Caporale, HOME CARE MANAGER null, [facility] 08/18/2023 14:49:20 zoster recombinant 3 completed Rosy Caporale, HOME CARE MANAGER null, [facility] 08/18/2023 14:49:20 COVID-19, mRNA, LNP-S, PF, 50 mcg/0.5 mL 4 completed Rosy Caporale, HOME CARE MANAGER null, [facility] 08/18/2023 14:49:20 Tdap 4 completed Not Available [facility] 04/14/2019 02:21:44 Td (adult), 2 Lf tetanus toxoid, preservative free, adsorbed 1 completed Not Available [facility] 10/09/2013 14:02:25 pneumococcal polysaccharide PPV23 5 completed Not Available [facility] 10/09/2013 14:02:25 Influenza, split virus, trivalent, preservative 6 completed Not Available [facility] 10/09/2013 14:02:25 Influenza, split virus, trivalent, preservative 7 completed Not Available [facility] 10/09/2013 14:02:25 Influenza, split virus, trivalent, preservative 8 completed Not Available [facility] 10/09/2013 14:02:25 Influenza, split virus, trivalent, preservative 0 completed Not Available [facility] 10/09/2013 14:02:25 Influenza, split virus, trivalent, preservative 1 completed Not Available [facility] 10/09/2013 14:02:25 Influenza, split virus, trivalent, PF 5 completed Malinda Hidalgo [address], [address], [facility] 04/03/2024 12:00:00 Past Encounters Encounter ID Performer Location Encounter Start Date Encounter Closed Date Diagnosis/Indication Diagnosis SNOMED-CT Code Diagnosis ICD10 Code Diagnosis Note [id number] [facility] [address] [address] [place] [address] 12/22/2006 00:00:00 [id number] [facility] [facility] [address] [place] [address] 01/12/2007 00:00:00 [id number] [facility] [facility] [address] [place] [address] 01/17/2007 00:00:00 [id number] [facility] [address] [address] [place] [address] 06/02/2007 00:00:00 [id number] [facility] [facility] [address] [facility] [address] [place] [address] 06/20/2007 00:00:00 [id number] [facility] [facility] [address] [facility],[address] [place] [address] 11/28/2007 00:00:00 [id number] [facility] [facility] [address] [facility] [address] [place] [address] 01/14/2009 00:00:00 [id number] [facility] [facility] [address] [facility],[address] [place] [address] 04/22/2009 00:00:00 [id number] [facility] [facility] [address] [facility],[address] [place] [address] 06/26/2009 00:00:00 [id number] [facility] [facility] [address] [facility] [address] [place] [address] 07/11/2009 00:00:00 [id number] [facility] [facility] [address] [place] [address] 10/27/2009 00:00:00 [id number] [facility] [facility] [address] [facility] [address] [place] [address] 05/01/2010 00:00:00 [id number] [facility] [facility] [address] [facility],[address] [place] [address] 05/15/2010 00:00:00 [id number] [employer] [address] [facility],[address] [place], [place] [address] 11/09/2010 00:00:00 [id number] [facility] [facility] [address] [facility],[address] [place], [place] [address] 12/21/2010 00:00:00 [id number] [employer] [address] [facility],[address] [place], [place] [address] 12/24/2010 00:00:00 [id number] [employer] [address] [facility],[address] [place], [place] [address] 10/09/2013 00:00:00 [id number] Main Office [address] [facility] [address] [place] [address] 01/14/2014 14:25:46 01/14/2014 15:34:40 Adult health examination [id number] Asthma 151433731 Body mass index 40+ - severely obese 981711266 [id number] [facility] Main Office [address] [facility] [address] [place] [address] 04/19/2014 13:03:50 04/19/2014 13:51:12 Thoracic back pain 438808616 Intermitte nt sharp thoracic back pain x 4 days + SOB since yesterday, productive cough. Patient does have risk fx for PE- obesity, smoking, family hx of blood clots, but Well's Criteria Score of 0. VS WNL. Ibuprofen TID as needed, will call with CXR results. Cough 48592491 Asthma 688675481 Body mass index 40+ - severely obese 038303052 [id number] Maxine schmidt Main Office [address] [facility] [address] [place] [address] 04/22/2014 14:52:27 04/22/2014 16:57:13 Chest pain 70687394 Dyspnea 434144226 concer n for PE. she will go to ER for considerat ion CT angiogram. tachypneic , chest and back pain [id number] [facility] Main Office [address] [address] [place] [address] 05/02/2014 09:46:25 05/02/2014 10:20:51 Thoracic back pain 400862072 Patient seen in ED, r/o for PE, [...] supplement if constipati on. Patient understand s. [id number] Main Office [address] [address] [place] [address] 10/01/2014 13:50:55 10/01/2014 14:48:30 Thumb injury 106406228 Bunion 444487375 [id number] Maxine schmidt Main Office [address] [address] [place] [address] 06/13/2015 13:27:33 06/13/2015 15:35:10 Adult health examination 075620538 Z00.00 Screening for malignant neoplasm of cervix 342807759 Z12.4 Body mass index 40+ - severely obese 876873448 Z68.41 Asthma 958012608 J45.90 9 Allergic rhinitis 771557 04 J30.9 Metatarsalgia 87675549 M 77.42 Restless legs 88166404 G 25.81 [id number] Maxine schmidt Main Office [address] [address] [place] [address] 06/24/2015 10:44:59 06/24/2015 11:55:59 Acute bronchitis 15936131 J20.9 [id number] Willie Mojica MD Main Office [address] [address] [place] [address] 07/09/2015 10:33:13 07/09/2015 11:28:09 Pleuritic pain 6223908 R07.81 Chest pain 01539357 R07. [address] Mojica, will repeat XR to r/o PNA , get CBC and d-dimer today. Will also treat for pleurisy w/ ibuprofen, heat or ice to area 4 times daily, will call patient with results. [id number] Maxine schmidt Main Office [address] [address] [place] [address] 07/25/2015 11:25:05 07/25/2015 12:13:20 Pleuritic pain 2630739 R07.81 pt will continue ibuprofen prn Atypical chest pain 1025 96805 R07.89 [id number] Sandee ely Main Office [address] [facility] [address] [place] [address] 03/27/2016 10:20:32 03/27/2016 10:57:18 Acute sinusitis 71669469 J01.90 treat with zmax since not chronic and also with lung symptoms, return if not improving Cough 75654481 R05 tx as below and with zpak [id number] Maxine schmidt Main Office [address] [address] [place] [address] 05/10/2016 10:51:37 05/10/2016 11:42:37 Sinusitis 97589755 J32.9 Cough 42831779 R05 Allergic rhinitis 226994 04 J30.9 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 9 upper back pain -- r/o pna, PE had NL spirometry Acute asthma 224429479 J 45.41 cont inhalers as dir for now Cough 41053088 R05 ? d/t early pna vs d/t post nasal drip, see below Pneumonia 070941202 J18. 9 [id number] Maxine schmidt Main Office [address] [address] [place] [address] 06/17/2016 08:56:30 06/17/2016 09:45:52 Adult health examination 106658814 Z00.00 Asthma 877588417 J45.90 9 Tobacco de pendence syndrome 23147345 F17.290 pt on bupropion Visual disturbance 21922 001 H53.9 [id number] Maxine schmidt Main Office [address] [address] [place] [address] 06/22/2016 10:42:10 06/22/2016 11:20:58 Thoracic back sprain 766042700 S23.3XXA [id number] Maxine Boggs brayan Main Office [address] [address] [place] [address] 09/20/2016 14:11:49 09/20/2016 15:28:27 Migraine 37947805 G43.909 Restless legs 71334531 G 25.81 [id number] Maxine schmidt Main Office [address] [address] [place] [address] 04/22/2017 13:54:32 04/22/2017 14:51:04 Influenza-like symptoms 209501954 R68.89 flu like sx, smoker and hx of asthma, no rapid flu available. Will send flu PCR stat and have her start tamiflu BID. hydration, rest, frequent handwashin g. Otitis media 23986508 H6 6.91 right OM, will start on abx, she is allergic to PCN. hydration, rest, tylenol/ ibuprofen as needed. [id number] Maxine Boggs brayan Main Office [address] [address] [place] [address] 04/25/2017 14:57:10 04/25/2017 16:05:41 Fever 900172030 R50.9 ? if d/t underlying sinusitis - stop abx, but cont tamiflu as dir (just in case was false negative last wk), will change advisor to doxy - see below, and check labs and cxr, push fluids, oow until re-eval in a few days Cough 42897432 R05 ? d/t early pna vs d/t post nasal drip, see below Sinusitis 84163672 J32.9 rec. probiotic supp or ukrainian yogurt while onabx Nausea and vomiting 1693 1999 R11.2 ? d/t SE of abx - advised to stop cef. - consider flat sahil sade or sahil tea - if no better than use prn zofran [id number] Maxine Motleymarli schmidt Main Office [address] [address] [place] [address] 04/28/2017 10:38:54 04/28/2017 11:36:29 Sinusitis 42708708 J32.9 sig improvemen t on doxy - [...] pt to schedule PE ~ 6 wks [id number] Maxine schmidt Main Office [address] [facility] [address] [place] [address] 05/19/2017 08:53:38 05/19/2017 09:31:40 Chest pain 17190517 R07.9 ongoing x 12 days with negative initial work-up at [facility] though she did leave AMA. meloxicam as needed, refer to cardiology , will check d-dimer, if elevated CT chest. [id number] Maxine schmidt Main Office [address] [facility] [address] [place] [address] 06/21/2017 10:52:30 06/21/2017 12:03:12 Adult health examination 368051155 Z00.00 Body mass index 40+ - severely obese 249422321 E66.01 Z68.41 Atypical chest pain 1025 03488 R07.89 [id number] Sandee ely Main Office [address] [facility] [address] [place] [address] 08/10/2017 12:58:35 08/10/2017 13:41:09 Coronary arteriosclerosis 36686003 I25.10 F/u with Dr. Carranza as scheduled. Continue ASA and Plavix, Atorvastat in 80 . Recheck lipids in 4 weeks. Goal for LDL is under 70. 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 Continue low len low fat diet and cardiac rehab for exercise. Tobacco de pendence syndrome 58625230 F17.200 Continue Bupropion XL 150 mg BID. Pt. is down to 5 cigarettes from 2 packs per day. Essential hypertension 07542569 I10 stable on meds. F/u with cardiology . [id number] Sandee ely Main Office [address] [facility] [address] [place] [address] 01/25/2018 14:37:19 01/25/2018 15:25:28 Eruption 117060090 R21 looks like reaction to bug bite with eczema or psoriasis on top, tx as below no infection [id number] Arely Lopez PA-C Main Office [address] [address] [place] [address] 03/06/2018 13:42:57 03/06/2018 14:19:06 Eczema 35504433 L30.9 Recommende d to use emollient barrier moisturize r or Amlactin cream and a different steroid cream BID. If no improvemen t in 34- weeks, will efer to derm. [id number] Sandee ely Main Office [address] [address] [place] [address] 04/05/2018 14:48:44 04/05/2018 16:12:36 Benign paroxysmal positional vertigo 932879132 H81.10 Likely positional vertigo. Pt had exacerbati on of dizziness after hallpike manuver. Will try low dose antivert 1-2 tid prn only if needed, rest, hydration, avoid sudden movments and OOW 1-2 days. If not improving would send for PT and ENT evaluation . If sx worsen to call. Recheck in a few weeks. Patient po st percutaneous transluminal coronary angioplasty 721217261 Z98.61 pt follows with cardiology . She is on plavix and aspirin, high dose statin . No further cardiac sx. Heart disease 74223840 I 51.9 Continue BB, atorvastat in, plavix and aspirin. PT needs to work on weight, exercise [id number] An Cervantes Main Office [address] [address] [place] [address] 04/12/2018 14:38:04 04/12/2018 15:47:46 Benign paroxysmal positional vertigo 217196758 H81.10 Likely positional vertigo but not getting [...] the interim. Call if any worsening sx. [id number] ALEXI Jane Main Office [address] [facility] [address] [place] [address] 07/20/2018 09:18:38 07/20/2018 10:06:40 Adult health examination 879466749 Z00.00 HM UTD, has pap appt scheduled Essential hypertension 15735030 I10 BP well controlled , followed by cardiology Hyperlipidemia 20722323 E78.5 cholest done 06/20/18 normal, on atorvastat in. Seasonal allergy 7567198 04 J30.2 Heart disease 17956780 I 51.9 s/p stent in July 2017 and repeat cardiac cath in May 2018, followed by Dr. Carranza, on all appropriat e meds and is taking them as directed. f/u cardiology appt in October Body mass index 40+ - severely obese 792509144 E66.01 Z68.42 [id number] Sandee ely Main Office [address] [facility] [address] [place] [address] 01/20/2019 09:11:55 01/20/2019 09:59:17 Acute asthma 208761097 J45.901 from infection, pt needs to be on a steroid inhaler. pt to try pulmicort at pharmacy, if not covered to discuss with Malinda at f/u Pneumonia 755750276 J18. 9 treat with zpak, Tinea corporis 41549269 B35.4 [id number] ALEXI Jane Main Office [address] [facility] [address] [place] [address] 01/23/2019 14:53:46 01/23/2019 15:16:42 Acute asthma 388064131 J45.901 sx continue, has wheezing and SOB today. finish zpak, start medrol dose pack, use robitussin with codeine as needed at bedtime- no driving or alcohol with med. rest, hydration. call/ return for worsening or concerns. Cough 13100329 R05 [id number] Torrey Lopez PA-C Main Office [address] [facility] [address] [place] [address] 02/12/2019 10:40:10 02/12/2019 11:27:21 Acute asthma 613180979 J45.41 cont inhalers, singulair as dir for now, pt ran out of alb - will refill, and re-rx c medrol dose liban - pt requested this as she precious. it well last month Nausea and vomiting 1692 1999 R11.2 rec consider flat sahil sade or sahil tea - if no better than use prn zofran Cough 89916283 R05 ? d/t early pna vs d/t post nasal drip, see below -- will rx c abx if + trial c tessalon too Seasonal a llergic rhinitis 853319386 J30.2 ? pnd contributi ng to cough seen by rod pointer a few yrs ago - used to take allergy shots, never seemed to help as per pt - retry nasal saline and rhinicort (no tolerate flonase as per pt d/t floral scent) c prn tessalon - if no sig help, then consider allergy re-eval [id number] An Cervantes Main Office [address] [facility] [address] [place] [address] 11/15/2019 10:37:57 11/15/2019 11:24:08 Pain in left knee 4440631518 99710 M25.562 [employer] check xray for arthritis, no evidence of cartilage injury or ligamentou s problem. Will try PT, enc wt loss, can use otc meds prn, ice/heat as needed. Ortho if not better Pain in le ft lower limb 866045121 M79.605 due to pain in calf will do U/S to assess for DVT [id number] An Cervantes [facility] [address] [facility] [address] [facility] [place] [address] 11/23/2019 12:39:33 11/23/2019 15:37:04 Benign paroxysmal positional vertigo 874274358 H81.10 Likely positional vertigo, sx similar to [...] or focal sx, unable to control vomiting. [id number] Arely Lopez PA-C Main Office [address] [facility] [address] [place] [address] 12/25/2019 12:49:55 12/25/2019 13:39:33 Pain in left foot 6707503289 71222 M79.672 ? if triggered by knee issues. WE will xray the food and continue NSAIDs for now. Refer to orthopedis t for the evaluation . [id number] ALEXI Jane [facility] [address] [facility] [address] [place] [address] 07/03/2020 10:50:33 07/03/2020 11:25:44 Exposure to viral disease 3218624194 72894 Z20.828 Essential hypertension 62306670 I10 BP well controlled , followed by cardiology Heart disease 51982003 I 51.9 s/p stent in July 2017 and repeat cardiac cath in May 2018, followed by Dr. Carranza, on all appropriat e meds and is taking them as directed. f/u cardiology appt in October Hyperlipidemia 29156785 E78.5 cholest done 06/20/18 normal, on atorvastat in. Impaired f asting glycemia 328422107 R73.01 Vaccine ad verse reaction 238441583 T50.Z95A Moderna #1 on 07/01. had N/V, chills, LORENZ and also felt scratchy, itchy throat and like there was something in her throat. Took 2 benadryl and sx resolved but is concerned about getting 2nd vaccine. To her knowledge she has not had covid. Will check bloodwork and refer to allergy for another opinion/ ? should she premedicat e prior to 2nd dose. [id number] ALEXI Jane Main Office [address] [facility] [address] [place] [address] 09/16/2020 11:20:32 09/16/2020 12:02:42 Adult health examination 539948072 Z00.00 UTD, has pap appt scheduled. had labs in June, normal except A1C of 5.8 Essential hypertension 27458385 I10 BP well controlled , followed by cardiology , cardiology visit in november. Hyperlipidemia 44372190 E78.5 well controlled on atorvastat in Screening for malignant neoplasm of cervix 251878258 Z12.4 Prediabetes 684997991 R7 3.03 Eruption 024848515 R21 left elbow [id number] [facility] Main Office [address] [facility] [address] [place] [address] 10/07/2020 08:20:35 10/07/2020 09:08:21 Pain in left thumb 1063654115 507066 M79.645 Will check XR and refer to ortho Eruption 236825097 R21 left elbow [id number] Juan Soliman MD [facility] [address] [address] [place] [address] 04/03/2021 06:49:09 04/03/2021 12:46:24 Exposure to viral disease 3865709137 15438 Z03.818 Exacerbati on of mild persistent asthma 982287662 J45.31 [id number] Denise Dallas Main Office [address] [address] [place] [address] 09/22/2021 12:52:28 09/22/2021 13:34:32 Adult health examination 172466825 Z00.00 UTD, due for colo in february. will update labs Asthma 303728383 J45.90 9 requests refills Essential hypertension 64105687 I10 BP well controlled , followed by cardiology , cardiology visit in november. Hyperlipidemia 67853308 E78.5 well controlled on atorvastat in Prediabetes 583635693 R7 3.03 Fatigue 76945593 R53.83 Body mass index 40+ - severely obese 006648830 Z68.42 Morbid obesity 684515035 E66.01 [id number] [facility] [address] [address] [place] [address] [place] [address] 05/27/2022 10:35:41 05/27/2022 12:55:27 Cough 63088485 R05.9 Upper resp iratory infection 59947200 J06.9 Her symptoms sound like COVID and she will continue testing. [id number] Malinda [facility]idal[facility] Main Office [address] [address] [place] [address] 10/05/2022 08:46:17 10/05/2022 09:35:42 Adult health examination 520637875 Z00.00 HM UTD, due for colo in february. will update labs Asthma 453176005 J45.90 9 requests refills Essential hypertension 10858886 I10 BP well controlled , followed by cardiology , cardiology visit in november. Hyperlipidemia 84602758 E78.5 well controlled on atorvastat in Prediabetes 738602375 R7 3.03 A1C 5.4. dping well Heart disease 96641186 I 51.9 s/p stent in July 2017 and repeat cardiac cath in May 2018, followed by Dr. Carranza, on all appropriat e meds and is taking them as directed. followed by cardiology . Migraine 39194886 G43.90 9 On topamax 25mg am, and 50mg pm, will increase to 50mg BID for 1-2 weeks to see if this helps with headaches. If relief with refill at 50mg BID. She will scheduled neuro appt if needed. Has rizatripta n and fioricet to use as needed. Hydrating well. Screening for malignant neoplasm of colon 531239778 Z12.11 [id number] Rojelio Patel MD Main Office [address] [facility] [address] [place] [address] 05/03/2023 09:50:28 05/03/2023 10:32:46 Skin lesion 61271218 L98.9 Lesion appears benign. No further w/u needed. She will look for a dermatolog ist for her psoriasis and have them look at it. Psoriasis 6352839 L40.9 Chronic. She will check with her insurance to see what providers in the area are taking it. [id number] ALEXI Jane Main Office [address] [facility] [address] [place] [address] 08/18/2023 14:35:14 08/18/2023 15:27:53 Thoracic back pain 433964134 M54.6 diagnosed with muscle strain. will provide a refill and recommend patient try physical therapy, continue ice or heat whichever feels best, back stretches. Discussed side effects of opiates. Caution driving, careful for falls, fiber supplement if constipati on. Patient understand s. [id number] ALEXI Jane Main Office [address] [facility] [address] [place] [address] 10/04/2023 09:45:29 10/04/2023 10:26:41 Vasculitis of the skin [id number] L95.9 will check blood work, recommend compressio n stockings, elevating legs as much as possible. vascular surgery follow-up for further eval. Venous varices [id number] I83.93 Prediabetes 718561373 R7 3.03 A1C 5.4. 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 due for mammo Overactive urinary bladder 471382044 N32.81 requests refill Asthma 710525824 J45.90 9 requests refills Body mass index 40+ - severely obese 825101764 E66.01 Z68.41 The patient is over 18 [...] for 0.25mg x 4 weeks Essential hypertension 49526169 I10 BP well controlled , followed by cardiology , cardiology visit in november. Hyperlipidemia 12359999 E78.5 well controlled on atorvastat in Migraine 27651645 G43.90 9 On topamax 25mg am, and 50mg pm, will increase to 50mg BID for 1-2 weeks to see if this helps with headaches. If relief with refill at 50mg BID. She will scheduled neuro appt if needed. Has rizatripta n and fioricet to use as needed. Hydrating well. Prediabetes 880306730 R7 3.03 A1C 5.4. doing well Tobacco de pendence syndrome 15521296 F17.200 Screening for malignant neoplasm of breast 647826846 Z12.39 Screening for malignant neoplasm of cervix 027880132 Z12.4 Heart disease 93431768 I 51.9 s/p stent in July 2017 and repeat cardiac cath in May 2018, followed by Dr. Carranza, on all appropriat e meds and is taking them as directed. followed by cardiology . [id number] ALEXI Jane Main Office [address] [facility] [address] [place] [address] 01/10/2024 08:22:40 01/10/2024 09:02:56 Body mass index 40+ - severely obese 926725816 E66.01 Z68.41 The patient is over 18 [...] for 0.25mg x 4 weeks Essential hypertension 51141259 I10 BP mildly elevated today, followed by cardiology , cardiology visit in november. Hyperlipidemia 68355675 E78.5 well controlled on atorvastat in Prediabetes 168075143 R7 3.03 A1C 5.8 on wegovy, will recheck Asthma 564665523 J45.90 9 requests refills Eruption 190829121 R21 left elbow Restless legs 58572311 G 25.81 increase to 20mg amitriptyl ine and let me know how that goes. [id number] DILAN CORTEZ Main Office [address] [facility] [address] [place] [address] 02/06/2024 14:58:23 02/06/2024 15:29:48 Pain in left lower limb 182881203 M79.605 -hx of varicose veins-x1 day of noticing a tender bruise on lower extremity with no known injury/tra ray>denies of any swelling, warmth, erythema, fever, or associated symptoms-r ecently saw vascular on 01/18>has US scheduled for lower extremity tomorrow-l ikely related to varicose veins-has f/u with vascular in Feb-will order labwork per pt request [id number] PAULINA MCNEIL MD Main Office [address] [facility] [address] [facility] [address] 02/25/2024 10:16:30 02/25/2024 10:48:33 Upper respiratory infection 52339847 J06.9 - rapid flu in the office was negative- performed upper respiratoy panel Community acquired pneumonia 384008964 J18.9 - pt is acutely ill, has [...] for cough - return precaution s given [id number] ALEXI Jane Main Office [address] [facility] [address] [place] [address] 04/03/2024 08:59:12 04/03/2024 09:51:35 Body mass index 40+ - severely obese 019256102 E66.01 Z68.41 The patient is over 18 [...] for 0.25mg x 4 weeks Essential hypertension 12238535 I10 BP mildly elevated today, followed by cardiology , cardiology visit in november. recheck 120/68 Hyperlipidemia 83767172 E78.5 well controlled on atorvastat in Prediabetes 026232298 R7 3.03 A1C 5.8 on wegovy, will recheck Needs infl uenza immunization 841397496 Z23 19 YEARS AND OLDER ONLY Allergic reaction 690593 005 T78.40XD [id number] Arely Lopez PA-C Main Office [address] [facility] [address] [facility] [address] 04/17/2024 14:38:07 04/17/2024 15:59:17 Acute upper respiratory infection 89185733 J06.9 FLU A positive. COVID neg at home. Pneumonitis 575045806 J1 8.9 check xray to r/o pneumonia. Acute asthma 484410622 J 45.901 begin prednisone taper and continue albuterol by nebulizer at home q 4 -6 hrs. Influenza caused by Influenza A virus 322844817 J09.X2 Positive Flu A. Recom to begin Tamiflu as directed, Mucinex for cough, albuterol by nebulizer q 4- 6 hrs. Health Concerns Section Related Observation LastModified by Organization Detai ls LastModified Time None Recorded Concern Status LastModified by Organization Details LastModified Time None Recorded Advance Directives Directive Y: HCP at [facility] 05/30/18 Payers Encounter Date Sequence Insurance Name Policy Number Policy Rhodes Covered Member ID Rhodes Member ID Guarantor Name 01/10/2024 1 [facility] - DIRECT CONNECTORCARE TYPE I (HMO) [id number] Candy L Grimes [id number] Candy L Grimes 02/06/2024 1 [facility] - DIRECT CONNECTORCARE TYPE I (HMO) [id number] Candy L Grimes [id number] Candy L Grimes 02/25/2024 1 [facility] - DIRECT CONNECTORCARE TYPE I (HMO) [id number] Candy L Grimes [id number] 01 Candy L Grimes 04/03/2024 1 [facility] - DIRECT CONNECTORCARE TYPE I (HMO) [id number] Candy L Grimes [id number] 01 Candy L Grimes 04/17/2024 1 [facility] - DIRECT CONNECTORCARE TYPE I (HMO) [id number] Candy L Griems [id number] 01 Candy L Grimes Notes Date Note [...] only tolerate 1 coffee. ALEXI Jane [address] [address], [place], [address], [facility] 01/10/2024 10:49:33 02/06/2024 text/html Fatimah is a [...] fever, or associated symptoms. DILAN CORTEZ [address] [address], [place], [address], [facility] 02/06/2024 15:43:14 02/25/2024 text/html CoughReported bypatient.Severity:mod erate Duration:started one week ago Context:smoker;history of asthma Modifying Factors:OTC medication; inhaler Associated Symptoms:no fever; no heartburn; no edema; no agitation; no post nasal drip;chills;chest pain;vomiting;wheezing Upper Respiratory SymptomsReported bypatient.Location:[facility] Quality:dry cough Severity:moderate Duration:one week Onset/Timing:sudden Context:sick [...] positive for chills. PAULINA MCNEIL MD [address] [facility] [address], [place], [address], [facility] 02/26/2024 12:03:50 04/03/2024 text/html Generic HPI TemplateReported bypatient.Notes:Presen ts for weight check, doing well on 2.4mg wegovy, has lost 5lbs since last visit, some constipation, takes senna and MOM as needed, that works wellWalks a lot at work. can't eat greasy foods and is not hungry. 05/11 having surgery left leg, vein removal. [facility] [address] [address], [place], [address], [facility] 04/03/2024 12:00:55 04/17/2024 text/html 54 year year [...] only 10 days ago. Arely Lopez PA-C [address] [address], [place], [address], [facility] 04/17/2024 16:02:44 OBGyn Episode No OBEpisode recorded.
== END 2024-05-22 09:15 | disposition home or self-care (01) ==
PROVIDERS: PCP Registered Nurse; Visit Provider Surgery Vascular Surgery
DX: I83.12 Varicose veins of left lower extremity with inflammation (principal)
CPT/HCPCS: 99213

== ENCOUNTER 2024-10-09 08:42 | Outpatient (AMB) | payer OTHER, SELFPAY ==
--- OUTSIDE RECORDS SUMMARY | 2023-10-04 08:14 | XMS_ITS | Continuity of Care Document ---
Author Organization [facility] Address [address] [place] [address] Phone Care Team Providers Care Cement Mason Name Role Phone Nelia OTT, Peña Unavailable Unavailable Advance Directives Directive Yes / No Effective Date File Name No Information Encounters Encounter Description Practice Location Reason(s) For Visit Diagnoses Date Provider Providers Copied on Encounter [facility] [place] [facility], [address], [place], [id number], [place] tel:[phone] [place] [facility] No Information 4 Nelia Pompa. [address], [address], [place], [address], [place]. tel:[phone] Family History Family Member Type Diagnosis Age At Onset No Information Payers Payer name Insurance type Covered constitution party ID Authoriza tion(s) No Information Social History Type Description Quantity Date Captured Comments Sex Female Smoking Status No Information Chief Complaint And Reason For Visit No Information Reason For Referral Reason For Referral No Information History Of Present Illness Encounter Date Complaint History Of Prese nt Illness No Information Functional Status Date Functional Assessmen t No Information Instructions Date Instruction Additional Infor mation No Information Assessments Type Assessment Date No Information Patient Care Teams Name Effective Dates (start - stop) Status Members No Information
[2024-10-09 08:47] VITALS: BP 136/88; PULSE 76; O2SAT 98; BMI 32.2
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
--- OUTSIDE RECORDS SUMMARY | 2024-10-09 08:51 | XMS_ITS | Clinical Summary ---
Author Organization [facility] it Address [address] [place] [address] Care Team Providers Care Drapery Hand Name Role Phone Rojelio Patel MD Primary Care Provider Medications isosorbide mononitrate (IMDUR) 30 mg 24 hr tablet TAKE ONE TABLET BY MOUTH EVERY DAY 30 tablet 5 06/29/2024 Active metoprolol tartrate (LOPRESSOR) 25 mg tablet TAKE ONE TABLET BY MOUTH TWICE A DAY 180 tablet 1 08/03/2024 Active atorvastatin (LIPITOR) 80 mg tablet TAKE ONE TABLET BY MOUTH EVERY DAY 90 tablet 1 08/03/2024 Active Medical History Medical History Date Comments Allergic rhinitis 07/14/2017 DX:Allergic rh initis; COMMENT: Allergy Shots in the past Moderate asthma 06/27/2017 DX:Moderate asth ma Morbid obesity with BMI of 4 0.0-44.9, adult (CMS/HCC V24, CMS/HCC V28) 06/27/2017 DX:Morbid obesity wit h BMI of 40.0-44.9, adult ([facility]) Family History Medical History Relation Name Comments Other: angina Father Other: valve replacment Mother Relation Name Status Comments Father Mother Social History Tobacco Use Types Packs/Day Years Used Date Smoking Tobacco: Every Day Smokeless Tobacco: Former Quit: 07/26/2017 Alcohol Use Standard Drinks/Week Comments Yes 0 (1 standard drink = 0.6 oz pur e alcohol) Comments Unknown Sex and Gender Information Value Date Recorded Sex Assigned at Not on file Legal Sex Female 2:01 AM EST Gender Identity Not on file Sexual Orientation Not on file Obstetrics History Last Filed Vital Signs Vital Sign Reading Time Taken Comments Blood Pressure 140/84 08/30/2023 8:48 AM EDT Sit ting L Arm Pulse 61 08/30/2023 8:48 AM EDT Temperature - - Respiratory Rate - - Oxygen Saturation - - Inhaled Oxygen Concentration - - Weight 96.2 kg (212 lb) 08/30/2023 8:48 AM EDT Height 154.9 cm (5' 1 ) 08/30/2023 8:48 AM EDT Body Mass Index 40.06 08/30/2023 8:48 AM EDT Plan of Treatment Upcoming Encounters Date Type Department Care Team (Late st Contact Info) Description 12/25/2024 8:50 AM EDT Office Visit [facility] Cardiology [facility] [address] [facility] [address] [place] [address] Agustin Damian MD [address] [place] [address] [address] [facility] [place] [address] Health Maintenance Due Date Last Done Comments Hepatitis B Vaccines (1 of 3 - 19+ 3-dose series) 1991 Cervical Cancer Screening: Pap Smear 1993 Pneumococcal Vaccine: 50+ Years (2 of 2 - PCV) 12/24/2005 12/24/2004 Cholesterol Screening (Lipid Panel) 03/06/2022 Colorectal Cancer Screening: Colonoscopy 03/06/2022 Depression Screening 03/06/2022 HIV Screening 03/06/2022 Hepatitis C Screening 03/06/2022 Social Influencers of Health Screening 03/06/2022 Hypertension/CHF/CAD Annual BMP Blood Test 03/07/2022 Breast Cancer Screening 06/14/2022 06/14/2020 COVID-19 Vaccine ( season) 2023 04/13/2023, 07/01/2021, 07/30/2020, Additional history exists DTaP,Tdap,and Td Vaccines (3 - Td or Tdap) 01/15/2024 01/14/2014, 03/13/2001 Influenza Vaccine (#1) 2024 , 12/05/2022, 01/25/2022, Additional history exists Zoster Vaccines Completed 01/12/2023, 11/04/2022 HIB Vaccines Aged Out No longer eligi ble based on patient's age to complete this topic HPV Vaccines Aged Out No longer eligi ble based on patient's age to complete this topic Hepatitis A Vaccines Aged Out No long er eligible based on patient's age to complete this topic IPV Vaccines Aged Out No longer eligi ble based on patient's age to complete this topic MMR Vaccines Aged Out No longer eligi ble based on patient's age to complete this topic Meningococcal ACWY Vaccine Aged Out N o longer eligible based on patient's age to complete this topic Meningococcal B Vaccine Aged Out No l onger eligible based on patient's age to complete this topic RSV Immunization Patients Under 20 months Aged Out No longer eligible based on patient's age to complete this topic Varicella Vaccines Aged Out No longer eligible based on patient's age to complete this topic Insurance [employer] Care Teams Drapery Hand Relationship Specialty Start Date End Date Rojelio Patel MD PCP - General 09/09/22
--- OUTSIDE RECORDS SUMMARY | 2024-10-09 08:51 | XMS_ITS | Encounter Summary ---
Author Organization [facility] Address [address] [place] [address] Care Team Providers Care Premium Cancellation Clerk Name Role Phone Kolby Saini Primary Care Provider Un available Gregory Carranza MD Unavailable [phone] Yaritza Monteiro BIT SHAVER Unavailable [phone] Rojelio Patel MD Primary Care Provider U Sandra Paez DNP Unavailable [phone] Encounter Details Date Type Department Care Team Description 10/03/2021 SCAN Medical Records [address] [place] [id number] Abstract, Provider Social History Tobacco Use Types Packs/Day Years Used Date Smoking Tobacco: Former Cigarettes 0.5 30 Smokeless Tobacco: Former Quit: 07/2017 Alcohol Use Standard Drinks/Week Comments Yes 0 (1 standard drink = 0.6 oz pur e alcohol) occasional Sex Assigned at Date Recorded Not on file Job Start Date Occupation Industry Not on file Not on file Not on file COVID-19 Exposure Response Date Recorded In the last 10 days, have diamond brady been in contact with someone who was confirmed or suspected to have Coronavirus/COVID-19? No / Unsure 10/02/2021 10:35 AM EDT documented as of this encounter Plan of Treatment Not on file documented as of this encounter Procedures Procedure Name Priority Date/Time Associated Diagnosis Comments OUTSIDE LAB Routine 10/03/2021 documented in this encounter Results * OUTSIDE LAB (10/03/2021) Provider Default LAB documented in this encounter Visit Diagnoses Not on filedocumented in this encounter Care Teams Premium Cancellation Clerk Relationship Specialty Start Date End Date Kolby Saini PCP - General Internal Medicine 06/17/17 3 Rojelio Patel MD [address] [place] [address] PCP - General Internal Medicine 09/09/22 Gregory Carranza MD [address] [place] [address] Specialist Cardiovascular Disease 11/17/20 Yaritza Monteiro NP [address] [place] [id number] Cardiology 10/01/21 08/25/23 Sandra Means DNP [address] [place] [address] Specialist Nurse Practitioner Family 08/26/23 documented as of this encounter
--- OUTSIDE RECORDS SUMMARY | 2024-10-09 08:51 | XMS_ITS | Data Portability ---
Author Organization [facility], Main Office Address [address] [facility] [address] [place] [id number] Care Team Providers Care Mothers Helper Name Role Phone CHITO SANTIAGO Associate Marketing Manager BETTYE CARRANZA Analytical Engineer MALINDA HIDALGO OTHER ANGELICA GIVENS Analytical Engineer [facility] (NIK MURILLO) Manager Background PAZ JEREZ Referring Provider ARCADIO MURRIETA Primary Care Provider [phone] Assessment Encounter Date Assessment Date Assessment LastModified by Organization Details LastModified Time 02/06/2024 02/06/2024 Discussed with patient the signs/symptom s warranted for a return to office visit and/or an ER visit. Patient understood and agreed with the plan. [email or web address] Not available 02/06/2024 15:22:58 Plan of Treatment Reminders Order Date Submit Date Provider Last Modified By Organization Details Last Modified Time Details Appointments PE EST 2024 10:30A M Arcadio Murrieta [email or web address] Not available Not available Not available Lab rapid flu (A+B) 2024 025 In-Office Order, Internal Use Only DO Not Attach Compendium DO Not Attach Compendium, Do Not Delete/merge, [id number] 04/17/2024 15:59:22 amylas e + lipase , serum 2024 025 L[facility]A [facility] (Centralized Electronic Ordering - All Locations), Patient Can Go To The Location Of Their Choice, 07/11/2024 08:11:37 TSH + free T4, serum 2024 025 [facility] (Centralized Electronic Ordering - All Locations), Patient Can Go To The Location Of Their Choice, 07/11/2024 08:11:33 HbA1c (hemog lobin A1c), blood 2024 025 [email or web address] [facility] (Centralized Electronic Ordering - All Locations), Patient Can Go To The Location Of Their Choice, 07/02/2024 10:33:07 CMP, serum or plasma 2024 025 [facility] (Centralized Electronic Ordering - All Locations), Patient Can Go To The Location Of Their Choice, 07/11/2024 08:11:36 CBC w/ auto diff 2024 025 [facility] (Centralized Electronic Ordering - All Locations), Patient Can Go To The Location Of Their Choice, 07/11/2024 08:11:35 lipid panel, serum 2024 025 [facility] (Centralized Electronic Ordering - All Locations), Patient Can Go To The Location Of Their Choice, 07/11/2024 08:11:37 rapid flu (A+B) 2023 LESA In-Office Order, Internal Use Only DO Not Attach Compendium DO Not Attach Compendium, Do Not Delete/merge, [id number] 02/25/2024 10:46:03 respir atory infect ions panel, [...] serum or plasma 2023 024 [facility] (Centralized Electronic Ordering - All Locations), Patient Can Go To The Location Of Their Choice, [id number] 02/07/2024 14:07:05 D-dime r, quant, plasma 2023 024 [facility] ([facility] - [facility] Locations), Patient Can Go To The Location Of Their Choice, [id number] 02/07/2024 14:07:06 erythr ocyte sedime ntatio n rate by therese mason method 2023 024 [facility] (Centralized Electronic Ordering - All Locations), Patient Can Go To The Location Of Their Choice, [id number] 02/07/2024 14:07:07 Referral None record ed. Procedures None record ed. Surgeries None record ed. Imaging XR, chest, 2 view - Produc tive cough, r/o pneumo monique. 2024 025 [email or web address] Not available 04/17/2024 15:59:20 XR, chest, 2 view 2023 024 LESA Not available 02/26/2024 08:29:00 Medication Orders Zepbou nd 5 mg/0.5 mL subcut aneous pen inject or 2024 025 SHILOH [facility], [address] [place], [address], 07/31/2024 14:14:24 Tamifl u 75 mg capsul e 2024 025 [place] [id number] [facility], [address] [place] [address], [address], 07/31/2024 13:02:58 predni sone 10 mg tablet 2024 025 [place] [address] [facility], [address] [place], [address], 07/31/2024 13:03:09 albute rol sulfat e 2.5 mg/3 mL (0.083 %) soluti on for nebuli zation 2024 025 [facility], [address] [place], [address], 04/17/2024 15:59:21 epinep hrine 0.3 mg/0.3 mL inject ion, auto-i njecto r 2024 025 [facility], [address] [place], [address], 04/03/2024 09:43:34 Wegovy 2.4 mg/0.7 5 mL subcut aneous pen inject or 2024 025 [email or web address] [facility], [address] [place], [address], 05/10/2024 13:32:27 doxycy hung hyclat e 100 mg capsul e 2023 024 [email or web address] [facility], [address] [place], [address], 04/03/2024 09:25:07 Patient TargetsNo targets recorded. Patient Instructions Encounter Date Encounter Id Patient Instructions Last Modified By Organization Details Last Modified Time 02/25/2024 [id number] upper respirator y infection (cold): care instructions Not available 02/25/2024 10:37:42 pneumonia: care instructions Not available 02/25/2024 10:45:24 04/03/2024 [id number] To call or retur n for worsening or concerns [email or web address] Not available 04/03/2024 09:39:27 04/17/2024 [id number] asthma attack: care instructions Not available 04/17/2024 15:59:20 upper respirator y infection (cold): care instructions Not available 04/17/2024 15:59:20 07/31/2024 [id number] high blood pressure: care instructions Not available 07/31/2024 14:14:21 learning about high blood pressure Not available 07/31/2024 14:14:20 body mass index: care instructions Not available 07/31/2024 14:14:20 learning about healthy weight Not available 07/31/2024 14:14:20 Reason for Referral None Reported. Results Created Date Observation Date Name Description Value Unit Range Abnormal Flag Note LastModifiedBy Organization Detail LastModifiedTime 01/10/2001/11/2024 TSH+F REE T4 TSH 0.763 uIU/m L 0.450- 4.500 normal Not Available [facility] ([facility]) [address] [place], [address], 01/11/2024 12:08:06 01/10/2001/11/2024 TSH+F REE T4 T4,free(dire ct) 1.39 NG/dL 0.82-1 .77 normal Not Available [facility] ([facility]) [address] [place], [address], 01/11/2024 12:08:06 01/10/2001/11/2024 CBC WITH DIFFE RENTI AL/PL ATELE T WBC 10.6 x10e3 /uL 3.4-10 .8 normal Not Available [facility] ([facility]) [address] [place], [address], 01/11/2024 12:08:09 01/10/2001/11/2024 CBC WITH DIFFE RENTI AL/PL ATELE T RBC 5.44 x10e6 /uL 3.77-5 .28 above high normal Not Available [facility] ([facility]) [address] [place], [address], 01/11/2024 12:08:09 01/10/2001/11/2024 CBC WITH DIFFE RENTI AL/PL ATELE T hemoglobin 15.1 g/dL 11.1-1 5.9 normal Not Available [facility] ([facility]) [address] [place], [address], 01/11/2024 12:08:09 01/10/2001/11/2024 CBC WITH DIFFE RENTI AL/PL ATELE T hematocrit 47.9 % 34.0-4 6.6 above high normal Not Available [facility] ([facility]) [address] [facility], [place], [address], 01/11/2024 12:08:09 01/10/2001/11/2024 CBC WITH DIFFE RENTI AL/PL ATELE T MCV 88 fL 79-97 normal Not Available [facility] ([facility]) [address] [facility], [place], [address], 01/11/2024 12:08:09 01/10/2001/11/2024 CBC WITH DIFFE RENTI AL/PL ATELE T MCH 27.8 pg 26.6-3 3.0 normal Not Available [facility] ([facility]) [address] [facility], [place], [address], 01/11/2024 12:08:09 01/10/2001/11/2024 CBC WITH DIFFE RENTI AL/PL ATELE T MCHC 31.5 g/dL 31.5-3 5.7 normal Not Available [facility] ([facility]) [address] [place], [address], 01/11/2024 12:08:09 01/10/2001/11/2024 CBC WITH DIFFE RENTI AL/PL ATELE T RDW 13.1 % 11.7-1 5.4 Not Available [facility] ([facility]) [address] [place], [address], 01/11/2024 12:08:09 01/10/2001/11/2024 CBC WITH DIFFE RENTI AL/PL ATELE T platelets 294 x10e3 /uL 150-45 0 normal Not Available [facility] ([facility]) [address] [place], [address], 01/11/2024 12:08:09 01/10/2001/11/2024 CBC WITH DIFFE RENTI AL/PL ATELE T neutrophils 76 % not estab. normal Not Available [facility] ([facility]) [address] [facility], [place], [address], 01/11/2024 12:08:09 01/10/20 24 01/11/2024 CBC WITH DIFFE RENTI AL/PL ATELE T lymphs 14 % not estab. normal Not Available [facility] ([facility]) [address] [facility], [place], [address], 01/11/2024 12:08:09 01/10/2001/11/2024 CBC WITH DIFFE RENTI AL/PL ATELE T monocytes 7 % not estab. normal Not Available [facility] ([facility]) [address] [facility], [place], [address], 01/11/2024 12:08:09 01/10/2001/11/2024 CBC WITH DIFFE RENTI AL/PL ATELE T eos 1 % not estab. normal Not Available [facility] ([facility]) [address] [facility], [place], [address], 01/11/2024 12:08:09 01/10/2001/11/2024 CBC WITH DIFFE RENTI AL/PL ATELE T basos 1 % not estab. normal Not Available [facility] ([facility]) [address] [facility], [place], [address], 01/11/2024 12:08:09 01/10/2001/11/2024 CBC WITH DIFFE RENTI AL/PL ATELE T immature cells BACTERIOLOGIST PHARMACEUTICAL Not Available [facility] ([facility]) [address] [facility], [place], [address], 01/11/2024 12:08:09 01/10/20 24 01/11/2024 CBC WITH DIFFE RENTI AL/PL ATELE T neutrophils (absolute) 8.3 x10e3 /uL 1.4-7. 0 above high normal Not Available [facility] ([facility]) [address] [facility], [place], [address], 01/11/2024 12:08:09 01/10/2001/11/2024 CBC WITH DIFFE RENTI AL/PL ATELE T lymphs (absolute) 1.5 x10e3 /uL 0.7-3. 1 normal Not Available [facility] ([facility]) [address] [facility], [place], [address], 01/11/2024 12:08:09 01/10/2001/11/2024 CBC WITH DIFFE RENTI AL/PL ATELE T monocytes(ab solute) 0.7 x10e3 /uL 0.1-0. 9 normal Not Available [facility] ([facility]) [address] [facility], [place], [address], 01/11/2024 12:08:09 01/10/20 24 01/11/2024 CBC WITH DIFFE RENTI AL/PL ATELE T eos (absolute) 0.1 x10e3 /uL 0.0-0. 4 normal Not Available [facility] ([facility]) [address] [facility], [place], [address], 01/11/2024 12:08:09 01/10/20 24 01/11/2024 CBC WITH DIFFE RENTI AL/PL ATELE T baso (absolute) 0.1 x10e3 /uL 0.0-0. 2 normal Not Available [facility] ([facility]) [address] [place], [address], 01/11/2024 12:08:09 01/10/2001/11/2024 CBC WITH DIFFE RENTI AL/PL ATELE T immature granulocytes 1 % not estab. Not Available [facility] ([facility]) [address] [facility], [place], [address], 01/11/2024 12:08:09 01/10/2001/11/2024 CBC WITH DIFFE RENTI AL/PL ATELE T immature grans (abs) 0.1 x10e3 /uL 0.0-0. 1 Not Available [facility] ([facility]) [address] [facility], [place], [address], 01/11/2024 12:08:09 01/10/20 24 01/11/2024 CBC WITH DIFFE RENTI AL/PL ATELE T NRBC BACTERIOLOGIST PHARMACEUTICAL Not Available [facility] ([facility]) [address] [facility], [place], [address], 01/11/2024 12:08:09 01/10/2001/11/2024 CBC WITH DIFFE RENTI AL/PL ATELE T hematology comments: BACTERIOLOGIST PHARMACEUTICAL Not Available [facility] ([facility]) [address] [facility], [place], [address], 01/11/2024 12:08:09 01/10/2001/11/2024 LIPID PANEL cholesterol, total 124 mg/dL 100-19 9 normal Not Available [facility] ([facility]) [address] [facility], [place], [address], 01/11/2024 12:08:11 01/10/2001/11/2024 LIPID PANEL triglyceride s 60 mg/dL 0-149 normal Not Available [facility] ([facility]) [address] [facility], [place], [address], 01/11/2024 12:08:11 01/10/2001/11/2024 LIPID PANEL HDL cholesterol 49 mg/dL >39 normal Not Available [facility]) [address] [facility], [place], [address], 01/11/2024 12:08:11 01/10/2001/11/2024 LIPID PANEL VLDL cholesterol len 13 mg/dL 5-40 Not Available [facility] ([facility]) [address] [facility], [place], [address], 01/11/2024 12:08:11 01/10/20 24 01/11/2024 LIPID PANEL LDL chol calc ([facility]) 62 mg/dL 0-99 Not Available [facility]) [address] [facility], [place], [address], 01/11/2024 12:08:11 01/10/20 24 01/11/2024 LIPID PANEL LDL calc comment: BACTERIOLOGIST PHARMACEUTICAL Not Available [facility] ([facility]) [address] [facility], [place], [address], 01/11/2024 12:08:11 01/10/2001/11/2024 VIOLETA+L IPASE amylase 48 U/L 31-110 normal Not Available [facility] ([facility]) [address] [facility], [place], [address], 01/11/2024 12:08:12 01/10/2001/11/2024 VIOLETA+L IPASE lipase 44 U/L 14-72 normal Not Available [facility] ([facility]) [address] [facility], [place], [address], 01/11/2024 12:08:12 01/10/2001/11/2024 HEMOG LOBIN A1C hemoglobin A1C 5.6 % 4.8-5. 6 normal Predi abete s: 5.7 - 6.4 Diabe michele: >6.4 Glyce sydney contr ol for adult s with diabe michele: <7.0 Not Available [facility] ([facility]) [address] [place], [address], 01/11/2024 12:08:13 01/10/2001/11/2024 RHEUM ATOID FACTO R (RF) rheumatoid factor (rf) <10.0 IU/mL <14.0 Not Available [facility] ([facility]) [address] [place], [address], 01/11/2024 12:08:14 01/10/202024 LYME DISEA SE SEROL OGY W/REF MARTINEZ [...] is recom paula d. Not Available [facility] ([facility]) [address] [place], [address], 01/11/2024 12:08:15 01/10/20 24 01/11/2024 ANTIN UCLEA R AB MULTI PLEX RFX 9 DAMARI direct Negati ve negati ve Not Available [facility] ([facility]) [address] [place], [address], 01/11/2024 12:08:16 01/10/2001/11/2024 SEDIM ENTAT ION RATE- WESTE RGREN sedimentatio n rate-westerg meliza 19 mm/HR 0-40 normal Not Available [facility] ([facility]) [address] [place], [address], 01/11/2024 12:08:17 01/10/20 24 01/11/2024 C-NAREN CTIVE PROTE IN, QUANT C-reactive protein, quant 2 mg/L 0-10 normal Not Available [facility] ([facility]) [address] [place], [address], 01/11/2024 12:08:18 02/06/20 24 02/07/2024 CBC WITH DIFFE RENTI AL/PL ATELE T WBC 10.1 x10e3 /uL 3.4-10 .8 normal Not Available [facility] ([facility]) [address] [place], [address], 02/07/2024 14:07:04 02/06/20 24 02/07/2024 CBC WITH DIFFE RENTI AL/PL ATELE T RBC 5.19 x10e6 /uL 3.77-5 .28 normal Not Available [facility] ([facility]) [address] [facility], [place], [address], 02/07/2024 14:07:04 02/06/20 24 02/07/2024 CBC WITH DIFFE RENTI AL/PL ATELE T hemoglobin 14.6 g/dL 11.1-1 5.9 normal Not Available [facility] ([facility]) [address] [facility], [place], [address], 02/07/2024 14:07:04 02/06/20 24 02/07/2024 CBC WITH DIFFE RENTI AL/PL ATELE T hematocrit 45.7 % 34.0-4 6.6 normal Not Available [facility] ([facility]) [address] [facility], [place], [address], 02/07/2024 14:07:04 02/06/20 24 02/07/2024 CBC WITH DIFFE RENTI AL/PL ATELE T MCV 88 fL 79-97 normal Not Available [facility] ([facility]) [address] [facility], [place], [address], 02/07/2024 14:07:04 02/06/20 24 02/07/2024 CBC WITH DIFFE RENTI AL/PL ATELE T MCH 28.1 pg 26.6-3 3.0 normal Not Available [facility] ([facility]) [address] [facility], [place], [address], 02/07/2024 14:07:04 02/06/20 24 02/07/2024 CBC WITH DIFFE RENTI AL/PL ATELE T MCHC 31.9 g/dL 31.5-3 5.7 normal Not Available [facility] ([facility]) [address] [facility], [place], [address], 02/07/2024 14:07:04 02/06/20 24 02/07/2024 CBC WITH DIFFE RENTI AL/PL ATELE T RDW 13.4 % 11.7-1 5.4 Not Available [facility] ([facility]) [address] [facility], [place], [address], 02/07/2024 14:07:04 02/06/20 24 02/07/2024 CBC WITH DIFFE RENTI AL/PL ATELE T platelets 278 x10e3 /uL 150-45 0 normal Not Available [facility] ([facility]) [address] [facility], [place], [address], 02/07/2024 14:07:04 02/06/20 24 02/07/2024 CBC WITH DIFFE RENTI AL/PL ATELE T neutrophils 71 % not estab. normal Not Available [facility] ([facility]) [address] [facility], [place], [address], 02/07/2024 14:07:04 02/06/20 24 02/07/2024 CBC WITH DIFFE RENTI AL/PL ATELE T lymphs 19 % not estab. normal Not Available [facility] ([facility]) [address] [facility], [place], [address], 02/07/2024 14:07:04 02/06/20 24 02/07/2024 CBC WITH DIFFE RENTI AL/PL ATELE T monocytes 9 % not estab. normal Not Available [facility] ([facility]) [address] [facility], [place], [address], 02/07/2024 14:07:04 02/06/20 24 02/07/2024 CBC WITH DIFFE RENTI AL/PL ATELE T eos 1 % not estab. normal Not Available [facility] ([facility]) [address] [facility], [place], [address], 02/07/2024 14:07:04 02/06/20 24 02/07/2024 CBC WITH DIFFE RENTI AL/PL ATELE T basos 0 % not estab. normal Not Available [facility] ([facility]) [address] [place], [address], 02/07/2024 14:07:04 02/06/20 24 02/07/2024 CBC WITH DIFFE RENTI AL/PL ATELE T immature cells BACTERIOLOGIST PHARMACEUTICAL Not Available [facility] ([facility]) [address] [place], [address], 02/07/2024 14:07:04 02/06/20 24 02/07/2024 CBC WITH DIFFE RENTI AL/PL ATELE T neutrophils (absolute) 7.1 x10e3 /uL 1.4-7. 0 above high normal Not Available [facility] ([facility]) [address] [place], [address], 02/07/2024 14:07:04 02/06/20 24 02/07/2024 CBC WITH DIFFE RENTI AL/PL ATELE T lymphs (absolute) 1.9 x10e3 /uL 0.7-3. 1 normal Not Available [facility] ([facility]) [address] [place], [address], 02/07/2024 14:07:04 02/06/20 24 02/07/2024 CBC WITH DIFFE RENTI AL/PL ATELE T monocytes(ab solute) 0.9 x10e3 /uL 0.1-0. 9 normal Not Available [facility] ([facility]) [address] [place], [address], 02/07/2024 14:07:04 02/06/20 24 02/07/2024 CBC WITH DIFFE RENTI AL/PL ATELE T eos (absolute) 0.1 x10e3 /uL 0.0-0. 4 normal Not Available [facility] ([facility]) [address] [place], [address], 02/07/2024 14:07:04 02/06/20 24 02/07/2024 CBC WITH DIFFE RENTI AL/PL ATELE T baso (absolute) 0.0 x10e3 /uL 0.0-0. 2 normal Not Available [facility] ([facility]) [address] [facility], [place], [address], 02/07/2024 14:07:04 02/06/20 24 02/07/2024 CBC WITH DIFFE RENTI AL/PL ATELE T immature granulocytes 0 % not estab. Not Available [facility] ([facility]) [address] [facility], [place], [address], 02/07/2024 14:07:04 02/06/20 24 02/07/2024 CBC WITH DIFFE RENTI AL/PL ATELE T immature grans (abs) 0.0 x10e3 /uL 0.0-0. 1 Not Available [facility] ([facility]) [address] [facility], [place], [address], 02/07/2024 14:07:04 02/06/20 24 02/07/2024 CBC WITH DIFFE RENTI AL/PL ATELE T NRBC BACTERIOLOGIST PHARMACEUTICAL Not Available [facility] ([facility]) [address] [facility], [place], [address], 02/07/2024 14:07:04 02/06/20 24 02/07/2024 CBC WITH DIFFE RENTI AL/PL ATELE T hematology comments: BACTERIOLOGIST PHARMACEUTICAL Not Available [facility] ([facility]) [address] [facility], [place], [address], 02/07/2024 14:07:04 02/06/20 24 02/07/2024 COMP. METAB OLIC PANEL (14) glucose 82 mg/dL 70-99 normal Not Available [facility] ([facility]) [address] [facility], [place], [address], 02/07/2024 14:07:05 02/06/20 24 02/07/2024 COMP. METAB OLIC PANEL (14) BUN 15 mg/dL 6-24 normal Not Available [facility] ([facility]) [address] [facility], [place], [address], 02/07/2024 14:07:05 02/06/20 24 02/07/2024 COMP. METAB OLIC PANEL (14) creatinine 0.62 mg/dL 0.57-1 .00 normal Not Available [facility] ([facility]) [address] [facility], [place], [address], 02/07/2024 14:07:05 02/06/20 24 02/07/2024 COMP. METAB OLIC PANEL (14) eGFR 108 mL/mi n/1.7 3 >59 normal Not Available [facility] ([facility]) [address] [facility], [place], [address], 02/07/2024 14:07:05 02/06/20 24 02/07/2024 COMP. METAB OLIC PANEL (14) BUN/creatini ne ratio 24 9-23 above high normal Not Available [facility] ([facility]) [address] [facility], [place], [address], 02/07/2024 14:07:05 02/06/20 24 02/07/2024 COMP. METAB OLIC PANEL (14) sodium 143 mmol/ L 134-14 4 normal Not Available [facility] ([facility]) [address] [place], [address], 02/07/2024 14:07:05 02/06/20 24 02/07/2024 COMP. METAB OLIC PANEL (14) potassium 4.0 mmol/ L 3.5-5. 2 normal Not Available [facility] ([facility]) [address] [place], [address], 02/07/2024 14:07:05 02/06/20 24 02/07/2024 COMP. METAB OLIC PANEL (14) chloride 108 mmol/ L 96-106 above high normal Not Available [facility] ([facility]) [address] [facility] [place], [address], 02/07/2024 14:07:05 02/06/20 24 02/07/2024 COMP. METAB OLIC PANEL (14) carbon dioxide, total 23 mmol/ L 20-29 normal Not Available [facility] ([facility]) [address] [facility] [place], [address], 02/07/2024 14:07:05 02/06/20 24 02/07/2024 COMP. METAB OLIC PANEL (14) calcium 9.2 mg/dL 8.7-10 .2 normal Not Available [facility] ([facility]) [address] [facility] [place], [address], 02/07/2024 14:07:05 02/06/20 24 02/07/2024 COMP. METAB OLIC PANEL (14) protein, total 6.7 g/dL 6.0-8. 5 normal Not Available [facility] ([facility]) [address] [facility] [place], [address], 02/07/2024 14:07:05 02/06/20 24 02/07/2024 COMP. METAB OLIC PANEL (14) albumin 4.2 g/dL 3.8-4. 9 normal Not Available [facility] ([facility]) [address] [facility] [place], [address], 02/07/2024 14:07:05 02/06/20 24 02/07/2024 COMP. METAB OLIC PANEL (14) globulin, total 2.5 g/dL 1.5-4. 5 Not Available [facility] ([facility]) [address] [facility] [place], [address], 02/07/2024 14:07:05 02/06/20 24 02/07/2024 COMP. METAB OLIC PANEL (14) bilirubin, total 0.3 mg/dL 0.0-1. 2 normal Not Available [facility] ([facility]) [address] [place], [address], 02/07/2024 14:07:05 02/06/20 24 02/07/2024 COMP. METAB OLIC PANEL (14) alkaline phosphatase 75 IU/L 44-121 normal Not Available [facility] ([facility]) [address] [place], [address], 02/07/2024 14:07:05 02/06/20 24 02/07/2024 COMP. METAB OLIC PANEL (14) AST (SGOT) 17 IU/L 0-40 normal Not Available [facility] ([facility]) [address] [facility], [place], [address], 02/07/2024 14:07:05 02/06/20 24 02/07/2024 COMP. METAB OLIC PANEL (14) ALT (SGPT) 14 IU/L 0-32 normal Not Available [facility] ([facility]) [address] [facility], [place], [address], 02/07/2024 14:07:05 02/06/20 24 02/07/2024 D-DIM ER D-dimer 0.43 mg/L_ feu 0.00-0 .49 Accor ding to the assay manuf actur er's publi shed packa ge inser t, a manuel l (<0.5 0 mg/L FEU) D-dim er resul t in conju nctio n with a non-h igh clini lne proba bilit y asses sment , exclu [...] old 0.80 mg/L FEU. Not Available [facility] ([facility]) [address] [place], [address], 02/07/2024 14:07:06 02/06/20 24 02/07/2024 SEDIM ENTAT ION RATE- WESTE RGREN sedimentatio n rate-westerg meliza 31 mm/HR 0-40 normal Not Available [facility] ([facility]) [address] [place], [address], 02/07/2024 14:07:07 02/25/20 24 02/27/2024 RESPI RATOR Y PANEL W/ SARS- COV2 adenovirus Not Detect ed not detect ed Not Available [facility] ([facility]) [address] [place], [address], 02/27/2024 20:05:59 02/25/20 24 02/27/2024 RESPI RATOR Y PANEL W/ SARS- COV2 coronavirus [email or web address] Not Detect ed not detect ed Not Available [facility] ([facility]) [address] [place], [address], 02/27/2024 20:05:59 02/25/20 24 02/27/2024 RESPI RATOR Y PANEL W/ SARS- COV2 coronavirus nl63 Not Detect ed not detect ed Not Available [facility] ([facility]) [address] [place], [address], 02/27/2024 20:05:59 02/25/20 24 02/27/2024 RESPI RATOR Y PANEL W/ SARS- COV2 coronavirus 229E Not Detect ed not detect ed Not Available [facility] ([facility]) [address] [facility], [place], [address], 02/27/2024 20:05:59 02/25/20 24 02/27/2024 RESPI RATOR Y PANEL W/ SARS- COV2 coronavirus oc43 Not Detect ed not detect ed Not Available [facility] ([facility]) [address] [facility], [place], [address], 02/27/2024 20:05:59 02/25/20 24 02/27/2024 RESPI RATOR Y PANEL W/ SARS- COV2 sars-cov-2 Not Detect ed not detect ed Not Available [facility] ([facility]) [address] [facility], [place], [address], 02/27/2024 20:05:59 02/25/20 24 02/27/2024 RESPI RATOR Y PANEL W/ SARS- COV2 human metapneumovi justin Not Detect ed not detect ed Not Available [facility] ([facility]) [address] [facility], [place], [address], 02/27/2024 20:05:59 02/25/20 24 02/27/2024 RESPI RATOR Y PANEL W/ SARS- COV2 human rhinovirus/e nterovirus Not Detect ed not detect ed Not Available [facility] ([facility]) [address] [facility], [place], [address], 02/27/2024 20:05:59 02/25/20 24 02/27/2024 RESPI RATOR Y PANEL W/ SARS- COV2 influenza A Not Detect ed not detect ed Not Available [facility] ([facility]) [address] [facility], [place], [address], 02/27/2024 20:05:59 02/25/20 24 02/27/2024 RESPI RATOR Y PANEL W/ SARS- COV2 influenza A/H1 TNP Test not perfo rmed Not Available [facility] ([facility]) [address] [facility], [place], [address], 02/27/2024 20:05:59 02/25/20 24 02/27/2024 RESPI RATOR Y PANEL W/ SARS- COV2 influenza A/H1-2009 TNP Test not perfo rmed Not Available [facility] ([facility]) [address] [facility], [place], [address], 02/27/2024 20:05:59 02/25/20 24 02/27/2024 RESPI RATOR Y PANEL W/ SARS- COV2 influenza A/H3 TNP Test not perfo rmed Not Available [facility] ([facility]) [address] [place], [address], 02/27/2024 20:05:59 02/25/20 24 02/27/2024 RESPI RATOR Y PANEL W/ SARS- COV2 influenza B Not Detect ed not detect ed Not Available [facility] ([facility]) [address] [place], [address], 02/27/2024 20:05:59 02/25/20 24 02/27/2024 RESPI RATOR Y PANEL W/ SARS- COV2 parainfluenz a 1 Not Detect ed not detect ed Not Available [facility] ([facility]) [address] [place], [address], 02/27/2024 20:05:59 02/25/20 24 02/27/2024 RESPI RATOR Y PANEL W/ SARS- COV2 parainfluenz a 2 Not Detect ed not detect ed Not Available [facility] ([facility]) [address] [place], [address], 02/27/2024 20:05:59 02/25/20 02/27/2024 RESPI RATOR Y PANEL W/ SARS- COV2 parainfluenz a 3 Not Detect ed not detect ed Not Available [facility] ([facility]) [address] [facility], [place], [address], 02/27/2024 20:05:59 02/25/20 24 02/27/2024 RESPI RATOR Y PANEL W/ SARS- COV2 parainfluenz a 4 Not Detect ed not detect ed Not Available [facility] ([facility]) [address] [facility], [place], [address], 02/27/2024 20:05:59 02/25/2002/27/2024 RESPI RATOR Y PANEL W/ SARS- COV2 respiratory syncytial virus Not Detect ed not detect ed Not Available [facility] ([facility]) [address] [facility], [place], [address], 02/27/2024 20:05:59 02/25/20 24 02/27/2024 RESPI RATOR Y PANEL W/ SARS- COV2 bordetella parapertussi s Not Detect ed not detect ed Not Available [facility] ([facility]) [address] [facility], [place], [address], 02/27/2024 20:05:59 02/25/20 24 02/27/2024 RESPI RATOR Y PANEL W/ SARS- COV2 bordetella pertussis Not Detect ed not detect ed Not Available [facility] ([facility]) [address] [facility], [place], [address], 02/27/2024 20:05:59 02/25/20 24 02/27/2024 RESPI RATOR Y PANEL W/ SARS- COV2 chlamydophil a pneumoniae Not Detect ed not detect ed Not Available [facility] ([facility]) [address] [facility], [place], [address], 02/27/2024 20:05:59 02/25/20 24 02/27/2024 RESPI RATOR Y PANEL W/ SARS- COV2 mycoplasma pneumoniae Not Detect ed not detect ed Not Available [facility] ([facility]) [address] [facility], [place], [address], 02/27/2024 20:05:59 02/25/20 24 02/25/2024 rapid flu (A+B) Flu A negati ve Not Available In-Office Order Internal Use Only DO Not Attach Compendium DO Not Attach Compendium, Do Not Delete/merge, [id number] 02/25/2024 10:28:56 02/25/20 24 02/25/2024 rapid flu (A+B) Flu B negati ve Not Available In-Office Order Internal Use Only DO Not Attach Compendium DO Not Attach Compendium, Do Not Delete/merge, [id number] 02/25/2024 10:28:56 04/17/19 25 04/17/2024 rapid flu (A+B) Flu A positi ve Not Available In-Office Order Internal Use Only DO Not Attach Compendium DO Not Attach Compendium, Do Not Delete/merge, [id number] 04/17/2024 15:26:15 04/17/19 25 04/17/2024 rapid flu (A+B) Flu B negati ve Not Available In-Office Order Internal Use Only DO Not Attach Compendium DO Not Attach Compendium, Do Not Delete/merge, [id number] 04/17/2024 15:26:15 02/26/20 24 02/25/2024 XR, chest [...] IMPRES TERRANCE: No acute abnorm ality. WSN: [id number] Orderi ng Physic duc: Eulogio Raines ie Dictat ed By: Isaura Gabriel MD Dictat ed Date/T jody: 8:25 am Review ed By: Isaura Gabriel MD Signed By: Isaura Gabriel MD Signed Date/T jody: 8:25 am Transc ribed By: GAIL Transc ribed Date/T jody: 8:24 am Patien t Class: Outpat ient LES[facility] (Outpt Imaging) [address], [place], [address], 02/26/2024 20:02:12 02/27/20 24 02/07/2024 US, lower extre mity No observ ation record ed. [email or web address] (Medical Records) [address] [place], [address], 02/28/2024 09:06:36 03/14/20 24 03/13/2024 XR, knee, 3 view No observ ation [facility] [address] [place], [address], 03/14/2024 14:04:22 04/18/19 25 04/18/2024 XR, chest , 2 view No observ ation record ed. Not Available 2024 13:30:41 04/18/19 25 04/17/2024 XR, chest , 2 [...] IMPRES TERRANCE: No acute abnorm ality. WSN: [id number] Orderi ng Physic duc: Murri[place] Francisco Javier josé miguel Dictat ed By: George Newberry MD, V Dictat ed Date/T jody: 8:33 am Review ed By: Gideon malone MD, George Adams Signed By: George Newberry MD, V Signed Date/T jody: 8:33 am Transc ribed By: GAIL Transc ribed Date/T jody: 8:19 am Patialejandra t Class: Outpat ient [facility] (Outpt Imaging) [address], [place], [address], 07/31/2024 13:30:41 09/13/19 25 09/12/2024 MAMMO , scree reinier, bilat eral No observ ation record ed. [email or web address] [facility] [address], [place], [address], 09/14/2024 13:17:33 09/13/19 25 09/11/2024 MAMMO , scree reinier, digit al, bilat eral PROCED URE: MM Digita l Mammo Screen ing INDICA TION: Screen ing for breast cancer . No known palpab le abnorm alitie s. COMPAR EDISON: Prior mammog carmelo most recent ly dated 024. TECHNI QUE: Full-f ield digita l CC and MLO 3D tomosy nthesi s images of both breast s were acquir ed. Comput er-aid ed detect ion (CAD) was utiliz ed in the interp retati on of this study. DENSIT Y: There are scatte red areas of fibrog landul ar densit y. FINDIN GS: No suspic ious masses , suspic ious microc alcifi cation s, or areas of ailyn ectura l distor tion are seen in either breast to sugges t malign glendy. IMPRES TERRANCE: No mammog raphic eviden ce of malign glendy. RECOMM ENDATI ON: Annual mammog raphic screen ing BI-RAD S: 1 (Negat cammie) Lay letter mailed to nahum lucero WSN: [id number] Orderi ng Physic duc: Francisco Javier Murrieta josé miguel Dictat ed By: Isaura Gabriel MD Dictat ed Date/T jody: 4:46 pm Review ed By: Isaura Gabriel MD Signed By: Isaura Gabriel MD Signed Date/T jody: 4:46 pm Transc ribed By: GAIL Transc riptio n Date/T jody: 4:46 pm Birads : Nahum lucero Class: Outpat ient [email or web address] [facility] (Outpt Imaging) [address] [place], [address], 09/14/2024 13:21:05 09/14/19 25 09/11/2024 XR, hand, 3 or more view No observ ation record ed. [facility] [address] [place], [address], 09/13/2024 18:08:19 Result Notes Documentation Provider Name and Address Organization Details Recorded Time Xr, Chest, 2 View : Chest 2 Views Frontal and Lat Reason: community axquired [id number] COMPARISON: 02/12/2019. FINDINGS: LINES AND TUBES: None. LUNGS AND PLEURA: Clear lungs. Normal pulmonary vascularity. No pleural effusion. No pneumothorax. HEART, MEDIASTINUM AND TROY: Heart is normal in size. Normal mediastinal and hilar contour. BONES AND SOFT TISSUES: No acute abnormality. IMPRESSION: No acute abnormality. WSN: [id number] Ordering Physician: Caridad Britt Dictated By: Magda Gabriel MD Dictated Date/Time: 02/26/24 8:25 am Reviewed By: Magda Gabriel MD Signed By: Magda Gabriel MD Signed Date/Time: 02/26/24 8:25 am Transcribed By: GAIL Transcribed Date/Time: 02/26/24 8:24 am Patient Class: Outpatient CARIDAD BRITT MD [address] [facility] [address] [facility], [place], [address], [facility] 02/26/2024 10:48:53 Xr, Chest, 2 View : Chest 2 Views Frontal and Lat Reason: PNA COMPARISON: Multiple priors with the most recent dated 02/25/2024. Multiple prior chest radiographs with the most recent dated 02/25/2024. FINDINGS: LINES AND TUBES: None. LUNGS AND PLEURA: Clear lungs. Normal pulmonary vascularity. No pleural effusion. No pneumothorax. HEART, MEDIASTINUM AND TROY: Heart is normal in size. Normal mediastinal and hilar contour. BONES AND SOFT TISSUES: No acute abnormality. Mild multilevel degenerative change lower thoracic spine. IMPRESSION: No acute abnormality. WSN: [id number] Ordering Physician: Arcadio Murrieta Dictated By: George Dan MD, V Dictated Date/Time: 04/18/24 8:33 am Reviewed By: George Dan MD, V Signed By: George Dan MD, V Signed Date/Time: 04/18/24 8:33 am Transcribed By: GAIL Transcribed Date/Time: 04/18/24 8:19 am Patient Class: Outpatient Arcadio Murrieta PA-C [address], [address], [facility] 07/31/2024 13:30:41 Mammo, Screening, Digital, Bilateral : PROCEDURE: MM Digital Mammo Screening INDICATION: Screening for breast cancer. No known palpable abnormalities. COMPARISON: Prior mammograms most recently dated 08/16/2023. TECHNIQUE: Full-field digital CC and MLO 3D tomosynthesis images of both breasts were acquired. Computer-aided detection (CAD) was utilized in the interpretation of this study. DENSITY: There are scattered areas of fibroglandular density. FINDINGS: No suspicious masses, suspicious microcalcifications, or areas of architectural distortion are seen in either breast to suggest malignancy. IMPRESSION: No mammographic evidence of malignancy. RECOMMENDATION: Annual mammographic screening BI-RADS: 1 (Negative) Lay letter mailed to patient WSN: [id number] Ordering Physician: Arcadio Murrieta Dictated By: Magda Gabriel MD Dictated Date/Time: 09/12/24 4:46 pm Reviewed By: Magda Gabriel MD Signed By: Magda Gabriel MD Signed Date/Time: 09/12/24 4:46 pm Transcribed By: GAIL [employer] Computer Date/Time: 09/12/24 4:46 pm Birads: Patient Class: Outpatient Jeanie Montanez [facility] 09/14/2024 13:21:05 Problems Name Problem SNOMED Code Status Onset Date Resolution Date Notes Provider Name and Address Organization Details Recorded Time Epigastr ic pain 26295889 Completed 05/10/2016 Jaylene betts [facility] 7 11:02:22 Abdomina l pain 59176318 Completed 05/10/2016 Jaylene betts [facility] 7 11:01:53 Allergic rhinitis 98136958 Completed 200910/09/2013 RECORDED 06/27/19 10 10:27AM BY MARQUISE MARRUFO MA, ANNOTATI ON/ADDEN DUM Jaylene betts [facility] 7 08:51:51 Allergic rhinitis 07211462 Completed 05/10/2016 Jaylene betts [facility] 7 08:51:51 Acute asthma 840415919 Completed 05/10/2016 Jaylene betts [facility] 7 11:02:10 Chest pain 86052867 Completed 05/10/2016 Jaylene betts [facility] 7 11:02:04 Tobacco dependen ce syndrome 58870426 Completed 07/20/2018 [facility] Hidalgo, [facility] [address] [facility] [address], [facility] [place], [address], [facility] 4 10:10:19 Elevated blood-pr essure reading without diagnosi s of hyperten terrance 764124873 Completed 201010/09/2013 RECORDED 12/22/19 11 3:26PM BY MARQUISE MARRUFO MA, ANNOTATI ON/ADDEN DUM Maxine betts [facility] 6 12:08:51 Gastroes ophageal reflux disease 564493811 Completed 200910/09/2013 RECORDED 06/27/19 10 10:27AM BY MARQUISE MARRUFO MA, ANNOTATI ON/ADDEN DUM Maxine betts, [facility] 6 12:08:51 Essentia l hyperten terrance 32000144 Active Maxine betts, [facility] 6 12:08:51 Influenz a vaccine needed 60426927521 06 Completed 05/10/2016 Jaylene betts, [facility] 7 11:01:42 General examinat ion of patient Completed 200710/09/2013 RECORDED 11/28/19 08 2:32PM BY MARQUISE MARRUFO MA, ANNOTATI ON/ADDEN DUM Maxine betts, [facility] 6 12:08:51 Influenz a with respirat ory manifest ation other than pneumoni a Completed 05/10/2016 Jaylene betts, [facility] 7 11:02:29 Low back pain 481539121 Completed 200910/09/2013 RECORDED 06/27/19 10 10:27AM BY MARQUISE MARRUFO MA, ANNOTATI ON/ADDEN DUM Maxine betts, [facility] 6 12:08:51 Migraine 06604460 Active Maxine betts, [facility] 6 12:08:51 Eruption 467700538 Completed 200710/09/2013 RECORDED 11/28/19 08 2:32PM BY MARQUISE MARRUFO MA, ANNOTATI ON/ADDEN DUM Arcadio Murrieta PA-C [address] [facility] [address], [facility] [place], [address], [facility] 5 14:17:42 Restless legs 73074744 Completed 05/10/2016 Jaylene betts, [facility] 8 11:35:16 Adult health examinat ion Completed 05/10/2016 Jaylene betts, [facility] 7 11:02:00 Dermatop hytosis of the body Active Maxine aguilera null, [facility] 6 12:08:51 Injury of elbow 928028235 Completed 05/10/2016 Jaylene betts, [facility] 7 11:01:45 Allergy Completed 05/10/2016 Jaylene betts, [facility] 7 11:01:39 Allergic rhinitis 22380700 Completed 200911/05/2013 RECORDED 06/27/19 10 10:27AM BY MARQUISE MARRUFO MA, ANNOTATI ON/ADDEN DUM Jaylene Kerrieliu betts, [facility] 7 08:51:51 Elevated blood-pr essure reading without diagnosi s of hyperten terrance 191474783 Completed 201011/05/2013 RECORDED 12/22/19 11 3:26PM BY MARQUISE MARRUFO MA, ANNOTATI ON/ADDEN DUM Maxine Biswas ale null, [facility] 6 12:08:51 Gastroes ophageal reflux disease 832786145 Completed 200911/05/2013 RECORDED 06/27/19 10 10:27AM BY MARQUISE MARRUFO MA, ERICH ON/ADDEN DUM Maxine Biswas ale null, [facility] 6 12:08:51 General examinat ion of patient Completed 200711/05/2013 RECORDED 11/28/19 08 2:32PM BY MARQUISE MARRUFO MA, ERICH ON/ADDEN DUM Maxine Biswas ale null, [facility] 6 12:08:51 Follow-u p encounte r Completed 05/10/2016 Jaylene betts [facility] 7 11:02:18 Low back pain 663699352 Completed 200911/05/2013 RECORDED 06/27/19 10 10:27AM BY MARQUISE MARRUFO MA, ANNOTATI ON/ADDEN DUM Maxine betts [facility] 6 12:08:51 Eruption 543485346 Completed 200711/05/2013 RECORDED 11/28/19 08 2:32PM BY MARQUISE MARRUFO MA, ANNOTATI ON/ADDEN DUM Arcadio Murrieta PA-C [address] [facility] [address], [facility] [place], [address] , [facility] 5 14:17:42 Thoracic back pain 719504986 Active Maxine betts [facility] 6 12:08:51 Cough 47541639 Completed 05/10/2016 Jaylene betts [facility] 7 11:02:35 Urogenit al finding 542620701 Active STORY: RIGHT KIDNEY CYST U/S 07/05 Maxine betts [facility] 6 12:08:51 Thumb injury 912477450 Completed 05/10/2016 Jaylene betts [facility] 7 11:01:49 Bunion 083483515 Completed 05/10/2016 Jaylene betts [facility] 7 11:02:37 Disorder of breast 26107988 Completed 05/10/2016 Jaylene betts [facility] 7 11:02:24 Acute bronchit is 21059820 Completed 03/27/2016 SANTOS Martinez [facility] 6 10:22:54 Pleuriti c pain 7344438 Completed 05/10/2016 Jaylene betts, [facility] 7 11:01:57 Atypical chest pain 196747531 Active Maxine betts, [facility] 6 12:13:25 Allergic rhinitis 92393921 Completed 201606/17/2016 Jaylene betts, [facility] 7 08:51:51 Hyperlip idemia 10240092 Active 2017 Arcadio Murrieta PA-C [address], [facility] [place], [address], [facility] 8 13:20:18 Restless legs 24574877 Active 2017 Jaylene betts, [facility] 8 11:35:16 Snoring 26234386 Active 2017 Jaylene betts, [facility] 8 11:35:33 Heart disease 66519886 Active 07/2017 had pos ETT, sent for cardiac cath, had 90% blockage of LAD; stented Dr Tere betts [facility] 9 15:32:25 Ex-smoke r 1401887 Active 2017 SANTOS Garzon, [facility] 9 09:39:52 Suspecte d COVID-19 385299361 Completed 09/23/2020 Removal Reason: Problem added by user [email or web address] from the COVID-19 watch flag Shonda Vuong [facility] 1 14:36:15 Prediabe micehle 567555038 Active 2021 ALEXI Jane [address], [facility] [place], [address], [facility] 2 13:14:34 Fatigue 97477307 Active 2021 Malinda Hidalgo [facility] [address], [place], [address], [facility] 2 13:23:33 Benign paroxysm al position al vertigo 606065600 Active 2021 Malinda Hidalgo, [facility] [address], [place], [address], [facility] 2 09:11:59 Tobacco dependen ce syndrome 86346505 Active 2023 Malinda Hidalgo, [facility] [address] [facility] [address], [place], [address], [facility] 4 10:10:19 Neck pain 41396428 Active 2023 ALEXI Jane [address] [facility] [address], [place], [address], [facility] 4 12:17:05 Vasculit is of the skin 38623343 Active 2023 ALEXI Jane [address] [facility] [address], [place], [address], [facility] 4 10:17:48 Venous varices 048396827 Active 2023 ALEXI aJne [address] [facility] [address], [place], [address], [facility] 4 10:18:57 Overacti ve urinary bladder 378749290 Active 2023 Malinda Hidalgo [facility] [address] [facility] [address], [place], [address], [facility] 4 09:27:28 Headache 37344693 Active 2023 ALEXI Jane [address], [place], [address], [facility] 4 09:39:53 Body mass index 30+ - obesity 582764511 Active 2024 Arcadiovianca Murrieta PA-C [address] [facility] [address], [facility] [place] [place], [address], [facility] 5 13:24:44 Mild intermit tent asthma 359613948 Active 2024 Arcadiovianca Murrieta PA-C [address] [facility] [address], [place], [address], [facility] 5 14:16:33 Problem Notes None recorded. Procedures Surgical History Date Name Laterality Status Provider Name and Address Organization Details Recorded Time 09/13/19 25 Most Recent Mammogram completed Jeanie Montanez [facility] 09/14/2024 13:20:57 09/13/19 25 Mammogram screening completed Jeanie Montanez [facility] 09/14/2024 13:20:43 12/27/19 21 Date of Last Pap Smear completed Monica Mesa MA [facility] 09/22/2021 13:06:35 05/31/19 19 angiography of coronary artery completed Kathy Johansen [facility] 05/30/2018 09:37:32 08/06/19 18 Coronary art/grft angio s&i completed Bella Wray [facility] 08/10/2017 11:28:44 02/19/20 15 Ultrasound breast complete completed Dilia Howe [facility] 02/19/2015 09:44:02 release of trigger thumb completed Marquise mendez MA [facility] 04/05/2018 14:55:44 Tonsillectomy completed Monica jones MA [facility] 09/22/2021 12:54:58 Imaging Results None recorded. Procedure Notes None recorded. Medical Equipment None Reported. Allergies Allergen ID Allergen Name Allergen Category Reaction Reaction Severity Criticality Documentation Date Start Date Code Code System Note Provider Name and Address Organization Details Recorded Time 34029 Glycine max (substan e) environme nt,food,m edication other Not available Not available 11/02/20132013 57517 5007 SNOMED [facility] 12:54:40 13974 potato allergeni c extract food Not available Not available Not available 04/05/2018 66359 2 RxNorm [facility] 2 12:54:40 7541 Product containin g angiotens in-conver ting enzyme inhibitor (product) medicatio n cough Not available Not available 10/09/20132013 71992 009 SNOMED Lisin opril [facility] 5 13:15:24 7542 omeprazol e medicatio n abdominal pain Not available Not available 10/09/20132013 7646 RxNorm [facility] 2 12:54:40 7543 Product containin g penicilli n (product) medicatio n other Not available Not available 10/09/20132013 13927 8001 SN[facility]ED [facility] 5 13:15:24 Medications Name Sig Start [...] Not Available Not Available Not Available flucelvax 9097-2269 .5 ml israel 06/12 completed Not Available [...] TAKE TWO TABLETS BY MOUTH EVERY D 07/31 completed Not Available Not Available Not Available [...] 10/28/19 10 1:54PM BY MAXINE AGUILERA MD, BENNIEATI ON/ADDEN DUM; Not Available Not [...] TWICE A DAY DIRECTED FOR 5 DAYS 07/31 completed Not Available Not Available Not Available nystatin 100,000 unit/gram topical cream APPLY TO THE AFFECTED AREA(S) BY TOPICAL ROUTE 2 TIMES PER DAY 09/16 completed Not Available Not Available Not Available olopatadi ne 0.1 % eye drops THREE TIMES DAILY 07/14 completed RECORDED 07/15/19 14 9:46AM BY LARISSA DARLING, [facility], ANNOTATI ON/SUSIE DUM; Not Available Not Available Not [...] mg tablet TAKE ONE TABLET BY MOUTH DAILY AT BEDTIME NEEDED FOR RESTLESS LEG SYMPTOMS [...] IM syringe VACCINAT ION ADMINIST ERED BY [employer] [facility] 03/19 completed Not Available Not Available Not Available Wegovy 2.4 mg/0.75 mL subcutane ous pen injector INJECT 0.75ML UNDER THE SKIN EVERY WEEK DIRECTED active Not Available Not Available No [...] completed Not Available Not Available Not Available Zepbound 5 mg/0.5 mL subcutane ous pen injector INJECT 5MG SUBCUTAN EOUSLY EVERY WEEK 2024 active Not Available Not Available Not Avai lable Zepbound 7.5 mg/0.5 mL subcutane ous pen injector Inject 7.5 mg every week by subcutan eous route for 30 days. 2024 active Not Available Not Available Not Avai lable Vitals Date Recorded Systolic And Diastolic Provider Name and Address Organization Details Last Updated DateTime 04/03/2024 120/68 mm[Hg] Malinda Hidalgo, [facility] [address] [facility] [address], [address], [facility] 04/03/2024 09:45:43 Date Recorded Body height Body mass index (BMI) Body weight Heart rate Oxygen saturation Oxygen saturation in Arterial blood by Pulse oximetry Body temperature Systolic And Diastolic Provider Name and Address Organization Details Last Updated DateTime 5 154.94 cm 35.7 kg/m2 87653.9 6 g 62 /min 98 % 98 % 97.5 [degF] 140/72 mm[Hg] Tim foy [facility] 5 09:24:31 Date Recorded Body height Body mass index (BMI) Body weight Heart rate Oxygen saturation Oxygen saturation in Arterial blood by Pulse oximetry Body temperature Systolic And Diastolic Provider Name and Address Organization Details Last Updated DateTime 5 154.94 cm 35.2 kg/m2 54263.8 8 g 91 /min 99 % 99 % 98.3 [degF] 127/77 mm[Hg] Rosy Roy LPN [facility] 5 14:46:04 Date Recorded Body height Body mass index (BMI) Body weight Heart rate Oxygen saturation Oxygen saturation in Arterial blood by Pulse oximetry Body temperature Systolic And Diastolic Provider Name and Address Organization Details Last Updated DateTime 5 154.94 cm 33.8 kg/m2 64556.7 3 g 62 /min 99 % 99 % 98 [degF] 120/71 mm[Hg] Rosy Roy LPN [facility] 5 13:01:38 Date Recorded Body height Body mass index (BMI) Body weight Heart rate Oxygen saturation Oxygen saturation in Arterial blood by Pulse oximetry Body temperature Systolic And Diastolic Provider Name and Address Organization Details Last Updated DateTime 4 154.94 cm 37 kg/m2 67604.1 g 84 /min 99 % 99 % 97.9 [degF] 126/81 mm[Hg] Payal Jhaveri MA [facility] 4 15:12:02 Date Recorded Body height Body mass index (BMI) Body weight Oxygen saturation Oxygen saturation in Arterial blood by Pulse oximetry Heart rate Body temperature Systolic And Diastolic Provider Name and Address Organization Details Last Updated DateTime 4 154.94 cm 36.7 kg/m2 29613.3 2 g 98 % 98 % 84 /min 97.8 [degF] 124/78 mm[Hg] Monica Mesa MA [facility] 4 10:27:23 Social History Question Answer Notes LastModified by Organizat ion Details LastModified Time Tobacco Smoking Status Current Every Day Smoker SANTOS Ho [facility] 10/11/2023 08:50:30 Do You Have An Advance Directive? Yes HCP At [facility] 05/30/18 [email or web address] Information not available 09/22/2021 Is Blood Transfusion Acceptable In An Emergency? Yes Information not available 06/13/2015 What Is Your Level Of Caffeine Consumption? Occasional Coffee Daily Information not available 09/22/2021 How Much Tobacco Do You Chew? None Information not available 04/05/2018 What Type Of Diet Are You Following? REGULAR Information not available 10/05/2022 Which Illicit Or Recreational Drugs Have You Used? None Information not available 07/20/2018 When Did You Quit Smoking? 1-5yearssince cristina [email or web address] Information not available 09/22/2021 Live Alone Or [...] Or Greater Than 100 Degrees Fahrenheit? No [email or web address] Information not available 11/15/2019 Are You Or Anyone In Your Household A Health Care Provider Or Emergency Responder? No [email or web address] Information not available 11/15/2019 To The Best Of Your Knowledge Have You Been In Close Proximity To Any Individual Who Tested Positive For COVID-19? No [email or web address] Information not available 11/15/2019 *AWV ONLY* Are [...] Gathering In The Last 10 Days? No [email or web address] Information not available 09/16/2020 What Was The Date Of Your Most Recent Tobacco Screening? 10/05/2022 Information not available 10/05/2022 How Many Children Do You Have? 1 Paddy (has ADD) [email or web address] Information not available 01/14/2014 What Is Your Current Pack Years? 20-29packyear s [email or web address] Information not available 09/22/2021 Do You Use Protection During Sex? Usually [email or web address] Information not available 09/22/2021 Do You Use Your Seat Belt Or Car Seat Routinely? Yes Information not available 09/22/2021 Seat Belts Used Routinely Yes [email or web address] Information not available 09/22/2021 Are You Sexually Active? No [email or web address] Information not available 09/22/2021 Smoke Alarm In Home Yes Information not available 09/22/2021 Do You Have Smoke And Carbon Monoxide Detectors In Your Home? Yes [email or web address] Information not available 09/22/2021 At What Age Did You Start Smoking Tobacco? 17 Information not available 07/20/2018 Are You Passively Exposed To Smoke? No Information not available 10/05/2022 How Much Tobacco Do You Smoke? 1 PPW Information not available 10/11/2023 Do You Use Sunscreen Routinely? Yes Information not available 06/13/2015 How Many Years Have You Smoked Tobacco? 25 [email or web address] Information not available 09/16/2020 Sex: Unknown Functional Status Question Answer Note LastModified by Organizat ion Details LastModified Time Do you use any illicit or recreational drugs? No Information not available 09/22/2021 Do you or have you ever used any other forms of tobacco or nicotine? No Information not available 09/22/2021 What is your level of alcohol consumption? None Information not available 10/05/2022 Do you or have you ever used smokeless tobacco? Never used [email or web address] tobacco Information not available 01/23/2019 Are you currently employed? Yes Information not available 07/20/2018 Are you able to walk? YESWOREST [email or web address] Information not available 09/22/2021 Are you able to care for yourself? Yes Information not available 01/09/2015 What is your occupation? Other [employer] Information not available 09/16/2024 Do you or have you ever used e-cigarettes or vape? Former user of electronic cigarettes [email or web address] Information not available 09/22/2021 What is your exercise level? Moderate walking [...] [email or web address] Not available 12:10:53 Paternal Uncle Malignant neoplasm of lung 65 70 [email or web address] Not available 2014 10:06:34 Notes:Father being tested fo r [place] - 10/05/22 Medical History Condition Response Muscle, Joint, or Bone Problems Y Obesity Y Arthritis Y Acid Reflux (GERD) Y Eczema Y Asthma Y Allergies Y High Cholesterol Y Headaches/Migraines Y Hypertension Y Gynecological History Statement/Question Response Menses Monthly N Date of Last Pap Smear 12/26/2020 Age at Menarche 13 Date of Last Colonoscopy Most Recent Mammogram 09/12/2024 LMP Approximate Obstetrics History GPAL:G 0 P 0 0 0 0 Immunizations Vaccine Type Date Status Note Provider Nam e and Address Organization Details Recorded Time Influenza, split virus, trivalent, PF 4 completed Priti betts [facility] 01/14/2014 15:10:51 Influenza, split virus, quadrivalent, preservative 8 completed An betts [facility] 03/06/2018 13:58:17 COVID-19, mRNA, LNP-S, PF, 100 mcg/0.5mL dose or 50 mcg/0.25mL dose 1 completed SANTOS Huber [facility] 04/03/2021 09:17:46 COVID-19, mRNA, LNP-S, PF, 100 mcg/0.5mL dose or 50 mcg/0.25mL dose 1 completed SANTOS Huber [facility] 04/03/2021 09:17:46 Influenza, split virus, trivalent, PF 6 completed SANTOS Huber [facility] 04/03/2021 09:17:46 Influenza, split virus, quadrivalent, PF 9 completed SANTOS Huber, [facility] 04/03/2021 09:17:46 Influenza, MDCK, quadrivalent, PF 7 completed SANTOS Huber, [facility] 04/03/2021 09:17:46 Influenza, MDCK, quadrivalent, PF 1 completed SANTOS Huber, [facility] 04/03/2021 09:17:46 Influenza, split virus, quadrivalent, PF 0 completed SANTOS Huber, [facility] 04/03/2021 09:17:46 Influenza, split virus, quadrivalent, PF 8 completed SANTOS Huber, [facility] 04/03/2021 09:17:46 COVID-19, mRNA, LNP-S, PF, 100 mcg/0.5mL dose or 50 mcg/0.25mL dose 2 completed SANTOS Martinez, [facility] 09/22/2021 13:01:02 Influenza, split virus, quadrivalent, PF 2 completed SANTOS Teague, [facility] 05/27/2022 11:31:26 Influenza, split virus, trivalent, preservative 2 completed Maxine Gallo MA null, [facility] 10/05/2022 08:52:10 Influenza, MDCK, quadrivalent, PF 3 completed Rosy Roy THUMB SEWER null, [facility] 08/18/2023 14:49:20 zoster recombinant 3 completed Rosy Roy THUMB SEWER null, [facility] 08/18/2023 14:49:20 zoster recombinant 3 completed Rosy Roy THUMB SEWER null, [facility] 08/18/2023 14:49:20 COVID-19, mRNA, LNP-S, PF, 50 mcg/0.5 mL 4 completed JAY Mac [facility] 08/18/2023 14:49:20 Tdap 4 completed Not Available [facility] 04/14/2019 02:21:44 Td (adult), 2 Lf tetanus toxoid, preservative free, adsorbed 1 completed Not Available [facility] 10/09/2013 14:02:25 pneumococcal polysaccharide PPV23 5 completed Not Available [facility] 10/09/2013 14:02:25 Influenza, split virus, trivalent, preservative 6 completed Not Available [facility] 10/09/2013 14:02:25 Influenza, split virus, trivalent, preservative 7 completed Not Available [facility] 10/09/2013 14:02:25 Influenza, split virus, trivalent, preservative 8 completed Not Available [facility] 10/09/2013 14:02:25 Influenza, split virus, trivalent, preservative 0 completed Not Available [facility] 10/09/2013 14:02:25 Influenza, split virus, trivalent, preservative 1 completed Not Available [facility] 10/09/2013 14:02:25 Influenza, split virus, trivalent, PF 5 completed ALEXI Jane [address] [place] [address], [id number], [facility] 04/03/2024 12:00:00 Past Encounters Encounter ID Performer Location Encounter Start Date Encounter Closed Date Diagnosis/Indication Diagnosis SNOMED-CT Code Diagnosis ICD10 Code Diagnosis Note [id number] [facility] [address] [facility] [place] [address] 12/22/2006 00:00:00 [id number] [facility] [address] [facility] [address] [place] [address] 01/12/2007 00:00:00 [id number] [facility] [place] [address] [address] [place] [address] 01/17/2007 00:00:00 [id number] auto[facility]Comm erce [address] [place] [address] 06/02/2007 00:00:00 [id number] autoEComm erce [address] [address] [place] [address] 06/20/2007 00:00:00 [id number] auto[facility]Comm erce [address] [address] [place] [address] 11/28/2007 00:00:00 [id number] autoEComm erce [address] [address] [place] [address] 01/14/2009 00:00:00 [id number] autoEComm erce [address] [facility] [place] [address] 04/22/2009 00:00:00 [id number] autoEComm erce [address] [facility] [place] [address] 06/26/2009 00:00:00 [id number] autoEComm erce [address] [address] [place] [address] 07/11/2009 00:00:00 [id number] autoEComm erce [address] [facility] [address] [place] [address] 10/27/2009 00:00:00 [id number] autoEComm erce [address] [address] [place] [address] 05/01/2010 00:00:00 [id number] autoEComm erce [address] [address] [place] [address] 05/15/2010 00:00:00 [id number] autoEComm erce [address] [facility] [place] [address] 11/09/2010 00:00:00 [id number] autoEComm erce [address] [address] [place], [place] [address] 12/21/2010 00:00:00 [id number] autoEComm erce [address] [facility] [address] [place], [place] [address] 12/24/2010 00:00:00 [id number] autoEComm erce [address] [facility] [address] [place], [place] [address] 10/09/2013 00:00:00 [id number] Maxine schmidt MD Main Office [address] [facility] [address] [place] [address] 01/14/2014 14:25:46 01/14/2014 15:34:40 Adult health examination 979640900 Asthma 681125785 Body mass index 40+ - severely obese 745404905 [id number] [facility] Main Office [address] [address] [place] [address] 04/19/2014 13:03:50 04/19/2014 13:51:12 Thoracic back pain 299613420 Intermitte nt sharp thoracic back pain x 4 days + SOB since yesterday, productive cough. Patient does have risk fx for PE- obesity, smoking, family hx of blood clots, but Well's Criteria Score of 0. VS WNL. Ibuprofen TID as needed, will call with CXR results. Cough 06377360 Asthma 856961883 Body mass index 40+ - severely obese 085016813 [id number] Pito Choi [facility] Main Office [address] [address] [place] [address] 04/22/2014 14:52:27 04/22/2014 16:57:13 Chest pain 69625111 Dyspnea 507885373 concer n for PE. she will go to ER for considerat ion CT angiogram. tachypneic , chest and back pain [id number] ALEXI Jane Main Office [address] [address] [place] [address] 05/02/2014 09:46:25 05/02/2014 10:20:51 Thoracic back pain 144358617 Patient seen in ED, r/o for PE, [...] supplement if constipati on. Patient understand s. [id number] Maxine schmidt MD Main Office [address] [address] [place] [address] 10/01/2014 13:50:55 10/01/2014 14:48:30 Thumb injury 066653102 Bunion 918515959 [id number] Maxine schmidt MD Main Office [address] [address] [place] [address] 06/13/2015 13:27:33 06/13/2015 15:35:10 Adult health examination 123725629 Z00.00 Screening for malignant neoplasm of cervix 224869704 Z12.4 Body mass index 40+ - severely obese 912612422 Z68.41 Asthma 838281654 J45.90 9 Allergic rhinitis 630249 04 J30.9 Metatarsalgia 25944232 M 77.42 Restless legs 96321418 G 25.81 [id number] Torrey Murrieta PA-C Main Office [address] [address] [place] [address] 06/24/2015 10:44:59 06/24/2015 11:55:59 Acute bronchitis 30312315 J20.9 [id number] ALEXI Jane Main Office [address] [address] [place] [address] 07/09/2015 10:33:13 07/09/2015 11:28:09 Pleuritic pain 6533704 R07.81 Chest pain 77179567 R07. [address] Mojica, will repeat XR to r/o PNA , get CBC and d-dimer today. Will also treat for pleurisy w/ ibuprofen, heat or ice to area 4 times daily, will call patient with results. [id number] Maxine schmidt MD Main Office [address] [address] [place] [address] 07/25/2015 11:25:05 07/25/2015 12:13:20 Pleuritic pain 2500679 R07.81 pt will continue ibuprofen prn Atypical chest pain 1025 36538 R07.89 [id number] Sandee ely MD Main Office [address] [address] [place] [address] 03/27/2016 10:20:32 03/27/2016 10:57:18 Acute sinusitis 28797766 J01.90 treat with zmax since not chronic and also with lung symptoms, return if not improving Cough 49351988 R05 tx as below and with zpak [id number] Maxine schmidt MD Main Office [address] [address] [place] [address] 05/10/2016 10:51:37 05/10/2016 11:42:37 Sinusitis 11959175 J32.9 Cough 21138923 R05 Allergic rhinitis 187927 04 J30.9 Tobacco de pendence syndrome 07241682 F17.290 [id number] Torrey Murrieta PA-C Main Office [address] [address] [place] [address] 05/26/2016 10:42:17 05/26/2016 12:00:57 Dyspnea 135148576 R06.02 Chest pain 72367840 R07. 9 upper back pain -- r/o pna, PE had NL spirometry Acute asthma 257941578 J 45.41 cont inhalers as dir for now Cough 10679386 R05 ? d/t early pna vs d/t post nasal drip, see below Pneumonia 379404333 J18. 9 [id number] Maxine schmidt MD Main Office [address] [address] [place] [address] 06/17/2016 08:56:30 06/17/2016 09:45:52 Adult health examination 522418114 Z00.00 Asthma 889499286 J45.90 9 Tobacco de pendence syndrome 91517379 F17.290 pt on bupropion Visual disturbance 34093 001 H53.9 [id number] Arcadio Murrieta PA-C Main Office [address] [address] [place] [address] 06/22/2016 10:42:10 06/22/2016 11:20:58 Thoracic back sprain 213545576 S23.3XXA [id number] Maxine schmidt MD Main Office [address] [address] [place] [address] 09/20/2016 14:11:49 09/20/2016 15:28:27 Migraine 16007486 G43.909 Restless legs 73158944 G 25.81 [id number] ALEXI Jane Main Office [address] [address] [place] [address] 04/22/2017 13:54:32 04/22/2017 14:51:04 Influenza-like symptoms 425483851 R68.89 flu like sx, smoker and hx of asthma, no rapid flu available. Will send flu PCR stat and have her start tamiflu BID. hydration, rest, frequent handwashin g. Otitis media 20395981 H6 6.91 right OM, will start on abx, she is allergic to PCN. hydration, rest, tylenol/ ibuprofen as needed. [id number] Torrey Murrieta PA-C Main Office [address] [place] [address] 04/25/2017 14:57:10 04/25/2017 16:05:41 Fever 330786411 R50.9 ? if d/t underlying sinusitis - stop abx, but cont tamiflu as dir (just in case was false negative last wk), will change management specialist to doxy - see below, and check labs and cxr, push fluids, oow until re-eval in a few days Cough 57682707 R05 ? d/t early pna vs d/t post nasal drip, see below Sinusitis 24785608 J32.9 rec. probiotic supp or cayman islander yogurt while onabx Nausea and vomiting 1693 1999 R11.2 ? d/t SE of abx - advised to stop cef. - consider flat sahil sade or sahil tea - if no better than use prn zofran [id number] Torrey Murrieta PA-C Main Office [address] [address] [place] [address] 04/28/2017 10:38:54 04/28/2017 11:36:29 Sinusitis 65418182 J32.9 sig improvemen t on doxy - [...] pt to schedule PE ~ 6 wks [id number] ALEXI Jane Main Office [address] [address] 05/19/2017 08:53:38 05/19/2017 09:31:40 Chest pain 16484202 R07.9 ongoing x 12 days with negative initial work-up at [facility] though she did leave AMA. meloxicam as needed, refer to cardiology , will check d-dimer, if elevated CT chest. [id number] Maxine schmidt MD Main Office [address] [place] [address] 06/21/2017 10:52:30 06/21/2017 12:03:12 Adult health examination 351252940 Z00.00 Body mass index 40+ - severely obese 086030794 E66.01 Z68.41 Atypical chest pain 1025 57903 R07.89 [id number] Arcadio Murrieta PA-C Main Office [address] [place] [address] 08/10/2017 12:58:35 08/10/2017 13:41:09 Coronary arteriosclerosis 32698414 I25.10 F/u with Dr. Carranza as scheduled. Continue ASA and Plavix, Atorvastat in 80 . Recheck lipids in 4 weeks. Goal for LDL is under 70. Hyperlipidemia 52899222 E78.00 Body mass index 30+ - obesity 286891346 E66.01 Z68.41 Pt. has isiah with systems integration engineer in August. Continue low len low fat diet and cardiac rehab for exercise. Tobacco de pendence syndrome 09271055 F17.200 Continue Bupropion XL 150 mg BID. Pt. is down to 5 cigarettes from 2 packs per day. Essential hypertension 91048867 I10 stable on meds. F/u with cardiology . [id number] Sandee ely MD Main Office [address] [address] [place] [address] 01/25/2018 14:37:19 01/25/2018 15:25:28 Eruption 527455827 R21 looks like reaction to bug bite with eczema or psoriasis on top, tx as below no infection [id number] Arcadio Murrieta PA-C Main Office [address] [address] [place] [address] 03/06/2018 13:42:57 03/06/2018 14:19:06 Eczema 44980745 L30.9 Recommende d to use emollient barrier moisturize r or Amlactin cream and a different steroid cream BID. If no improvemen t in 34- weeks, will efer to derm. [id number] An howard NP Main Office [address] [address] [place] [address] 04/05/2018 14:48:44 04/05/2018 16:12:36 Benign paroxysmal positional vertigo 426323310 H81.10 Likely positional vertigo. Pt had exacerbati on of dizziness after hallpike manuver. Will try low dose antivert 1-2 tid prn only if needed, rest, hydration, avoid sudden movments and OOW 1-2 days. If not improving would send for PT and ENT evaluation . If sx worsen to call. Recheck in a few weeks. Patient po st percutaneous transluminal coronary angioplasty 529059174 Z98.61 pt follows with cardiology . She is on plavix and aspirin, high dose statin . No further cardiac sx. Heart disease 79077084 I 51.9 Continue BB, atorvastat in, plavix and aspirin. PT needs to work on weight, exercise [id number] An howard NP Main Office [address] [place] [address] 04/12/2018 14:38:04 04/12/2018 15:47:46 Benign paroxysmal positional vertigo 507626435 H81.10 Likely positional vertigo but not getting [...] the interim. Call if any worsening sx. [id number] Rojelio Patel MD Main Office [address] [facility] [address] [place] [address] 07/20/2018 09:18:38 07/20/2018 10:06:40 Adult health examination 008078495 Z00.00 HM UTD, has pap appt scheduled Essential hypertension 60252552 I10 BP well controlled , followed by cardiology Hyperlipidemia 65979730 E78.5 cholest done 06/20/18 normal, on atorvastat in. Seasonal allergy 7258323 04 J30.2 Heart disease 11341363 I 51.9 s/p stent in July 2017 and repeat cardiac cath in May 2018, followed by Dr. Carranza, on all appropriat e meds and is taking them as directed. f/u cardiology appt in October Body mass index 40+ - severely obese 839152524 E66.01 Z68.42 [id number] Sandee ely MD Main Office [address] [facility] [address] [place] [address] 01/20/2019 09:11:55 01/20/2019 09:59:17 Acute asthma 364738132 J45.901 from infection, pt needs to be on a steroid inhaler. pt to try pulmicort at pharmacy, if not covered to discuss with Malinda at f/u Pneumonia 283767219 J18. 9 treat with zpak, Tinea corporis 29365272 B35.4 [id number] Rojelio Patel MD Main Office [address] [address] [place] [address] 01/23/2019 14:53:46 01/23/2019 15:16:42 Acute asthma 743138801 J45.901 sx continue, has wheezing and SOB today. finish zpak, start medrol dose pack, use robitussin with codeine as needed at bedtime- no driving or alcohol with med. rest, hydration. call/ return for worsening or concerns. Cough 75419288 R05 [id number] Rojelio Patel MD Main Office [address] [facility] [address] [place] [address] 02/12/2019 10:40:10 02/12/2019 11:27:21 Acute asthma 431561317 J45.41 cont inhalers, singulair as dir for now, pt ran out of alb - will refill, and re-rx c medrol dose liban - pt requested this as she precious. it well last month Nausea and vomiting 1692 1999 R11.2 rec consider flat sahil sade or sahil tea - if no better than use prn zofran Cough 12182434 R05 ? d/t early pna vs d/t post nasal drip, see below -- will rx c abx if + trial c tessalon too Seasonal a llergic rhinitis 250603667 J30.2 ? pnd contributi ng to cough seen by bilingual teacher assistant a few yrs ago - used to take allergy shots, never seemed to help as per pt - retry nasal saline and rhinicort (no tolerate flonase as per pt d/t floral scent) c prn tessalon - if no sig help, then consider allergy re-eval [id number] Sandee ely MD Main Office [address] [facility] [address] [place] [address] 11/15/2019 10:37:57 11/15/2019 11:24:08 Pain in left knee 5535995920 21171 M25.562 [employer] check xray for arthritis, no evidence of cartilage injury or ligamentou s problem. Will try PT, enc wt loss, can use otc meds prn, ice/heat as needed. Ortho if not better Pain in le ft lower limb 824499207 M79.605 due to pain in calf will do U/S to assess for DVT [id number] Sandee ely MD [facility] [address] [facility] [address] [place] [address] 11/23/2019 12:39:33 11/23/2019 15:37:04 Benign paroxysmal positional vertigo 193172292 H81.10 Likely positional vertigo, sx similar to [...] or focal sx, unable to control vomiting. [id number] Juan Soliman MD Main Office [address] [facility] [address] [place] [address] 12/25/2019 12:49:55 12/25/2019 13:39:33 Pain in left foot 0801569836 91976 M79.672 ? if triggered by knee issues. WE will xray the food and continue NSAIDs for now. Refer to orthopedis t for the evaluation . [id number] Rojelio Patel MD Telehealt h [address] [facility] [address] [place] [address] 07/03/2020 10:50:33 07/03/2020 11:25:44 Exposure to viral disease 4464462008 17319 Z20.828 Essential hypertension 58994178 I10 BP well controlled , followed by cardiology Heart disease 52390195 I 51.9 s/p stent in July 2017 and repeat cardiac cath in May 2018, followed by Dr. Carranza, on all appropriat e meds and is taking them as directed. f/u cardiology appt in October Hyperlipidemia 14479350 E78.5 cholest done 06/20/18 normal, on atorvastat in. Impaired f asting glycemia 407557263 R73.01 Vaccine ad verse reaction 634285788 T50.Z95A Moderna #1 on 07/01. had N/V, chills, LORENZ and also felt scratchy, itchy throat and like there was something in her throat. Took 2 benadryl and sx resolved but is concerned about getting 2nd vaccine. To her knowledge she has not had covid. Will check bloodwork and refer to allergy for another opinion/ ? should she premedicat e prior to 2nd dose. [id number] Rojelio Patel MD Main Office [address] [facility] [address] [place] [address] 09/16/2020 11:20:32 09/16/2020 12:02:42 Adult health examination 339047070 Z00.00 UTD, has pap appt scheduled. had labs in June, normal except A1C of 5.8 Essential hypertension 64090990 I10 BP well controlled , followed by cardiology , cardiology visit in november. Hyperlipidemia 91622269 E78.5 well controlled on atorvastat in Screening for malignant neoplasm of cervix 231245803 Z12.4 Prediabetes 406568152 R7 3.03 Eruption 025234507 R21 left elbow [id number] Rojelio Patel MD Main Office [address] [facility] [address] [place] [address] 10/07/2020 08:20:35 10/07/2020 09:08:21 Pain in left thumb [id number] 296937 M79.645 Will check XR and refer to ortho Eruption 660664246 R21 left elbow [id number] Juan Soliman MD [address] [place] [address] 04/03/2021 06:49:09 04/03/2021 12:46:24 Exposure to viral disease [id number] 84853 Z03.818 Exacerbati on of mild persistent asthma 572364667 J45.31 [id number] Rojelio Patel MD Main Office [address] [address] [place] [address] 09/22/2021 12:52:28 09/22/2021 13:34:32 Adult health examination 713235166 Z00.00 UTD, due for colo in february. will update labs Asthma 011441001 J45.90 9 requests refills Essential hypertension 03729258 I10 BP well controlled , followed by cardiology , cardiology visit in november. Hyperlipidemia 64785942 E78.5 well controlled on atorvastat in Prediabetes 319098054 R7 3.03 Fatigue 09049616 R53.83 Body mass index 40+ - severely obese 690574545 Z68.42 Morbid obesity 556915256 E66.01 [id number] Rojelio Patel MD [address] [place] [address] 05/27/2022 10:35:41 05/27/2022 12:55:27 Cough 06567960 R05.9 Upper resp iratory infection 76565400 J06.9 Her symptoms sound like COVID and she will continue testing. [id number] Rojelio Patel MD Main Office [address] [facility] [address] [place] [address] 10/05/2022 08:46:17 10/05/2022 09:35:42 Adult health examination 533871543 Z00.00 HM UTD, due for colo in february. will update labs Asthma 871960815 J45.90 9 requests refills Essential hypertension 00485544 I10 BP well controlled , followed by cardiology , cardiology visit in november. Hyperlipidemia 47625429 E78.5 well controlled on atorvastat in Prediabetes 351970730 R7 3.03 A1C 5.4. dping well Heart disease 76251404 I 51.9 s/p stent in July 2017 and repeat cardiac cath in May 2018, followed by Dr. Carranza, on all appropriat e meds and is taking them as directed. followed by cardiology . Migraine 55963334 G43.90 9 On topamax 25mg am, and 50mg pm, will increase to 50mg BID for 1-2 weeks to see if this helps with headaches. If relief with refill at 50mg BID. She will scheduled neuro appt if needed. Has rizatripta n and fioricet to use as needed. Hydrating well. Screening for malignant neoplasm of colon 352102878 Z12.11 [id number] Rojelio Patel MD Main Office [address] [facility] [address] [place] [address] 05/03/2023 09:50:28 05/03/2023 10:32:46 Skin lesion 47354131 L98.9 Lesion appears benign. No further w/u needed. She will look for a dermatolog ist for her psoriasis and have them look at it. Psoriasis 5598382 L40.9 Chronic. She will check with her insurance to see what providers in the area are taking it. [id number] Rojelio Patel MD Main Office [address] [facility] [address] [place] [address] 08/18/2023 14:35:14 08/18/2023 15:27:53 Thoracic back pain 263672624 M54.6 diagnosed with muscle strain. will provide a refill and recommend patient try physical therapy, continue ice or heat whichever feels best, back stretches. Discussed side effects of opiates. Caution driving, careful for falls, fiber supplement if constipati on. Patient understand s. [id number] Rojelio Patel MD Main Office [address] 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 vascular surgery follow-up for further eval. Venous varices 057472852 I83.93 Prediabetes 174217939 R7 3.03 A1C 5.4. doing well Fatigue 34087766 R53.83 Hyperlipidemia 06317389 E78.5 well controlled on atorvastat in [id number] Rojelio Patel MD Main Office [address] 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 due for mammo Overactive urinary bladder 011338025 N32.81 requests refill Asthma 647125617 J45.90 9 requests refills Body mass index 40+ - severely obese 018685183 E66.01 Z68.41 The patient is over 18 [...] for 0.25mg x 4 weeks Essential hypertension 81061370 I10 BP well controlled , followed by cardiology , cardiology visit in november. Hyperlipidemia 60187709 E78.5 well controlled on atorvastat in Migraine 72135242 G43.90 9 On topamax 25mg am, and 50mg pm, will increase to 50mg BID for 1-2 weeks to see if this helps with headaches. If relief with refill at 50mg BID. She will scheduled neuro appt if needed. Has rizatripta n and fioricet to use as needed. Hydrating well. Prediabetes 621270970 R7 3.03 A1C 5.4. doing well Tobacco de pendence syndrome 64411829 F17.200 Screening for malignant neoplasm of breast 386487358 Z12.39 Screening for malignant neoplasm of cervix 922959242 Z12.4 Heart disease 34521281 I 53.9 s/p stent in July 2017 and repeat cardiac cath in May 2018, followed by Dr. Carranza, on all appropriat e meds and is taking them as directed. followed by cardiology . [id number] Rojelio Patel MD Main Office [address] [facility] [address] [place] [address] 01/10/2024 08:22:40 01/10/2024 09:02:56 Body mass index 40+ - severely obese 779835793 E66.01 Z68.41 The patient is over 18 [...] for 0.25mg x 4 weeks Essential hypertension 17602106 I10 BP mildly elevated today, followed by cardiology , cardiology visit in november. Hyperlipidemia 78174850 E78.5 well controlled on atorvastat in Prediabetes 144170205 R7 3.03 A1C 5.8 on wegovy, will recheck Asthma 397427463 J45.90 9 requests refills Eruption 962681471 R21 left elbow Restless legs 07279862 G 25.81 increase to 20mg amitriptyl ine and let me know how that goes. [id number] Rojelio Patel MD Main Office [address] [facility] [address] [place] [address] 02/06/2024 14:58:23 02/06/2024 15:29:48 Pain in left lower limb 211267522 M79.605 -hx of varicose veins-x1 day of noticing a tender bruise on lower extremity with no known injury/tra ray>denies of any swelling, warmth, erythema, fever, or associated symptoms-r ecently saw vascular on 01/18>has US scheduled for lower extremity tomorrow-l ikely related to varicose veins-has f/u with vascular in Feb-will order labwork per pt request [id number] CARIDAD BRITT MD Main Office [address] [facility] [address] [facility] [place] [address] 02/25/2024 10:16:30 02/25/2024 10:48:33 Upper respiratory infection 76225013 J06.9 - rapid flu in the office was negative- performed upper respiratoy panel Community acquired pneumonia 969710509 J18.9 - pt is acutely ill, has [...] for cough - return precaution s given [id number] Rojelio Patel MD Main Office [address] [facility] [address] [facility] [place] [address] 04/03/2024 08:59:12 04/03/2024 09:51:35 Body mass index 40+ - severely obese 806883763 E66.01 Z68.41 The patient is over 18 [...] for 0.25mg x 4 weeks Essential hypertension 20990269 I10 BP mildly elevated today, followed by cardiology , cardiology visit in november. recheck 120/68 Hyperlipidemia 76014679 E78.5 well controlled on atorvastat in Prediabetes 545993785 R7 3.03 A1C 5.8 on wegovy, will recheck Needs infl uenza immunization 270232046 Z23 19 YEARS AND OLDER ONLY Allergic reaction 486432 005 T78.40XD [id number] Rojelio Patel MD Main Office [address] [facility] [address] [facility] [place] [address] 04/17/2024 14:38:07 04/17/2024 15:59:17 Acute upper respiratory infection 53559777 J06.9 FLU A positive. COVID neg at home. Pneumonitis 147340333 J1 8.9 check xray to r/o pneumonia. Acute asthma 450915510 J 45.901 begin prednisone taper and continue albuterol by nebulizer at home q 4 -6 hrs. Influenza caused by Influenza A virus 743669200 J09.X2 Positive Flu A. Recom to begin Tamiflu as directed, Mucinex for cough, albuterol by nebulizer q 4- 6 hrs. [id number] Rojelio Patel MD Main Office [address] [facility] [address] [facility] [place] [address] 07/31/2024 12:32:56 07/31/2024 14:22:37 Essential hypertension 28787523 I10 stable on meds. F/u with cardiology . Body mass index 30+ - obesity 762277198 Z68.33 E66.811 Patient has lost approximat kvng 36 lbs since September of 2023 with Wegovy and consistent physical activity (walking daily at work) and improved dietary habits.Cur rently her insurance prefers Zepbound. WE will switch to 5 mg weekly dose for 4 weeks, then progress every 4 weeks to max dose. F/u 2-3 m. Prediabetes 849811837 R7 3.03 Pt has good control of her blood sugars- last A1C in 4.25 is 5.5 within normal limits. Mild inter mittent asthma 074975505 J45.20 stable , rescue prn. Health Concerns Section Related Observation LastModified by Organization Detai ls LastModified Time None Recorded Concern Status LastModified by Organization Details LastModified Time None Recorded Advance Directives Directive Y: HCP at [facility] 05/30/18 Payers Insurance Date Sequence Insurance Name Policy Number Policy Rhodes Covered Member ID Rhodes Member ID Guarantor Name 05/03/2023 1 YA Rashid Grimes [id number] Fatimah Rashid Grimes 05/03/2023 3 [place] [id number] [facility] Fatimah Rashid Grimes [id number] Fatimah Grimes 08/10/2024 1 [facility] [employer] - DIRECT CONNECTORCARE TYPE I (HMO) [id number] Fatimah Cageonnor [id number] Fatimah Rashid Grimes 05/03/2023 3 YA Cageonnor [id number] Fatimah Rashid Grimes 05/03/2023 1 [facility] - MEDICAID ESSENTIAL (MEDICAID HMO) [id number] Fatimah Cageonnor [id number] Fatimah Grimes 05/03/2023 1 [place] [facility] Fatimah Grimes [id number] Fatimah Grimes Notes Date Note Type Note Provider Name and Address Organization Details Recorded Time 02/06/20 24 text/htm kym Sheridan is a 53yr old F who presents [...] fever, or associated symptoms. DILAN CORTEZ [address] [address], [place], [address], [facility] 02/06/2024 15:43:14 02/25/20 24 text/htm l CoughReported bypatient.Severity:moderate Duration:started one week ago Context:smoker;history of asthma Modifying Factors:OTC medication; inhaler Associated Symptoms:no fever; no heartburn; no edema; no agitation; no post nasal drip;chills;chest pain;vomiting;wheezingUpper Respiratory SymptomsReported bypatient.Location:chest Quality:dry cough Severity:moderate Duration:one week Onset/Timing:sudden Context:sick contact;smoker;allergies Modifying Factors:OTC medication Associated Symptoms:chest pain;shortness of breath;wheezing;fatigue;morni ng cough;vomiting; all associated with the cough Fatimah [...] using Robitussin. Denies fevers, positive for chills. CARIDAD BRITT MD [address] [address], [place], [address], [facility] 02/26/2024 12:03:50 04/03/19 25 text/htm l Generic HPI TemplateReported bypatient.Notes:Presents for weight check, doing well on 2.4mg wegovy, has lost 5lbs since last visit, some constipation, takes senna and MOM as needed, that works wellWalks a lot at work. can't eat greasy foods and is not hungry. 05/11 having surgery left leg, vein removal. ALEXI Jane [address] [address], [place], [address], [facility] 04/03/2024 12:00:55 04/17/19 25 text/htm l 54 year year old asthmatic female , smoker, c/o 3 day onset of what started with sore throat. Now has productive cough, fatigue, shortness of breath and wheezing and sinus congestion. Uses albuterol by nebulizer and took robitussin for cough with minimal relief. Tested neg for COVID 19 this morning. Received flu vaccine only 10 days ago. Arcadio Murrieta PA-C [address] [address], [place], [address], [facility] 04/17/2024 16:02:44 08/01/19 25 text/htm l Hypertension F/UReported bypatient.Associated Symptoms:no dizziness; no lightheadedness; no chest pain; no shortness of breath; no palpitations; no edema Lifestyle:exercises times/week Medications:taking medications as directed; no side effects from medicationObesityReported bypatient.Diagnosis Summary:age at start of weight gain 21; diagnosis: obesity; additional diagnosis: hypertension Context:no inhaled steroids;oral steroids Associated Symptoms:no depression; no Prader-Willi Syndrome; no hypothyroidism; asthma Co-morbidities:no new co-morbidities since last visit Lifestyle changes:no changes in living situation; losing weight Nutrition:pt eats twice a day, doesn't follow a particluar diet, includes eggs, [employer] dinner (sandwich and soup) Physical Activity:reported frequency of moderate level of physical activity per week: >4 days; Pt works in her feet, 11, 000- 15, 000 steps a day Patient presents for diabetes medication adjustment. 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 She reports eating twice daily and does not follow a specific diet, though she includes eggs in the morning per pharmacy recommendation to increase protein intake. [employer] dinner (sandwich and soup) at her job. She reports ongoing fatigue, which she attributes to her long workdays (6 AM to 10 PM). She drinks two cups of coffee daily, as previously reviewed by cardiology. A prior home sleep study was inconclusive. She had planned to undergo an in-lab sleep study, but it was delayed due to the COVID-19 pandemic. She has an upcoming appointment with a neurologist for further evaluation. Arcadio Murrieta PA-C [address] [address], [place], [address], [facility] 07/31/2024 15:21:16 OBGyn Episode No OBEpisode recorded.
== END 2024-10-09 09:31 | disposition home or self-care (01) ==
LOC: HO.HSMS 08:42
PROVIDERS: PCP Registered Nurse; Visit Provider Nurse Practitioner Family
DX: G43.109 Migraine with aura, not intractable, without status migrainosus (principal); G25.81 Restless legs syndrome; R20.0 Anesthesia of skin; R20.2 Paresthesia of skin; I83.93 Asymptomatic varicose veins of bilateral lower extremities
CPT/HCPCS: 99214